=== PATIENT | male | born 1970 | race Caucasian/White ===

== ENCOUNTER 2021-05-11 19:39 | Emergency (ER) | payer BC, SELFPAY ==
--- NOTE | ~2021-05-11 | XR_ITS ---
EXAMINATION: XR CHEST CLINICAL INFORMATION: Shortness of breath. COMPARISON: Multiple priors. Most recent chest radiograph dated from 04/14/2018. TECHNIQUE: PA view of the chest was obtained. FINDINGS: Low lung volumes with mild subsegmental atelectasis. No focal airspace opacities, pleural effusions or pneumothorax. Normal appearance of the cardiomediastinal silhouette. Right upper quadrant surgical clips. No acute osseous abnormalities. XR/XR chest 1V IMPRESSION: No acute cardiopulmonary findings.
[2021-05-11 20:33] VITALS: BP 140/82; PULSE 98; RESP 16; TEMP 37.6; O2SAT 99; BMI 28.3
--- NOTE | 2021-05-11 20:43 | ECG_ITS ---
Test Reason : SOB Blood Pressure : / mmHG Vent. Rate : 083 BPM Atrial Rate : 083 BPM P-R Int : 154 ms QRS Dur : 094 ms QT Int : 388 ms P-R-T Axes : 013 -23 -05 degrees QTc Int : 455 ms Normal sinus rhythm Incomplete right bundle branch block Borderline ECG When compared with ECG of 14-APR-2018 20:46, No significant change was found Referred By: Generic ED Physician Electronically Signed By:JUAN M NSES MD
[2021-05-11 21:28] LABS: Hematocrit 41.1 % (42.0-52.0); Lymphocytes Absolute Auto 1.2 X10*3/uL (1.2-4.9); Monocytes Absolute Auto 0.4 X10*3/uL (0.1-1.2); Monocytes Percent Auto 9.6 % (2-11); PLT CLUMP 1; Red Cell Distribution Width 12.7 % (11.0-16.0); SCAN SMEAR FLAG 1
[2021-05-11 21:29] VITALS: BP 146/95; PULSE 93; RESP 18; TEMP 37; O2SAT 97
[2021-05-11 21:30] LABS: Basophils Percent Auto 0.2 % (0-2); Eosinophils Percent Auto 0.2 % (0-4); Hemoglobin 14.1 g/dl (14.0-18.0); Imm Gran Abs Auto 0.01 X10*3/uL (0.00-0.03); Imm Gran Pct Auto 0.2 % (0.0-0.4); Lymphocytes Percent Auto 25.9 % (20-40); MANUAL DIFF FLAG SCAN; Mean Corpuscular HGB Conc 34.3 g/dl (31.0-36.0); Mean Corpuscular Hemoglobin 31.5 pg (27.0-33.0); Mean Corpuscular Volume 91.7 fL (80.0-98.0); Mean Platelet Volume 10.2 fL (9.4-12.4); Neutrophils Absolute Auto 2.9 x10*3/uL (2.0-8.3); Neutrophils Percent Auto 63.9 % (45-73); Red Blood Count 4.48 X10*6/uL (4.60-5.80)
[2021-05-11 21:31] LABS: Platelet Count 136 X10*3/uL (160-400); White Blood Count 4.6 X10*3/uL (4.8-10.8)
[2021-05-11 21:43] LABS: Anion Gap 14 (12-20); Blood Urea Nitrogen 13 mg/dL (9-16); Calcium 8.6 mg/dL (8.4-10.2); Carbon Dioxide 25 mmol/L (22-29); Chloride 102 mmol/L (96-108); Creatinine Clr Calc Pharmacy 83.7; Estimated Glomerular Filt Rate > 60; Glucose Random 97 mg/dL (60-115); Potassium 3.8 mmol/L (3.3-5.1); Sodium 137 mmol/L (135-145)
[2021-05-11 21:51] LABS: B Type Natriuretic Peptide < 10 pg/mL (<100); Troponin-I High Sensitivity 5.2 ng/L (<3.5-35.0)
[2021-05-11 22:04] LABS: SLIDE REVIEW VERIFIED
--- NOTE | 2021-05-11 23:24 | ED_ITS ---
HPI - SOB/Dyspnea General Chief Complaint: Dyspnea Stated Complaint: covid+ - diff breathing Time Seen by Provider: 05/11/21 23:16 History of Present Illness HPI Narrative: Patient is 50 years old positive COVID. Positive upper respiratory symptoms for the last 10 days. Positive generalized malaise. Previous history of coronary artery disease history of hypertension history of hypercholesterolemia. Patient vaccinated x2. Patient from home. Still feeling short of breath. Still coughing insert present to the emergency department. Related Data Home Medications Medication Instructions Recorded Confirmed aspirin 81 mg tablet,delayed 81 mg PO DAILY 03/30/21 release ([place] Aspirin) atorvastatin 80 mg tablet 80 mg PO DAILY 03/30/21 clopidogrel 75 mg tablet 75 mg PO DAILY 03/30/21 isosorbide mononitrate 30 mg 30 mg PO QAM 03/30/21 tablet,extended release 24 hr lisinopril 40 mg tablet 40 mg PO DAILY 03/30/21 metoprolol succinate 100 mg 100 mg PO DAILY 03/30/21 tablet,extended release 24 hr Allergies Allergy/AdvReac Type Severity Reaction Status Date / Time No Known Allergies Allergy Verified 03/30/21 16:42 Review of Systems Review of Systems: Positive coughing upper respiratory symptoms positive generalized malaise Yes all other systems are reviewed and are negative [facility] Past Medical History Attestation statement: The following information was validated with the patient. Medical History Hypercholesterolemia Hypertension Surgical History Hx of cholecystectomy Social History Social History Housing: House Patient Tobacco Use Status: Former Tobacco user Tobacco use type: Cigarette e-Cigarette/Vaping Use: Never Used Advance Directives: No Advance Directives Information Provided: No Current occupational status: employed Physical Exam Vital Signs: Vital Signs: Last Vital Signs Temp 98.6 F 05/11/21 21:29 Pulse 93 05/11/21 21:29 Resp 18 05/11/21 21:29 BP 146/95 H 05/11/21 21:29 Pulse Ox 97 05/11/21 21:29 BMI result Body Mass Index 28.3 Appearance: Alert. Oriented X3. No acute distress. Eyes: Pupils equal, round and reactive to light. ENT: Pharynx normal. Neck: Normal inspection. Neck supple. No lymph nodes noted. No crepitus CVS: Normal heart rate and rhythm. Pulses normal. Normal S1 and S2 Respiratory: No respiratory distress. Breath sounds normal. No Wheezing. No rales Abdomen: Soft and nontender. No rigidity. No distention. good BS x4 Skin: Skin warm and dry. Normal skin color. Normal skin turgor. Extremities: No lower extremity edema. Neurovascular intact to all extremities. No Lacerations. No Rash Neuro: Oriented X 3. No motor deficit. No sensory deficit. Moving all extermities. No slurred speech MDM - SOB/Dyspnea MDM Narrative Medical decision making narrative: patient's labs are negative. Troponins negative. EKG showed a sinus pattern heart rate is 80 positive partial right bundle branch block. Diffuse T-wave flattening over lateral leads. T-wave inversion over the inferior leads. Patient no distress. Been sick for 10 days. Monoclonal antibody will not be beneficial. Patient's O2 sat 97% on room air. Will discharge patient home. Currently in stable condition. Medical Records Attestation: I reviewed the patient's medical records. Lab Data Attestation: I reviewed the patient's lab results. Result diagrams: 05/11/21 21:20 05/11/21 21:20 Labs: Lab Results 05/11/21 05/11/21 05/11/21 Range/Units 21:20 21:20 21:20 WBC 4.6 L (4.8-10.8) X10*3/uL RBC 4.48 L (4.60-5.80) X10*6/uL Hgb 14.1 (14.0-18.0) g/dl Hct 41.1 L (42.0-52.0) % MCV 91.7 (80.0-98.0) fL MCH 31.5 (27.0-33.0) pg MCHC 34.3 (31.0-36.0) g/dl RDW 12.7 (11.0-16.0) % Plt Count 136 L (160-400) X10*3/uL MPV 10.2 (9.4-12.4) fL Immature Gran % (Auto) 0.2 (0.0-0.4) % Neut % (Auto) 63.9 (45-73) % Lymph % (Auto) 25.9 (20-40) % [place] % (Auto) 9.6 (2-11) % Eos % (Auto) 0.2 (0-4) % Baso % (Auto) 0.2 (0-2) % Lymph # (Auto) 1.2 (1.2-4.9) X10*3/uL [place] # (Auto) 0.4 (0.1-1.2) X10*3/uL Eos # (Auto) 0.0 (0.0-0.4) X10*3/uL Baso # (Auto) 0.0 (0.0-0.2) X10*3/uL Abs Immat Gran (auto) 0.01 (0.00-0.03) X10*3/uL Absolute Neuts (auto) 2.9 (2.0-8.3) x10*3/uL Absolute Nucleated RBC 0.000 (0.0-0.012) X10*3/uL Nucleated RBC % (auto) 0.0 (0.0-0.2) /100WBC Smear Tech's Comments VERIFIED Sodium 137 (135-145) mmol/L Potassium 3.8 (3.3-5.1) mmol/L Chloride 102 (96-108) mmol/L Carbon Dioxide 25 (22-29) mmol/L Anion Gap 14 (12-20) BUN 13 (9-16) mg/dL Creatinine 1.00 (0.5-1.4) mg/dL Estim Creat Clear Calc 83.7 Estimated GFR > 60 Random Glucose 97 (60-115) mg/dL Calcium 8.6 (8.4-10.2) mg/dL Troponin I High Sens 5.2 (<3.5-35.0) ng/L B-Natriuretic Peptide < 10 (<100) pg/mL Discharge Plan Discharge Clinical Impression: COVID-19 Patient Disposition: Home, Self-Care Instructions: COVID-19 (Coronavirus Disease 2019) (ED) Referrals: Daniel Salinas MD [Primary Care Provider] - 2 days ( Please remain at home quarantine until all symptom has resolved for at least 2 days.)
== END 2021-05-11 23:44 | disposition home or self-care (01) ==
PROVIDERS: Emergency Provider Emergency Medicine Emergency Medical Services; PCP Internal Medicine
DX: U07.1 COVID-19 (principal); R06.02 Shortness of breath; R53.81 Other malaise
CPT/HCPCS: 36415; 71045; 80048; 83880; 84484; 85025; 93005; 99283; 99284

== ENCOUNTER 2021-07-20 15:06 | Outpatient (REF) | payer BC, SELFPAY ==
[2021-07-20 15:26] LABS: MANUAL DIFF FLAG NO
[2021-07-20 15:51] LABS: Basophils Percent Auto 0.1 % (0-2); Eosinophils Absolute Auto 0.1 X10*3/uL (0.0-0.4); Eosinophils Percent Auto 1.4 % (0-4); Hematocrit 42.8 % (42.0-52.0); Hemoglobin 14.1 g/dl (14.0-18.0); Imm Gran Abs Auto 0.03 X10*3/uL (0.00-0.03); Imm Gran Pct Auto 0.4 % (0.0-0.4); Lymphocytes Absolute Auto 2.1 X10*3/uL (1.2-4.9); Mean Corpuscular HGB Conc 32.9 g/dl (31.0-36.0); Mean Corpuscular Hemoglobin 30.5 pg (27.0-33.0); Mean Corpuscular Volume 92.4 fL (80.0-98.0); Mean Platelet Volume 9.7 fL (9.4-12.4); Monocytes Absolute Auto 0.6 X10*3/uL (0.1-1.2); Monocytes Percent Auto 8.1 % (2-11); Neutrophils Absolute Auto 4.9 x10*3/uL (2.0-8.3); Platelet Count 212 X10*3/uL (160-400); Red Blood Count 4.63 X10*6/uL (4.60-5.80); Red Cell Distribution Width 12.5 % (11.0-16.0); White Blood Count 7.8 X10*3/uL (4.8-10.8)
[2021-07-20 16:15] LABS: Alanine Aminotransferase 42 U/L (0-40); Albumin Level 4.2 g/dL (3.5-5.0); Alkaline Phosphatase 68 U/L (39-117); Anion Gap 10 (12-20); Aspartate Amino Transferase 25 U/L (5-37); Bilirubin Total 1.6 mg/dL (0.0-1.0); Blood Urea Nitrogen 14 mg/dL (9-16); Calcium 9.2 mg/dL (8.4-10.2); Carbon Dioxide 29 mmol/L (22-29); Chloride 104 mmol/L (96-108); Cholesterol 124 mg/dL; Estimated Glomerular Filt Rate > 60; Glucose Fasting 89 mg/dL (60-99); HDL Cholesterol 30 mg/dL; LDL Cholesterol Calculated 71 mg/dl; Potassium 4.2 mmol/L (3.3-5.1); Sodium 139 mmol/L (135-145); Total Protein 7.3 g/dL (6.5-8.0); Triglycerides 115 mg/dL
[2021-07-20 16:37] LABS: TSH reflex Free T4 0.56 uIU/mL (0.32-4.0); Vitamin D 25-OH Total 11.3 ng/mL (>30)
== END 2021-07-20 15:07 | disposition home or self-care (01) ==
LOC: HO.LAB 15:06
PROVIDERS: PCP Internal Medicine; Visit Provider Internal Medicine
DX: E78.00 Pure hypercholesterolemia, unspecified (principal); E55.9 Vitamin D deficiency, unspecified; I10 Essential (primary) hypertension
CPT/HCPCS: 36415; 80053; 80061; 82306; 84443; 85025

== ENCOUNTER → 2021-07-22 10:15 | Outpatient (REF) | payer BC, SELFPAY ==
--- NOTE | 2021-07-22 10:21 | CA_ITS ---
Acquisition Time: 2021-07-22 10:25:52 Total Exercise Time: 00:10:31 Test Indications: HX CAD, SOB Medications: SEE CHART Protocol: NIKITA Max HR: 144 BPM 85% of Pred: 168 BPM Max BP: 140/078 mmHG Max Work Load: 12.5 METS Exercise stress test with exercise 10 min 31 sec of Nikita protocol, without anginal symptoms, without arrythmia, with normotensive response to exercise, without EKG changes meeting criteria for ischemia, with borderline EKG changes on some of the EKG in leads I, V4-V5, then in recovery with slight downslope of ST in leads I, aVL - nonspecific. Test reviewed with Dr Denney. Referred By: Daniel Salinas Overread By: JA GRAHAM
== END ==
LOC: HO.CARD 10:15
PROVIDERS: PCP Internal Medicine; Visit Provider Internal Medicine
DX: I25.10 Atherosclerotic heart disease of native coronary artery without angina pectoris (principal)
CPT/HCPCS: 93017

== ENCOUNTER 2021-07-29 15:14 | Outpatient (REF) | payer BC, SELFPAY ==
[2021-07-29 16:25] LABS: Appearance Urine CLEAR; Color Urine YELLOW; Glucose Urine UA NEG (NEG); Leukocyte Esterase Urine NEG (NEG); Nitrite Urine NEG (NEG); Specific Gravity - Urine <= 1.005 (1.005-1.025); Urine Blood NEG (NEG); Urine Ketones NEG (NEG); Urine Protein NEG (NEG-TRACE)
[2021-07-29 16:34] LABS: Prostate Specific Antigen 0.42 ng/mL (<0.05-4.0)
== END 2021-07-29 15:15 | disposition home or self-care (01) ==
LOC: HO.LAB 15:14
PROVIDERS: PCP Internal Medicine; Visit Provider Internal Medicine
DX: Z12.5 Encounter for screening for malignant neoplasm of prostate (principal); N40.0 Benign prostatic hyperplasia without lower urinary tract symptoms; I10 Essential (primary) hypertension
CPT/HCPCS: 36415; 81003; 84153

== ENCOUNTER 2021-12-09 09:24 | Outpatient (REF) | payer BC, SELFPAY ==
[2021-12-09 09:48] LABS: MANUAL DIFF FLAG NO
[2021-12-09 10:30] LABS: Basophils Percent Auto 0.3 % (0-2); Eosinophils Absolute Auto 0.2 X10*3/uL (0.0-0.4); Eosinophils Percent Auto 2.6 % (0-4); Hematocrit 41.5 % (42.0-52.0); Hemoglobin 14.1 g/dl (14.0-18.0); Imm Gran Abs Auto 0.05 X10*3/uL (0.00-0.03); Imm Gran Pct Auto 0.6 % (0.0-0.4); Lymphocytes Absolute Auto 2.4 X10*3/uL (1.2-4.9); Lymphocytes Percent Auto 30.7 % (20-40); Mean Corpuscular Hemoglobin 31.2 pg (27.0-33.0); Mean Corpuscular Volume 91.8 fL (80.0-98.0); Mean Platelet Volume 10.5 fL (9.4-12.4); Monocytes Absolute Auto 0.7 X10*3/uL (0.1-1.2); Monocytes Percent Auto 8.5 % (2-11); Neutrophils Absolute Auto 4.4 x10*3/uL (2.0-8.3); Neutrophils Percent Auto 57.3 % (45-73); Platelet Count 223 X10*3/uL (160-400); Red Blood Count 4.52 X10*6/uL (4.60-5.80); Red Cell Distribution Width 12.3 % (11.0-16.0); White Blood Count 7.7 X10*3/uL (4.8-10.8)
[2021-12-09 11:11] LABS: Alanine Aminotransferase 40 U/L (0-40); Alkaline Phosphatase 71 U/L (39-117); Anion Gap 12 (12-20); Aspartate Amino Transferase 26 U/L (5-37); Bilirubin Total 1.4 mg/dL (0.0-1.0); Blood Urea Nitrogen 13 mg/dL (9-16); Calcium 8.5 mg/dL (8.4-10.2); Carbon Dioxide 24 mmol/L (22-29); Chloride 106 mmol/L (96-108); Cholesterol 115 mg/dL; Estimated Glomerular Filt Rate > 60; Glucose Fasting 102 mg/dL (60-99); HDL Cholesterol 29 mg/dL; LDL Cholesterol Calculated 68 mg/dl; Potassium 4.3 mmol/L (3.3-5.1); Sodium 138 mmol/L (135-145); Total Protein 6.9 g/dL (6.5-8.0); Triglycerides 90 mg/dL
[2021-12-09 11:16] LABS: Vitamin D 25-OH Total 39.6 ng/mL (>30)
== END 2021-12-09 09:25 | disposition home or self-care (01) ==
LOC: HO.LAB 09:24
PROVIDERS: PCP Internal Medicine; Visit Provider Internal Medicine
DX: E55.9 Vitamin D deficiency, unspecified (principal); E78.00 Pure hypercholesterolemia, unspecified; I10 Essential (primary) hypertension
CPT/HCPCS: 36415; 80053; 80061; 82306; 85025

== ENCOUNTER 2022-04-12 08:50 | Outpatient (REF) | payer BC, SELFPAY ==
[2022-04-12 09:10] LABS: MANUAL DIFF FLAG NO
[2022-04-12 09:19] LABS: Basophils Percent Auto 0.4 % (0-2); Eosinophils Absolute Auto 0.2 X10*3/uL (0.0-0.4); Eosinophils Percent Auto 2.8 % (0-4); Hematocrit 42.8 % (42.0-52.0); Hemoglobin 14.2 g/dl (14.0-18.0); Imm Gran Abs Auto 0.03 X10*3/uL (0.00-0.03); Imm Gran Pct Auto 0.4 % (0.0-0.4); Lymphocytes Absolute Auto 2.2 X10*3/uL (1.2-4.9); Lymphocytes Percent Auto 26.7 % (20-40); Mean Corpuscular HGB Conc 33.2 g/dl (31.0-36.0); Mean Corpuscular Hemoglobin 30.7 pg (27.0-33.0); Mean Corpuscular Volume 92.4 fL (80.0-98.0); Mean Platelet Volume 9.6 fL (9.4-12.4); Monocytes Absolute Auto 0.7 X10*3/uL (0.1-1.2); Monocytes Percent Auto 7.9 % (2-11); Neutrophils Absolute Auto 5.1 x10*3/uL (2.0-8.3); Neutrophils Percent Auto 61.8 % (45-73); Platelet Count 203 X10*3/uL (160-400); Red Blood Count 4.63 X10*6/uL (4.60-5.80); Red Cell Distribution Width 12.4 % (11.0-16.0); White Blood Count 8.2 X10*3/uL (4.8-10.8)
[2022-04-12 11:45] LABS: Alanine Aminotransferase 45 U/L (0-40); Albumin Level 3.9 g/dL (3.5-5.0); Alkaline Phosphatase 82 U/L (39-117); Anion Gap 13 (12-20); Aspartate Amino Transferase 24 U/L (5-37); Bilirubin Total 1.5 mg/dL (0.0-1.0); Blood Urea Nitrogen 13 mg/dL (9-16); Calcium 8.8 mg/dL (8.4-10.2); Carbon Dioxide 27 mmol/L (22-29); Chloride 105 mmol/L (96-108); Cholesterol 125 mg/dL; Estimated Glomerular Filt Rate > 60; Glucose Fasting 119 mg/dL (60-99); HDL Cholesterol 33 mg/dL; LDL Cholesterol Calculated 67 mg/dl; Potassium 4.5 mmol/L (3.3-5.1); Sodium 140 mmol/L (135-145); TSH reflex Free T4 0.69 uIU/mL (0.32-4.0); Triglycerides 126 mg/dL; Vitamin D 25-OH Total 39.6 ng/mL (>30)
== END 2022-04-12 08:51 | disposition home or self-care (01) ==
LOC: HO.LAB 08:50
PROVIDERS: PCP Internal Medicine; Visit Provider Internal Medicine
DX: E55.9 Vitamin D deficiency, unspecified (principal); I10 Essential (primary) hypertension; E78.00 Pure hypercholesterolemia, unspecified
CPT/HCPCS: 36415; 80053; 80061; 82306; 84443; 85025

== ENCOUNTER 2022-10-25 12:07 | Outpatient (REF) | payer BC, SELFPAY ==
[2022-10-25 12:23] LABS: MANUAL DIFF FLAG NO
[2022-10-25 14:07] LABS: Basophils Percent Auto 0.3 % (0-2); Eosinophils Absolute Auto 0.2 X10*3/uL (0.0-0.4); Eosinophils Percent Auto 2.1 % (0-4); Hematocrit 43.3 % (42.0-52.0); Hemoglobin 14.2 g/dl (14.0-18.0); Imm Gran Abs Auto 0.03 X10*3/uL (0.00-0.03); Imm Gran Pct Auto 0.4 % (0.0-0.4); Lymphocytes Absolute Auto 2.3 X10*3/uL (1.2-4.9); Lymphocytes Percent Auto 29.7 % (20-40); Mean Corpuscular HGB Conc 32.8 g/dl (31.0-36.0); Mean Corpuscular Hemoglobin 30.2 pg (27.0-33.0); Mean Corpuscular Volume 92.1 fL (80.0-98.0); Mean Platelet Volume 10.3 fL (9.4-12.4); Monocytes Absolute Auto 0.7 X10*3/uL (0.1-1.2); Monocytes Percent Auto 8.8 % (2-11); Neutrophils Absolute Auto 4.5 x10*3/uL (2.0-8.3); Neutrophils Percent Auto 58.7 % (45-73); Platelet Count 244 X10*3/uL (160-400); Red Cell Distribution Width 12.2 % (11.0-16.0); White Blood Count 7.7 X10*3/uL (4.8-10.8)
[2022-10-25 14:31] LABS: Estimated Average Glucose 128 mg/dL; Hemoglobin A1c % 6.1 %
[2022-10-25 14:51] LABS: Alanine Aminotransferase 37 U/L (0-40); Albumin Level 3.9 g/dL (3.5-5.0); Alkaline Phosphatase 71 U/L (39-117); Anion Gap 12 (12-20); Aspartate Amino Transferase 22 U/L (5-37); Bilirubin Total 1.3 mg/dL (0.0-1.0); Blood Urea Nitrogen 14 mg/dL (9-16); Calcium 9.1 mg/dL (8.4-10.2); Carbon Dioxide 29 mmol/L (22-29); Chloride 105 mmol/L (96-108); Cholesterol 110 mg/dL; Estimated Glomerular Filt Rate > 60; Glucose Fasting 96 mg/dL (60-99); HDL Cholesterol 26 mg/dL; LDL Cholesterol Calculated 68 mg/dl; Potassium 4.4 mmol/L (3.3-5.1); Sodium 142 mmol/L (135-145); Total Protein 6.9 g/dL (6.5-8.0); Triglycerides 82 mg/dL
[2022-10-25 15:01] LABS: TSH reflex Free T4 0.83 uIU/mL (0.32-4.0); Vitamin D 25-OH Total 44.1 ng/mL (>30)
== END 2022-10-25 12:08 | disposition home or self-care (01) ==
LOC: HO.LAB 12:07
PROVIDERS: PCP Internal Medicine; Visit Provider Internal Medicine
DX: I10 Essential (primary) hypertension (principal); E55.9 Vitamin D deficiency, unspecified; E78.00 Pure hypercholesterolemia, unspecified; R73.01 Impaired fasting glucose
CPT/HCPCS: 36415; 80053; 80061; 82306; 83036; 84443; 85025

== ENCOUNTER 2022-11-03 09:20 | Outpatient (REF) | payer BC, SELFPAY ==
[2022-11-03 09:32] LABS: Appearance Urine Clear; Color Urine Yellow; Glucose Urine UA Negative (Negative); Leukocyte Esterase Urine Negative (Negative); Nitrite Urine Negative (Negative); PH 6.5 (5.0-9.0); Specific Gravity - Urine 1.015 (1.005-1.025); Urine Blood Negative (Negative); Urine Ketones Negative (Negative); Urine Protein Negative (Neg-Trace)
== END 2022-11-03 09:21 | disposition home or self-care (01) ==
LOC: HO.LNP 09:20
PROVIDERS: Visit Provider Internal Medicine
DX: R30.0 Dysuria (principal)
CPT/HCPCS: 81003

== ENCOUNTER 2022-11-03 14:58 | Emergency (ER) | payer BC, SELFPAY ==
--- NOTE | ~2022-11-03 | CT_ITS ---
EXAMINATION: CT ABDOMEN AND PELVIS WITHOUT CONTRAST CLINICAL INFORMATION: Right flank COMPARISON: CT abdomen from 08/02/2016, ultrasound renal from 02/01/2017 TECHNIQUE: Multidetector volumetric imaging was performed from the superior aspect of the liver through the pubic symphysis. Sagittal and coronal reformatted images were obtained on the technologist's workstation. This CT examination was performed using dose optimization techniques as appropriate, variously including the following: *Automated exposure control *Adjustment of mA and/or kV according to patient size (this includes techniques or standardized protocols for targeted exams where dose is matched to indication/reason for exam; i.e. extremities or head) *Use of iterative reconstruction technique DLP: 525 mGy-cm FINDINGS: LUNG BASES: The visualized lung bases are unremarkable. LIVER, GALLBLADDER, AND BILIARY TREE: The liver is normal in size, shape, and attenuation. No focal hepatic lesion or biliary ductal dilatation is present. The gallbladder is surgically absent. PANCREAS: Unremarkable. SPLEEN: Unremarkable. 6 mm splenule. ADRENAL GLANDS: Redemonstration of nodule involving the medial limb of the right adrenal gland measuring up to 2.4, stable. Left adrenal gland is unremarkable. Cm KIDNEYS AND URETERS: The kidneys are normal in size, shape, and attenuation. No hydronephrosis, hydroureter, or calculi seen. No perinephric stranding. BLADDER: Unremarkable. GASTROINTESTINAL TRACT: The small and large bowel are unremarkable. The appendix is unremarkable. ABDOMINAL WALL: No significant hernia is appreciated. LYMPH NODES: Mildly prominent though nonenlarged bilateral inguinal lymph nodes are noted. VASCULAR: Unremarkable. PELVIC VISCERA: Prostate measures up to 3.8 cm with calcifications within its body. OSSEOUS STRUCTURES: Unremarkable. CT/CT abdomen pelvis wo IV con IMPRESSION: 1. No acute pathology involving the abdomen or pelvis. 2. Stable right adrenal gland nodule. 3. Status post cholecystectomy. 4. Mildly prominent though nonenlarged bilateral inguinal lymph nodes are noted, nonspecific.
[2022-11-03 15:02] VITALS: BP 150/99; PULSE 89; RESP 16; TEMP 36.1; O2SAT 95; BMI 30.6
--- NOTE | 2022-11-03 15:05 | ED_ITS ---
HPI - General Adult General Chief complaint: General Medical Stated complaint: R side pain Time Seen by Provider: 11/03/22 19:09 Source: patient and family Mode of arrival: ambulatory Limitations: no limitations History of Present Illness HPI narrative: 52-year-old male presents the emergency department with 3 days of flank pain. He denies any urinary symptoms dysuria frequency he denies fevers chills he has never had a kidney stone in the past denies any previous surgeries patient advised any falls or injuries he complained with to this 3 days ago her urine was dropped off this morning is unremarkable he was seen in triage and labs were sent. Patient also had a CT scan done. Related Data Home Medications Medication Instructions Recorded Confirmed aspirin 81 mg tablet,delayed 81 mg PO DAILY 03/30/21 10/31/22 release ([place] Aspirin) atorvastatin 80 mg tablet 80 mg PO DAILY 03/30/21 10/31/22 clopidogrel 75 mg tablet 75 mg PO DAILY 03/30/21 10/31/22 lisinopril 40 mg tablet 40 mg PO DAILY 03/30/21 10/31/22 metoprolol succinate 100 mg 100 mg PO DAILY 03/30/21 10/31/22 tablet,extended release 24 hr amlodipine 5 mg tablet 5 mg PO DAILY 10/31/22 10/31/22 Previous Rx's Medication Instructions Recorded cholecalciferol (vitamin D3) 50 50 mcg PO DAILY 90 days #90 caps 07/18/22 mcg (2,000 unit) capsule Allergies Allergy/AdvReac Type Severity Reaction Status Date / Time No Known Allergies Allergy Verified 11/03/22 15:01 Review of Systems Review of Systems: Review of systems: General: Patient denies any fever chills recent illness or falls Musculoskeletal: Denies back pain or body aches or other injuries HEENT: denies headache, runny nose, ear pain Respiratory: denies shortness of breath, cough Cardiovascular: no chest pain or palpitations : denies dysuria, frequency Abdomen: no nausea vomiting denies abdominal pain he does have flank pain Extremities: no swelling, no pain Skin: no diaphoresis Yes all other systems are reviewed and are negative [facility] Past Medical History Medical History (Updated 11/03/22 @ 19:19 by Manuel Gu DO) Benign essential hypertension CAD (coronary artery disease) Elevated LFTs Hypercholesterolemia Hypertension Impaired fasting glucose Obesity (BMI 30-39.9) Pure hypercholesterolemia Vitamin D deficiency Surgical History History of colonoscopy (~02/22/18) Hx of cholecystectomy (~03/2018) Social History Social History Housing: House Alcohol intake: current Alcohol intake frequency: holidays/special occasions o nly Patient Tobacco Use Status: Former Tobacco user Tobacco use type: Cigarette e-Cigarette/Vaping Use: Never Used Advance Directives: No Advance Directives Information Provided: No Current occupational status: employed Cognitive needs: No Hearing needs: No Vision needs: No Physical Exam ED Vital Signs: Vital Signs - 24 hr 11/03/22 15:02 Temperature 96.9 F Pulse Rate 89 Respiratory Rate 16 Blood Pressure 150/99 H Pulse Oximetry 95 Oxygen Delivery Method Room Air BMI result Body Mass Index 30.6 General: Well-appearing well-nourished in no signs of distress HEENT: Normocephalic atraumatic Neck: No signs of JVD, no masses no tenderness or lymphadenopathy Cardiovascular: Regular rate and rhythm Respiratory: Clear to auscultation bilaterally Abdomen: Soft nontender no masses no CVA tenderness Extremities: Normal pedal pulses no signs of edema Skin: Dry warm no rashes Back: No tenderness full ROM Course Course Course Narrative: A 52-year-old male presents for evaluation of right flank pain. He he reports that this has been ongoing for approximately 1 month. He states his symptoms have been worse for the last week. Plan for labs, dry CT and UA. Medical Decision Making Medical Decision Making [facility] Narrative: Patient right-sided flank pain for past several days pain also moves the right side of the abdomen patient had a CT scan labs are unremarkable patient will be tested his urine this morning no urine done here today but I think that this patient has had symptoms for 3 days and he has no dysuria are frequency. Differential Diagnosis Differential Diagnoses: The differential diagnosis associated with the presentation includes UTI pyelonephritis cholecystitis cholangitis Admission/Observation Consideration of admission/observation: Escalation of care including admission/observation considered Within a CT scan and negative labs I do not think the patient requires admission speed's mostly to his right flank Lab Data [facility] Lab Attestation statement: I reviewed the patient's lab results. Unremarkable labs and urine patient has a little bit elevation of his glucose. LFTs and bilirubin were better than they have in the past. 11/03/22 15:20 11/03/22 15:20 Labs: Lab Results 11/03/22 11/03/22 Range/Units 15:20 15:20 WBC 8.8 (4.8-10.8) X10*3/uL RBC 4.69 (4.60-5.80) X10*6/uL Hgb 14.5 (14.0-18.0) g/dl Hct 43.2 (42.0-52.0) % MCV 92.1 (80.0-98.0) fL MCH 30.9 (27.0-33.0) pg MCHC 33.6 (31.0-36.0) g/dl RDW 12.4 (11.0-16.0) % Plt Count 238 (160-400) X10*3/uL MPV 9.7 (9.4-12.4) fL Immature Gran % (Auto) 0.2 (0.0-0.4) % Neut % (Auto) 65.6 (45-73) % Lymph % (Auto) 25.4 (20-40) % [place] % (Auto) 7.0 (2-11) % Eos % (Auto) 1.6 (0-4) % Baso % (Auto) 0.2 (0-2) % Lymph # (Auto) 2.2 (1.2-4.9) X10*3/uL [place] # (Auto) 0.6 (0.1-1.2) X10*3/uL Eos # (Auto) 0.1 (0.0-0.4) X10*3/uL Baso # (Auto) 0.0 (0.0-0.2) X10*3/uL Abs Immat Gran (auto) 0.02 (0.00-0.03) X10*3/uL Absolute Neuts (auto) 5.8 (2.0-8.3) x10*3/uL Absolute Nucleated RBC 0.000 (0.0-0.012) X10*3/uL Nucleated RBC % (auto) 0.0 (0.0-0.2) /100WBC Sodium 144 (135-145) mmol/L Potassium 4.6 (3.3-5.1) mmol/L Chloride 107 (96-108) mmol/L Carbon Dioxide 27 (22-29) mmol/L Anion Gap 15 (12-20) BUN 16 (9-16) mg/dL Creatinine 1.07 (0.5-1.4) mg/dL Estim Creat Clear Calc 76.6 Estimated GFR > 60 Random Glucose 150 H (60-115) mg/dL Calcium 9.6 (8.4-10.2) mg/dL Total Bilirubin 1.1 H (0.0-1.0) mg/dL AST 27 (5-37) U/L ALT 42 H (0-40) U/L Alkaline Phosphatase 85 (39-117) U/L Total Protein 7.7 (6.5-8.0) g/dL Albumin 4.2 (3.5-5.0) g/dL Lipase 54 (8-78) U/L Independent Interpretation I performed an independent interpretation of an: CT Scan Radiology Impression Discussion of test interpretation with radiology: I have reviewed the radiologist's reading. Radiologist Impression: No acute disease process did relate the Independent Historian Clinical information obtained from an independent historian. History obtained from or confirmed by: Spouse External Record Review External record reviewed: Inpatient record Discharge Plan Discharge Clinical Impression: Right flank pain, Elevated LFTs Patient Disposition: Home, Self-Care Instructions: Abdominal Pain (ED), Flank Pain (ED) Additional Instructions: You were seen today for right-sided flank pain and abdominal pain. You had a CT scan as well as labs did not show any acute abnormalities. Please abstain from alcohol and to follow up with her doctor Please call follow-up with your doctor if you have any other concerns please do not hesitate to come back to emergency department. Prescriptions: No Action cholecalciferol (vitamin D3) 50 mcg (2,000 unit) capsule 50 mcg PO DAILY 90 Days Qty: 90 3RF amlodipine 5 mg tablet 5 mg PO DAILY aspirin [[place] Aspirin] 81 mg tablet,delayed release (DR/EC) 81 mg PO DAILY atorvastatin 80 mg tablet 80 mg PO DAILY clopidogrel 75 mg tablet 75 mg PO DAILY lisinopril 40 mg tablet 40 mg PO DAILY metoprolol succinate 100 mg tablet extended release 24 hr 100 mg PO DAILY
[2022-11-03 15:24] LABS: MANUAL DIFF FLAG NO
[2022-11-03 15:25] LABS: Basophils Percent Auto 0.2 % (0-2); Eosinophils Absolute Auto 0.1 X10*3/uL (0.0-0.4); Eosinophils Percent Auto 1.6 % (0-4); Hematocrit 43.2 % (42.0-52.0); Hemoglobin 14.5 g/dl (14.0-18.0); Imm Gran Abs Auto 0.02 X10*3/uL (0.00-0.03); Imm Gran Pct Auto 0.2 % (0.0-0.4); Lymphocytes Absolute Auto 2.2 X10*3/uL (1.2-4.9); Lymphocytes Percent Auto 25.4 % (20-40); Mean Corpuscular HGB Conc 33.6 g/dl (31.0-36.0); Mean Corpuscular Hemoglobin 30.9 pg (27.0-33.0); Mean Corpuscular Volume 92.1 fL (80.0-98.0); Mean Platelet Volume 9.7 fL (9.4-12.4); Monocytes Absolute Auto 0.6 X10*3/uL (0.1-1.2); Neutrophils Absolute Auto 5.8 x10*3/uL (2.0-8.3); Neutrophils Percent Auto 65.6 % (45-73); Platelet Count 238 X10*3/uL (160-400); Red Blood Count 4.69 X10*6/uL (4.60-5.80); Red Cell Distribution Width 12.4 % (11.0-16.0); White Blood Count 8.8 X10*3/uL (4.8-10.8)
[2022-11-03 15:47] LABS: Alanine Aminotransferase 42 U/L (0-40); Albumin Level 4.2 g/dL (3.5-5.0); Alkaline Phosphatase 85 U/L (39-117); Anion Gap 15 (12-20); Aspartate Amino Transferase 27 U/L (5-37); Bilirubin Total 1.1 mg/dL (0.0-1.0); Blood Urea Nitrogen 16 mg/dL (9-16); Calcium 9.6 mg/dL (8.4-10.2); Carbon Dioxide 27 mmol/L (22-29); Chloride 107 mmol/L (96-108); Creatinine Clr Calc Pharmacy 76.6; Estimated Glomerular Filt Rate > 60; Glucose Random 150 mg/dL (60-115); Lipase 54 U/L (8-78); Potassium 4.6 mmol/L (3.3-5.1); Sodium 144 mmol/L (135-145); Total Protein 7.7 g/dL (6.5-8.0)
[2022-11-03 19:17] VITALS: BP 164/99; PULSE 72; RESP 18; O2SAT 96
[2022-11-03] MEDS: Acetaminophen 325 MG TABLET 650 MG PO (19:26)
== END 2022-11-03 19:31 | disposition home or self-care (01) ==
PROVIDERS: Physician Assistant; Emergency Provider Student in an Organized Health Care Education/Training Program; PCP Internal Medicine
DX: R10.9 Unspecified abdominal pain (principal); R79.89 Other specified abnormal findings of blood chemistry; I10 Essential (primary) hypertension; E78.00 Pure hypercholesterolemia, unspecified; Z79.82 Long term (current) use of aspirin; Z79.02 Long term (current) use of antithrombotics/antiplatelets; Z79.899 Other long term (current) drug therapy
CPT/HCPCS: 36415; 74176; 80053; 83690; 85025; 99283; 99284

== ENCOUNTER 2023-03-13 16:26 | Outpatient (REF) | payer BC, SELFPAY ==
[2023-03-13 16:37] LABS: MANUAL DIFF FLAG NO
[2023-03-13 17:00] LABS: Appearance Urine Clear; Color Urine Yellow; Glucose Urine UA Negative (Negative); Leukocyte Esterase Urine Trace (Negative); Nitrite Urine Negative (Negative); UMIC TRIGGER UACC YES; Urine Blood Negative (Negative); Urine Ketones Trace mg/dL (Negative); Urine Protein Negative (Neg-Trace)
[2023-03-13 17:00] LABS: Basophils Percent Auto 0.4 % (0-2); Eosinophils Absolute Auto 0.2 X10*3/uL (0.0-0.4); Eosinophils Percent Auto 2.2 % (0-4); Hematocrit 42.6 % (42.0-52.0); Hemoglobin 14.4 g/dl (14.0-18.0); Imm Gran Abs Auto 0.01 X10*3/uL (0.00-0.03); Imm Gran Pct Auto 0.1 % (0.0-0.4); Lymphocytes Absolute Auto 1.9 X10*3/uL (1.2-4.9); Lymphocytes Percent Auto 27.4 % (20-40); Mean Corpuscular HGB Conc 33.8 g/dl (31.0-36.0); Mean Corpuscular Hemoglobin 30.7 pg (27.0-33.0); Mean Corpuscular Volume 90.8 fL (80.0-98.0); Mean Platelet Volume 9.8 fL (9.4-12.4); Monocytes Absolute Auto 0.6 X10*3/uL (0.1-1.2); Monocytes Percent Auto 9.1 % (2-11); Neutrophils Absolute Auto 4.2 x10*3/uL (2.0-8.3); Neutrophils Percent Auto 60.8 % (45-73); Platelet Count 230 X10*3/uL (160-400); Red Blood Count 4.69 X10*6/uL (4.60-5.80); Red Cell Distribution Width 12.7 % (11.0-16.0); White Blood Count 6.9 X10*3/uL (4.8-10.8)
[2023-03-13 17:05] LABS: Bacteria Urine None Seen (None Seen); Hyaline Casts Urine 0-2 /LPF (0-2); RBC Urine 0-2 /HPF (0-2); Squamous Epithelial Cell Urine 0-2 /HPF (0-2); WBC Urine 0-5 /HPF (0-5)
[2023-03-13 17:56] LABS: Alanine Aminotransferase 49 U/L (0-40); Albumin Level 4.3 g/dL (3.5-5.0); Alkaline Phosphatase 82 U/L (39-117); Anion Gap 19 (12-20); Aspartate Amino Transferase 32 U/L (5-37); Blood Urea Nitrogen 11 mg/dL (9-16); Calcium 9.6 mg/dL (8.4-10.2); Carbon Dioxide 22 mmol/L (22-29); Chloride 104 mmol/L (96-108); Cholesterol 122 mg/dL (<200); Estimated Glomerular Filt Rate > 60; Glucose Fasting 97 mg/dL (60-99); HDL Cholesterol 27 mg/dL (>40); LDL Cholesterol Calculated 72 mg/dL (<100); Potassium 3.8 mmol/L (3.3-5.1); Sodium 141 mmol/L (135-145); Total Protein 8.3 g/dL (6.5-8.0); Triglycerides 117 mg/dL (<150)
[2023-03-13 18:09] LABS: Prostate Specific Antigen 0.39 ng/mL (<0.05-4.0)
[2023-03-13 18:10] LABS: TSH reflex Free T4 0.71 uIU/mL (0.32-4.0); Vitamin D 25-OH Total 52.5 ng/mL (>30)
== END 2023-03-13 16:27 | disposition home or self-care (01) ==
LOC: HO.LAB 16:26
PROVIDERS: PCP Internal Medicine; Visit Provider Internal Medicine
DX: Z12.5 Encounter for screening for malignant neoplasm of prostate (principal); N40.0 Benign prostatic hyperplasia without lower urinary tract symptoms; I10 Essential (primary) hypertension; E55.9 Vitamin D deficiency, unspecified; E78.00 Pure hypercholesterolemia, unspecified
CPT/HCPCS: 36415; 80053; 80061; 81001; 81003; 82306; 84153; 84443; 85025

== ENCOUNTER 2023-03-27 16:45 | Outpatient (AMB) | payer BC, SELFPAY ==
[2023-03-27 16:51] VITALS: BP 120/82; PULSE 86; O2SAT 97; BMI 30.6
--- NOTE | 2023-03-27 16:51 | A.OFFPC_ITS ---
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: No Accompanied by: Self / Same As Patient Allergies No Known Allergies Allergy (Verified 03/27/23 17:25) Medication List - Last Reconciled 03/27/23 by Daniel Salinas MD amlodipine 5 mg PO DAILY aspirin ([place] Aspirin) 81 mg PO DAILY atorvastatin 80 mg PO DAILY cholecalciferol (vitamin D3) 50 mcg PO DAILY 90 days clopidogrel 75 mg PO DAILY lisinopril 40 mg PO DAILY metoprolol succinate ER 100 mg PO DAILY Tobacco use date assessed: 03/27/23 Dental Screening Dental Screen Date: 03/27/23 Did you have a dental visit in the last 12 months?: Yes Did you have a dental problem in the last 6 months where you did not have access to dental care?: No Was dental information given to patient?: Patient has dentist HPI 4 month f/u HPI Details Patient comes in today for his follow up visit Relates that he came down with COVID early last month and took the Paxlovid Rx that we sent in for him then States that most of his symptoms have since cleared up although he still has some occasional sensation of congestion in the middle of his chest at times Denies any SOB, recurrent cough or chest pains Denies any fever, headaches or dizziness No nausea /vomiting, no abdominal pain No change in bowel habits noted Had his follow up labs done a couple of weeks ago - to discuss his results [facility] Medical History (Updated 03/28/23 @ 03:43 by Daniel Salinas MD) Elevated LFTs Impaired fasting glucose Vitamin D deficiency Obesity (BMI 30-39.9) Benign essential hypertension Pure hypercholesterolemia CAD (coronary artery disease) Surgical History History of colonoscopy (~02/22/18) Hx of cholecystectomy (~03/2018) Social History Housing: House Alcohol intake: current Alcohol intake frequency: holidays/special occasions only Patient Tobacco Use Status: Former Tobacco user Tobacco use type: Cigarette e-Cigarette/Vaping Use: Never Used Current occupational status: employed Cognitive needs: No Hearing needs: No Vision needs: No Questionnaire PHQ-9 Over the last 2 weeks, how often have you been bothered by any of the following problems? 1. Little interest or pleasure in doing things: not at all 2. Feeling down, depressed, or hopeless: not at all 3. Trouble falling or staying asleep, or sleeping too much: not at all 4. Feeling tired or having little energy: not at all 5. Poor appetite or overeating: not at all 6. Feeling bad about yourself - or that you are a failure or have let yourself or your family down: not at all 7. Trouble concentrating on things, such as reading the newspaper or watching television: not at all 8. Moving or speaking so slowly that other people could have noticed. Or the opposite - being so fidgety or restless that you have been moving around a lot more than usual: not at all 9. Thoughts that you would be better off or of hurting yourself in some way: not at all Total score: 0 Depression Screening Interpretation: Negative Depression Screening Done: Yes 63049 - PHQ-9 Billing: Yes Source: Developed by Drs. Rafat Still, Shannon Chance, Foreign Crawford and colleagues, with an educational sharan from [employer]. Thrive Questionnaire Date Thrive assessed: 03/27/23 I am a: Patient What is your living situation today?: I have a steady place to live Within the past 12 months, did the food you bought not last and you didn't have the money to get more?: Never true Within the past 12 months, did you worry whether your food would run out before you got money to buy more?: Never true Do you have trouble paying for medicines?: No Do you have trouble getting transportation to medical appointments?: No Do you have trouble paying your heating and electricity bill?: No Do you have trouble taking care of your child, family member or friend?: No Do you have trouble with day-to-day activities such as bathing, preparing meals, shopping, managing finances, etc.?: No Are you currently unemployed and looking for a job?: No Are you interested in more education?: No Please select the resources that you would like help with: None Currently or been in a relationship where the following occur: no concerns reported AUDIT C Alcohol Use Questionnaire (AUDIT-C) 1. How often do you have a drink containing alcohol?: Monthly or less 2. How many drinks containing alcohol do you have on a typical day when you are drinking?: 1 or 2 3. How often do you have six or more drinks on one occasion?: Never Total Score: 1 Score Reviewed/Action Taken: Yes ROSLYN-7 AMB Questionnaire ROSLYN-7 Date ROSLYN - 7 assessed: 03/27/23 Feeling nervous, anxious, or on edge: 0 = Not at all Not being able to stop or control worryin = Not at all Worrying too much about different things: 0 = Not at all Trouble relaxin = Not at all Being so restless that it is hard to sit still: 0 = Not at all Becoming easily annoyed or irritable: 0 = Not at all Feeling afraid as if something awful might happen: 0 = Not at all Total ROSLYN-7 score (0-4 normal; 5-9 mild; 10-14 moderate; 15-21 severe): 0 Source: Developed by Drs. Rafat Still, Shannon Chance, Foreign Crawford and colleagues, with an educational sharan from [employer]. Review of Systems Const Denies fatigue, Denies fever(s) and Denies headache(s) ENT Denies dysphagia, Denies dizziness, Denies headache(s), Denies odynophagia and Denies sore throat Card Denies chest pain, Denies palpitations and Denies dyspnea Resp Denies cough and Denies dyspnea GI Denies abdominal pain (but reports (+) on & off sensation of fullness over R abd and R flank areas), Denies constipation, Denies dysphagia, Denies heartburn, Denies diarrhea, Denies nausea, Denies odynophagia and Denies vomiting Denies hematuria, Denies dysuria, Denies nocturia and Denies urinary frequency Musc Denies back pain Skin/Breast Denies rash Neuro Denies dizziness and Denies headache(s) Endo Denies fatigue and Denies palpitations Physical exam (Primary Care) Vital Signs: Last Vital Signs Pulse 86 03/27/23 16:51 BP 120/82 03/27/23 16:51 Pulse Ox 97 03/27/23 16:51 Oxygen Delivery Method Room Air 03/27/23 16:51 BMI result Body Mass Index 30.6 Tobacco/Smoking Status: Tobacco use Status Tobacco use date assessed 03/27/23 03/27/23 16:53 Patient Tobacco Use Status Former Tobacco user 03/27/23 16:53 Tobacco use type Cigarette 03/27/23 16:53 e-Cigarette/Vaping Use Never Used 03/27/23 16:53 PHQ-9: PHQ-9 Score PHQ-9: Total score 0 03/27/23 17:35 Depression Screening Interpretation: Negative Thrive Assessment: Date of Thrive Assessment Date Thrive assessed 03/27/23 03/27/23 16:53 Currently or been in a relationship where the following occur: no concerns reported Const General: no acute distress and alert HENMT Ears: TM's normal bilaterally and EAC's normal Throat: Yes posterior oropharynx normal and Yes tonsils normal (no TP congestion) Neck Neck: Yes no lymphadenopathy and Yes supple Resp Auscultation: clear to auscultation bilaterally, no rales and no wheezes Cardio Rate: regular rate Rhythm: regular rhythm Heart sounds: no murmurs GI Palpation (GI): Soft to palpation and nontender Auscultation: normal bowel sounds General: No CVA tenderness Back/Spine/Pelvis Back: No CVA tenderness Extrem General: Yes no clubbing, cyanosis or edema Results Reviewed Results Reviewed: Laboratory Tests 03/13/23 03/13/23 16:36 16:44 WBC 6.9 Hgb 14.4 Hct 42.6 Plt Count 230 Sodium 141 Potassium 3.8 Creatinine 0.85 Estimated GFR > 60 Fasting Glucose 97 Calcium 9.6 AST 32 ALT 49 H Triglycerides 117 Cholesterol 122 LDL Cholesterol, Calc 72 HDL Cholesterol 27 L Prostate Specific Ag 0.39 25-OH Vitamin D Total 52.5 TSH 0.71 Ur Specific [place] 1.020 Urine Protein Negative Urine Glucose (UA) Negative Urine Blood Negative Assessment and Plan Assessment & Plan (1) CAD (coronary artery disease): Comment: 03/2018 - NSTEMI; cardiac cath done revealed (+) multivessel disease, with 95% stenosis of the RP LV branch Code(s): I25.10 - Atherosclerotic heart disease of [place] coronary artery without angina pectoris Qualifiers: Associated angina: without angina Coronary Disease-Associated Artery/Lesion type: [place] artery [place] vs. transplanted heart: [place] heart Qualified Code(s): I25.10 - Atherosclerotic heart disease of [place] coronary artery without angina pectoris Plan: S/P NSTEMI in March 2018; cardiac cath done revealed (+) multivessel disease, with 95% stenosis of the RP LV branch Cardiology recommended aggressive medical management as opposed to PCI and patient has been doing well with no recurrence of cardiac symptoms Echocardiogram done on 06/13/2018 revealed normal left ventricular size, thickness and function, no regional wall motion abnormalities and estimated LVEF of 65% Continue dual antiplatelet therapy with Aspirin 81 mg QD and Clopidogrel 75 mg QD Continue Metoprolol ER 100 mg QD and Amlodipine 5 mg QD; was previously on Isosorbide Mononitrate ER 30 mg QD but he requested to have this changed as he felt that this was sapping his libido - cardiology switched him over to Amlodipine recently Follow up with cardiology (Dr. Suresh) as scheduled - is being seen by cardiology every 6 months States that cardiology is planning to do a stress echocardiogram on him sometime soon (2) Pure hypercholesterolemia: Code(s): E78.00 - Pure hypercholesterolemia, unspecified Plan: Results of his labs done a couple of weeks ago reviewed and discussed with patient Reinforced low cholesterol diet Continue Atorvastatin 80 mg QD Will recheck his labs and fasting lipids in 4 months for follow up (3) Benign essential hypertension: Code(s): I10 - Essential (primary) hypertension Plan: Reinforced low sodium diet - goal is systolic BP of 120 mm or less, given his cardiac issues Continue Lisinopril 40 mg QD, Metoprolol ER 100 mg QD and Amlodipine 5 mg QD (4) Elevated LFTs: Code(s): R79.89 - Other specified abnormal findings of blood chemistry Plan: His ALT is again slightly elevated but AST is normal on his recent labs Is most likely due to hepatosteatosis - this was noted on his previous abdominal CT done back in 2017 Reinforced avoidance of alcohol and medications containing Tylenol or acetaminophen Will continue to monitor his LFTs regularly (5) Vitamin D deficiency: Code(s): E55.9 - Vitamin D deficiency, unspecified Plan: Corrected - continue Vitamin D3 2000 units QD (6) Obesity (BMI 30-39.9): Code(s): E66.9 - Obesity, unspecified Plan: Reinforced diet/exercise as tolerated/lose weight Plan Follow up in 4 months Orders: Orders Complete Blood Count Auto Diff 4 Months I10 - Essential (primary) hypertension Lipid Panel 4 Months E78.00 - Pure hypercholesterolemia, unspecified UA CC w/rflx Micro + Cult 4 Months R30.0 - Dysuria Comprehensive [place]. Panel Fast 4 Months E78.00 - Pure hypercholesterolemia, unspecified TSH reflex Free T4 4 Months E78.00 - Pure hypercholesterolemia, unspecified Vitamin D 25-OH Total 4 Months E55.9 - Vitamin D deficiency, unspecified Coding Level of Care Code Est Pt Level 4 (18969) Diagnoses Coronary artery disease involving [place] coronary artery of [place] heart without angina pectoris I25.10 Associated angina: without angina Coronary Disease-Associated Artery/Lesion type: [place] artery [place] vs. transplanted heart: [place] heart Pure hypercholesterolemia E78.00 Benign essential hypertension I10 Elevated LFTs R79.89 Vitamin D deficiency E55.9 Obesity (BMI 30-39.9) E66.9
== END 2023-03-27 17:38 | disposition home or self-care (01) ==
PROVIDERS: PCP Internal Medicine; Visit Provider Internal Medicine
DX: I25.10 Atherosclerotic heart disease of native coronary artery without angina pectoris (principal); E78.00 Pure hypercholesterolemia, unspecified; I10 Essential (primary) hypertension; R79.89 Other specified abnormal findings of blood chemistry; E55.9 Vitamin D deficiency, unspecified
CPT/HCPCS: 99214

== ENCOUNTER 2023-06-05 10:30 | Outpatient (REF) | payer BC, SELFPAY | END 2023-06-05 10:31 | disposition home or self-care (01) | LOC: HO.XRAY 10:30 | PROVIDERS: PCP Internal Medicine; Visit Provider Internal Medicine | DX: M54.50 Low back pain, unspecified (principal) | CPT/HCPCS: 72100 ==

== ENCOUNTER 2023-06-08 09:01 | Outpatient (AMB) | payer BC, SELFPAY ==
--- NOTE | 2023-06-08 09:10 | A.OFFVIS_ITS ---
Intake Vital Signs 06/08/23 09:14 Height 5 ft 4 in Weight 180 lb BMI 30.9 BP 136/88 Blood Pressure Location Lt brachial Position Sitting Respiration 20 Pulse 77 Pulse Source Pulse Oximeter Pulse Oximetry (%) 99 Oxygen Delivery Method Room Air Intake Visit Reasons: Low back pain, unspecified Allergies No Known Allergies Allergy (Verified 06/08/23 09:09) HPI HPI Comments History of Present Illness Details Adiel is a very pleasant 52 year old male who presents to the office today for evaluation and management of acute lower back pain. Patient reports the pain started approx 1.5 weeks ago. He has some chronic aching lower back pain but this pain is new. He has recently been going to the gym, prior to the pain starting he was using the leg press machine and did feel a sensation in his back. Pain started after this incident though was not sudden onset at the time of the injury. Patient has been taking tylenol, unable to take NSAIDs as he is on plavix. He was not able to get appt with pcp but did have an xray completed. Results of the xray reviewed, as per below. Pain is midline lower back, he experiences sudden sharp shooting pains with certain movements. Also reports significant pain with coughing and sneezing. Denies radiation down either leg. Denies new loss of bowel, bladder or saddle anesthesia. He does report some aching to the front of his thighs. Pain today rated as 4/10. Constant, worse in the mornings and during the day. In terms of muscle damage condition is described as aching, hot, burning, stabbing, sharp, dull. Pain is negatively impacting patient's enjoyment of life, general activity, mood, normal work, recreational activities, relationships people and walking. 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 He states that lifting exacerbates his pain. [facility] Medical History (Updated 06/08/23 @ 09:54 by Leny Pink APRN, UNDERWRITING SUPPORT SPECIALIST) Elevated LFTs Impaired fasting glucose Vitamin D deficiency Obesity (BMI 30-39.9) Benign essential hypertension Pure hypercholesterolemia CAD (coronary artery disease) Surgical History History of colonoscopy (~02/22/18) Hx of cholecystectomy (~03/2018) Social History Housing: House Alcohol intake: current Alcohol intake frequency: holidays/special occasions only Patient Tobacco Use Status: Former Tobacco user Tobacco use type: Cigarette e-Cigarette/Vaping Use: Never Used Current occupational status: employed Cognitive needs: No Hearing needs: No Vision needs: No Review of Systems Const All systems reviewed & are unremarkable except as noted in HPI and below Physical Exam Vital Signs: Last Vital Signs Pulse 77 06/08/23 09:14 Resp 20 06/08/23 09:14 Pulse Ox 99 06/08/23 09:14 Oxygen Delivery Method Room Air 06/08/23 09:14 BMI result Body Mass Index 30.9 General: awake, alert, oriented. Answers questions appropriately. Fully engaged in examination. Skin: warm, dry, intact HEENT: Normocephalic. Hearing intact. Cardiac: External chest normal in appearance. Respiratory: No cough, audible wheezing or stridor. Abdomen: without gross distension. MS: No obvious swelling or deformities. Able to stand on bilateral tiptoes and bilateral heels.? Able to transition from sit to stand using arms to help push up, slow purposeful movements. Ambulates with bilaterally normal heel strike and toe off SLR neg bilaterally. neg clonus strength 5/5 BLE Tenderness over midline lumbar vertebrae and lumbar paraspinal muscles ROM limited secondary to pain, flexion to 45 degrees, extension to 10 degrees. reported pain increase with both. Neurological: Oriented to person, place, time and situation. Thought process intact. No gait abnormalities appreciated. Psychiatric: Appropriate mood and affect. Good judgment and insight. Results Reviewed Results Reviewed: 06/05/2023 XR/XR lumbar spine 2-3V FINDINGS: There are 5 nonrib-bearing lumbar vertebral bodies. Relative straightening of the lumbar lordosis. No spondylolisthesis. Vertebral body heights are maintained. Mild intervertebral disc space narrowing at L5-S1. Atherosclerotic changes of the abdominal aorta. Surgical clips project over the right upper quadrant. IMPRESSION: Mild degenerative disc disease L5-S1. Assessment & Plan Assessment & Plan (1) Lumbar paraspinal muscle spasm: Code(s): M62.830 - Muscle spasm of back (2) Lumbar spondylosis: Code(s): M47.816 - Spondylosis without myelopathy or radiculopathy, lumbar region (3) Acute low back pain with disc symptoms, duration less than 6 weeks: Code(s): M54.50 - Low back pain, unspecified; M51.9 - Unspecified thoracic, thoracolumbar and lumbosacral intervertebral disc disorder Plan Patient presents to the office today for evaluation and management of his acute lower back pain. Unable to take NSAIDs as he is currently taking Plavix. Prednisone 20mg po BID X 5 days Cyclobenzaprine 5mg po TID as needed, patient instructed on cautions for use MRI LS wo Contrast ordered for further evaluation, pain with coughing/sneezing, concern for disc related injury. Patient requests open MRI as he is claustrophobic. Patient has back brace at home, he was advised to use as needed but avoid constant use as this will allow core muscle weakening over time. Light duty work note provided to patient. Plan for PT pending MRI results. All questions and concerns were answered, patient agrees with plan. Follow up after MRI, sooner if needed. Orders: Orders MR lumbar spine wo con Today M47.816 - Spondylosis without myelopathy or radiculopathy, lumbar region, M51.9 - Unspecified thoracic, thoracolumbar and lumbosacral intervertebral disc disorder, M54.50 - Low back pain, unspecified, M62.830 - Muscle spasm of back Medications: New cyclobenzaprine do not drive while taking this medication. may cause drowsiness. No alcohol or other [employer] depressants while taking this medication 5 mg PO TID PRN 30 tabs 0RF muscle spasm prednisone 20 mg PO BID 10 tabs 0RF Coding Level of Care Code New Pt Level 4 (23426) Diagnoses Lumbar paraspinal muscle spasm M62.830 Lumbar spondylosis M47.816 Acute low back pain with disc symptoms, duration less than 6 weeks M54.50; M51.9
[2023-06-08 09:14] VITALS: BP 136/88; PULSE 77; RESP 20; O2SAT 99; BMI 30.9
== END 2023-06-08 09:24 | disposition home or self-care (01) ==
PROVIDERS: PCP Internal Medicine; Referring Provider Internal Medicine; Visit Provider Registered Nurse Emergency
DX: M62.830 Muscle spasm of back (principal); M47.816 Spondylosis without myelopathy or radiculopathy, lumbar region; M54.50 Low back pain, unspecified; M51.9 Unspecified thoracic, thoracolumbar and lumbosacral intervertebral disc disorder
CPT/HCPCS: 99204

== ENCOUNTER → 2023-06-08 09:01 | Outpatient (BNVA) | payer BC, SELFPAY | PROVIDERS: PCP Internal Medicine; Referring Provider Internal Medicine; Visit Provider Registered Nurse Emergency ==

== ENCOUNTER 2023-06-22 18:52 | Outpatient (REF) | payer BC, SELFPAY ==
--- NOTE | ~2023-06-22 | MR_ITS ---
EXAMINATION: MR LUMBAR SPINE WITHOUT CONTRAST CLINICAL INFORMATION: Spondylosis. Left lower extremity pain. COMPARISON: CT abdomen and pelvis 11/03/2022. TECHNIQUE: MRI of the lumbar spine was obtained using routine sequences without contrast. FINDINGS: Alignment is normal. Vertebral heights are preserved. Minimal type I degenerative endplate changes at L5-S1. Bone marrow signal intensity is otherwise normal. There is slight loss of intervertebral disc height and T2 signal intensity at L5-S1 related to disc degeneration. Disc desiccation is visualized at multiple additional levels. The tip of the conus medullaris is located at L1-L2. No mass effect on the conus. Visualized distal cord signal intensity is normal. At L2, L2-L3, and L3-L4 the annular contours are normal. No canal or neuroforaminal compromise at these 3 levels. At L4-L5 there is a small central annular fissure associated with a bulging disc. Bilateral facet degenerative change. No canal stenosis. No mass effect on the traversing or foraminal nerve roots. At L5-S1 there is a bulging disc. No canal stenosis. No mass effect on the traversing or foraminal nerve roots. Limited visualization of the retroperitoneal anatomy reveals no abnormal finding. Psoas and paraspinal muscle groups are symmetric. MR/MR lumbar spine wo con IMPRESSION: There is disc degeneration at the levels of L4-L5 and L5-S1. No canal stenosis. No mass effect on the traversing or foraminal nerve roots.
== END 2023-06-22 18:53 | disposition home or self-care (01) ==
LOC: HO.MRI 18:52
PROVIDERS: PCP Internal Medicine; Visit Provider Registered Nurse Emergency
DX: M47.816 Spondylosis without myelopathy or radiculopathy, lumbar region (principal); M62.830 Muscle spasm of back; M51.9 Unspecified thoracic, thoracolumbar and lumbosacral intervertebral disc disorder
CPT/HCPCS: 72148

== ENCOUNTER 2023-07-06 15:25 | Outpatient (AMB) | payer BC, SELFPAY ==
[2023-07-06 15:48] VITALS: BP 157/86; PULSE 87; RESP 18; O2SAT 98; BMI 30.9
--- NOTE | 2023-07-06 15:48 | MHC.OFFVIS ---
Intake Vital Signs 07/06/23 15:48 Height 5 ft 4 in Weight 180 lb BMI 30.9 BP 157/86 H Blood Pressure Location Lt brachial Position Sitting Respiration 18 Pulse 87 Pulse Source Pulse Oximeter Pulse Oximetry (%) 98 Oxygen Delivery Method Room Air Intake Visit Reasons: MRI Reults - Confirmed Allergies No Known Allergies Allergy (Verified 07/06/23 15:48) HPI HPI Comments History of Present Illness Details Patient presents the office today for follow-up lower back pain and review recent MRI results MRI reviewed with patient, results as per below Patient complains of persistent midline lower back pain, he states that the acute pain he was having with sharp shooting pains has since resolved. The constant 3/10 aching pain persists. He has been suffering with this pain for many years, completed physical therapy in the past, does home exercise program but pain is unchanged. He is unable to take nonsteroidal anti-inflammatory medication due to current use of anticoagulants. No improvement with Tylenol or muscle relaxers. Prior: Adiel is a very pleasant 52 year old male who presents to the office today for evaluation and management of acute lower back pain. Patient reports the pain started approx 1.5 weeks ago. He has some chronic aching lower back pain but this pain is new. He has recently been going to the gym, prior to the pain starting he was using the leg press machine and did feel a sensation in his back. Pain started after this incident though was not sudden onset at the time of the injury. Patient has been taking tylenol, unable to take NSAIDs as he is on plavix. He was not able to get appt with pcp but did have an xray completed. Results of the xray reviewed, as per below. Pain is midline lower back, he experiences sudden sharp shooting pains with certain movements. Also reports significant pain with coughing and sneezing. Denies radiation down either leg. Denies new loss of bowel, bladder or saddle anesthesia. He does report some aching to the front of his thighs. Pain today rated as 4/10. Constant, worse in the mornings and during the day. In terms of muscle damage condition is described as aching, hot, burning, stabbing, sharp, dull. Pain is negatively impacting patient's enjoyment of life, general activity, mood, normal work, recreational activities, relationships people and walking. 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 He states that lifting exacerbates his pain. [facility] Medical History (Updated 06/08/23 @ 09:54 by Leny Pink, CLERK TYPIST, DIESEL PILE HAMMER OPERATOR) Elevated LFTs Impaired fasting glucose Vitamin D deficiency Obesity (BMI 30-39.9) Benign essential hypertension Pure hypercholesterolemia CAD (coronary artery disease) Surgical History History of colonoscopy (~02/22/18) Hx of cholecystectomy (~03/2018) Social History Housing: House Alcohol intake: current Alcohol intake frequency: holidays/special occasions only Patient Tobacco Use Status: Former Tobacco user Tobacco use type: Cigarette e-Cigarette/Vaping Use: Never Used Current occupational status: employed Cognitive needs: No Hearing needs: No Vision needs: No Review of Systems Const All systems reviewed & are unremarkable except as noted in HPI and below Physical Exam Vital Signs: Last Vital Signs Pulse 87 07/06/23 15:48 Resp 18 07/06/23 15:48 BP 157/86 H 07/06/23 15:48 Pulse Ox 98 07/06/23 15:48 Oxygen Delivery Method Room Air 07/06/23 15:48 BMI result Body Mass Index 30.9 General: awake, alert, oriented. Answers questions appropriately. Fully engaged in examination. Skin: warm, dry, intact HEENT: Normocephalic. Hearing intact. Cardiac: External chest normal in appearance. Respiratory: No cough, audible wheezing or stridor. Abdomen: without gross distension. MS: No obvious swelling or deformities. Able to stand on bilateral tiptoes and bilateral heels.? Able to transition from sit to stand unassisted Ambulates with bilaterally normal heel strike and toe off SLR neg bilaterally. neg clonus strength 5/5 BLE Tenderness over midline lumbar vertebrae and lumbar paraspinal muscles Neurological: Oriented to person, place, time and situation. Thought process intact. No gait abnormalities appreciated. Psychiatric: Appropriate mood and affect. Good judgment and insight. Results Reviewed Results Reviewed: 06/22/23 MR/MR lumbar spine wo con TECHNIQUE: MRI of the lumbar spine was obtained using routine sequences without contrast. FINDINGS: Alignment is normal. Vertebral heights are preserved. Minimal type I degenerative endplate changes at L5-S1. Bone marrow signal intensity is otherwise normal. There is slight loss of intervertebral disc height and T2 signal intensity at L5-S1 related to disc degeneration. Disc desiccation is visualized at multiple additional levels. The tip of the conus medullaris is located at L1-L2. No mass effect on the conus. Visualized distal cord signal intensity is normal. At L2, L2-L3, and L3-L4 the annular contours are normal. No canal or neuroforaminal compromise at these 3 levels. At L4-L5 there is a small central annular fissure associated with a bulging disc. Bilateral facet degenerative change. No canal stenosis. No mass effect on the traversing or foraminal nerve roots. At L5-S1 there is a bulging disc. No canal stenosis. No mass effect on the traversing or foraminal nerve roots. Limited visualization of the retroperitoneal anatomy reveals no abnormal finding. Psoas and paraspinal muscle groups are symmetric. IMPRESSION: There is disc degeneration at the levels of L4-L5 and L5-S1. No canal stenosis. No mass effect on the traversing or foraminal nerve roots. 06/05/2023 XR/XR lumbar spine 2-3V FINDINGS: There are 5 nonrib-bearing lumbar vertebral bodies. Relative straightening of the lumbar lordosis. No spondylolisthesis. Vertebral body heights are maintained. Mild intervertebral disc space narrowing at L5-S1. Atherosclerotic changes of the abdominal aorta. Surgical clips project over the right upper quadrant. IMPRESSION: Mild degenerative disc disease L5-S1. Assessment & Plan Assessment & Plan (1) Lumbar paraspinal muscle spasm: Code(s): M62.830 - Muscle spasm of back (2) Lumbar spondylosis: Code(s): M47.816 - Spondylosis without myelopathy or radiculopathy, lumbar region (3) Acute low back pain with disc symptoms, duration less than 6 weeks: Code(s): M54.50 - Low back pain, unspecified; M51.9 - Unspecified thoracic, thoracolumbar and lumbosacral intervertebral disc disorder Plan Patient presents to the office today for follow up lower back pain. Unable to take NSAIDs as he is currently taking Plavix. He has exhausted 6 months of conservative therapy including Tylenol, muscle relaxers, physical therapy and home exercise program. Discussed options for treatment including diagnostic interventional testing, steroid injections, peripheral nerve stimulation with Sprint, RFA and more permanent neuromodulation. Will schedule for diagnostic L3-L4 dorsal ramus L5 medial branch blocks with local anesthetic All questions and concerns were answered, patient agrees with plan. Follow-up after injections, sooner if needed Coding Level of Care Code Est Pt Level 3 (67153) Diagnoses Lumbar paraspinal muscle spasm M62.830 Lumbar spondylosis M47.816 Acute low back pain with disc symptoms, duration less than 6 weeks M54.50; M51.9
== END 2023-07-06 15:55 | disposition home or self-care (01) ==
PROVIDERS: PCP Internal Medicine; Visit Provider Registered Nurse Emergency
DX: M62.830 Muscle spasm of back (principal); M47.816 Spondylosis without myelopathy or radiculopathy, lumbar region; M54.50 Low back pain, unspecified; M51.9 Unspecified thoracic, thoracolumbar and lumbosacral intervertebral disc disorder
CPT/HCPCS: 99213

== ENCOUNTER → 2023-07-06 15:25 | Outpatient (BNVA) | payer BC, SELFPAY | PROVIDERS: PCP Internal Medicine; Visit Provider Registered Nurse Emergency ==

== ENCOUNTER 2023-07-25 08:40 | Outpatient (REF) | payer BC, SELFPAY ==
[2023-07-25 08:59] LABS: MANUAL DIFF FLAG NO
[2023-07-25 09:30] LABS: Basophils Percent Auto 0.3 % (0-2); Eosinophils Absolute Auto 0.1 X10*3/uL (0.0-0.4); Eosinophils Percent Auto 1.7 % (0-4); Hematocrit 40.7 % (42.0-52.0); Imm Gran Abs Auto 0.03 X10*3/uL (0.00-0.03); Imm Gran Pct Auto 0.4 % (0.0-0.4); Lymphocytes Percent Auto 27.1 % (20-40); Mean Corpuscular HGB Conc 34.4 g/dl (31.0-36.0); Mean Corpuscular Hemoglobin 30.9 pg (27.0-33.0); Mean Corpuscular Volume 89.8 fL (80.0-98.0); Monocytes Absolute Auto 0.6 X10*3/uL (0.1-1.2); Monocytes Percent Auto 8.2 % (2-11); Neutrophils Absolute Auto 4.7 x10*3/uL (2.0-8.3); Neutrophils Percent Auto 62.3 % (45-73); Platelet Count 237 X10*3/uL (160-400); Red Blood Count 4.53 X10*6/uL (4.60-5.80); Red Cell Distribution Width 12.4 % (11.0-16.0); White Blood Count 7.5 X10*3/uL (4.8-10.8)
[2023-07-25 09:34] LABS: Appearance Urine Clear; Color Urine Yellow; Glucose Urine UA Negative (Negative); Leukocyte Esterase Urine Negative (Negative); Nitrite Urine Negative (Negative); PH 6.5 (5.0-9.0); Specific Gravity - Urine <= 1.005 (1.005-1.025); Urine Blood Negative (Negative); Urine Ketones Negative (Negative); Urine Protein Negative (Neg-Trace)
[2023-07-25 11:06] LABS: Alanine Aminotransferase 42 U/L (0-40); Albumin Level 4.2 g/dL (3.5-5.0); Alkaline Phosphatase 79 U/L (39-117); Anion Gap 10 (12-20); Aspartate Amino Transferase 21 U/L (5-37); Blood Urea Nitrogen 11 mg/dL (9-16); Calcium 9.2 mg/dL (8.4-10.2); Carbon Dioxide 29 mmol/L (22-29); Chloride 104 mmol/L (96-108); Cholesterol 124 mg/dL (<200); Estimated Glomerular Filt Rate > 60; Glucose Fasting 130 mg/dL (60-99); HDL Cholesterol 35 mg/dL (>40); LDL Cholesterol Calculated 62 mg/dL (<100); Potassium 4.4 mmol/L (3.3-5.1); Sodium 139 mmol/L (135-145); Total Protein 7.6 g/dL (6.5-8.0); Triglycerides 137 mg/dL (<150)
[2023-07-25 11:09] LABS: TSH reflex Free T4 0.65 uIU/mL (0.32-4.0); Vitamin D 25-OH Total 39.2 ng/mL (>30)
== END 2023-07-25 08:41 | disposition home or self-care (01) ==
LOC: HO.LAB 08:40
PROVIDERS: PCP Internal Medicine; Visit Provider Internal Medicine
DX: R30.0 Dysuria (principal); I10 Essential (primary) hypertension; E55.9 Vitamin D deficiency, unspecified; E78.00 Pure hypercholesterolemia, unspecified
CPT/HCPCS: 36415; 80053; 80061; 81003; 82306; 84443; 85025

== ENCOUNTER 2023-07-26 15:01 | Outpatient (AMB) | payer BC, SELFPAY ==
--- NOTE | 2023-07-26 15:05 | MHC.PC.OV ---
Vital Signs 07/26/23 15:06 07/26/23 16:16 Height 5 ft 4 in Weight 178 lb BMI 30.6 BP 146/98 H 140/86 H Blood Pressure Location Lt brachial Lt brachial Position Sitting Sitting Pulse 76 Pulse Source Pulse Oximeter Pulse Oximetry (%) 98 Oxygen Delivery Method Room Air Intake Visit Reasons: CAD, hyperlipidemia Intake Note: Patient is here to follow up on CAD, hyperlipidemia Early Childhood Education Specialist Required: No Allergies No Known Allergies Allergy (Verified 07/26/23 16:12) Medication List - Last Reconciled 07/26/23 by Daniel Salinas MD albuterol sulfate 90 mcg/actuation inhalation amlodipine 7.5 mg PO DAILY aspirin ([place] Aspirin) 81 mg PO DAILY atorvastatin 80 mg PO DAILY cholecalciferol (vitamin D3) 50 mcg PO DAILY 90 days clopidogrel 75 mg PO DAILY cyclobenzaprine 5 mg PO TID PRN lisinopril 40 mg PO DAILY metoprolol succinate ER 100 mg PO DAILY Tobacco use date assessed: 07/26/23 Dental Screening Dental Screen Date: 07/26/23 Did you have a dental visit in the last 12 months?: No Did you have a dental problem in the last 6 months where you did not have access to dental care?: No HPI CAD, hyperlipidemia HPI Details Patient comes in today for his follow up visit States that he feels okay He denies any headaches or dizziness Denies any chest pains, no SOB No nausea/vomiting, no abdominal pain No change in bowel habits noted States that he is still experiencing problems with ED (has been going on for a while now) and would now like to get some Rx to help with this issue as much as possible Had his follow up labs done yesterday - to discuss his results [facility] Medical History Elevated LFTs Impaired fasting glucose Vitamin D deficiency Obesity (BMI 30-39.9) Benign essential hypertension Pure hypercholesterolemia CAD (coronary artery disease) Surgical History (Updated 08/21/23 @ 03:31 by Daniel Salinas MD) Erectile dysfunction History of colonoscopy (~02/22/18) Hx of cholecystectomy (~03/2018) Social History Housing: House Alcohol intake: current Alcohol intake frequency: holidays/special occasions only Patient Tobacco Use Status: Former Tobacco user Tobacco use type: Cigarette e-Cigarette/Vaping Use: Never Used Current occupational status: employed Cognitive needs: No Hearing needs: No Vision needs: No Questionnaire PHQ-9 Over the last 2 weeks, how often have you been bothered by any of the following problems? 1. Little interest or pleasure in doing things: not at all 2. Feeling down, depressed, or hopeless: not at all 3. Trouble falling or staying asleep, or sleeping too much: not at all 4. Feeling tired or having little energy: not at all 5. Poor appetite or overeating: not at all 6. Feeling bad about yourself - or that you are a failure or have let yourself or your family down: not at all 7. Trouble concentrating on things, such as reading the newspaper or watching television: not at all 8. Moving or speaking so slowly that other people could have noticed. Or the opposite - being so fidgety or restless that you have been moving around a lot more than usual: not at all 9. Thoughts that you would be better off or of hurting yourself in some way: not at all Total score: 0 Depression Screening Interpretation: Negative Depression Screening Done: Yes 10673 - PHQ-9 Billing: Yes Source: Developed by Drs. Rafat Still, Shannon Chance, Foreign Crawford and colleagues, with an educational sharan from [employer]. Thrive Questionnaire Date Thrive assessed: 07/26/23 I am a: Patient What is your living situation today?: I have a steady place to live Within the past 12 months, did the food you bought not last and you didn't have the money to get more?: Never true Within the past 12 months, did you worry whether your food would run out before you got money to buy more?: Never true Do you have trouble paying for medicines?: No Do you have trouble getting transportation to medical appointments?: No Do you have trouble paying your heating and electricity bill?: No Do you have trouble taking care of your child, family member or friend?: No Do you have trouble with day-to-day activities such as bathing, preparing meals, shopping, managing finances, etc.?: No Are you currently unemployed and looking for a job?: No Are you interested in more education?: No Please select the resources that you would like help with: None Currently or been in a relationship where the following occur: no concerns reported THRIVE Score: 0 AUDIT C Alcohol Use Questionnaire (AUDIT-C) 1. How often do you have a drink containing alcohol?: Monthly or less 2. How many drinks containing alcohol do you have on a typical day when you are drinking?: 1 or 2 3. How often do you have six or more drinks on one occasion?: Never Total Score: 1 Score Reviewed/Action Taken: Yes ROSLYN-7 AMB Questionnaire ROSLYN-7 Date ROSLYN - 7 assessed: 07/26/23 Source: Developed by Drs. Rafat Still, Shannon Chance, Foreign Crawford and colleagues, with an educational sharan from [employer]. Review of Systems Const Denies chills, Denies fatigue, Denies fever(s) and Denies headache(s) ENT Denies dysphagia, Denies dizziness, Denies otalgia, Denies headache(s), Denies neck pain, Denies odynophagia and Denies sore throat Card Denies chest pain, Denies palpitations and Denies dyspnea Resp Denies cough and Denies dyspnea GI Denies abdominal pain, Denies constipation, Denies dysphagia, Denies heartburn, Denies diarrhea, Denies nausea, Denies odynophagia and Denies vomiting Reports erectile dysfunction, Denies dysuria, Denies nocturia and Denies urinary frequency Musc Reports back pain (on and off over the lower back) and Denies neck pain Skin/Breast Denies rash Neuro Denies dizziness and Denies headache(s) Endo Denies fatigue and Denies palpitations Physical exam (Primary Care) Vital Signs: Last Vital Signs Pulse 76 07/26/23 15:06 BP 140/86 H 07/26/23 16:16 Pulse Ox 98 07/26/23 15:06 Oxygen Delivery Method Room Air 07/26/23 15:06 BMI result Body Mass Index 30.6 Tobacco/Smoking Status: Tobacco use Status Tobacco use date assessed 07/26/23 07/26/23 15:13 Patient Tobacco Use Status Former Tobacco user 07/26/23 15:06 Tobacco use type Cigarette 07/26/23 15:06 e-Cigarette/Vaping Use Never Used 07/26/23 15:06 PHQ-9: PHQ-9 Score PHQ-9: Total score 0 07/26/23 16:17 Depression Screening Interpretation: Negative Thrive Assessment: Date of Thrive Assessment Date Thrive assessed 07/26/23 07/26/23 15:13 Currently or been in a relationship where the following occur: no concerns reported Const General: no acute distress and alert HENMT Ears: TM's normal bilaterally and EAC's normal Throat: Yes posterior oropharynx normal and Yes tonsils normal (no TP congestion) Neck Neck: Yes no lymphadenopathy and Yes supple Thyroid: Thyroid normal Resp Auscultation: clear to auscultation bilaterally, no rales and no wheezes Cardio Rate: regular rate Rhythm: regular rhythm Heart sounds: no murmurs GI Palpation (GI): Soft to palpation and nontender Auscultation: normal bowel sounds General: Yes no CVA tenderness Back/Spine/Pelvis Back: no CVA tenderness Thoracic/Lumbar Spine: lumbar spinal tenderness Skin Rashes: no rashes Extrem General: Yes no clubbing, cyanosis or edema Results Reviewed Results Reviewed: Laboratory Tests 07/25/23 07/25/23 08:57 08:58 WBC 7.5 Hgb 14.0 Hct 40.7 L Plt Count 237 Sodium 139 Potassium 4.4 Creatinine 0.88 Estimated GFR > 60 Fasting Glucose 130 H Calcium 9.2 AST 21 ALT 42 H Triglycerides 137 Cholesterol 124 LDL Cholesterol, Calc 62 25-OH Vitamin D Total 39.2 TSH 0.65 Ur Specific [place] <= 1.005 Urine Protein Negative Urine Glucose (UA) Negative Urine Blood Negative Urine Nitrite Negative Ur Leukocyte Esterase Negative Assessment and Plan Assessment & Plan (1) CAD (coronary artery disease): Comment: 03/2018 - NSTEMI; cardiac cath done revealed (+) multivessel disease, with 95% stenosis of the RP LV branch Code(s): I25.10 - Atherosclerotic heart disease of [place] coronary artery without angina pectoris Qualifiers: Associated angina: without angina Coronary Disease-Associated Artery/Lesion type: [place] artery [place] vs. transplanted heart: [place] heart Qualified Code(s): I25.10 - Atherosclerotic heart disease of [place] coronary artery without angina pectoris Plan: S/P NSTEMI in March 2018; cardiac cath done revealed (+) multivessel disease, with 95% stenosis of the RP LV branch Cardiology recommended aggressive medical management as opposed to PCI and patient has been doing well with no recurrence of cardiac symptoms Echocardiogram done on 06/13/2018 revealed normal left ventricular size, thickness and function, no regional wall motion abnormalities and estimated LVEF of 65% Continue dual antiplatelet therapy with Aspirin 81 mg QD and Clopidogrel 75 mg QD Continue Metoprolol ER 100 mg QD and Amlodipine 5 mg QD; was previously on Isosorbide Mononitrate ER 30 mg QD but he requested to have this changed as he felt that this was sapping his libido - cardiology switched him over to Amlodipine recently Follow up with cardiology (Dr. Suresh) as scheduled - is being seen by cardiology every 6 months States that cardiology is planning to do a stress echocardiogram on him sometime soon (2) Pure hypercholesterolemia: Code(s): E78.00 - Pure hypercholesterolemia, unspecified Plan: Results of his labs done yesterday reviewed and discussed with patient Reinforced low cholesterol diet Continue Atorvastatin 80 mg QD Will recheck his labs and fasting lipids in 4 months for follow up (3) Benign essential hypertension: Code(s): I10 - Essential (primary) hypertension Plan: Reinforced low sodium diet - goal is systolic BP of 120 mm or less, given his cardiac issues Continue Lisinopril 40 mg QD, Metoprolol ER 100 mg QD and Amlodipine 5 mg QD (4) Elevated LFTs: Code(s): R79.89 - Other specified abnormal findings of blood chemistry Plan: His ALT is again slightly elevated but AST is normal on his recent labs Is most likely due to hepatosteatosis - this was noted on his previous abdominal CT done back in 2017 Reinforced avoidance of alcohol and medications containing Tylenol or acetaminophen Will continue to monitor his LFTs regularly (5) Vitamin D deficiency: Code(s): E55.9 - Vitamin D deficiency, unspecified Plan: Corrected - continue Vitamin D3 2000 units QD (6) Erectile dysfunction: Code(s): N52.9 - Male erectile dysfunction, unspecified Qualifiers: Erectile dysfunction type: unspecified Qualified Code(s): N52.9 - Male erectile dysfunction, unspecified Plan: Per request, will start him on Sildenafil 50 mg PRN Patient is cautioned not to take this if his blood pressure is very high and/or is not adequately controlled (7) Lumbar spondylosis: Code(s): M47.816 - Spondylosis without myelopathy or radiculopathy, lumbar region Plan: Reinforced activity and weight-lifting restrictions MRI of the lumbar spine done last month revealed (+) disc degeneration at L4-L5 and L5-S1 but no canal stenosis or nerve root impingements are noted (8) Obesity (BMI 30-39.9): Code(s): E66.9 - Obesity, unspecified Plan: Reinforced diet/exercise as tolerated/lose weight Plan Follow up in 4 months Orders: Orders Complete Blood Count Auto Diff 4 Months D64.9 - Anemia, unspecified [place]. Panel Fast 4 Months E78.00 - Pure hypercholesterolemia, unspecified Lipid Panel 4 Months E78.00 - Pure hypercholesterolemia, unspecified Medications: New sildenafil administer 30 minutes to 4 hours before activity 50 mg PO DAILY PRN 10 tabs 3RF sexual activity Coding Level of Care Code Est Pt Level 4 (35317) Diagnoses Coronary artery disease involving [place] coronary artery of [place] heart without angina pectoris I25.10 Associated angina: without angina Coronary Disease-Associated Artery/Lesion type: [place] artery [place] vs. transplanted heart: [place] heart Pure hypercholesterolemia E78.00 Benign essential hypertension I10 Elevated LFTs R79.89 Vitamin D deficiency E55.9 Erectile dysfunction, unspecified erectile dysfunction type N52.9 Erectile dysfunction type: unspecified Lumbar spondylosis M47.816 Obesity (BMI 30-39.9) E66.9
[2023-07-26 15:06] VITALS: BP 146/98; PULSE 76; O2SAT 98; BMI 30.6
[2023-07-26 16:16] VITALS: BP 140/86
== END 2023-07-26 16:28 | disposition home or self-care (01) ==
PROVIDERS: PCP Internal Medicine; Visit Provider Internal Medicine
DX: I25.10 Atherosclerotic heart disease of native coronary artery without angina pectoris (principal); E66.9 Obesity, unspecified; Z68.30 Body mass index [BMI] 30.0-30.9, adult; E78.00 Pure hypercholesterolemia, unspecified; I10 Essential (primary) hypertension; R79.89 Other specified abnormal findings of blood chemistry; E55.9 Vitamin D deficiency, unspecified; N52.9 Male erectile dysfunction, unspecified; M47.816 Spondylosis without myelopathy or radiculopathy, lumbar region
CPT/HCPCS: 99214

== ENCOUNTER 2023-09-05 06:21 | Outpatient (REF) | payer BC, SELFPAY ==
--- NOTE | ~2023-09-05 | FL_ITS ---
EXAMINATION: XR FLUOROSCOPY WITH IMAGES CLINICAL INFORMATION: Lumbar spondylosis, without myelopathy or radiculopathy. COMPARISON: Lumbar spine radiographs dated 06/05/2023; MRI lumbar spine dated 06/22/2023. TECHNIQUE: Fluoroscopy Supervised By: Dr. Black Tim. Fluoroscopy Time: 0.6 minutes. Cumulative Dose: 9.81 mGy. DAP: 2.09 Gycm2. Images: 6. FINDINGS: The submitted images show injection needles and injected contrast in the vicinity of the bilateral L3-L4, L4-L5 and L5-S1 neural foramina. FL/FL guidance in treatment room IMPRESSION: Intraoperative fluoroscopic guidance is provided during lumbar pain management procedure. Please see the patient's Operative Report for full procedural details.
== END 2023-09-05 06:22 | disposition home or self-care (01) ==
LOC: CF 06:21
PROVIDERS: Visit Provider Anesthesiology
DX: M47.816 Spondylosis without myelopathy or radiculopathy, lumbar region (principal)
CPT/HCPCS: 64493; 64494; J2795; Q9967

== ENCOUNTER 2023-09-05 15:07 | Outpatient (AMB) | payer BC, SELFPAY ==
[2023-09-05 15:07] VITALS: BP 132/60; PULSE 72; RESP 14; O2SAT 96; BMI 30.6
--- NOTE | 2023-09-05 15:07 | A.OFFVIS_ITS ---
Intake Vital Signs 09/05/23 15:07 09/05/23 16:01 Height 5 ft 4 in 5 ft 4 in Weight 178 lb 178 lb BMI 30.6 30.6 BP 132/60 122/70 Blood Pressure Location Rt brachial Rt brachial Position Sitting Sitting Respiration 14 14 Pulse 72 67 Pulse Source Pulse Oximeter Pulse Oximeter Pulse Oximetry (%) 96 96 Oxygen Delivery Method Room Air Room Air Comment Pre-Op Post-Op Intake Visit Reasons: BILATERAL DIAGNOSTIC L3, L4, DRL5 MBB Allergies No Known Allergies Allergy (Verified 07/26/23 16:12) PFSH Medical History (Updated 08/21/23 @ 03:31 by Danile Salinas MD) Elevated LFTs Impaired fasting glucose Vitamin D deficiency Obesity (BMI 30-39.9) Benign essential hypertension Pure hypercholesterolemia CAD (coronary artery disease) Surgical History (Updated 08/21/23 @ 03:31 by Daniel Salinas MD) Erectile dysfunction History of colonoscopy (~02/22/18) Hx of cholecystectomy (~03/2018) Social History Housing: House Alcohol intake: current Alcohol intake frequency: holidays/special occasions only Patient Tobacco Use Status: Former Tobacco user Tobacco use type: Cigarette e-Cigarette/Vaping Use: Never Used Current occupational status: employed Cognitive needs: No Hearing needs: No Vision needs: No Physical Exam Vital Signs: Last Vital Signs Pulse 67 09/05/23 16:01 Resp 14 09/05/23 16:01 BP 122/70 09/05/23 16:01 Pulse Ox 96 09/05/23 16:01 Oxygen Delivery Method Room Air 09/05/23 16:01 BMI result Body Mass Index 30.6 Assessment & Plan Assessment & Plan (1) Lumbar paraspinal muscle spasm: Code(s): M62.830 - Muscle spasm of back Plan: Diagnostic medial branch block L3-L4 does ramus L5 bilateral. Informed consent was explained to the patient. All questions were explained and? answered.? The patient was taken inside the operating room where she was positioned prone on the operating table.? Time-out was performed delineating correct site, side, the nature of the procedure, patient's allergy, preoperative antibiotic if needed.? All operating room staff was participating in OR time-out procedure. The lower back was prepped with ChloraPrep and draped with sterile towels.? Sterilely draped C-arm was brought over the operating field and sq picture of L4-and L5 vertebra and S1 AREA were delineated on the screen.? Point of interest were delineated as connection of superior articular process of L4 and L5 vertebra bilaterally with corresponding transverse processes as well as connection of the sacral alae bilaterally with superior articular process of S1.? The projection of the point of interest to the skin were injected with the small amount of local anesthetic lidocaine 2% 1-1.5 cc.? After that 22 gauge 3- 1/2 inch spinal needle was driven sequentially to the points of interest in tunnel vision fashion. After needles gently contacted the bone at the point of interests the needle was injected with small amount of the contrast.? The injection of the contrast did not demonstrate any intravascular or intrathecal spread of the contrast.? After that injection of the?ropivacaine 0.5%-1cc was performed at each needle location.? Upon completion of the injections? needle was? removed and sterile Band-Aids were applied.? The? patient was taken outside of the operating room to recovery room where she recovered uneventfully.? The patient went home without immediate complications. (2) Lumbar spondylosis: Code(s): M47.816 - Spondylosis without myelopathy or radiculopathy, lumbar region (3) Acute low back pain with disc symptoms, duration less than 6 weeks: Code(s): M54.50 - Low back pain, unspecified; M51.9 - Unspecified thoracic, thoracolumbar and lumbosacral intervertebral disc disorder Plan Patient presents to the office today for follow up lower back pain. Unable to take NSAIDs as he is currently taking Plavix. He has exhausted 6 months of conservative therapy including Tylenol, muscle relaxers, physical therapy and home exercise program. Discussed options for treatment including diagnostic interventional testing, steroid injections, peripheral nerve stimulation with Sprint, RFA and more permanent neuromodulation. Will schedule for diagnostic L3-L4 dorsal ramus L5 medial branch blocks with local anesthetic All questions and concerns were answered, patient agrees with plan. Follow-up after injections, sooner if needed Orders: Orders FL guidance in treatment room 09/05/23 M47.816 - Spondylosis without myelopathy or radiculopathy, lumbar region Coding Level of Care Code Procedure Only Diagnoses Lumbar paraspinal muscle spasm M62.830 Lumbar spondylosis M47.816 Acute low back pain with disc symptoms, duration less than 6 weeks M54.50; M51.9
[2023-09-05 16:01] VITALS: BP 122/70; PULSE 67; RESP 14; O2SAT 96; BMI 30.6
== END 2023-09-05 16:04 | disposition home or self-care (01) ==
LOC: HO.PMCPRC 15:07
PROVIDERS: PCP Internal Medicine; Visit Provider Anesthesiology
DX: M47.816 Spondylosis without myelopathy or radiculopathy, lumbar region (principal)
CPT/HCPCS: 64493; 64494

== ENCOUNTER 2023-09-08 14:50 | Outpatient (AMB) | payer BC, SELFPAY ==
[2023-09-08 14:56] VITALS: BP 126/93; PULSE 81; RESP 18; O2SAT 96; BMI 32.4
--- NOTE | 2023-09-08 14:56 | A.OFFVIS_ITS ---
Intake Vital Signs 09/08/23 14:56 Height 5 ft 4 in Weight 189 lb BMI 32.4 BP 126/93 H Blood Pressure Location Lt brachial Position Sitting Respiration 18 Pulse 81 Pulse Source Pulse Oximeter Pulse Oximetry (%) 96 Oxygen Delivery Method Room Air Intake Visit Reasons: BILATERAL DIAGNOSTIC L3, L4, DRL5 MBB Allergies No Known Allergies Allergy (Verified 07/26/23 16:12) HPI HPI Comments History of Present Illness Details Adiel presents back to the office today for follow-up, 3 days status post bilateral L3-L4 DR L5 MBB. He reports 70% pain relief with improvement in functional mobility in the hours after the procedure. He reports pain remains improved even today, currently 1/10 for pain. States injections were uncomfortable, but denies any untoward effects Prior: Patient presents the office today for follow-up lower back pain and review recent MRI results MRI reviewed with patient, results as per below Patient complains of persistent midline lower back pain, he states that the a cute pain he was having with sharp shooting pains has since resolved. The constant 3/10 aching pain persists. He has been suffering with this pain for many years, completed physical therapy in the past, does home exercise program but pain is unchanged. He is unable to take nonsteroidal anti-inflammatory medication due to current use of anticoagulants. No improvement with Tylenol or muscle relaxers. Prior: Adiel is a very pleasant 52 year old male who presents to the office today for evaluation and management of acute lower back pain. Patient reports the pain started approx 1.5 weeks ago. He has some chronic aching lower back pain but this pain is new. He has recently been going to the gym, prior to the pain starting he was using the leg press machine and did feel a sensation in his back. Pain started after this incident though was not sudden onset at the time of the injury. Patient has been taking tylenol, unable to take NSAIDs as he is on plavix. He was not able to get appt with pcp but did have an xray completed. Results of the xray reviewed, as per below. Pain is midline lower back, he experiences sudden sharp shooting pains with certain movements. Also reports significant pain with coughing and sneezing. Denies radiation down either leg. Denies new loss of bowel, bladder or saddle anesthesia. He does report some aching to the front of his thighs. Pain today rated as 4/10. Constant, worse in the mornings and during the day. In terms of muscle damage condition is described as aching, hot, burning, stabbing, sharp, dull. Pain is negatively impacting patient's enjoyment of life, general activity, mood, normal work, recreational activities, relationships people and walking. 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 He states that lifting exacerbates his pain. [facility] Medical History (Updated 08/21/23 @ 03:31 by Daniel Salinas MD) Elevated LFTs Impaired fasting glucose Vitamin D deficiency Obesity (BMI 30-39.9) Benign essential hypertension Pure hypercholesterolemia CAD (coronary artery disease) Surgical History (Updated 08/21/23 @ 03:31 by Daniel Salinas MD) Erectile dysfunction History of colonoscopy (~02/22/18) Hx of cholecystectomy (~03/2018) Social History Housing: House Alcohol intake: current Alcohol intake frequency: holidays/special occasions only Patient Tobacco Use Status: Former Tobacco user Tobacco use type: Cigarette e-Cigarette/Vaping Use: Never Used Current occupational status: employed Cognitive needs: No Hearing needs: No Vision needs: No Review of Systems Const All systems reviewed & are unremarkable except as noted in HPI and below Physical Exam Vital Signs: Last Vital Signs Pulse 81 09/08/23 14:56 Resp 18 09/08/23 14:56 BP 126/93 H 09/08/23 14:56 Pulse Ox 96 09/08/23 14:56 Oxygen Delivery Method Room Air 09/08/23 14:56 BMI result Body Mass Index 32.4 General: awake, alert, oriented. Answers questions appropriately. Fully engaged in examination. Skin: warm, dry, intact HEENT: Normocephalic. Hearing intact. Cardiac: External chest normal in appearance. Respiratory: No cough, audible wheezing or stridor. Abdomen: without gross distension. MS: No obvious swelling or deformities. Able to stand on bilateral tiptoes and bilateral heels.? Able to transition from sit to stand unassisted Ambulates with bilaterally normal heel strike and toe off Neurological: Oriented to person, place, time and situation. Thought process intact. No gait abnormalities appreciated. Psychiatric: Appropriate mood and affect. Good judgment and insight. Results Reviewed Results Reviewed: 06/22/23 MR/MR lumbar spine wo con TECHNIQUE: MRI of the lumbar spine was obtained using routine sequences without contrast. FINDINGS: Alignment is normal. Vertebral heights are preserved. Minimal type I degenerative endplate changes at L5-S1. Bone marrow signal intensity is otherwise normal. There is slight loss of intervertebral disc height and T2 signal intensity at L5-S1 related to disc degeneration. Disc desiccation is visualized at multiple additional levels. The tip of the conus medullaris is located at L1-L2. No mass effect on the conus. Visualized distal cord signal intensity is normal. At L2, L2-L3, and L3-L4 the annular contours are normal. No canal or neuroforaminal compromise at these 3 levels. At L4-L5 there is a small central annular fissure associated with a bulging disc. Bilateral facet degenerative change. No canal stenosis. No mass effect on the traversing or foraminal nerve roots. At L5-S1 there is a bulging disc. No canal stenosis. No mass effect on the traversing or foraminal nerve roots. Limited visualization of the retroperitoneal anatomy reveals no abnormal finding. Psoas and paraspinal muscle groups are symmetric. IMPRESSION: There is disc degeneration at the levels of L4-L5 and L5-S1. No canal stenosis. No mass effect on the traversing or foraminal nerve roots. 06/05/2023 XR/XR lumbar spine 2-3V FINDINGS: There are 5 nonrib-bearing lumbar vertebral bodies. Relative straightening of the lumbar lordosis. No spondylolisthesis. Vertebral body heights are maintained. Mild intervertebral disc space narrowing at L5-S1. Atherosclerotic changes of the abdominal aorta. Surgical clips project over the right upper quadrant. IMPRESSION: Mild degenerative disc disease L5-S1. Assessment & Plan Assessment & Plan (1) Lumbar paraspinal muscle spasm: Code(s): M62.830 - Muscle spasm of back (2) Lumbar spondylosis: Code(s): M47.816 - Spondylosis without myelopathy or radiculopathy, lumbar region (3) Acute low back pain with disc symptoms, duration less than 6 weeks: Code(s): M54.50 - Low back pain, unspecified; M51.9 - Unspecified thoracic, thoracolumbar and lumbosacral intervertebral disc disorder Plan Patient presented to the office today for follow-up 3 days status post L3-L4 DR L5 MBB. He reports 70% pain relief with improvement in function and mobility since the procedure Discussed option for treatment including therapeutic injections, sprint PNS versus RFA. Patient was provided with brochure, would like to review his options and will get back to the office once he decides how he would like to proceed. All questions and concerns were answered, patient agrees with the plan. He will reach out to the office when he is ready to proceed with next step in terventional management. Coding Level of Care Code Est Pt Level 3 (29987) Diagnoses Lumbar paraspinal muscle spasm M62.830 Lumbar spondylosis M47.816 Acute low back pain with disc symptoms, duration less than 6 weeks M54.50; M51.9
== END 2023-09-08 15:24 | disposition home or self-care (01) ==
PROVIDERS: PCP Internal Medicine; Visit Provider Registered Nurse Emergency
DX: M62.830 Muscle spasm of back (principal); M47.816 Spondylosis without myelopathy or radiculopathy, lumbar region; M54.50 Low back pain, unspecified; M51.9 Unspecified thoracic, thoracolumbar and lumbosacral intervertebral disc disorder
CPT/HCPCS: 99213

== ENCOUNTER → 2023-09-08 14:50 | Outpatient (BNVA) | payer BC, SELFPAY | PROVIDERS: PCP Internal Medicine; Visit Provider Registered Nurse Emergency ==

== ENCOUNTER 2023-11-14 06:13 | Outpatient (REF) | payer BC, SELFPAY ==
--- NOTE | ~2023-11-14 | FL_ITS ---
EXAMINATION: XR FLUOROSCOPY WITH IMAGES CLINICAL INFORMATION: Lumbar spondylosis. COMPARISON: None available. TECHNIQUE: Fluoroscopy Supervised By: Dr. Black Tim. Fluoroscopy Time: 0.5 minutes. Cumulative Dose: 7.80 mGy. DAP: 2.12 Gycm2. Images: 6. FINDINGS: Intraoperative fluoroscopy and spot films were performed during a procedure in the OR. [place] are seen bilaterally at what is likely L4, L5 and S1. Injected contrast media can be seen likely in the epidural space. Please correlate with Dr. Black Tim's report for complete details. FL/FL guidance in treatment room IMPRESSION: Intraoperative fluoroscopy and spot films were obtained. Please see Dr. Black Tim's report for complete details.
== END 2023-11-14 06:14 | disposition home or self-care (01) ==
LOC: CF 06:13
PROVIDERS: Visit Provider Anesthesiology
DX: M47.816 Spondylosis without myelopathy or radiculopathy, lumbar region (principal); M62.830 Muscle spasm of back; M54.50 Low back pain, unspecified; M51.9 Unspecified thoracic, thoracolumbar and lumbosacral intervertebral disc disorder
CPT/HCPCS: 64493; 64494; J2795; J3301; Q9967

== ENCOUNTER 2023-11-14 12:51 | Outpatient (AMB) | payer BC, SELFPAY ==
--- NOTE | 2023-11-14 13:02 | A.OFFVIS_ITS ---
Vital Signs 11/14/23 13:47 11/14/23 13:48 Height 5 ft 4 in 5 ft 4 in Weight 189 lb 189 lb BMI 32.4 32.4 BP 118/76 124/76 Blood Pressure Location Lt brachial Lt brachial Position Sitting Sitting Respiration 16 16 Pulse 75 63 Pulse Source Pulse Oximeter Pulse Oximeter Pulse Oximetry (%) 97 97 Oxygen Delivery Method Room Air Room Air Comment pre-op post-op Intake Visit Reasons: BILATERAL THERAPEUTIC L3, L4, DRL5 MBB Allergies No Known Allergies Allergy (Verified 11/14/23 13:04) PFSH Medical History (Updated 08/21/23 @ 03:31 by Daniel Salinas MD) Elevated LFTs Impaired fasting glucose Vitamin D deficiency Obesity (BMI 30-39.9) Benign essential hypertension Pure hypercholesterolemia CAD (coronary artery disease) Surgical History (Updated 08/21/23 @ 03:31 by Daniel Salinas MD) Erectile dysfunction History of colonoscopy (~02/22/18) Hx of cholecystectomy (~03/2018) Social History Housing: House Alcohol intake: current Alcohol intake frequency: holidays/special occasions only Patient Tobacco Use Status: Former Tobacco user Tobacco use type: Cigarette e-Cigarette/Vaping Use: Never Used Current occupational status: employed Cognitive needs: No Hearing needs: No Vision needs: No Physical Exam Vital Signs: Last Vital Signs Pulse 63 11/14/23 13:48 Resp 16 11/14/23 13:48 BP 124/76 11/14/23 13:48 Pulse Ox 97 11/14/23 13:48 Oxygen Delivery Method Room Air 11/14/23 13:48 BMI result Body Mass Index 32.4 Assessment & Plan Assessment & Plan (1) Lumbar paraspinal muscle spasm: Code(s): M62.830 - Muscle spasm of back Category: Medical Plan: Diagnostic medial branch block L3,L4 dorsal ramus L5 bilateral.? ? ?Informed consent was explained to the patient. All questions were explained and? answered.? The patient was taken inside the operating room where she was positioned prone on the operating table. Time-out was performed delineating correct site, side, the nature of the procedure, patient's allergy, . All operating room staff was participating in OR time-out procedure. ? ? The lower back was prepped with ChloraPrep and draped with sterile towels.? C- arm was brought over the operating field and sq picture of L4-, L5 vertebra and S1 AREA were delineated on the screen.? Point of interest were delineated as confluence of superior articular process of L4 and L5 vertebra bilaterally with corresponding transverse processes as well as confluence of the sacral alae bilaterally with superior articular process of S1.? The projection of the point of interest to the skin were injected with the small amount of local anesthetic lidocaine 2% 1-1.5 cc.? After that 22 gauge 3.5 inch spinal needle was driven sequentially to the points of interest in tunnel vision fashion. After needles gently contacted the bone at the point of interests the needle was injected with small amount of the contrast.? The injection of the contrast did not demonstrate any intravascular or intrathecal spread of the contrast.? After that injection of the? ropivacaine 0.5%-1cc mixed with Kenalog 40 mg was performed at each needle location.??after that the needles were removed and Bandaids were applied. ? Upon completion of the injections? needle was? removed and sterile Band-Aids were (2) Lumbar spondylosis: Code(s): M47.816 - Spondylosis without myelopathy or radiculopathy, lumbar region Category: Medical (3) Acute low back pain with disc symptoms, duration less than 6 weeks: Code(s): M54.50 - Low back pain, unspecified; M51.9 - Unspecified thoracic, thoracolumbar and lumbosacral intervertebral disc disorder Category: Medical Plan Patient presented to the office today for follow-up 3 days status post L3-L4 DR L5 MBB. He reports 70% pain relief with improvement in function and mobility since the procedure Discussed option for treatment including therapeutic injections, sprint PNS versus RFA. Patient was provided with brochure, would like to review his options and will get back to the office once he decides how he would like to proceed. All questions and concerns were answered, patient agrees with the plan. He will reach out to the office when he is ready to proceed with next step interven tional management. Orders: Orders FL guidance in treatment room Today M47.816 - Spondylosis without myelopathy or radiculopathy, lumbar region Coding Level of Care Code Procedure Only Diagnoses Lumbar paraspinal muscle spasm M62.830 Lumbar spondylosis M47.816 Acute low back pain with disc symptoms, duration less than 6 weeks M54.50; M51.9
[2023-11-14 13:47] VITALS: BP 118/76; PULSE 75; RESP 16; O2SAT 97; BMI 32.4
[2023-11-14 13:48] VITALS: BP 124/76; PULSE 63; RESP 16; O2SAT 97; BMI 32.4
== END 2023-11-14 13:33 | disposition home or self-care (01) ==
LOC: HO.PMCPRC 12:51
PROVIDERS: PCP Internal Medicine; Visit Provider Anesthesiology
DX: M47.816 Spondylosis without myelopathy or radiculopathy, lumbar region (principal); M62.830 Muscle spasm of back; M54.50 Low back pain, unspecified; M51.9 Unspecified thoracic, thoracolumbar and lumbosacral intervertebral disc disorder
CPT/HCPCS: 64493; 64494

== ENCOUNTER 2023-11-21 14:50 | Outpatient (REF) | payer BC, SELFPAY ==
[2023-11-21 16:09] LABS: Alanine Aminotransferase 62 U/L (0-40); Albumin Level 4.2 g/dL (3.5-5.0); Alkaline Phosphatase 85 U/L (39-117); Anion Gap 15 (12-20); Aspartate Amino Transferase 25 U/L (5-37); Bilirubin Total 1.6 mg/dL (0.0-1.0); Blood Urea Nitrogen 17 mg/dL (9-16); Calcium 9.4 mg/dL (8.4-10.2); Carbon Dioxide 24 mmol/L (22-29); Chloride 105 mmol/L (96-108); Cholesterol 132 mg/dL (<200); Estimated Glomerular Filt Rate > 60; Glucose Fasting 119 mg/dL (60-99); HDL Cholesterol 39 mg/dL (>40); LDL Cholesterol Calculated 70 mg/dL (<100); Potassium 3.8 mmol/L (3.3-5.1); Sodium 140 mmol/L (135-145); Total Protein 7.6 g/dL (6.5-8.0); Triglycerides 119 mg/dL (<150)
== END 2023-11-21 14:51 | disposition home or self-care (01) ==
LOC: HO.LAB 14:50
PROVIDERS: PCP Internal Medicine; Visit Provider Internal Medicine
DX: E78.00 Pure hypercholesterolemia, unspecified (principal)
CPT/HCPCS: 36415; 80053; 80061

== ENCOUNTER 2023-11-24 15:44 | Outpatient (AMB) | payer BC, SELFPAY ==
--- NOTE | 2023-11-24 15:50 | MHC.PC.OV ---
Vital Signs 11/24/23 15:52 Height 5 ft 4 in Weight 177 lb 2 oz BMI 30.4 BP 132/84 Blood Pressure Location Lt brachial Position Sitting Pulse 84 Pulse Source Pulse Oximeter Pulse Oximetry (%) 98 Oxygen Delivery Method Room Air Intake Visit Reasons: 4mth f/u Intake Note: Patient is here to follow up on IFG, Lower back pain, HTN, CAD. Bottom Saw Operator Required: No Glass Decorator: Not Required per policy Accompanied by: Self / Same As Patient Allergies No Known Allergies Allergy (Verified 11/26/23 11:59) Medication List - Last Reconciled 11/26/23 by Daniel Salinas MD amlodipine 7.5 mg PO DAILY aspirin ([place] Aspirin) 81 mg PO DAILY atorvastatin 80 mg PO DAILY cholecalciferol (vitamin D3) 50 mcg PO DAILY 90 days clopidogrel 75 mg PO DAILY cyclobenzaprine 10 mg PO TID PRN lisinopril 40 mg PO DAILY metformin ER 500 mg PO QPM 30 days metoprolol succinate ER 100 mg PO DAILY sildenafil 50 mg PO DAILY PRN Tobacco use date assessed: 11/24/23 Dental Screening Dental Screen Date: 07/26/23 [facility] HPI Details Patient comes in today for his follow-up visit States that he feels okay He denies any headaches or dizziness Denies any chest pains, no shortness of breath No nausea /vomiting, no abdominal pain No change in bowel habits noted Had his follow-up labs done a few days ago - to discuss his results [facility] Medical History (Updated 11/26/23 @ 12:12 by Daniel Salinas MD) Type 2 diabetes mellitus with hyperglycemia Elevated LFTs Impaired fasting glucose Vitamin D deficiency Obesity (BMI 30-39.9) Benign essential hypertension Pure hypercholesterolemia CAD (coronary artery disease) Surgical History Erectile dysfunction History of colonoscopy (~02/22/18) Hx of cholecystectomy (~03/2018) Social History Housing: House Alcohol intake: current Alcohol intake frequency: holidays/special occasions only Patient Tobacco Use Status: Former Tobacco user Tobacco use type: Cigarette e-Cigarette/Vaping Use: Never Used service: No Current occupational status: employed Cognitive needs: No Hearing needs: No Vision needs: No Questionnaire Thrive Questionnaire Date Thrive assessed: 07/26/23 ROSLYN-7 AMB Questionnaire ROSLYN-7 Date ROSLYN - 7 assessed: 07/26/23 Source: Developed by Drs. Rafat Still, Shannon Chance, Foreign Crawford and colleagues, with an educational sharan from [employer]. Review of Systems Const Denies chills, Denies fatigue, Denies fever(s) and Denies headache(s) ENT Denies dysphagia, Denies dizziness, Denies otalgia, Denies headache(s), Denies neck pain, Denies odynophagia and Denies sore throat Card Denies chest pain, Denies palpitations and Denies dyspnea Resp Denies cough and Denies dyspnea GI Denies abdominal pain, Denies constipation, Denies dysphagia, Denies heartburn, Denies diarrhea, Denies nausea, Denies odynophagia and Denies vomiting Reports erectile dysfunction, Denies dysuria, Denies nocturia and Denies urinary frequency Musc Reports back pain (on and off over the lower back) and Denies neck pain Skin/Breast Denies rash Neuro Denies dizziness and Denies headache(s) Endo Denies fatigue and Denies palpitations Physical exam (Primary Care) Vital Signs: Last Vital Signs Pulse 84 11/24/23 15:52 BP 132/84 11/24/23 15:52 Pulse Ox 98 11/24/23 15:52 Oxygen Delivery Method Room Air 11/24/23 15:52 BMI result Body Mass Index 30.4 Tobacco/Smoking Status: Tobacco use Status Tobacco use date assessed 11/24/23 11/24/23 15:58 Patient Tobacco Use Status Former Tobacco user 11/24/23 15:50 Tobacco use type Cigarette 11/24/23 15:50 e-Cigarette/Vaping Use Never Used 11/24/23 15:50 Thrive Assessment: Date of Thrive Assessment Date Thrive assessed 07/26/23 11/24/23 15:50 Const General: no acute distress and alert HENMT Ears: TM's normal bilaterally and EAC's normal Throat: Yes posterior oropharynx normal and Yes tonsils normal (no TP congestion) Neck Neck: Yes no lymphadenopathy and Yes supple Thyroid: Thyroid normal Resp Auscultation: clear to auscultation bilaterally, no rales and no wheezes Cardio Rate: regular rate Rhythm: regular rhythm Heart sounds: no murmurs GI Palpation (GI): Soft to palpation and nontender Auscultation: normal bowel sounds General: Yes no CVA tenderness Back/Spine/Pelvis Back: no CVA tenderness Thoracic/Lumbar Spine: lumbar spinal tenderness Skin Rashes: no rashes Extrem General: Yes no clubbing, cyanosis or edema Results AMB Hemoglobin A1c AMB Hemoglobin A1c 6.9 % Last Edit by SULEMAN Fernández on 11/24/23 16:04 Results Reviewed Results Reviewed: Laboratory Last Values Hgb A1c (Clinic) 6.9 % (4.0-6.0) H 11/24/23 15:50 Laboratory Tests 11/21/23 11/24/23 15:10 15:50 Sodium 140 Potassium 3.8 Creatinine 0.83 Estimated GFR > 60 Fasting Glucose 119 H Hgb A1c (Clinic) 6.9 H Calcium 9.4 Total Bilirubin 1.6 H AST 25 ALT 62 H Triglycerides 119 Cholesterol 132 LDL Cholesterol, Calc 70 HDL Cholesterol 39 L Assessment and Plan Assessment & Plan (1) CAD (coronary artery disease): Comment: 03/2018 - NSTEMI; cardiac cath done revealed (+) multivessel disease, with 95% stenosis of the RP LV branch Code(s): I25.10 - Atherosclerotic heart disease of [place] coronary artery without angina pectoris Qualifiers: Associated angina: without angina Coronary Disease-Associated Artery/Lesion type: [place] artery [place] vs. transplanted heart: [place] heart Qualified Code(s): I25.10 - Atherosclerotic heart disease of [place] coronary artery without angina pectoris Plan: S/P NSTEMI in March 2018; cardiac cath done revealed (+) multivessel disease, with 95% stenosis of the RP LV branch Cardiology recommended aggressive medical management as opposed to PCI and patient has been doing well since with no recurrence of cardiac symptoms Echocardiogram done on 06/13/2018 revealed normal left ventricular size, thickness and function, no regional wall motion abnormalities and estimated LVEF of 65% Continue dual antiplatelet therapy with Aspirin 81 mg QD and Clopidogrel 75 mg QD Continue Metoprolol ER 100 mg QD and Amlodipine 5 mg QD; was previously on Isosorbide Mononitrate ER 30 mg QD but he requested to have this changed as he felt that this was sapping his libido - cardiology switched him over to Amlodipine Follow up with cardiology (Dr. Suresh) as scheduled - is being seen by cardiology every 6 months States that cardiology is planning to do a stress echocardiogram on him sometime soon (2) Pure hypercholesterolemia: Code(s): E78.00 - Pure hypercholesterolemia, unspecified Plan: Results of his labs done a few days ago reviewed and discussed with patient Reinforced low cholesterol diet Continue Atorvastatin 80 mg QD Will recheck his labs and fasting lipids in 4 months for follow up (3) Benign essential hypertension: Code(s): I10 - Essential (primary) hypertension Plan: Reinforced low sodium diet - goal is systolic BP of 120 mm or less, given his cardiac issues Continue Lisinopril 40 mg QD, Metoprolol ER 100 mg QD and Amlodipine 5 mg QD (4) Type 2 diabetes mellitus with hyperglycemia: Code(s): E11.65 - Type 2 diabetes mellitus with hyperglycemia Qualifiers: Diabetes mellitus penitentiary insulin use: without penitentiary use Qualified Code(s): E11.65 - Type 2 diabetes mellitus with hyperglycemia Plan: Patient's fasting blood sugar remains elevated on his recent labs at 119 mg/dL so an in-office HgbA1c was checked today, which came out high at 6.9% Have advised patient that this puts him and diabetes category Advised that his fasting blood sugar has been elevated for a few months now and based on his HgbA1c reading today, will recommend that he start taking some medication to help slow down progression of his diabetes, which patient agrees to Will start him today on Metformin ER 500 mg QD Will recheck his FBS and HgbA1c again in 4 months for follow-up (5) Elevated LFTs: Code(s): R79.89 - Other specified abnormal findings of blood chemistry Plan: His ALT is again elevated but AST remains normal on his recent labs This is most likely due to hepatosteatosis - this was noted on his previous abdominal CT done back in 2017 Reinforced avoidance of alcohol and medications containing Tylenol or acetaminophen Will continue to monitor his LFTs regularly (6) Vitamin D deficiency: Code(s): E55.9 - Vitamin D deficiency, unspecified Plan: Continue Vitamin D3 2000 units QD (7) Erectile dysfunction: Code(s): N52.9 - Male erectile dysfunction, unspecified Qualifiers: Erectile dysfunction type: unspecified Qualified Code(s): N52.9 - Male erectile dysfunction, unspecified Plan: <del>C</del>ontinue Sildenafil 50 mg PRN Patient is again cautioned not to take this if his blood pressure is very high (8) Lumbar spondylosis: Code(s): M47.816 - Spondylosis without myelopathy or radiculopathy, lumbar region Plan: Reinforced activity and weight-lifting restrictions MRI of the lumbar spine done a few months ago revealed (+) disc degeneration at L4-L5 and L5-S1 but no canal stenosis or nerve root impingements are noted Consider referral to pain management if his low back pain progresses or gets worse (9) Obesity (BMI 30-39.9): Code(s): E66.9 - Obesity, unspecified Plan: Reinforced diet/exercise as tolerated/lose weight Plan Follow up in 4 months Orders: Orders AMB Hemoglobin A1c 11/24/23 R73.01 - Impaired fasting glucose Hemoglobin A1c 4 Months E11.9 - Type 2 diabetes mellitus without complications Lipid Panel 4 Months E78.00 - Pure hypercholesterolemia, unspecified Complete Blood Count Auto Diff 4 Months D64.9 - Anemia, unspecified Comprehensive [place]. Panel Fast 4 Months E78.00 - Pure hypercholesterolemia, unspecified Medications: New metformin ER 500 mg PO QPM 30 days 30 tabs 3RF Coding Level of Care Code Est Pt Level 4 (99474) Diagnoses Coronary artery disease involving [place] coronary artery of [place] heart without angina pectoris I25.10 Associated angina: without angina Coronary Disease-Associated Artery/Lesion type: [place] artery [place] vs. transplanted heart: [place] heart Pure hypercholesterolemia E78.00 Benign essential hypertension I10 Type 2 diabetes mellitus with hyperglycemia, without long-term current use of insulin E11.65 Diabetes mellitus terminal operations supervisor insulin use: without terminal operations supervisor use Elevated LFTs R79.89 Vitamin D deficiency E55.9 Erectile dysfunction, unspecified erectile dysfunction type N52.9 Erectile dysfunction type: unspecified Lumbar spondylosis M47.816 Obesity (BMI 30-39.9) E66.9
[2023-11-24 15:52] VITALS: BP 132/84; PULSE 84; O2SAT 98; BMI 30.4
== END 2023-11-24 16:37 | disposition home or self-care (01) ==
PROVIDERS: PCP Internal Medicine; Visit Provider Internal Medicine
DX: R73.01 Impaired fasting glucose (principal)
CPT/HCPCS: 83036; 99214

== ENCOUNTER 2023-11-27 15:43 | Outpatient (REF) | payer BC, SELFPAY ==
[2023-11-27 15:57] LABS: MANUAL DIFF FLAG NO
[2023-11-27 16:07] LABS: Basophils Percent Auto 0.1 % (0-2); Eosinophils Absolute Auto 0.1 X10*3/uL (0.0-0.4); Hematocrit 43.4 % (42.0-52.0); Imm Gran Abs Auto 0.07 X10*3/uL (0.00-0.03); Imm Gran Pct Auto 0.5 % (0.0-0.4); Lymphocytes Absolute Auto 1.8 X10*3/uL (1.2-4.9); Lymphocytes Percent Auto 13.5 % (20-40); Mean Corpuscular HGB Conc 34.6 g/dl (31.0-36.0); Mean Corpuscular Hemoglobin 31.3 pg (27.0-33.0); Mean Corpuscular Volume 90.6 fL (80.0-98.0); Mean Platelet Volume 9.3 fL (9.4-12.4); Monocytes Absolute Auto 0.9 X10*3/uL (0.1-1.2); Monocytes Percent Auto 6.7 % (2-11); Neutrophils Absolute Auto 10.5 x10*3/uL (2.0-8.3); Neutrophils Percent Auto 78.2 % (45-73); Platelet Count 303 X10*3/uL (160-400); Red Blood Count 4.79 X10*6/uL (4.60-5.80); Red Cell Distribution Width 12.5 % (11.0-16.0); White Blood Count 13.4 X10*3/uL (4.8-10.8)
[2023-11-27 16:18] LABS: Estimated Average Glucose 146 mg/dL; Hemoglobin A1c % 6.7 % (<6.0)
[2023-11-27 16:38] LABS: Alanine Aminotransferase 72 U/L (0-40); Albumin Level 4.2 g/dL (3.5-5.0); Alkaline Phosphatase 86 U/L (39-117); Anion Gap 13 (12-20); Aspartate Amino Transferase 35 U/L (5-37); Bilirubin Total 1.2 mg/dL (0.0-1.0); Blood Urea Nitrogen 22 mg/dL (9-16); Calcium 9.3 mg/dL (8.4-10.2); Carbon Dioxide 24 mmol/L (22-29); Chloride 105 mmol/L (96-108); Cholesterol 132 mg/dL (<200); Estimated Glomerular Filt Rate > 60; Glucose Fasting 122 mg/dL (60-99); HDL Cholesterol 39 mg/dL (>40); LDL Cholesterol Calculated 76 mg/dL (<100); Sodium 138 mmol/L (135-145); Total Protein 7.7 g/dL (6.5-8.0); Triglycerides 89 mg/dL (<150)
== END 2023-11-27 15:44 | disposition home or self-care (01) ==
LOC: HO.LAB 15:43
PROVIDERS: PCP Internal Medicine; Visit Provider Internal Medicine
DX: E78.00 Pure hypercholesterolemia, unspecified (principal); E11.9 Type 2 diabetes mellitus without complications; D64.9 Anemia, unspecified
CPT/HCPCS: 36415; 80053; 80061; 83036; 85025

== ENCOUNTER 2024-02-27 15:47 | Outpatient (AMB) | payer BC, SELFPAY ==
--- NOTE | 2024-02-27 15:53 | AM.OFFWIN_ITS ---
Intake Vital Signs 02/27/24 15:54 Height 5 ft 4 in Weight 170 lb 8 oz BMI 29.3 BP 140/86 H Blood Pressure Location Rt brachial Position Sitting Pulse 106 H Pulse Source Pulse Oximeter Temp 97.4 F Temp Source Temporal Artery Scan Pulse Oximetry (%) 98 Oxygen Delivery Method Room Air Intake Visit Reasons: EP-rt hand 4th finger swollen Intake Note: Pt presents to the office today for c/o right hand 4th finger swelling x1 month. Pt states he was grabbing the tailgate of a truck and states he didn't grab it completely and then it became painful and swollen. Patient Tobacco Use Status: Former Tobacco user Allergies No Known Allergies Allergy (Verified 02/27/24 15:56) HPI HPI Comments History of Present Illness Details 53 y/o male patient who presents to the walk in clinic with c/o right hand 4th finger swelling and tender x1 month. Pt states he injured his finger when he went to grab the tailgate of a truck and states he didn't grab it completely and hyperflex or extend the finger. He did not seek medical attention right away, he hoped it will get better on its own, but it is tender and swollen now. [facility] Medical History (Updated 11/26/23 @ 12:12 by Daniel Salinas MD) Type 2 diabetes mellitus with hyperglycemia Elevated LFTs Impaired fasting glucose Vitamin D deficiency Obesity (BMI 30-39.9) Benign essential hypertension Pure hypercholesterolemia CAD (coronary artery disease) Surgical History Erectile dysfunction History of colonoscopy (~02/22/18) Hx of cholecystectomy (~03/2018) Social History Housing: House Alcohol intake: current Alcohol intake frequency: holidays/special occasions only Patient Tobacco Use Status: Former Tobacco user Tobacco use type: Cigarette e-Cigarette/Vaping Use: Never Used service: No Current occupational status: employed Cognitive needs: No Hearing needs: No Vision needs: No Review of Systems Const All systems reviewed & are unremarkable except as noted in HPI and below Physical Exam Vital Signs: Last Vital Signs Temp 97.4 F 02/27/24 15:54 Pulse 106 H 02/27/24 15:54 BP 140/86 H 02/27/24 15:54 Pulse Ox 98 02/27/24 15:54 Oxygen Delivery Method Room Air 02/27/24 15:54 BMI result Body Mass Index 29.3 Const General: cooperative and no acute distress Orientation/consciousness: patient oriented x3 Skin General skin exam: no rashes or lesions noted Neuro General: patient oriented x3, gait normal and moves all extremities Extrem Right upper extremity: Extremity exam: right hand (Right 4th or ring finger tender, mild swelling, normal skin color) Details: normal capillary refill, lyle rosensory exam normal, tendon exam normal, tenderness Location: of the 4th digit Location: at the distal phalanx, normal ROM of fingers and swelling; no unusual warmth, no abrasions, no lacerations, no ecchymosis and no crepitus Left upper extremity: normal to inspection and full ROM Psych Speech and movement: Normal speech and movement present Assessment & Plan Assessment & Plan (1) Finger pain, right: Code(s): M79.644 - Pain in right finger(s) Plan: Ordered Xray finger IceHot NSAIDs Plan Ordered Xray finger IceHot NSAIDs Orders: Orders XR finger RT min 2V Today M79.644 - Pain in right finger(s) Coding Level of Care Code Est Pt Level 4 (00674) Diagnoses Finger pain, right M79.644 Time Spent (min) 20
[2024-02-27 15:54] VITALS: BP 140/86; PULSE 106; TEMP 36.3; O2SAT 98; BMI 29.3
== END 2024-02-27 17:34 | disposition home or self-care (01) ==
PROVIDERS: PCP Internal Medicine; Visit Provider Nurse Practitioner Family
DX: M79.644 Pain in right finger(s) (principal)

== ENCOUNTER → 2024-02-27 15:47 | Outpatient (BNVA) | payer BC, SELFPAY | PROVIDERS: PCP Internal Medicine ==

== ENCOUNTER 2024-02-27 16:11 | Outpatient (REF) | payer BC, SELFPAY ==
--- NOTE | ~2024-02-27 | XR_ITS ---
EXAMINATION: XR FINGER, RIGHT CLINICAL INFORMATION: 53 y/o male patient with c/o right ring finger pain and swelling x 1 month. He injured his finger at work. COMPARISON: Right hand 03/23/2008 - report only TECHNIQUE: Single view of the hand with 2 additional views of the right fourth digit . FINDINGS: The bones and soft tissues are normal. No fracture. Alignment is anatomic. Joint spaces are maintained. XR/XR finger RT min 2V IMPRESSION: Normal finger radiographs. Electronically signed by: Edgar Martinez MD 02/27/2024 06:15 PM EDT
== END 2024-02-27 16:12 | disposition home or self-care (01) ==
LOC: HO.HMGCX 16:11
PROVIDERS: PCP Internal Medicine; Visit Provider Nurse Practitioner Family
DX: M79.644 Pain in right finger(s) (principal)
CPT/HCPCS: 73140

== ENCOUNTER 2024-03-03 20:59 | Emergency (ER) | payer BC, SELFPAY ==
--- NOTE | ~2024-03-03 | XR_ITS ---
EXAMINATION: XR HAND, LEFT CLINICAL INFORMATION: Injury COMPARISON: None available. TECHNIQUE: PA, lateral, and oblique views of the left hand. FINDINGS: The bones and soft tissues are normal. No fracture. Alignment is anatomic. Joint spaces are maintained. No erosions or soft tissue calcifications. XR/XR hand LT min 3V IMPRESSION: No fracture. Electronically signed by: Pancho Peña MD 03/03/2024 10:44 PM EDT
[2024-03-03 21:01] VITALS: BP 171/102; PULSE 85; RESP 15; TEMP 36.6; O2SAT 98; BMI 27.1
--- NOTE | 2024-03-03 21:03 | ED_ITS ---
HPI - General Adult General Chief complaint: General Medical Stated complaint: Lt index finger inj Source: patient Mode of arrival: ambulatory Limitations: no limitations History of Present Illness ED Provider: Liza Beach PA-C HPI narrative: Patient is a 53 year old assigned male at with a history of CAD, HTN, and DM presenting to the emergency department today with a left index finger injury. Patient states that he smashed his left index finger while working on a car and the pressure under his nail is very painful. Patient denies any dizziness, lightheadedness, abdominal pain, nausea, vomiting, fever, chills, blurry vision, double vision, loss of vision, chest pain, difficulty breathing, shortness of breath, back pain, night sweats, pain with urination, increased urinary frequency, increased urinary urgency, blood in his urine or stool, syncope or a near syncopal episode, bowel incontinence, bladder incontinence, or any other complaints at this time. Relieving factors: none Exacerbating factors: none Associated symptoms: denies other symptoms Treatments prior to arrival: none Related Data Home Medications ?Medication ?Instructions ?Recorded ?Confirmed aspirin 81 mg tablet,delayed 81 mg PO DAILY 03/30/21 11/26/23 release ([place] Aspirin) atorvastatin 80 mg tablet 80 mg PO DAILY 03/30/21 11/26/23 clopidogrel 75 mg tablet 75 mg PO DAILY 03/30/21 11/26/23 lisinopril 40 mg tablet 40 mg PO DAILY 03/30/21 11/26/23 metoprolol succinate 100 mg 100 mg PO DAILY 03/30/21 11/26/23 tablet,extended release 24 hr amlodipine 5 mg tablet 7.5 mg PO DAILY 07/26/23 11/26/23 Previous Rx's ?Medication ?Instructions ?Recorded cholecalciferol (vitamin D3) 50 50 mcg PO DAILY 90 days #90 caps 06/21/23 mcg (2,000 unit) capsule sildenafil 50 mg tablet 50 mg PO DAILY PRN sexual activity 07/26/23 #10 tabs metformin 500 mg tablet,extended 500 mg PO QPM 30 days #30 tabs 11/24/23 release 24 hr cyclobenzaprine 10 mg tablet 10 mg PO TID PRN muscle spasm #90 12/19/23 tabs Allergies Allergy/AdvReac Type Severity Reaction Status Date / Time No Known Allergies Allergy Verified 03/03/24 21:03 Review of Systems Constitutional: Constitutional: Reports no additional constitutional complaints, Denies chills, Denies fever(s) and Denies night sweats Eyes: Eyes: Reports no additional eye complaints, Denies blurry vision, Denies change in vision, Denies diplopia, Denies eye discharge, Denies loss of vision and Denies eye pain ENT: Denies dizziness Cardiovascular: Cardiovascular: Reports no additional cardiovascular complaints, Denies chest pain, Denies lightheadedness, Denies Loss of Consciousness and Denies dyspnea Respiratory: Respiratory: Reports no additional respiratory complaints and Denies dyspnea Gastrointestinal: Gastrointestinal: Reports no additional gastrointestinal complaints, Denies abdominal pain, Denies melena, Denies hematochezia, Denies change in bowel habits and Denies change in stool character Genitourinary: Genitourinary: Reports no additional male genitourinary complaints, Denies hematuria, Denies oliguria, Denies difficulty urinating, Denies dysuria, Denies urinary frequency, Denies urinary hesitancy, Denies urinary incontinence and Denies urinary urgency Musculoskeletal: Musculoskeletal: Reports no additional musculoskeletal complaints, Denies numbness and Denies tingling Comments: left index finger pain Neurologic: Denies dizziness, Denies loss of vision, Denies numbness and Denies tingling Psychiatric: Psychiatric: Reports no additional psychiatric complaints Endocrine: Endocrine: Reports no additional endocrine complaints Hematologic/Lymphatic: Hematologic/Lymphatic: Reports no additional hematologic/lymphatic complaints Allergic/Immunologic: Allergic/Immunologic: Reports no additional allergic/immunologic complaints PMFSH Past Medical History Attestation statement: The following information was validated with the patient. Source: old records reviewed and nursing notes reviewed Medical History Type 2 diabetes mellitus with hyperglycemia Elevated LFTs Impaired fasting glucose Vitamin D deficiency Obesity (BMI 30-39.9) Benign essential hypertension Pure hypercholesterolemia CAD (coronary artery disease) Surgical History Erectile dysfunction History of colonoscopy (~02/22/18) Hx of cholecystectomy (~03/2018) Social History Social History Housing: House Alcohol intake: current Alcohol intake frequency: holidays/special occasions only Patient Tobacco Use Status: Former Tobacco user Tobacco use type: Cigarette e-Cigarette/Vaping Use: Never Used Advance Directives: No Advance Directives Information Provided: No Do you have a plan to hurt others: No Plan service: No Current occupational status: employed Cognitive needs: No Hearing needs: No Vision needs: No Physical Exam ED Vital Signs: BMI result Body Mass Index 27.1 Const General: cooperative, no acute distress, alert and awake Nutritional Appearance: well nourished Orientation/consciousness: patient oriented x3 Limitations: no limitations HENMT Head: Yes normal to inspection and Yes atraumatic Ears: hearing grossly normal bilaterally and external ears normal General nose exam: Normal external nose present, no nasal discharge noted and no epistaxis Face and sinus: Yes normal facial exam, No abrasion and No laceration Mouth: Normal oral and palatal mucosa present, no drooling and no muffled voice Eyes General: appearance normal, both eyes and all related structures Periorbital: periorbital findings normal Eyelids: Yes eyelids normal Conjunctivae: conjunctivae normal Pupils: Equal, round and reactive pupils present EOM: EOMs intact bilaterally Neck Neck: Yes normal visual inspection, Yes full ROM and Yes no lymphadenopathy Chest Chest palpation & inspection: normal inspection of the chest Resp Effort & Inspection: normal respiratory effort and able to speak in complete sentences GI Inspection: Yes normal to inspection Neuro General: patient oriented x3 and moves all extremities Cranial nerves: Yes Equal, round and reactive pupils present Cognition (Neuro): normal cognition Extrem Other: hematoma present under the nail of the left index finger General: Yes full ROM and Yes capillary refill normal Psych Appearance: grossly normal Mental Status: mental status grossly normal Affect: normal affect Attitude: cooperative Thought process: Normal thought process present Thought content: Normal thought content present Insight: Good insight present (Psych) Course Course Course Narrative: RME performed by Liza Beach PA-C. Patient is a 53 year old assigned male at presenting to the emergency department with left index finger pain. Patient states he smashed his left hand and is having pain. Detailed physical exam and review of systems are deferred to the experimental mechanic outboard motors. Imaging ordered. Patient placed back in the waiting room pending room availability and results. Medical Decision Making Medical Decision Making MDM Narrative: Patient is a 53 year old assigned male at with a history of HTN, CAD, and DM presenting to the emergency department today with a left index finger injury. Patient's limited physical exam performed in triage showed a left index subungual hematoma. Patient's left hand x-ray showed no acute process. Patient left the department without completing treatment. Patient left the department before myself or any of the other emergency department clinicians could explain to or review with the patient; physical exam findings, test results, need or lack there of for additional testing, need or lack there of for a procedure to be performed, need or lack there of for hospital admission / transfer, need or lack there of for prescription medication, treatment options, or a treatment plan. Differential Diagnosis Differential Diagnoses: The differential diagnosis associated with the presentation includes Subungual hematoma Finger fracture Finger contusion Admission/Observation Consideration of admission/observation: Escalation of care including admission/observation considered Patient would have been admitted to the hospital had he completed his work up and it had any findings where hospital admission was appropriate, his clinical presentation warranted hospital admission, had myself or any other emergency economics department chair had the ability to discuss need or lack there of for hospital admission, and the patient hadn't left the department without completing treatment. Independent Interpretation I performed an independent interpretation of an: Plain X-Ray Interpretation: My interpretation is in agreement with the radiologist's impression of this imaging study. EXAMINATION: XR HAND, LEFT CLINICAL INFORMATION: Injury COMPARISON: None available. TECHNIQUE: PA, lateral, and oblique views of the left hand. FINDINGS: The bones and soft tissues are normal. No fracture. Alignment is anatomic. Joint spaces are maintained. No erosions or soft tissue calcifications. XR/XR hand LT min 3V IMPRESSION: No fracture. Electronically signed by: Pancho Peña MD 03/03/2024 10:44 PM EDT Dictated By: Pancho Peña MD Signed By: Electronically signed by Pancho Peña MD 03/03/24 [id number] Radiology Impression Discussion of test interpretation with radiology: I have reviewed the radiologist's reading. Discharge Plan Discharge Clinical Impression: Subungual hematoma of finger Patient Disposition: Left W/O Completing Treatment Prescriptions: No Action cholecalciferol (vitamin D3) 50 mcg (2,000 unit) capsule 50 mcg PO DAILY 90 Days Qty: 90 3RF cyclobenzaprine 10 mg tablet 10 mg PO TID PRN (Reason: muscle spasm) Qty: 90 0RF Rx Instructions: do not drive while taking this medication. may cause drowsiness. No alcohol or other FAMILY [employer] SPECIALIST depressants while taking this medication amlodipine 5 mg tablet 7.5 mg PO DAILY sildenafil 50 mg tablet 50 mg PO DAILY PRN (Reason: sexual activity) Qty: 10 3RF Rx Instructions: administer 30 minutes to 4 hours before activity aspirin [[place]agar Aspirin] 81 mg tablet,delayed release (DR/EC) 81 mg PO DAILY atorvastatin 80 mg tablet 80 mg PO DAILY clopidogrel 75 mg tablet 75 mg PO DAILY lisinopril 40 mg tablet 40 mg PO DAILY metoprolol succinate 100 mg tablet extended release 24 hr 100 mg PO DAILY metformin 500 mg tablet extended release 24 hr 500 mg PO QPM 30 Days Qty: 30 3RF Discharge Date/Time: 03/04/24 05:42
== END 2024-03-04 05:42 | disposition left against medical advice (07) ==
LOC: HO.ED 03-04 05:13
PROVIDERS: Emergency Provider Emergency Medicine
DX: S60.122A Contusion of left index finger with damage to nail, initial encounter (principal); W23.0XXA Caught, crushed, jammed, or pinched between moving objects, initial encounter; E11.9 Type 2 diabetes mellitus without complications; I10 Essential (primary) hypertension; E78.00 Pure hypercholesterolemia, unspecified; Z87.891 Personal history of nicotine dependence; Z79.82 Long term (current) use of aspirin; Z79.02 Long term (current) use of antithrombotics/antiplatelets; Z79.899 Other long term (current) drug therapy; Z79.84 Long term (current) use of oral hypoglycemic drugs; Y93.89 Activity, other specified; Y92.9 Unspecified place or not applicable; Y99.9 Unspecified external cause status
CPT/HCPCS: 73130; 99281; 99283

== ENCOUNTER 2024-03-08 12:07 | Outpatient (AMB) | payer BC, SELFPAY ==
--- NOTE | 2024-03-08 12:34 | AM.OFFWIN_ITS ---
Intake Vital Signs 03/08/24 12:35 Weight 171 lb BP 140/100 H Blood Pressure Location Rt brachial Position Sitting Pulse 75 Pulse Source Pulse Oximeter Pulse Oximetry (%) 98 Oxygen Delivery Method Room Air Intake Visit Reasons: EP-lt hand finger pain Intake Note: Patient here for left hand pointer finger pain, it is bruised, swollen and painful that has been present for about 1 week. Patient Tobacco Use Status: Former Tobacco user Allergies No Known Allergies Allergy (Verified 03/08/24 12:38) Do you need a note to return to daycare/school/sports/work: No HPI HPI Comments History of Present Illness Details This is a 53-year-old male who presented to the walk-in clinic complaining of left 2nd finger pain and swelling. He states this occurred approximately 5 or 6 days ago. He states he whacked his finger on his car. He was evaluated at [facility] ER on 03/03/24 and had a negative x-ray. He states that he still has pain, swelling, and bruising of the fingertip and he is looking for ?some relief?. He has been utilizing acetaminophen without much relief. [facility] Medical History Type 2 diabetes mellitus with hyperglycemia Elevated LFTs Impaired fasting glucose Vitamin D deficiency Obesity (BMI 30-39.9) Benign essential hypertension Pure hypercholesterolemia CAD (coronary artery disease) Surgical History Erectile dysfunction History of colonoscopy (~02/22/18) Hx of cholecystectomy (~03/2018) Social History Housing: House Alcohol intake: current Alcohol intake frequency: holidays/special occasions only Patient Tobacco Use Status: Former Tobacco user Tobacco use type: Cigarette e-Cigarette/Vaping Use: Never Used service: No Current occupational status: employed Cognitive needs: No Hearing needs: No Vision needs: No Review of Systems Const All systems reviewed & are unremarkable except as noted in HPI and below Reports no additional complaints Eyes Reports no additional complaints ENT Reports no additional complaints Card Reports no additional complaints Resp Reports no additional complaints GI Reports no additional complaints Reports no additional complaints Musc Reports no additional complaints Skin/Breast Reports system reviewed and no additional complaints, except as documented Neuro Reports no additional complaints Psych Reports no additional complaints Endo Reports no additional complaints Mane/Lymph Reports no additional complaints Aller/Immun Reports no additional complaints Physical Exam Vital Signs: Last Vital Signs Pulse 75 03/08/24 12:35 BP 140/100 H 03/08/24 12:35 Pulse Ox 98 03/08/24 12:35 Oxygen Delivery Method Room Air 03/08/24 12:35 Const Other: Vital signs reviewed. Constitutional: Non-toxic appearing. No acute distress. Well-developed and well-nourished. HEENT: Normocephalic and atraumatic. Skin: Warm and dry. No rashes or lesions noted. There is a subungual hematoma of the left 2nd finger nail. Neck: Full and painless range of motion. No cervical lymphadenopathy. Cardio: Regular rate. No lower extremity edema. No JVD. Pulmonary: No respiratory distress. No accessory muscle usage. Musculoskeletal: Normal range of motion in joints throughout the body. No deformity or other signs of injury. Neuro: Alert and oriented x4. Cranial nerves 2-12 grossly intact. No focal deficits appreciated. Psych: Normal mood and affect. Assessment & Plan Assessment & Plan (1) Subungual hematoma of left index finger: Code(s): S60.122A - Contusion of left index finger with damage to nail, initial encounter Plan: This is a 53-year-old male who presented to the walk-in clinic complaining of left 2nd finger pain and swelling. On physical examination, there is a large subungual hematoma to the left 2nd finger. Patient underwent trephination of the left 2nd finger nail with cauterization to with a mild bloody drainage. Garret mckeon reports significant relief of symptoms. Patient was advised to keep the area clean with soap and water. Continue with symptomatic management including ice to the area and acetaminophen as needed for pain. He was advised to follow- up here or proceed to the emergency room if you develop persistent or worsening symptoms. Patient verbalizes understanding and he was in agreement with the plan. Coding Level of Care Code Est Pt Level 3 (73223) Diagnoses Subungual hematoma of left index finger S60.122A
[2024-03-08 12:35] VITALS: BP 140/100; PULSE 75; O2SAT 98
== END 2024-03-08 13:01 | disposition home or self-care (01) ==
PROVIDERS: Visit Provider Physician Assistant Medical
DX: S60.122A Contusion of left index finger with damage to nail, initial encounter (principal)

== ENCOUNTER → 2024-03-08 12:07 | Outpatient (BNVA) | payer BC, SELFPAY | PROVIDERS: Visit Provider Physician Assistant Medical ==

== ENCOUNTER 2024-03-11 10:38 | Outpatient (REF) | payer BC, SELFPAY ==
[2024-03-11 10:49] LABS: MANUAL DIFF FLAG NO
[2024-03-11 11:44] LABS: Basophils Percent Auto 0.2 % (0-2); Eosinophils Absolute Auto 0.2 X10*3/uL (0.0-0.4); Eosinophils Percent Auto 2.5 % (0-4); Hematocrit 43.4 % (42.0-52.0); Hemoglobin 14.3 g/dl (14.0-18.0); Imm Gran Abs Auto 0.05 X10*3/uL (0.00-0.03); Imm Gran Pct Auto 0.6 % (0.0-0.4); Lymphocytes Absolute Auto 2.4 X10*3/uL (1.2-4.9); Lymphocytes Percent Auto 26.9 % (20-40); Mean Corpuscular HGB Conc 32.9 g/dl (31.0-36.0); Mean Corpuscular Hemoglobin 30.6 pg (27.0-33.0); Mean Corpuscular Volume 92.9 fL (80.0-98.0); Monocytes Absolute Auto 0.8 X10*3/uL (0.1-1.2); Monocytes Percent Auto 8.3 % (2-11); Neutrophils Absolute Auto 5.6 x10*3/uL (2.0-8.3); Neutrophils Percent Auto 61.5 % (45-73); Platelet Count 237 X10*3/uL (160-400); Red Blood Count 4.67 X10*6/uL (4.60-5.80); Red Cell Distribution Width 12.2 % (11.0-16.0); White Blood Count 9.1 X10*3/uL (4.8-10.8)
== END 2024-03-11 10:39 | disposition home or self-care (01) ==
LOC: HO.LAB 10:38
PROVIDERS: PCP Internal Medicine; Visit Provider Internal Medicine
DX: D64.9 Anemia, unspecified (principal)
CPT/HCPCS: 36415; 85025

== ENCOUNTER 2024-03-22 07:14 | Day surgery (SDC) | payer BC, SELFPAY ==
[2024-03-20 14:53] VITALS: BMI 30.7
--- NOTE | 2024-03-21 09:13 | HO.ANESPROP2 ---
Documented by User: Mehreen Giron NP 03/21/24 09:22 HPI - Anesthesia Eval Consult details Narrative: 53yo M for Upper Endoscopy and Colonoscopy Follows [facility] for CAD s/p HI 2017 (pci and med tx) Cardiac optimized. OK to hold plavix Stable at last routine office visit 03/2023 COUNT INCLUDES THE [facility] Active Problems Active Problems: All Active Problems Erectile dysfunction (Acute) Acute low back pain with disc symptoms, duration less than 6 weeks (Acute) Lumbar paraspinal muscle spasm (Acute) Lumbar spondylosis (Acute) Low back pain (Acute) Right flank discomfort (Acute) Right flank pain (Acute) Left testicular pain (Acute) COVID-19 (Acute) Hypercholesterolemia (Acute) Hypertension (Acute) Type 2 diabetes mellitus with hyperglycemia (Acute) Elevated LFTs (Acute) Impaired fasting glucose (Acute) Vitamin D deficiency (Acute) Obesity (BMI 30-39.9) (Acute) Benign essential hypertension (Acute) Pure hypercholesterolemia (Acute) CAD (coronary artery disease) (Acute) Past Medical History Medical History HTN (hypertension) Erectile dysfunction Type 2 diabetes mellitus with hyperglycemia Elevated LFTs Impaired fasting glucose Vitamin D deficiency Obesity (BMI 30-39.9) Benign essential hypertension Pure hypercholesterolemia CAD (coronary artery disease) Surgical History Surgical History Hx of hernia repair Hx of cardiac catheterization History of colonoscopy (~02/22/18) Hx of cholecystectomy (~03/2018) Social History Social History (Updated 03/20/24 @ 14:54 by Mikki Watts RN) Household Members: Spouse Housing: House Are you a primary nurse healthcare manager to a significant other at home: No Do you presently have visiting nurse or other home services: No Alcohol intake: current Alcohol intake frequency: holidays/special occasions only Patient Tobacco Use Status: Former Tobacco user Tobacco use type: Cigarette e-Cigarette/Vaping Use: Never Used Have you been hit, kicked, punched, or otherwise hurt by someone within the past year? If so, by whom?: No Are you DNR?: No Advance Directives: No Advance Directives Information Provided: Yes Recently lost weight without trying: No Nutrition Risks: No Nutritional Risk service: No Current occupational status: employed Cognitive needs: No Hearing needs: No Vision needs: No Meds Allergies Allergy/AdvReac Type Severity Reaction Status Date / Time No Known Allergies Allergy Verified 03/22/24 07:27 Home Medications ?Medication ?Instructions ?Recorded ?Confirmed ?Last Taken ?Type aspirin 81 mg tablet,delayed 81 mg PO DAILY 03/30/21 03/20/24 03/19/24 History release ([place] Aspirin) atorvastatin 80 mg tablet 80 mg PO DAILY 03/30/21 03/20/24 Unknown History clopidogrel 75 mg tablet 75 mg PO DAILY 03/30/21 03/20/24 03/15/24 History lisinopril 40 mg tablet 40 mg PO DAILY 03/30/21 03/20/24 Unknown History metoprolol succinate 100 mg 100 mg PO DAILY 03/30/21 03/20/24 Unknown History tablet,extended release 24 hr amlodipine 5 mg tablet 7.5 mg PO DAILY 07/26/23 03/20/24 03/22/24 History Exam Height,Weight and Vital Signs: Height 5 ft 4 in Weight 81.193 kg Assessment and Plan Assessment Anesthesia Assessment: Chart Reviewed Documented by User: Angel Simon MD 03/22/24 09:17 COUNT INCLUDES THE [facility] Past Medical History Medical History HTN (hypertension) Erectile dysfunction Type 2 diabetes mellitus with hyperglycemia Elevated LFTs Impaired fasting glucose Vitamin D deficiency Obesity (BMI 30-39.9) Benign essential hypertension Pure hypercholesterolemia CAD (coronary artery disease) Family History Family history of problems with anesthesia: No Surgical History Surgical History Hx of hernia repair Hx of cardiac catheterization History of colonoscopy (~02/22/18) Hx of cholecystectomy (~03/2018) History of Problems with Anesthesia: No Social History Social History (Updated 03/20/24 @ 14:54 by Mikki Watts RN) Household Members: Spouse Housing: House Are you a primary nurse healthcare manager to a significant other at home: No Do you presently have visiting nurse or other home services: No Alcohol intake: current Alcohol intake frequency: holidays/special occasions only Patient Tobacco Use Status: Former Tobacco user Tobacco use type: Cigarette e-Cigarette/Vaping Use: Never Used Have you been hit, kicked, punched, or otherwise hurt by someone within the past year? If so, by whom?: No Are you DNR?: No Advance Directives: No Advance Directives Information Provided: Yes Recently lost weight without trying: No Nutrition Risks: No Nutritional Risk service: No Current occupational status: employed Cognitive needs: No Hearing needs: No Vision needs: No Meds Allergies Allergy/AdvReac Type Severity Reaction Status Date / Time No Known Allergies Allergy Verified 03/22/24 07:27 Home Medications ?Medication ?Instructions ?Recorded ?Confirmed ?Last Taken ?Type aspirin 81 mg tablet,delayed 81 mg PO DAILY 03/30/21 03/20/24 03/19/24 History release ([place] Aspirin) atorvastatin 80 mg tablet 80 mg PO DAILY 03/30/21 03/20/24 Unknown History clopidogrel 75 mg tablet 75 mg PO DAILY 03/30/21 03/20/24 03/15/24 History lisinopril 40 mg tablet 40 mg PO DAILY 03/30/21 03/20/24 Unknown History metoprolol succinate 100 mg 100 mg PO DAILY 03/30/21 03/20/24 Unknown History tablet,extended release 24 hr amlodipine 5 mg tablet 7.5 mg PO DAILY 07/26/23 03/20/24 03/22/24 History Exam Airway Mallampati Class: I TM Dist: <=3cm Neck ROM: Full Loose/Missing/Broken Teeth: No Heart: ok. no sx. Other: ok Assessment and Plan Assessment Anesthesia Assessment: Anesthesia Plan Discussed Final Anesthetic Review Family History of Problems with Anesthesia: No History of Problems with Anesthesia: No NPO: Yes ASA Class: III Final Preanesthetic Review: No Changes in Pt Med Stat, Meds/Allgs Chart Reviewed, Consent Obtained/Reviewed and Anes Risks/Benef Reviewed Patient Risk: Intermediate Procedure Risk: Intermediate Anesthetic Plan Anesthetic Plan: Agree w/ Assess. and Plan and TIVA Disposition: Standard PACU
[2024-03-22 07:25] VITALS: BMI 27.3
[2024-03-22] MEDS: Lactated Ringers 1,000 ML 100 ML IVCONT (07:35)
[2024-03-22 07:36] VITALS: BP 140/80; PULSE 100; RESP 18; TEMP 36.6; O2SAT 99
[2024-03-22 07:37] LABS: Glucose, Whole Blood 88 mg/dL (60-115)
[2024-03-22 09:42] VITALS: BP 78/42; PULSE 102; RESP 18; TEMP 36.1; O2SAT 95
[2024-03-22 09:47] VITALS: BP 85/55; PULSE 96; RESP 16; O2SAT 96
--- NOTE | 2024-03-22 09:48 | PM.OP ---
Brief Operative Note Date of Service: 03/22/24 Pre-op diagnosis: Screening, GERD Post-op diagnosis: other (Hiatal hernia, R/O Mejia's. Diverticulosis) Procedure: EGD with biopsies, Colonoscopy to the cecum and TI Surgeon: Rafat Mcgill MD Anesthesia: MAC Was an Biophysics Scientist used for this Procedure?: No Estimated blood loss (mL): 2.0 Pathology: other (A. Esophagus 34-35cm B. Gastric antrum) Condition: stable Disposition: PACU
[2024-03-22 09:57] VITALS: BP 91/50; PULSE 94; RESP 16; O2SAT 97
[2024-03-22 10:00] VITALS: BP 100/62; PULSE 87; RESP 16; TEMP 36.1; O2SAT 97
[2024-03-22 10:15] VITALS: BP 104/65; PULSE 82; RESP 16; TEMP 36.2; O2SAT 97
--- NOTE | 2024-03-22 10:51 | OP_ITS ---
DATE OF SERVICE: 03/22/2024 SURGEON: Rafat Mcgill MD INDICATIONS: The patient presents for evaluation of chronic gastroesophageal reflux and colorectal cancer screening with family history of colon cancer. Full consent has been obtained from him for this, including risks of bleeding and perforation. PREOPERATIVE DIAGNOSIS: POSTOPERATIVE DIAGNOSIS: PROCEDURE PERFORMED: Esophagogastroduodenoscopy with biopsies and colonoscopy to the cecum and terminal ileum. ESTIMATED BLOOD LOSS: COMPLICATIONS: ANESTHESIA: Monitored anesthesia care. ASSISTANTS: SPECIMENS: PREOPERATIVE DIAGNOSES: Gastroesophageal reflux, colorectal cancer screening, family history of colon cancer. POSTOPERATIVE DIAGNOSES: Gastroesophageal reflux, colorectal cancer screening, family history of colon cancer, hiatal hernia, esophagitis, rule out Mejia esophagus, gastritis, diverticulosis, and internal hemorrhoids. DESCRIPTION OF PROCEDURE: The patient was placed in the left lateral decubitus position. The Olympus video gastroscope was passed in the posterior oropharynx and upper esophagus under direct vision. The scope was passed slowly into the distal esophagus. The gastroesophageal junction appeared at 35 cm. Extending from this to 34 cm, was 1 projection of probable Mejia mucosa. This was narrow and without any overlying esophagitis nor lesions. There was some mild esophagitis right at the EG junction with some erythema and friability, but no ulceration nor mass. The scope entered the stomach. There was a moderate-sized hiatal hernia. The scope was advanced to the pylorus, and the duodenum was cannulated to the descending portion. The duodenum including the bulb appeared normal without mass or ulceration. The scope was withdrawn back in the stomach. The gastric antrum had changes of the chronic gastritis with some erythema and edema, but no erosions or ulceration. There was good peristalsis. Biopsies were obtained from the antrum. The scope was retroflexed visualizing the proximal stomach carefully, which appeared normal, without any sign of mass or ulceration. The scope was straightened and withdrawn back to the esophagus. Multiple biopsies were obtained between 34 and 35 cm in the area of suspected Mejia esophagus. Proximal to that, the esophageal mucosa appeared normal. The at approximately 32 cm was what appeared to be a submucosal venous bleb, but there were no varices. The scope was withdrawn from the patient. He was turned around for the colonoscopy. The digital rectal exam revealed no abnormalities. The Olympus video pediatric colonoscope was entered into the rectum and advanced easily to the cecum. Once in the cecum, I did identify normal-appearing cecal pouch with appendiceal orifice and a normal-appearing ileocecal valve. The terminal ileum was cannulated and appeared normal. Scope was withdrawn back in the colon. The entire cecum and ileocecal valve appeared normal. The scope was slowly withdrawn, assessing all mucosal surfaces carefully. Preparation was excellent. I did not visualize any sign of polyps, colitis, or angiodysplasia. There was a mild amount of sigmoid diverticulosis. In the rectum, scope was retroflexed visualizing internal hemorrhoids, but no other pathology. The rectal mucosa appeared normal. Scope was straightened and withdrawn from the patient he tolerated both procedures well and was returned to the recovery area in stable condition. IMPRESSION: 1. Hiatal hernia, reflux esophagitis, rule out Mejia esophagus. 2. Hiatal hernia. 3. Gastritis. 4. Diverticulosis. 5. Internal hemorrhoids. PLAN: The results of the biopsies will be checked. 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 If there is Mejia esophagus without dysplasia, I would recommend a repeat upper endoscopy in 3 years. I would recommend a repeat colonoscopy in 5 years given the family history. He was advised to resume his aspirin and Plavix in 48 hours. This has been discussed with his . MD CARMEN Barragan/RAJESH / [phone]
== END 2024-03-22 10:54 | disposition home or self-care (01) ==
PROVIDERS: PCP Internal Medicine; Visit Provider Internal Medicine
PROC: (CPT 45378; principal; 2024-03-22 08:30)
DX: Z12.11 Encounter for screening for malignant neoplasm of colon (principal); Z80.0 Family history of malignant neoplasm of digestive organs; K57.30 Diverticulosis of large intestine without perforation or abscess without bleeding; K64.8 Other hemorrhoids; K21.00 Gastro-esophageal reflux disease with esophagitis, without bleeding; K29.50 Unspecified chronic gastritis without bleeding; K44.9 Diaphragmatic hernia without obstruction or gangrene; I10 Essential (primary) hypertension; E78.00 Pure hypercholesterolemia, unspecified; I25.10 Atherosclerotic heart disease of native coronary artery without angina pectoris; I25.2 Old myocardial infarction; E11.65 Type 2 diabetes mellitus with hyperglycemia; R79.89 Other specified abnormal findings of blood chemistry; E55.9 Vitamin D deficiency, unspecified; Z79.01 Long term (current) use of anticoagulants; Z79.82 Long term (current) use of aspirin; Z79.84 Long term (current) use of oral hypoglycemic drugs; Z79.899 Other long term (current) drug therapy; Z90.49 Acquired absence of other specified parts of digestive tract; Z98.890 Other specified postprocedural states; Z87.891 Personal history of nicotine dependence
CPT/HCPCS: 45378; 43239; 82947; 88305; 88313; 88342; J2003; J2704

== ENCOUNTER 2024-03-22 15:14 | Outpatient (AMB) | payer BC, SELFPAY ==
--- NOTE | 2024-03-22 15:14 | MHC.PC.OV ---
Vital Signs 03/22/24 15:17 Height 5 ft 4 in Weight 150 lb BMI 25.7 Intake Visit Reasons: 4 Month F/U Intake Note: Patient is here to follow up on HTN, CAD, DM. Siding Stapler Required: No Automotive Metalsmith: Not Required per policy Accompanied by: Self / Same As Patient Allergies No Known Allergies Allergy (Verified 03/22/24 15:49) Medication List - Last Reconciled 03/22/24 by Daniel Salinas MD amlodipine 7.5 mg PO DAILY aspirin ([place] Aspirin) 81 mg PO DAILY atorvastatin 80 mg PO DAILY cholecalciferol (vitamin D3) 50 mcg PO DAILY 90 days clopidogrel 75 mg PO DAILY cyclobenzaprine 10 mg PO TID PRN lisinopril 40 mg PO DAILY metformin ER 500 mg PO QPM 30 days metoprolol succinate ER 100 mg PO DAILY sildenafil 50 mg PO DAILY PRN Tobacco use date assessed: 11/24/23 Dental Screening Dental Screen Date: 07/26/23 HPI 4 Month F/U HPI Details Patient's follow-up visit / consultation today is done over the phone - this is a Telehealth visit Patient's current medications have been reviewed and verified with patient and / or caregiver / proxy and have been updated accordingly in the medication list Patient states that he currently feels okay and the reason he had his appointment changed over to a telehealth is because had his repeat colonoscopy earlier this morning and he is still recovering from the anesthesia for his procedure He denies any headaches or dizziness Denies any chest pains, no shortness of breath No nausea/vomiting, no abdominal pain No change in bowel habits noted He had some follow-up labs done a couple weeks ago - to discuss his results [facility] Medical History HTN (hypertension) Erectile dysfunction Type 2 diabetes mellitus with hyperglycemia Elevated LFTs Impaired fasting glucose Vitamin D deficiency Obesity (BMI 30-39.9) Benign essential hypertension Pure hypercholesterolemia CAD (coronary artery disease) Surgical History History of endoscopy Hx of hernia repair Hx of cardiac catheterization History of colonoscopy (~02/22/18) Hx of cholecystectomy (~03/2018) Social History Household Members: Spouse Housing: House Are you a primary complex care nurse to a significant other at home: No Do you presently have visiting nurse or other home services: No Alcohol intake: current Alcohol intake frequency: holidays/special occasions only Patient Tobacco Use Status: Former Tobacco user Tobacco use type: Cigarette e-Cigarette/Vaping Use: Never Used service: No Current occupational status: employed Cognitive needs: No Hearing needs: No Vision needs: No Questionnaire Thrive Questionnaire Date Thrive assessed: 07/26/23 ROSLYN-7 AMB Questionnaire ROSLYN-7 Date ROSLYN - 7 assessed: 07/26/23 Source: Developed by Drs. Rafat Still, Shannon Chance, [employer] Crawford and colleagues, with an educational sharan from [employer]. Review of Systems Const Denies chills, Denies fatigue, Denies fever(s) and Denies headache(s) ENT Denies dysphagia, Denies dizziness, Denies otalgia, Denies headache(s), Denies neck pain, Denies odynophagia and Denies sore throat Card Denies chest pain, Denies palpitations and Denies dyspnea Resp Denies cough and Denies dyspnea GI Denies abdominal pain, Denies constipation, Denies dysphagia, Denies heartburn, Denies diarrhea, Denies nausea, Denies odynophagia and Denies vomiting Reports erectile dysfunction, Denies dysuria, Denies nocturia and Denies urinary frequency Musc Reports back pain (on and off over the lower back) and Denies neck pain Skin/Breast Denies rash Neuro Denies dizziness and Denies headache(s) Endo Denies fatigue and Denies palpitations Physical exam (Primary Care) Vital Signs: Physical examination is not performed as visit / consultation today is done over the phone - Telehealth visit All physical findings indicated here, if present, are as per patient's and / or caregivers / proxy's report BMI result Body Mass Index 25.7 Tobacco/Smoking Status: Tobacco use Status Tobacco use date assessed 11/24/23 03/22/24 15:18 Patient Tobacco Use Status Former Tobacco user 03/22/24 15:18 Tobacco use type Cigarette 03/22/24 15:18 e-Cigarette/Vaping Use Never Used 03/22/24 15:18 Thrive Assessment: Date of Thrive Assessment Date Thrive assessed 07/26/23 03/22/24 15:18 Telehealth Telehealth Telehealth Platform: Telephone Location of provider rendering services: practice address Location of patient: address on file Patient Identification confirmed using: Name, : Yes Telehealth method: voice only Patient verbally consented to treatment: Yes Patient verbally consented to billing insurance company: Yes Patient informed of any privacy concerns related to visit: Yes Minutes spent on Phone/Video with Pt.: 22 Results Reviewed Results Reviewed: Laboratory Tests 11/27/23 03/11/24 15:55 10:48 WBC 9.1 Hgb 14.3 Hct 43.4 Plt Count 237 Sodium 138 Potassium 4.0 Creatinine 1.05 Estimated GFR > 60 Coding Level of Care Code Tele Est Pt Level 4 (32926) Diagnoses Coronary artery disease involving s[place] coronary artery of [place] heart without angina pectoris I25.10 Coronary Disease-Associated Artery/Lesion type: s[place] artery [place] vs. transplanted heart: [place] heart Associated angina: without angina Pure hypercholesterolemia E78.00 Benign essential hypertension I10 Type 2 diabetes mellitus with hyperglycemia, without long-term current use of insulin E11.65 Diabetes mellitus assisted insulin use: without computer terminal operator use Elevated LFTs R79.89 Vitamin D deficiency E55.9 Erectile dysfunction, unspecified erectile dysfunction type N52.9 Erectile dysfunction type: unspecified Lumbar spondylosis M47.816 Obesity (BMI 30-39.9) E66.9 Assessment & Plan Assessment & Plan (1) CAD (coronary artery disease): Comment: 03/2018 - NSTEMI; cardiac cath done revealed (+) multivessel disease, with 95% stenosis of the RP LV branch Code(s): I25.10 - Atherosclerotic heart disease of s[place] coronary artery without angina pectoris Category: Medical Qualifiers: Coronary Disease-Associated Artery/Lesion type: [place] artery [place] vs. transplanted heart: [place] heart Associated angina: without angina Qualified Code(s): I25.10 - Atherosclerotic heart disease of [place] coronary artery without angina pectoris Plan: S/P NSTEMI in March 2018; cardiac cath done revealed (+) multivessel disease, with 95% stenosis of the RP LV branch Cardiology recommended aggressive medical management as opposed to PCI and patient has been doing well since with no recurrence of cardiac symptoms Echocardiogram done on 06/13/2018 revealed normal left ventricular size, thickness and function, no regional wall motion abnormalities and estimated LVEF of 65% Continue dual antiplatelet therapy with Aspirin 81 mg QD and Clopidogrel 75 mg QD Continue Metoprolol ER 100 mg QD and Amlodipine 5 mg QD; was previously on Isosorbide Mononitrate ER 30 mg QD but he requested to have this changed as he felt that this was sapping his libido - cardiology switched him over to Amlodipine Follow up with cardiology (Dr. Suresh) as scheduled - is being seen by cardiology every 6 months She will also be reportedly getting a stress echocardiogram repeated again soon (2) Pure hypercholesterolemia: Code(s): E78.00 - Pure hypercholesterolemia, unspecified Category: Medical Plan: Results of his labs done at [facility] a few days ago reviewed and discussed with patient Reinforced low cholesterol diet Continue Atorvastatin 80 mg QD Will recheck his labs and fasting lipids in 4 months for follow up (3) Benign essential hypertension: Code(s): I10 - Essential (primary) hypertension Category: Medical Plan: Reinforced low sodium diet - goal is systolic BP of 120 mm or less, given his cardiac issues Continue Lisinopril 40 mg QD, Metoprolol ER 100 mg QD and Amlodipine 5 mg QD (4) Type 2 diabetes mellitus with hyperglycemia: Code(s): E11.65 - Type 2 diabetes mellitus with hyperglycemia Category: Medical Qualifiers: Diabetes mellitus computer terminal operator insulin use: without assisted use Qualified Code(s): E11.65 - Type 2 diabetes mellitus with hyperglycemia Plan: Patient's fasting blood sugar was elevated on his previous labs at 119 mg/dL so an in-office HgbA1c was checked then, which came out high at 6.9% Have advised patient that this puts him in diabetes category and have recommend that he start taking some medication to help slow down progression of his diabetes, which he agreed to He was started him on Metformin ER 500 mg QD Unfortunately, his recent labs only included CBC and basic electrolytes; there is no fasting blood sugar, HgbA1c or fasting lipids included Will have patientrecheck his FBS and HgbA1c in 4 months for follow-up (5) Elevated LFTs: Code(s): R79.89 - Other specified abnormal findings of blood chemistry Category: Medical Plan: His ALT was elevated but AST remained normal on his previous labs This was most likely due to hepatosteatosis, which was noted on his previous abdominal CT done back in 2017 Reinforced avoidance of alcohol and medications containing Tylenol or acetaminophen Will continue to monitor his LFTs regularly (6) Vitamin D deficiency: Code(s): E55.9 - Vitamin D deficiency, unspecified Category: Medical Plan: Continue Vitamin D3 2000 units QD (7) Erectile dysfunction: Code(s): N52.9 - Male erectile dysfunction, unspecified Category: Surgical Qualifiers: Erectile dysfunction type: unspecified Qualified Code(s): N52.9 - Male erectile dysfunction, unspecified Plan: Continue Sildenafil 50 mg PRN (8) Lumbar spondylosis: Code(s): M47.816 - Spondylosis without myelopathy or radiculopathy, lumbar region Category: Medical Plan: Reinforced activity and weight-lifting restrictions MRI of the lumbar spine done a few months ago revealed (+) disc degeneration at L4-L5 and L5-S1 but no canal stenosis or nerve root impingements are noted Consider referral to pain management if his low back pain progresses or gets worse (9) Obesity (BMI 30-39.9): Code(s): E66.9 - Obesity, unspecified Category: Medical Plan: Reinforced diet/exercise as tolerated/lose weight Plan Follow up in 4 months Orders: Orders Comprehensive [place]. Panel Fast 4 Months E78.00 - Pure hypercholesterolemia, unspecified Lipid Panel 4 Months E78.00 - Pure hypercholesterolemia, unspecified Hemoglobin A1c 4 Months E11.9 - Type 2 diabetes mellitus without complications TSH reflex Free T4 4 Months E78.00 - Pure hypercholesterolemia, unspecified Vitamin D 25-OH Total 4 Months E55.9 - Vitamin D deficiency, unspecified Complete Blood Count Auto Diff 4 Months D64.9 - Anemia, unspecified Microalbumin, Random (w Creat) 4 Months E11.9 - Type 2 diabetes mellitus without complications UA CC w/rflx Micro + Cult 4 Months R30.0 - Dysuria
[2024-03-22 15:17] VITALS: BMI 25.7
== END 2024-03-22 16:11 | disposition home or self-care (01) ==
LOC: HO.HMCH 15:14
PROVIDERS: PCP Internal Medicine; Visit Provider Internal Medicine
DX: E11.65 Type 2 diabetes mellitus with hyperglycemia (principal); I25.10 Atherosclerotic heart disease of native coronary artery without angina pectoris; E66.9 Obesity, unspecified; Z68.25 Body mass index [BMI] 25.0-25.9, adult; E78.00 Pure hypercholesterolemia, unspecified; I10 Essential (primary) hypertension; E55.9 Vitamin D deficiency, unspecified; N52.9 Male erectile dysfunction, unspecified; M47.816 Spondylosis without myelopathy or radiculopathy, lumbar region

== ENCOUNTER 2024-04-08 11:56 | Emergency (ER) | payer BC, SELFPAY ==
[2024-04-08 12:19] VITALS: BP 145/89; PULSE 90; RESP 18; TEMP 36.6; O2SAT 96; BMI 27.3
--- NOTE | 2024-04-08 12:20 | ED.GENADULT ---
HPI - General Adult General Chief complaint: Back Pain/Injury Stated complaint: back pain Time Seen by Provider: 04/08/24 19:02 History of Present Illness ED Provider: Lorena ABRAMS narrative: The patient is a 53-year-old male. He has a history of coronary artery disease. He is on aspirin and clopidogrel. He had an NSTEMI in 2018. This was managed with stents and medical therapy. Earlier this year the patient developed significant problems with low back pain. He had an MRI in May 2023 that showed some degenerative disc disease at L4-L5 an L5-S1. His back pain continued throughout the earlier portion of 2023 and ultimately on 11/14/2023 he had bilateral lower back injections at the pain management Clinic. These were very efficacious and the patient was doing well with regard to his low back pain until yesterday. He says that he had not done much over the weekend. He had gone on a holiday to [place]. He had driven back from his vacation yesterday. Sometime after returning home he started to experience some low back pain that worsened throughout the day. He had planned to go to work this morning but when he woke up this morning the pain was so severe he could barely walk. He therefore did not go to work and ultimately came to the hospital. He says that this morning the pain was such that he could not make it to the bathroom to urinate. He says he was not incontinent he just was not able to move at the time. He has subsequently had normal control of his bladder. He says that he has no numbness or tingling in his legs. He does not feel he has any weakness in his legs except as it relates to pain. He says that the pain is similar to the back pain that he had prior to the injections but he feels the pain is more severe at this point than it was earlier this year. No fever, sweats, chills. No cough or sputum. Related Data Home Medications ?Medication ?Instructions ?Recorded ?Confirmed aspirin 81 mg tablet,delayed 81 mg PO DAILY 03/30/21 03/22/24 release ([facility] Aspirin) atorvastatin 80 mg tablet 80 mg PO DAILY 03/30/21 03/22/24 clopidogrel 75 mg tablet 75 mg PO DAILY 03/30/21 03/22/24 lisinopril 40 mg tablet 40 mg PO DAILY 03/30/21 03/22/24 metoprolol succinate 100 mg 100 mg PO DAILY 03/30/21 03/22/24 tablet,extended release 24 hr amlodipine 5 mg tablet 7.5 mg PO DAILY 07/26/23 03/22/24 Previous Rx's ?Medication ?Instructions ?Recorded cholecalciferol (vitamin D3) 50 50 mcg PO DAILY 90 days #90 caps 06/21/23 mcg (2,000 unit) capsule sildenafil 50 mg tablet 50 mg PO DAILY PRN sexual activity 07/26/23 #10 tabs metformin 500 mg tablet,extended 500 mg PO QPM 30 days #30 tabs 03/20/24 release 24 hr cyclobenzaprine 10 mg tablet 10 mg PO TID PRN muscle spasm #14 04/08/24 tabs cyclobenzaprine 10 mg tablet 10 mg PO TID PRN muscle spasm #14 04/08/24 tabs morphine 15 mg immediate release 15 mg PO Q6H PRN pain #14 tabs 04/08/24 tablet Allergies Allergy/AdvReac Type Severity Reaction Status Date / Time No Known Allergies Allergy Verified 04/08/24 22:08 Review of Systems Review of Systems: Yes all other systems are reviewed and are negative [facility] Past Medical History Medical History (Updated 04/08/24 @ 20:34 by Von Carrillo MD) HTN (hypertension) Erectile dysfunction Type 2 diabetes mellitus with hyperglycemia Elevated LFTs Impaired fasting glucose Vitamin D deficiency Obesity (BMI 30-39.9) Benign essential hypertension Pure hypercholesterolemia CAD (coronary artery disease) Surgical History History of endoscopy Hx of hernia repair Hx of cardiac catheterization History of colonoscopy (~02/22/18) Hx of cholecystectomy (~03/2018) Social History Social History Household Members: Spouse Housing: House Are you a primary customer care representative to a significant other at home: No Do you presently have visiting nurse or other home services: No Alcohol intake: current Alcohol intake frequency: holidays/special occasions only Patient Tobacco Use Status: Former Tobacco user Tobacco use type: Cigarette e-Cigarette/Vaping Use: Never Used Do you have a plan to hurt others: No Plan service: No Current occupational status: employed Cognitive needs: No Hearing needs: No Vision needs: No Physical Exam ED Vital Signs: Vital Signs - 24 hr 04/08/24 12:19 04/08/24 18:54 04/08/24 20:53 Temperature 97.8 F 98.6 F 98.6 F Pulse Rate 90 90 90 Respiratory Rate 18 16 16 Blood Pressure 145/89 H 130/91 H 130/91 H Pulse Oximetry 96 96 96 Oxygen Delivery Method Room Air Room Air Room Air BMI result Body Mass Index 27.3 Const Other: The patient is a 53-year-old male who was awake and alert. He was standing because this was his preferred position comfort. He did not appear obviously uncomfortable or toxic in any way. HENMT Other: Face is symmetrical. Mucous membranes moist. Eyes General: appearance normal, both eyes and all related structures Neck Other: Moving his neck easily Resp Effort & Inspection: normal respiratory effort Back/Spine/Pelvis Other: No midline vertebral tenderness in the back. Skin Other: Skin was dry and unremarkable Neuro Other: The patient is awake and alert with a normal mental status. Cranial nerves are grossly intact. He moves his extremities normally. He seems to have intact strength in his lower extremities. He has 2+ reflexes at the knees and ankles. He reports normal sensation in the feet. Extrem Other: No peripheral edema Course Course Course Narrative: RME performed by iLza Beach PA-C. Patient is a 53 year old assigned male at presenting to the emergency department with low back pain. Patient states that he has chronic back pain that he follows with the pain clinic for but he is having acute pain after a weekend of driving. Detailed physical exam and review of systems are deferred to the sewer contractor. Patient placed back in the waiting room pending room availability. Medications Administered Discontinued Medications Generic Name Dose Route Start Last Admin Trade Name Freq PRN Reason Stop Dose Admin Acetaminophen 975 mg 04/08/24 19:14 04/08/24 20:07 Acetaminophen 325 Mg Tablet PO 04/08/24 19:15 975 mg ONCE ONE Administration Cyclobenzaprine HCl 10 mg 04/08/24 19:14 04/08/24 20:07 Cyclobenzaprine Hcl 10 Mg Tablet PO 04/08/24 19:15 10 mg ONCE ONE Administration Ketorolac Tromethamine 30 mg 04/08/24 19:14 04/08/24 20:26 Ketorolac Tromethamine 30 Mg/Ml Vial IM 04/08/24 19:15 30 mg ONCE ONE Administration Morphine Sulfate 15 mg 04/08/24 19:14 04/08/24 20:07 Morphine Sulfate Immed Release 15 Mg Tablet PO 04/08/24 19:15 15 mg ONCE ONE Administration Medical Decision Making Differential Diagnosis The patient is a 53-year-old male who says that yesterday he started to have low back pain that was similar to pain he had earlier this year which was treated with injections in his lower back at the pain management Clinic here. He does not think there was any particular incident that seems to have provoked any recurrence of his back pain. He denies any trauma or straining. The patient was standing because this was his position of comfort. Otherwise he did not look toxic or ill. He seems neurologically intact with intact reflexes at the knees and ankles, intact sensation in the feet. I reviewed the patient's old records. In May had an MRI of his back that showed degenerative disc disease at L4-L5 and L5-S1. No other significant findings were apparent. I suspect that this patient's pain is a recrudescence of his previous back pain syndrome. I do not think he has any red flags. I think he may be treated discharged to follow up with his regular doctor and pain management Clinic. He was given prescriptions for morphine and cyclobenzaprine. While here he was given a dose of ketorolac as well. Discharge Plan Discharge Clinical Impression: Acute low back pain Patient Disposition: Home, Self-Care Instructions: Acute Low Back Pain (ED) Additional Instructions: You seem to have had a relapse of your low back pain syndrome. For pain management please plan on taking 2 extra-strength acetaminophen (Tylenol) up to 3 times a day as needed for pain. In addition I have sent a prescription for a muscle relaxant, cyclobenzaprine, to your pharmacy that you may use up to 3 times a day as needed for pain as well. Also I have sent a prescription for morphine tablets which you may use also. Please contact your regular doctor's office tomorrow morning to arrange follow up. It might be reasonable for you to be seen again at the pain management Clinic where you had your previous back injections. Additionally your primary care doctor may speak to you about physical therapy or other possible referrals for your back syndrome. Return to the emergency room if significantly worse. Prescriptions: New morphine 15 mg tablet 15 mg PO Q6H PRN (Reason: pain) Qty: 14 0RF Rx Instructions: Partial Fill upon patient request. cyclobenzaprine 10 mg tablet 10 mg PO TID PRN (Reason: muscle spasm) Qty: 14 0RF cyclobenzaprine 10 mg tablet 10 mg PO TID PRN (Reason: muscle spasm) Qty: 14 0RF Discontinued cyclobenzaprine 10 mg tablet 10 mg PO TID PRN (Reason: muscle spasm) Qty: 90 0RF Rx Instructions: do not drive while taking this medication. may cause drowsiness. No alcohol or other CORPORATE FINANCIAL ANALYST depressants while taking this medication No Action cholecalciferol (vitamin D3) 50 mcg (2,000 unit) capsule 50 mcg PO DAILY 90 Days Qty: 90 3RF metformin 500 mg tablet extended release 24 hr 500 mg PO QPM 30 Days Qty: 30 3RF amlodipine 5 mg tablet 7.5 mg PO DAILY sildenafil 50 mg tablet 50 mg PO DAILY PRN (Reason: sexual activity) Qty: 10 3RF Rx Instructions: administer 30 minutes to 4 hours before activity aspirin [[facility] Aspirin] 81 mg tablet,delayed release (DR/EC) 81 mg PO DAILY atorvastatin 80 mg tablet 80 mg PO DAILY clopidogrel 75 mg tablet 75 mg PO DAILY lisinopril 40 mg tablet 40 mg PO DAILY metoprolol succinate 100 mg tablet extended release 24 hr 100 mg PO DAILY Referrals: Daniel Salinas MD [Primary Care Provider] - (Recurrence of low back pain) Stand Alone Forms: Work/School Release Interventions: ED Discharge Assessment Last Done: 04/08/24 20:53 Discharge Date/Time: 04/08/24 20:53 Print Language: Slovak
[2024-04-08 18:54] VITALS: BP 130/91; PULSE 90; RESP 16; TEMP 37; O2SAT 96
--- NOTE | 2024-04-08 18:55 | PC.NURSE ---
patient a&ox3, vss, pt c/o 11/05 lower back pain radiating down left leg, pt states hes too uncomfortable to sit at this time, pt awaiting provider evaluation, family at bedside
[2024-04-08] MEDS: Morphine Sulfate Immed Release 15 MG TABLET PO (20:07)
[2024-04-08] MEDS: Cyclobenzaprine HCl 10 MG TABLET PO (20:07)
[2024-04-08] MEDS: Acetaminophen 325 MG TABLET 975 MG PO (20:07)
--- NOTE | 2024-04-08 20:07 | PC.NURSE ---
Attempted to scan medications into computer but was unable to due to being unable to log-in to bedside computer, and portable computer with scanners. Tylenol 975mg: Lot #[id number], Exp: 11/2026 Morphine Sulfate 15mg: Lot #[id number], Exp: 11/2024 Cyclobenzaprine Hydrochloride 10mg: Lot #[id number], Exp: 07/2024 Pt refused ordered Toradol at this time due to being told that he isn't supposed to take Ibuprofen/NSAIDs due to his multiple heart medications.
[2024-04-08] MEDS: Ketorolac Tromethamine 30 MG/ML VIAL IM (20:26)
[2024-04-08 20:53] VITALS: BP 130/91; PULSE 90; RESP 16; TEMP 37; O2SAT 96
== END 2024-04-08 20:53 | disposition home or self-care (01) ==
PROVIDERS: Emergency Provider Emergency Medicine; PCP Internal Medicine
DX: M54.50 Low back pain, unspecified (principal); Z79.899 Other long term (current) drug therapy
CPT/HCPCS: 96372; 99283; 99284; J1885

== ENCOUNTER 2024-04-08 21:56 | Emergency (ER) | payer BC, SELFPAY ==
[2024-04-08 22:06] VITALS: BP 119/70; PULSE 57; RESP 18; TEMP 36.8; O2SAT 97; BMI 29.2
[2024-04-08 22:24] LABS: MANUAL DIFF FLAG NO
[2024-04-08 22:25] LABS: Basophils Percent Auto 0.3 % (0-2); Eosinophils Absolute Auto 0.1 X10*3/uL (0.0-0.4); Eosinophils Percent Auto 1.3 % (0-4); Hematocrit 44.8 % (42.0-52.0); Hemoglobin 15.1 g/dl (14.0-18.0); Imm Gran Abs Auto 0.06 X10*3/uL (0.00-0.03); Imm Gran Pct Auto 0.6 % (0.0-0.4); Lymphocytes Absolute Auto 3.1 X10*3/uL (1.2-4.9); Lymphocytes Percent Auto 28.6 % (20-40); Mean Corpuscular HGB Conc 33.7 g/dl (31.0-36.0); Mean Corpuscular Hemoglobin 30.8 pg (27.0-33.0); Mean Corpuscular Volume 91.4 fL (80.0-98.0); Mean Platelet Volume 10.1 fL (9.4-12.4); Monocytes Absolute Auto 0.8 X10*3/uL (0.1-1.2); Neutrophils Absolute Auto 6.7 x10*3/uL (2.0-8.3); Neutrophils Percent Auto 62.2 % (45-73); Platelet Count 270 X10*3/uL (160-400); Red Cell Distribution Width 12.7 % (11.0-16.0); White Blood Count 10.7 X10*3/uL (4.8-10.8)
[2024-04-08 22:48] LABS: Alanine Aminotransferase 88 U/L (0-40); Albumin Level 4.1 g/dL (3.5-5.0); Alkaline Phosphatase 81 U/L (39-117); Anion Gap 15 (12-20); Aspartate Amino Transferase 96 U/L (5-37); Blood Urea Nitrogen 20 mg/dL (9-16); Calcium 9.1 mg/dL (8.4-10.2); Carbon Dioxide 26 mmol/L (22-29); Chloride 104 mmol/L (96-108); Creatinine Clr Calc Pharmacy 67.7; Estimated Glomerular Filt Rate > 60; Glucose Random 146 mg/dL (60-115); Lipase 41 U/L (8-78); Potassium 4.1 mmol/L (3.3-5.1); Sodium 141 mmol/L (135-145); Total Protein 7.7 g/dL (6.5-8.0)
--- NOTE | 2024-04-08 22:57 | PC.NURSE ---
Pt stated to this RN that he wishes to go home. Spoke with pt, and expressed concerns, requesting pt stay. pt refused.
== END 2024-04-08 23:09 | disposition left against medical advice (07) ==
LOC: HO.ED 23:03
PROVIDERS: Emergency Provider Emergency Medicine; PCP Internal Medicine
DX: R10.2 Pelvic and perineal pain (principal); Z79.899 Other long term (current) drug therapy
CPT/HCPCS: 36415; 80053; 83690; 85025; 99281

== ENCOUNTER 2024-04-11 11:25 | Outpatient (AMB) | payer BC, SELFPAY ==
[2024-04-11 11:27] VITALS: BP 126/84; PULSE 87; O2SAT 97; BMI 29.4
--- NOTE | 2024-04-11 11:27 | MHC.PC.OV ---
Vital Signs 04/11/24 11:27 Height 5 ft 4 in Weight 171 lb 8 oz BMI 29.4 BP 126/84 Blood Pressure Location Lt brachial Position Sitting Pulse 87 Pulse Source Pulse Oximeter Pulse Oximetry (%) 97 Oxygen Delivery Method Room Air Intake Visit Reasons: [facility] 04/08 abdominal pain Dial Polisher Required: No Accompanied by: Self / Same As Patient Allergies No Known Allergies Allergy (Verified 04/11/24 12:08) Medication List - Last Reconciled 04/11/24 by Daniel Salinas MD amlodipine 7.5 mg PO DAILY aspirin ([place] Aspirin) 81 mg PO DAILY atorvastatin 80 mg PO DAILY cholecalciferol (vitamin D3) 50 mcg PO DAILY 90 days clopidogrel 75 mg PO DAILY cyclobenzaprine 10 mg PO TID PRN cyclobenzaprine 10 mg PO TID PRN lisinopril 40 mg PO DAILY metformin ER 500 mg PO QPM 30 days metoprolol succinate ER 100 mg PO DAILY morphine 15 mg PO Q6H PRN omeprazole 20 mg PO DAILY sildenafil 50 mg PO DAILY PRN Tobacco use date assessed: 04/11/24 Dental Screening Dental Screen Date: 04/11/24 Did you have a dental visit in the last 12 months?: No Did you have a dental problem in the last 6 months where you did not have access to dental care?: No Was dental information given to patient?: Patient has dentist HPI [facility] 04/08 abdominal pain HPI Details Patient comes in today for his [facility] follow up visit in relation to his ER visit 3 days ago on 04/08/2024 for increasing low back pain States that his low back pain started acting up again a day after he returned from vacationing in [place] States that he did not do any heavy lifting recently and that his chronic low back pain has been well managed and adequately controlled through the pain management clinic over the past year States that he most recently had back injections on 11/14/2023 and that his low back pain has not bothered him much since until this past week States that he was given a shot of Toradol in the ER and sent home with some prescriptions for morphine and cyclobenzaprine Relates experiencing a bout of acute abdominal pain with nausea and some diaphoresis that lasted for several minutes after he took his meds when he got home from the ER States that his symptoms gradually subsided but he has not taken his morphine again since then as he is concerned about triggering the aforementioned symptoms again States that he has been taking Tylenol instead for pain over the past couple of days States that he is going back to work as he is now out of sick leave but his employer is aware of his condition and he is currently on light duty until further notice He denies any headaches or dizziness Denies any chest pains, no increased shortness of breath and denies any other acute symptoms currently [facility] Medical History HTN (hypertension) Erectile dysfunction Type 2 diabetes mellitus with hyperglycemia Elevated LFTs Impaired fasting glucose Vitamin D deficiency Obesity (BMI 30-39.9) Benign essential hypertension Pure hypercholesterolemia CAD (coronary artery disease) Surgical History History of endoscopy Hx of hernia repair Hx of cardiac catheterization History of colonoscopy (~02/22/18) Hx of cholecystectomy (~03/2018) Social History Household Members: Spouse Housing: House Are you a primary client care manager to a significant other at home: No Do you presently have visiting nurse or other home services: No Alcohol intake: current Alcohol intake frequency: holidays/special occasions only Patient Tobacco Use Status: Former Tobacco user Tobacco use type: Cigarette e-Cigarette/Vaping Use: Never Used service: No Current occupational status: employed Cognitive needs: No Hearing needs: No Vision needs: No Questionnaire PHQ-9 Over the last 2 weeks, how often have you been bothered by any of the following problems? 1. Little interest or pleasure in doing things: not at all 2. Feeling down, depressed, or hopeless: not at all 3. Trouble falling or staying asleep, or sleeping too much: not at all 4. Feeling tired or having little energy: not at all 5. Poor appetite or overeating: not at all 6. Feeling bad about yourself - or that you are a failure or have let yourself or your family down: not at all 7. Trouble concentrating on things, such as reading the newspaper or watching television: not at all 8. Moving or speaking so slowly that other people could have noticed. Or the opposite - being so fidgety or restless that you have been moving around a lot more than usual: not at all 9. Thoughts that you would be better off or of hurting yourself in some way: not at all Total score: 0 Depression Screening Interpretation: Negative Depression Screening Done: Yes 14901 - PHQ-9 Billing: Yes Source: Developed by Drs. Rafat Still, Shannon Chance, Foreign Crawford and colleagues, with an educational sharan from [employer]. Thrive Questionnaire Date Thrive assessed: 04/11/24 I am a: Patient What is your living situation today?: I have a steady place to live Within the past 12 months, did the food you bought not last and you didn't have the money to get more?: Never true Within the past 12 months, did you worry whether your food would run out before you got money to buy more?: Never true Do you have trouble paying for medicines?: No Do you have trouble getting transportation to medical appointments?: No Do you have trouble paying your heating and electricity bill?: No Do you have trouble taking care of your child, family member or friend?: No Do you have trouble with day-to-day activities such as bathing, preparing meals, shopping, managing finances, etc.?: No Are you currently unemployed and looking for a job?: No Are you interested in more education?: No Please select the resources that you would like help with: None Currently or been in a relationship where the following occur: No concerns reported THRIVE Score: 0 AUDIT C Alcohol Use Questionnaire (AUDIT-C) 1. How often do you have a drink containing alcohol?: Monthly or less 2. How many drinks containing alcohol do you have on a typical day when you are drinking?: 1 or 2 3. How often do you have six or more drinks on one occasion?: Never Total Score: 1 Score Reviewed/Action Taken: Yes ROSLYN-7 AMB Questionnaire ROSLYN-7 Date ROSLYN - 7 assessed: 04/11/24 Feeling nervous, anxious, or on edge: 0 = Not at all Not being able to stop or control worryin = Not at all Worrying too much about different things: 0 = Not at all Trouble relaxin = Not at all Being so restless that it is hard to sit still: 0 = Not at all Becoming easily annoyed or irritable: 0 = Not at all Feeling afraid as if something awful might happen: 0 = Not at all Total ROSLYN-7 score (0-4 normal; 5-9 mild; 10-14 moderate; 15-21 severe): 0 Source: Developed by Drs. Rafat Still, Shannon Chance, Foreign Crawfodr and colleagues, with an educational sharan from [employer]. Review of Systems Const Denies chills, Denies fatigue, Denies fever(s) and Denies headache(s) ENT Denies dysphagia, Denies dizziness, Denies headache(s), Denies neck pain, Denies odynophagia and Denies sore throat Card Denies chest pain, Denies palpitations and Denies dyspnea Resp Denies chest congestion, Denies cough and Denies dyspnea GI Denies abdominal pain, Denies constipation, Denies dysphagia, Denies heartburn, Denies diarrhea, Denies nausea, Denies odynophagia and Denies vomiting Reports erectile dysfunction, Denies dysuria, Denies nocturia and Denies urinary frequency Musc Reports back pain (over the lower back - chronic) and Denies neck pain Skin/Breast Denies rash Neuro Denies dizziness and Denies headache(s) Endo Denies fatigue and Denies palpitations Physical exam (Primary Care) Vital Signs: Last Vital Signs Pulse 87 04/11/24 11:27 BP 126/84 04/11/24 11:27 Pulse Ox 97 04/11/24 11:27 Oxygen Delivery Method Room Air 04/11/24 11:27 BMI result Body Mass Index 29.4 Tobacco/Smoking Status: Tobacco use Status Tobacco use date assessed 04/11/24 04/11/24 11:32 Patient Tobacco Use Status Former Tobacco user 04/11/24 11:32 Tobacco use type Cigarette 04/11/24 11:32 e-Cigarette/Vaping Use Never Used 04/11/24 11:32 PHQ-9: PHQ-9 Score PHQ-9: Total score 0 04/11/24 12:08 Depression Screening Interpretation: Negative Thrive Assessment: Date of Thrive Assessment Date Thrive assessed 04/11/24 04/11/24 11:32 Currently or been in a relationship where the following occur: No concerns reported Const General: no acute distress and alert Neck Neck: Yes no lymphadenopathy and Yes supple Thyroid: Thyroid normal Resp Auscultation: clear to auscultation bilaterally, no rales and no wheezes Cardio Rate: regular rate Rhythm: regular rhythm Heart sounds: no murmurs GI Palpation (GI): Soft to palpation and nontender Auscultation: normal bowel sounds General: Yes no CVA tenderness Back/Spine/Pelvis Back: no CVA tenderness Thoracic/Lumbar Spine: lumbar spinal tenderness Extrem General: Yes no clubbing, cyanosis or edema Office Procedures Flu Questionnaire Does the patient have a severe egg allergy?: No Immunizations Fluarix Triv [id number] (PF) 45 mcg (15 mcg x 3)/0.5 mL IM syringe Performing Provider: Daniel Salinas MD Per[facility] Documented (not given) by: SULEMAN Mcintosh on 04/11/24 11:36 Reason Not Given: Received Previously Results Reviewed Results Reviewed: Laboratory Tests 04/08/24 22:20 AST 96 H ALT 88 H Coding Level of Care Code Est Pt Level 3 (92342) Diagnoses Lumbar spondylosis M47.816 Elevated LFTs R79.89 Benign essential hypertension I10 Coronary artery disease involving [place] coronary artery of [place] heart without angina pectoris I25.10 Coronary Disease-Associated Artery/Lesion type: [place] artery [place] vs. transplanted heart: [place] heart Associated angina: without angina Additional Codes PHQ-9 - 89396 - PHQ-9 Billing: Yes ([id number]) Assessment & Plan Assessment & Plan (1) Lumbar spondylosis: Code(s): M47.816 - Spondylosis without myelopathy or radiculopathy, lumbar region Category: Medical Plan: Reinforced activity and weight lifting restrictions He is cautioned against taking too much Tylenol as his liver enzymes were noted to be elevated when he had labs drawn at the ER a few days ago He is concerned about taking morphine again due to his recent reactions although it is still unclear if his symptoms then were due to morphine or some other medications or a combination of several medication taken altogether Will go ahead and give him a prescription for some tramadol 50 mg TID PRN take at this time in place of morphine I have advised him to reach out to the pain clinic again next door and see if they can try to schedule him for an appointment for back injections again SIMRAN (2) Elevated LFTs: Code(s): R79.89 - Other specified abnormal findings of blood chemistry Category: Medical Plan: Have cautioned patient that his LFTs were both elevated on his recent labs done at the ER a few days ago He is advised to avoid drinking any alcohol and also to cut back on his Tylenol intake Hepatosteatosis was noted on his previous abdominal CT done back in 2017 Will continue to monitor his LFTs regularly (3) Benign essential hypertension: Code(s): I10 - Essential (primary) hypertension Category: Medical Plan: Reinforced low sodium diet - goal is systolic BP of 120 mm or less, given his cardiac issues Continue Lisinopril 40 mg QD, Metoprolol ER 100 mg QD and Amlodipine 5 mg QD (4) CAD (coronary artery disease): Comment: 03/2018 - NSTEMI; cardiac cath done revealed (+) multivessel disease, with 95% stenosis of the RP LV branch Code(s): I25.10 - Atherosclerotic heart disease of [place] coronary artery without angina pectoris Category: Medical Qualifiers: Coronary Disease-Associated Artery/Lesion type: [place] artery [place] vs. transplanted heart: [place] heart Associated angina: without angina Qualified Code(s): I25.10 - Atherosclerotic heart disease of [place] coronary artery without angina pectoris Plan: S/P NSTEMI in March 2018; cardiac cath done revealed (+) multivessel disease, with 95% stenosis of the RP LV branch Cardiology recommended aggressive medical management as opposed to PCI and patient has been doing well with no recurrence of cardiac symptoms Echocardiogram done on 06/13/2018 revealed normal left ventricular size, thickness and function, no regional wall motion abnormalities and estimated LVEF of 65% Continue dual antiplatelet therapy with Aspirin 81 mg QD and Clopidogrel 75 mg QD Continue Metoprolol ER 100 mg QD and Amlodipine 5 mg QD; he was previously on Isosorbide Mononitrate ER 30 mg QD but he requested to have this changed as he felt that this was sapping his libido - cardiology switched him over to Amlodipine Follow up with cardiology (Dr. Suresh) as scheduled - he is being seen by cardiology every 6 months Plan Follow-up as scheduled in June 2024 Orders: Orders Influenza [id number] Immunization 04/11/24 Z23 - Encounter for immunization Medications: New tramadol 50 mg PO TID PRN 30 tabs 0RF pain
== END 2024-04-11 12:22 | disposition home or self-care (01) ==
PROVIDERS: PCP Internal Medicine; Visit Provider Internal Medicine
DX: M47.816 Spondylosis without myelopathy or radiculopathy, lumbar region (principal); R79.89 Other specified abnormal findings of blood chemistry; I10 Essential (primary) hypertension; I25.10 Atherosclerotic heart disease of native coronary artery without angina pectoris

== ENCOUNTER → 2024-04-11 11:25 | Outpatient (BNVA) | payer BC, SELFPAY | PROVIDERS: PCP Internal Medicine; Visit Provider Internal Medicine | DX: M47.816 Spondylosis without myelopathy or radiculopathy, lumbar region (principal); R79.89 Other specified abnormal findings of blood chemistry; I10 Essential (primary) hypertension; I25.10 Atherosclerotic heart disease of native coronary artery without angina pectoris; I25.2 Old myocardial infarction; Z79.82 Long term (current) use of aspirin; Z79.899 Other long term (current) drug therapy | CPT/HCPCS: 90471; 96127 ==

== ENCOUNTER 2024-04-12 13:39 | Outpatient (AMB) | payer BC, SELFPAY ==
--- NOTE | 2024-04-12 13:43 | A.OFFVIS_ITS ---
Intake Visit Reasons: FU TO REPEAT INJ Allergies No Known Allergies Allergy (Verified 04/11/24 12:08) HPI Comments Details: Telephone visit completed today for follow-up lower back pain Patient underwent bilateral therapeutic L3-L4 DR L5 medial branch blocks on 11/14/2023. He reports 80% pain relief with improvement in functional mobility for 5 months after the procedure. States about a week ago the pain started to return He would like to repeat the injections. He denies any new injury, fall, trauma Prior: Adiel presents back to the office today for follow-up, 3 days status post bilateral L3-L4 DR L5 MBB. He reports 70% pain relief with improvement in functional mobility in the hours after the procedure. He reports pain remains improved even today, currently 1/10 for pain. States injections were uncomfortable, but denies any untoward effects Prior: Patient presents the office today for follow-up lower back pain and review recent MRI results MRI reviewed with patient, results as per below Patient complains of persistent midline lower back pain, he states that the acute pain he was having with sharp shooting pains has since resolved. The constant 3/10 aching pain persists. He has been suffering with this pain for many years, completed physical therapy in the past, does home exercise program but pain is unchanged. He is unable to take nonsteroidal anti-inflammatory medication due to current use of anticoagulants. No improvement with Tylenol or muscle relaxers. Prior: Adiel is a very pleasant 52 year old male who presents to the office today for evaluation and management of acute lower back pain. Patient reports the pain started approx 1.5 weeks ago. He has some chronic aching lower back pain but this pain is new. He has recently been going to the gym, prior to the pain starting he was using the leg press machine and did feel a sensation in his back. Pain started after this incident though was not sudden onset at the time of the injury. Patient has been taking tylenol, unable to take NSAIDs as he is on plavix. He was not able to get appt with pcp but did have an xray completed. Results of the xray reviewed, as per below. Pain is midline lower back, he experiences sudden sharp shooting pains with certain movements. Also reports significant pain with coughing and sneezing. Denies radiation down either leg. Denies new loss of bowel, bladder or saddle anesthesia. He does report some aching to the front of his thighs. Pain today rated as 4/10. Constant, worse in the mornings and during the day. In terms of muscle damage condition is described as aching, hot, burning, stabbing, sharp, dull. Pain is negatively impacting patient's enjoyment of life, general activity, mood, normal work, recreational activities, relationships people and walking. 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 He states that lifting exacerbates his pain. [facility] Medical History HTN (hypertension) Erectile dysfunction Type 2 diabetes mellitus with hyperglycemia Elevated LFTs Impaired fasting glucose Vitamin D deficiency Obesity (BMI 30-39.9) Benign essential hypertension Pure hypercholesterolemia CAD (coronary artery disease) Surgical History History of endoscopy Hx of hernia repair Hx of cardiac catheterization History of colonoscopy (~02/22/18) Hx of cholecystectomy (~03/2018) Social History Household Members: Spouse Housing: House Are you a primary medicare biller to a significant other at home: No Do you presently have visiting nurse or other home services: No Alcohol intake: current Alcohol intake frequency: holidays/special occasions only Patient Tobacco Use Status: Former Tobacco user Tobacco use type: Cigarette e-Cigarette/Vaping Use: Never Used service: No Current occupational status: employed Cognitive needs: No Hearing needs: No Vision needs: No Review of Systems Const All systems reviewed & are unremarkable except as noted in HPI and below Physical Exam Vital signs and physical exam deferred, dull visit only Telehealth Telehealth Telehealth Platform: Telephone Location of provider rendering services: practice address Location of patient: address on file Patient Identification confirmed using: Name, : Yes Telehealth method: voice only Patient verbally consented to treatment: Yes Patient verbally consented to billing insurance company: Yes Patient informed of any privacy concerns related to visit: Yes Minutes spent on Phone/Video with Pt.: 7 Results Reviewed Results Reviewed: 06/22/23 MR/MR lumbar spine wo con TECHNIQUE: MRI of the lumbar spine was obtained using routine sequences without contrast. FINDINGS: Alignment is normal. Vertebral heights are preserved. Minimal type I degenerative endplate changes at L5-S1. Bone marrow signal intensity is otherwise normal. There is slight loss of intervertebral disc height and T2 signal intensity at L5-S1 related to disc degeneration. Disc desiccation is visualized at multiple additional levels. The tip of the conus medullaris is located at L1-L2. No mass effect on the conus. Visualized distal cord signal intensity is normal. At L2, L2-L3, and L3-L4 the annular contours are normal. No canal or neuroforaminal compromise at these 3 levels. At L4-L5 there is a small central annular fissure associated with a bulging disc. Bilateral facet degenerative change. No canal stenosis. No mass effect on the traversing or foraminal nerve roots. At L5-S1 there is a bulging disc. No canal stenosis. No mass effect on the traversing or foraminal nerve roots. Limited visualization of the retroperitoneal anatomy reveals no abnormal finding. Psoas and paraspinal muscle groups are symmetric. IMPRESSION: There is disc degeneration at the levels of L4-L5 and L5-S1. No canal stenosis. No mass effect on the traversing or foraminal nerve roots. 06/05/2023 XR/XR lumbar spine 2-3V FINDINGS: There are 5 nonrib-bearing lumbar vertebral bodies. Relative straightening of the lumbar lordosis. No spondylolisthesis. Vertebral body heights are maintained. Mild intervertebral disc space narrowing at L5-S1. Atherosclerotic changes of the abdominal aorta. Surgical clips project over the right upper quadrant. IMPRESSION: Mild degenerative disc disease L5-S1. Assessment & Plan Assessment & Plan (1) Lumbar paraspinal muscle spasm: Code(s): M62.830 - Muscle spasm of back Category: Medical (2) Lumbar spondylosis: Code(s): M47.816 - Spondylosis without myelopathy or radiculopathy, lumbar region Category: Medical (3) Acute low back pain with disc symptoms, duration less than 6 weeks: Code(s): M54.50 - Low back pain, unspecified; M51.9 - Unspecified thoracic, thoracolumbar and lumbosacral intervertebral disc disorder Category: Medical Plan Telephone visit completed today for follow-up, 5 months status post bilateral therapeutic L3-L4 DR Zaki WADEB. He reports 80% pain relief with improvement in function and mobility up until 1 week ago. He has exhausted 6 months of conservative therapy including Tylenol, muscle relaxers, physical therapy and home exercise program Will schedule for repeat fluoroscopy guided bilateral therapeutic L3-L4 DR L5 medial branch blocks with local anesthetic. Patient plans to proceed with RFA in the future. All questions and concerns were answered, patient agrees with the plan. Follow up after injections, sooner if needed. Coding Level of Care Code Tele Est Pt Level 3 (64944) Complex EM visit Add On G2211 Diagnoses Lumbar paraspinal muscle spasm M62.830 Lumbar spondylosis M47.816 Acute low back pain with disc symptoms, duration less than 6 weeks M54.50; M51.9
== END 2024-04-12 13:43 | disposition home or self-care (01) ==
LOC: HO.PMC 13:39
PROVIDERS: PCP Internal Medicine; Visit Provider Registered Nurse Emergency
DX: M62.830 Muscle spasm of back (principal); M47.816 Spondylosis without myelopathy or radiculopathy, lumbar region; M54.50 Low back pain, unspecified; M51.9 Unspecified thoracic, thoracolumbar and lumbosacral intervertebral disc disorder
CPT/HCPCS: 99441

== ENCOUNTER → 2024-04-12 13:39 | Outpatient (BNVA) | payer BC, SELFPAY | PROVIDERS: PCP Internal Medicine; Visit Provider Registered Nurse Emergency ==

== ENCOUNTER 2024-06-04 06:27 | Outpatient (REF) | payer BC, SELFPAY ==
--- NOTE | ~2024-06-04 | FL_ITS ---
EXAMINATION: FLUOROSCOPY GUIDANCE FOR NEEDLE PLACEMENT CLINICAL INFORMATION: M47.816 - Spondylosis without myelopathy or radiculopathy, lumbar region COMPARISON: None available. TECHNIQUE: Intraoperative fluoroscopy guidance for treatment, lumbar region. Prone position. 12 images provided. FINDINGS: No diagnostic intraoperative fluoroscopy guidance and the lumbar region for bilateral lumbar injection. Physician present. FLUOROSCOPY TIME: 0.4 minutes. DOSE AREA PRODUCT: 3.95 uGy-m2 (microgray-meter squared) FL/FL guidance in treatment room IMPRESSION: Nondiagnostic intraoperative fluoroscopy guidance in the lumbar region for a procedure. Electronically signed by: Keith Beltran MD 06/13/2024 09:42 AM CARLOS
--- OUTSIDE RECORDS SUMMARY | 2024-06-04 06:29 | XMS_ITS | Patient Health Record ---
Author Organization [facility] Address [address] [place] [address] Care Team Providers Care Screedman/Laborer Name Role Phone Brad CURRY, [place] Primary Care Provider Rafat Agustin Unavailable [phone] ALLERGIES No Known Allergies RESULTS Component Value Reference Range Notes Pathology (Not yet reviewed by provider) Interpretation: Performing Lab:[facility], [address] [place] [phone] Notes/Report: Glucose, Whole Blood Reviewed date:03/22/2024 05:14:17 PM Interpretation: Performing Lab:[facility], [address] [place] [phone] Notes/Report: Glucose, Whole Blood 88 60-115 mg/dL METER # : [id number] REASON FOR REFERRAL No Information MEDICATIONS Medication SIG (Take, Route, Frequency, Duration) Notes Start Date End Date Status Aspirin 81 81 MG 1 tablet Orally Once a day for 30 day(s) Active amLODIPine Besylate Active Lisinopril Active Metoprolol Succinate ER 100 MG Oral for 30 Active Omeprazole 20 MG 1 every morning Once a day for 30 day(s) 03/22/2024 Active Cyclobenzaprine HCl 10 MG Oral for 30 PRN Active Atorvastatin Calcium 80 MG Oral for 30 Active Clopidogrel Bisulfate 75 MG Oral for 30 Active Vitamin D3 50 MCG (1999) Oral for 83 Active IMMUNIZATIONS Vaccine Route Administration Date Status Comme nts Influenza Unknown 03/21/2023 Administered SOCIAL HISTORY Tobacco Use: Social History Observation Description Date Details (start date - stop date) Former Smoker NA - NA Sex Assigned At : Social History Observation Description Sex Assigned At Unknown Tobacco Use/Smoking Question Answer Notes Patient is a former smoker How long has it been since you last smoked? 1-5 years Alcohol Screen Question Answer Notes Did you have a drink contain ing alcohol in the past year? Yes How often did you have a dri nk containing alcohol in the past year? Monthly or less (1 point) How many drinks did you have on a typical day when you were drinking in the past year? 3 or 4 drinks (1 point) How often did you have 6 or more drinks on one occasion in the past year? Never (0 point) Points 2 Interpretation Negative PROBLEMS Problem Type ICD Code Onset Dates Problem Status W/U Status Risk SNOMED Code Notes Problem Fatty liver (K76.0) Active confirmed 200665983 Problem Elevated liver enzymes (R74.8) Active confirmed 680672336 Problem Family history of colon cancer (Z80.0) Active confirmed 109548833 Problem Calculus of gallbladder without cholecystitis without obstruction (K80.20) Active confirmed 560062363 Problem Encounter for screening for malignant neoplasm of colon (Z12.11) Active confirmed 852107521 Problem Rectal bleeding (K62.5) Active confirmed 88888363 Problem Chronic GERD (K21.9) Active confirmed Gastroesophagea l reflux disease (871475784) Problem Colon cancer screening (Z12.11) Active confirmed Colon cancer screening (282496436) Problem Family history of colon cancer in mother (Z80.0) Active confirmed Family histor y of malignant neoplasm of gastrointestinal tract (165404111) Problem Diverticulosis of large intestine without perforation or abscess without bleeding (K57.30) Active confirmed Diverticul ar disease of colon (803213782) Problem Gastro-esophageal reflux disease without esophagitis (K21.9) Active confirmed Gastro-esophage al reflux disease without esophagitis (114057488) Problem Chronic gastritis (K29.50) Active confirmed Chronic gastrit is (0221334) VITAL SIGNS Temperature 97.8 degrees Fahrenheit 11/22/2023 Blood pressure diastolic 00 mm Hg 11/22/2023 Height 64 in 11/22/2023 Blood pressure systolic 000 mm Hg 11/22/2023 Weight 179 lb 2 oz lbs 11/22/2023 BMI 30.74 kg/m2 11/22/2023 Encounters Encounter Location Date Provider Diagnosis [facility] Outpatient [address] [place] [phone] 03/22/2024 Rafat Mcgill Colon cancer screeni ng Z12.11 ; Family history of colon cancer Z80.0 ; Diverticulosis of large intestine without perforation or abscess without bleeding K57.30 ; Other hemorrhoids K64.8 ; Gastro-esophageal reflux disease without esophagitis K21.9 ; Other specified disease of esophagus K22.89 ; Hiatal hernia K44.9 and Chronic gastritis K29.50 [facility] [address] [place] [phone] 11/22/2023 Rafat Mcgill Chronic GERD K21.9 ; Colon cancer screening Z12.11 and Family history of colon cancer in mother Z80.0 [facility] [address] [place] [phone] 02/08/2024 Rafat Mcgill [facility] [address] [place] [phone] 03/22/2024 Rafat Mcgill [facility] [address] [place] [phone] 03/25/2024 Rafat Mcgill [facility] [address] [place] [phone] 04/12/2024 Rafat Mcgill ASSESSMENTS Encounter Date Diagnosis Assessment Notes Treatment Notes Treatment Clinical Notes 03/22/2024 Colon cancer screening (ICD-10 - Z12.11) 03/22/2024 Family history of colon cancer (ICD-10 - Z80.0) 11/22/2023 Colon cancer screening (ICD-10 - Z12.11) Stop Clopidogrel for 5 days before the procedures Do not take aspirin on the morning of the procedures We will get Cardiology clearance from Dr. Suresh 11/22/2023 Chronic GERD (ICD-10 - K21.9) 03/22/2024 Diverticulosis of large intestine without perforation or abscess without bleeding (ICD-10 - K57.30) 11/22/2023 Family history of colon cancer in mother (ICD-10 - Z80.0) 03/22/2024 Other hemorrhoids (ICD-10 - K64.8) 03/22/2024 Gastro-esophageal reflux disease without esophagitis (ICD-10 - K21.9) 03/22/2024 Other specified disease of esophagus (ICD-10 - K22.89) 03/22/2024 Hiatal hernia (ICD-1 0 - K44.9) 03/22/2024 Chronic gastritis (ICD-10 - K29.50) PLAN OF TREATMENT Pending Test Test Name Order Date Pathology 03/22/2024 Future Test Test Name Order Date COLONOSCOPY 02/09/2018 UPPER GI ENDOSCOPY 11/22/2023 COLONOSCOPY 11/22/2023 Next Appt Details Provider Name:Rafat Mcgill , 08/14/2024 04:00:00 PM, [address] [place] [address], [address], [place], [address], Insurance Providers Payer Name Payer Address Payer Phone Subscriber Number Group Number Insured Name Patient Relationship to Insured Coverage Start Date Coverage End Date [facility] [address] [place], [place] [id number] [phone] [id number] NIA MATHIAS Self - patient is the insured MEDICAL (GENERAL) HISTORY Medical History History ICD Code Hypertension Denies DM,CVA,Lung disease,renal disease Elevated liver tests--fatty liver--- otherwise negative workup including imaging studies, iron studies, viral serologies, alpha-1 antitrypsin level, ceruloplasmin level, and SHANIQUA Negative screening colonoscopy in 01/2018 ID--had a cath with [address] placed--sees Dr. Suresh Back pain-gets steroid injections GERD Surgical History Surgery Date(Month/Year) Hernia age 17 [facility]-Dr. Betancourt
--- OUTSIDE RECORDS SUMMARY | 2024-06-04 06:29 | XMS_ITS ---
Author Organization [facility] Address [address] [place] [address] Care Team Providers Care Formstone Fitter Name Role Phone Brad CURRY, [place] Primary Care Provider UnaRafat Arzola Unavailable [phone] REASON FOR VISIT please schedule f/u with Dr. Mcgill Encounters Encounter Location Date Provider Diagnosis [facility] [address] [place] [address] 03/25/2024 Rafat Mcgill PLAN OF TREATMENT Next Appt Details Provider Name:Rafat Mcgill , 08/14/2024 04:00:00 PM, [address], [address], [place], [address],
--- OUTSIDE RECORDS SUMMARY | 2024-06-04 06:29 | XMS_ITS ---
Author Organization [facility] Address [address] [place] [address] Care Team Providers Care Film Laboratory Technician Name Role Phone Brad CURRY [place] Primary Care Provider Rafat Agustin [phone] REASON FOR VISIT Omeprazole Rx MEDICATIONS Medication SIG (Take, Route, Fr equency, Duration) Notes Start Date End Date Status Omeprazole 20 MG 1 every morning Once a day for 30 day(s) 03/22/2024 Active Encounters Encounter Location Date Provider Diagnosis [facility] [address] [place] [address] [address] [place] [address] 03/22/2024 Rafat Mcgill PLAN OF TREATMENT Medication Medication Name Sig Start Date Stop Date Notes Omeprazole 20 MG 1 every morning Once a day for 30 day(s) 03/22/2024 Next Appt Details Provider Name:Rafat Mcgill , 08/14/2024 04:00:00 PM, [address] [place] [address], [address], [place], [address],
== END 2024-06-04 06:28 | disposition home or self-care (01) ==
LOC: CF 06:27
PROVIDERS: Visit Provider Anesthesiology
DX: M47.816 Spondylosis without myelopathy or radiculopathy, lumbar region (principal)
CPT/HCPCS: 64493; 64494; J2003; J2795; J3301; Q9967

== ENCOUNTER 2024-06-04 14:46 | Outpatient (AMB) | payer BC, SELFPAY ==
--- NOTE | 2024-06-04 15:12 | MHC.OFFVIS ---
Vital Signs 06/04/24 15:13 06/04/24 15:14 BP 157/86 H 160/88 H Blood Pressure Location Lt brachial Lt brachial Position Sitting Sitting Pulse 85 76 Pulse Source Pulse Oximeter Pulse Oximeter Pulse Oximetry (%) 99 97 Oxygen Delivery Method Room Air Room Air Comment Pre procedure Post Procedure Intake Visit Reasons: Savage theraputic L3-L4-DR-L5 MBB Allergies No Known Allergies Allergy (Verified 04/11/24 12:08) PFSH Medical History HTN (hypertension) Erectile dysfunction Type 2 diabetes mellitus with hyperglycemia Elevated LFTs Impaired fasting glucose Vitamin D deficiency Obesity (BMI 30-39.9) Benign essential hypertension Pure hypercholesterolemia CAD (coronary artery disease) Surgical History History of endoscopy Hx of hernia repair Hx of cardiac catheterization History of colonoscopy (~02/22/18) Hx of cholecystectomy (~03/2018) Social History Household Members: Spouse Housing: House Are you a primary associate director career services to a significant other at home: No Do you presently have visiting nurse or other home services: No Alcohol intake: current Alcohol intake frequency: holidays/special occasions only Patient Tobacco Use Status: Former Tobacco user Tobacco use type: Cigarette e-Cigarette/Vaping Use: Never Used service: No Current occupational status: employed Cognitive needs: No Hearing needs: No Vision needs: No Assessment & Plan Assessment & Plan (1) Spondylosis of lumbar region without myelopathy or radiculopathy: Code(s): M47.816 - Spondylosis without myelopathy or radiculopathy, lumbar region Category: Medical Plan Therapeutic medial branch block L3,L4 dorsal ramus L5 bilateral.? ? ?Informed consent was explained to the patient. Risks and benefits were explained. The risks were explained as bleeding, infection, peripheral nerve damage, spinal cord damage and infection and headache. All questions were explained and? answered.? The patient was taken inside the operating room where he was positioned prone on the operating table. Time-out was performed delineating correct site, side, the nature of the procedure, patient's allergy, . All operating room staff was participating in OR time-out procedure. ? ? The lower back was prepped with ChloraPrep and draped with sterile towels.? C-arm was brought over the operating field and sq picture of L4-, L5 vertebra and S1 AREA were delineated on the screen.? Point of interest were delineated as confluence of superior articular process of L4 and L5 vertebra bilaterally with corresponding transverse processes as well as confluence of the sacral alae bilaterally with superior articular process of S1.? The projection of the point of interest to the skin were injected with the small amount of local anesthetic lidocaine 2% mixed with ropivacaine 0.5% 1-1 approximately 1 cc. After that 22 gauge 3.5 inch spinal needle was driven sequentially to the points of interest in tunnel vision fashion. After needles gently contacted the bone at the point of interests the needle was injected with small amount of the contrast.? The injection of the contrast did not demonstrate any intravascular or intrathecal spread of the contrast.? After that injection of the? ropivacaine 0.5%-1ccwith the addition of Kenalog? was performed at each needle location.? Total dose of Kenalog was 40 mg.?after completion of the injections the needles were removed and Bandaids were applied. ? The patient tolerated procedure very well. Orders: Orders FL guidance in treatment room Today M47.816 - Spondylosis without myelopathy or radiculopathy, lumbar region Coding Level of Care Code Procedure Only Diagnoses Spondylosis of lumbar region without myelopathy or radiculopathy M47.816
[2024-06-04 15:13] VITALS: BP 157/86; PULSE 85; O2SAT 99
[2024-06-04 15:14] VITALS: BP 160/88; PULSE 76; O2SAT 97
--- OUTSIDE RECORDS SUMMARY | 2024-06-04 18:36 | XMS_ITS ---
Author Organization [facility] Address [address] [place] [address] Care Team Providers Care Assistant Signal Maintainer Name Role Phone Brad CURRY, [place] Primary Care Provider Unava Rafat Stacy Unavailable [phone] REASON FOR VISIT reschedule appt on 08/01/2023 @ 4pm Encounters Encounter Location Date Provider Diagnosis [facility] [address] [place] [address] 04/12/2024 Rafat Mcgill PLAN OF TREATMENT Next Appt Details Provider Name:Rafat Mcgill , 08/14/2024 04:00:00 PM, [address], [address], [place], [address],
== END 2024-06-04 15:13 | disposition home or self-care (01) ==
LOC: HO.PMCPRC 14:46
PROVIDERS: PCP Internal Medicine; Visit Provider Anesthesiology
DX: M47.816 Spondylosis without myelopathy or radiculopathy, lumbar region (principal)
CPT/HCPCS: 64493; 64494

== ENCOUNTER 2024-06-26 13:52 | Outpatient (AMB) | payer BC, SELFPAY ==
--- NOTE | 2024-06-26 13:53 | A.OFFVIS_ITS ---
Vital Signs 06/26/24 13:57 06/26/24 13:57 Height 5 ft 4 in Weight 167 lb BMI 28.7 BP 160/101 H 153/89 H Blood Pressure Location Rt brachial Lt brachial Position Sitting Sitting Pulse 82 Pulse Source Pulse Oximeter Comment bp recheck Intake Visit Reasons: BILATERAL THERAPEUTIC L3, L4, DRL5 MBB Intake Note: Pain today 2/10 Emt Intermediate Required: No Accompanied by: Self / Same As Patient Allergies No Known Allergies Allergy (Verified 06/26/24 13:57) HPI Comments Details: Patient presents back to the office today for follow up, 3 weeks status post bilateral therapeutic L3-L4 DR L5 medial branch block Pain today is rated as a 2/10. States he does not feel like he received much improvement after this round of injections compared to the previous time. Averages 4/10 on a daily basis. States for some reason today pain was better than it has been. Prior: Telephone visit completed today for follow-up lower back pain Patient underwent bilateral therapeutic L3-L4 DR L5 medial branch blocks on 11/14/2023. He reports 80% pain relief with improvement in functional mobility for 5 months after the procedure. States about a week ago the pain started to return He would like to repeat the injections. He denies any new injury, fall, trauma Prior: Adiel presents back to the office today for follow-up, 3 days status post bilateral L3-L4 DR L5 MBB. He reports 70% pain relief with improvement in functional mobility in the hours after the procedure. He reports pain remains improved even today, currently 1/10 for pain. States injections were uncomfortable, but denies any untoward effects Prior: Patient presents the office today for follow-up lower back pain and review recent MRI results MRI reviewed with patient, results as per below Patient complains of persistent midline lower back pain, he states that the acu te pain he was having with sharp shooting pains has since resolved. The constant 3/10 aching pain persists. He has been suffering with this pain for many years, completed physical therapy in the past, does home exercise program but pain is unchanged. He is unable to take nonsteroidal anti-inflammatory medication due to current use of anticoagulants. No improvement with Tylenol or muscle relaxers. Prior: Adiel is a very pleasant 52 year old male who presents to the office today for evaluation and management of acute lower back pain. Patient reports the pain started approx 1.5 weeks ago. He has some chronic aching lower back pain but this pain is new. He has recently been going to the gym, prior to the pain starting he was using the leg press machine and did feel a sensation in his back. Pain started after this incident though was not sudden onset at the time of the injury. Patient has been taking tylenol, unable to take NSAIDs as he is on plavix. He was not able to get appt with pcp but did have an xray completed. Results of the xray reviewed, as per below. Pain is midline lower back, he experiences sudden sharp shooting pains with certain movements. Also reports significant pain with coughing and sneezing. Denies radiation down either leg. Denies new loss of bowel, bladder or saddle anesthesia. He does report some aching to the front of his thighs. Pain today rated as 4/10. Constant, worse in the mornings and during the day. In terms of muscle damage condition is described as aching, hot, burning, stabbing, sharp, dull. Pain is negatively impacting patient's enjoyment of life, general activity, mood, normal work, recreational activities, relationships people and walking. 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 He states that lifting exacerbates his pain. [facility] Medical History HTN (hypertension) Erectile dysfunction Type 2 diabetes mellitus with hyperglycemia Elevated LFTs Impaired fasting glucose Vitamin D deficiency Obesity (BMI 30-39.9) Benign essential hypertension Pure hypercholesterolemia CAD (coronary artery disease) Surgical History History of endoscopy Hx of hernia repair Hx of cardiac catheterization History of colonoscopy (~02/22/18) Hx of cholecystectomy (~03/2018) Social History Household Members: Spouse Housing: House Are you a primary rn wound care to a significant other at home: No Do you presently have visiting nurse or other home services: No Alcohol intake: current Alcohol intake frequency: holidays/special occasions only Patient Tobacco Use Status: Former Tobacco user Tobacco use type: Cigarette e-Cigarette/Vaping Use: Never Used service: No Current occupational status: employed Cognitive needs: No Hearing needs: No Vision needs: No Review of Systems Const All systems reviewed & are unremarkable except as noted in HPI and below Physical Exam Vital Signs: Last Vital Signs Pulse 82 06/26/24 13:57 BP 153/89 H 06/26/24 13:57 BMI result Body Mass Index 28.7 General: awake, alert, oriented. Answers questions appropriately. Fully engaged in examination. Skin: warm, dry, intact HEENT: Normocephalic. Hearing intact. Cardiac: External chest normal in appearance. Respiratory: No cough, audible wheezing or stridor. Abdomen: without gross distension. MS: No obvious swelling or deformities. Neurological: Oriented to person, place, time and situation. Thought process intact. No gait abnormalities appreciated. Psychiatric: Appropriate mood and affect. Good judgment and insight. Results Reviewed Results Reviewed: 06/22/23 MR/MR lumbar spine wo con TECHNIQUE: MRI of the lumbar spine was obtained using routine sequences without contrast. FINDINGS: Alignment is normal. Vertebral heights are preserved. Minimal type I degenerative endplate changes at L5-S1. Bone marrow signal intensity is otherwise normal. There is slight loss of intervertebral disc height and T2 signal intensity at L5-S1 related to disc degeneration. Disc desiccation is visualized at multiple additional levels. The tip of the conus medullaris is located at L1-L2. No mass effect on the conus. Visualized distal cord signal intensity is normal. At L2, L2-L3, and L3-L4 the annular contours are normal. No canal or neuroforaminal compromise at these 3 levels. At L4-L5 there is a small central annular fissure associated with a bulging disc. Bilateral facet degenerative change. No canal stenosis. No mass effect on the traversing or foraminal nerve roots. At L5-S1 there is a bulging disc. No canal stenosis. No mass effect on the traversing or foraminal nerve roots. Limited visualization of the retroperitoneal anatomy reveals no abnormal finding. Psoas and paraspinal muscle groups are symmetric. IMPRESSION: There is disc degeneration at the levels of L4-L5 and L5-S1. No canal stenosis. No mass effect on the traversing or foraminal nerve roots. 06/05/2023 XR/XR lumbar spine 2-3V FINDINGS: There are 5 nonrib-bearing lumbar vertebral bodies. Relative straightening of the lumbar lordosis. No spondylolisthesis. Vertebral body heights are maintained. Mild intervertebral disc space narrowing at L5-S1. Atherosclerotic changes of the abdominal aorta. Surgical clips project over the right upper quadrant. IMPRESSION: Mild degenerative disc disease L5-S1. Assessment & Plan Assessment & Plan (1) Lumbar paraspinal muscle spasm: Code(s): M62.830 - Muscle spasm of back Category: Medical (2) Lumbar spondylosis: Code(s): M47.816 - Spondylosis without myelopathy or radiculopathy, lumbar region Category: Medical (3) Acute low back pain with disc symptoms, duration less than 6 weeks: Code(s): M54.50 - Low back pain, unspecified; M51.9 - Unspecified thoracic, thoracolumbar and lumbosacral intervertebral disc disorder Category: Medical Plan Patient presents the office today follow-up, 3 weeks status post bilateral therapeutic L3-L4 DR L5 MBB. He reports minimal pain relief since the injections Discussed again at length options for treatment including peripheral nerve stimulation with Sprint, RFA and more permanent neuromodulation. Informational pamphlets provided previous visit. Patient would like to hold off on any further procedures at this time. He will contact the office when he wishes to proceed. All questions and concerns were answered, patient agrees with the plan. He will call the office to schedule follow-up when he is ready. Coding Level of Care Code Est Pt Level 3 (33474) Complex EM visit Add On G2211 Diagnoses Lumbar paraspinal muscle spasm M62.830 Lumbar spondylosis M47.816 Acute low back pain with disc symptoms, duration less than 6 weeks M54.50; M51.9
[2024-06-26 13:57] VITALS: BP 153/89; BP 160/101; PULSE 82; BMI 28.7
--- OUTSIDE RECORDS SUMMARY | 2024-06-26 16:08 | XMS_ITS ---
Author Organization [facility] Address [address] [place] [address] Care Team Providers Care Relief Master Name Role Phone Brad CURRY [place] Primary Care Provider Rafat Agustin [phone] REASON FOR VISIT Omeprazole Rx MEDICATIONS Medication SIG (Take, Route, Fr equency, Duration) Notes Start Date End Date Status Omeprazole 20 MG 1 every morning Once a day for 30 day(s) 03/22/2024 Active Encounters Encounter Location Date Provider Diagnosis [facility] [address] [place] [address] [address] [place] [address] 03/22/2024 Rafat Mcgill PLAN OF TREATMENT Medication Medication Name Sig Start Date Stop Date Notes Omeprazole 20 MG 1 every morning Once a day for 30 day(s) 03/22/2024 Next Appt Details Provider Name:Rafat Mcgill , 08/14/2024 04:00:00 PM, [address] [place] [address], [address], [place], [address],
--- OUTSIDE RECORDS SUMMARY | 2024-06-26 16:08 | XMS_ITS | Patient Health Record ---
Author Organization [facility] Address [address] [place] [address] Care Team Providers Care Police Reserves Commander Name Role Phone Brad CURRY, [place] Primary Care Provider Rafat Agustin Unavailable [phone] ALLERGIES No Known Allergies RESULTS Component Value Reference Range Notes Pathology (Not yet reviewed by provider) Interpretation: Performing Lab:[facility], [address] [place] [id number] Notes/Report: Glucose, Whole Blood Reviewed date:03/22/2024 05:14:17 PM Interpretation: Performing Lab:[facility], [address] [place] [phone] Notes/Report: Glucose, Whole Blood 88 60-115 mg/dL METER # : [id number] REASON FOR REFERRAL No Information MEDICATIONS Medication [...] Notes Problem Fatty liver (K76.0) Active confirmed 574420144 Problem Elevated liver enzymes (R74.8) Active confirmed 236923835 Problem Family history of colon cancer (Z80.0) Active confirmed 532490887 Problem Calculus of gallbladder without cholecystitis without obstruction (K80.20) Active confirmed 579519509 Problem Encounter for screening for malignant neoplasm of colon (Z12.11) Active confirmed 054028604 Problem Rectal bleeding (K62.5) Active confirmed 39413532 Problem Chronic GERD (K21.9) Active confirmed Gastroesophagea l reflux disease (615271966) Problem Colon cancer screening (Z12.11) Active confirmed Colon cancer screening (009845189) Problem Family history of colon cancer in mother (Z80.0) Active confirmed Family histor y of malignant neoplasm of gastrointestinal tract (742277502) Problem Diverticulosis of large intestine without perforation or abscess without bleeding (K57.30) Active confirmed Diverticul ar disease of colon (277143974) Problem Gastro-esophageal reflux disease without esophagitis (K21.9) Active confirmed Gastro-esophage al reflux disease without esophagitis (565507054) Problem Chronic gastritis (K29.50) Active confirmed Chronic gastrit is (7158602) VITAL SIGNS Temperature 97.8 degrees Fahrenheit 11/22/2023 Blood pressure diastolic 00 mm Hg 11/22/2023 Height 64 in 11/22/2023 Blood pressure systolic 000 mm Hg 11/22/2023 Weight 179 lb 2 oz lbs 11/22/2023 BMI 30.74 kg/m2 11/22/2023 Encounters Encounter Location Date Provider Diagnosis [facility] Outpatient [address] [place] [phone] 03/22/2024 Rafat Mcgill Colon cancer screeni ng Z12.11 ; Family history of colon cancer Z80.0 ; Diverticulosis of large intestine without perforation or abscess without bleeding K57.30 ; Other hemorrhoids K64.8 ; Gastro-esophageal reflux disease without esophagitis K21.9 ; Other specified disease of esophagus K22.89 ; Hiatal hernia K44.9 and Chronic gastritis K29.50 [facility] [address] [place] [phone] 11/22/2023 Rafat Mcgill Chronic GERD K21.9 ; Colon cancer screening Z12.11 and Family history of colon cancer in mother Z80.0 [facility] [address] [place] [phone] 02/08/2024 Rafat Mcgill [facility] [address] [place] [phone] 03/22/2024 Rafat Mcgill [facility] [address] [place] [phone] 03/25/2024 Rafat Mcgill [facility] [address] [place] [phone] 04/12/2024 Rafat Mcgill ASSESSMENTS Encounter Date Diagnosis [...] Provider Name:Rafat Mcgill , 08/14/2024 04:00:00 PM, [address] [place] [address], [address], [place], [address], Insurance Providers Payer Name Payer Address Payer Phone Subscriber Number Group Number Insured Name Patient Relationship to Insured Coverage Start Date Coverage End Date [facility] [address] [place], [place] [id number] [phone] [id number] NIA MATHIAS Self - patient is the insured MEDICAL (GENERAL) HISTORY Medical History History ICD Code Hypertension Denies DM,CVA,Lung disease,renal disease Elevated liver tests--fatty liver--- otherwise negative workup including imaging studies, iron studies, viral serologies, alpha-1 antitrypsin level, ceruloplasmin level, and SHANIQUA Negative screening colonoscopy in 01/2018 [place]--had a cath with [address] placed--sees Dr. Suresh Back pain-gets steroid injections GERD Surgical History Surgery Date(Month/Year) Hernia age 17 [facility]-Dr. Betancourt
--- OUTSIDE RECORDS SUMMARY | 2024-06-26 16:09 | XMS_ITS ---
Author Organization [facility] Address [address] [place] [address] Care Team Providers Care Roller Presser Operator Name Role Phone Brad CURRY, [place] Primary Care Provider Unava Rafat Stacy Unavailable [phone] REASON FOR VISIT reschedule appt on 08/01/2023 @ 4pm Encounters Encounter Location Date Provider Diagnosis [facility] [address] [place] [address] 04/12/2024 Rafat Mcgill PLAN OF TREATMENT Next Appt Details Provider Name:Rafat Mcgill , 08/14/2024 04:00:00 PM, [address], [address], [place], [address],
--- OUTSIDE RECORDS SUMMARY | 2024-06-26 16:09 | XMS_ITS ---
Author Organization [facility] Address [address] [place] [address] Care Team Providers Care Epidemiology Intern Name Role Phone Brad CURRY, [place] Primary Care Provider UnaRafat Arzola Unavailable [phone] REASON FOR VISIT please schedule f/u with Dr. Mcgill Encounters Encounter Location Date Provider Diagnosis [facility] [address] [place] [address] 03/25/2024 Rafat Mcgill PLAN OF TREATMENT Next Appt Details Provider Name:Rafat Mcgill , 08/14/2024 04:00:00 PM, [address], [address], [place], [address],
--- OUTSIDE RECORDS SUMMARY | 2024-06-26 16:09 | XMS_ITS | Clinical Summary ---
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 (CMS/HCC) TAKE 1 TABLET BY MOUTH EVERY DAY 90 tablet 04/19/2024 Active metoprolol succinate (TOPROL-XL) 100 mg 24 hr tabletIndications:At herosclerotic heart 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 (CMS/HCC) TAKE 1 TABLET BY MOUTH EVERY DAY 90 tablet 04/19/2024 Active amLODIPine (NORVASC) 5 mg tabletIndications:At herosclerotic heart disease of eek coronary artery without angina pectoris TAKE 1 AND 1/2 TABLETS DAILY BY MOUTH 135 tablet 04/19/2024 Active Encounters Date Type Department Care Team Description 05/06/2024 Telephone [facility] [address] [place] [address] Jeronimo Suresh MD medication advise from Last 3 Months Social History Tobacco Use Types Packs/Day Years Used Date Smoking Tobacco: Former Cigarettes Q uit: 05/29/2010 Smokeless Tobacco: Never Alcohol Use Standard Drinks/Week Comments Yes 0 (1 standard drink = 0.6 oz pur e alcohol) Sex and Gender Information Value Date Recorded Sex Assigned at Not on file Gender Identity Male 06/01/2024 12:43 PM EST Sexual Orientation Choose not to disclose 2024 12:43 PM EST Obstetrics History Last Filed Vital Signs Vital Sign Reading Time Taken Comments Blood Pressure 138/88 04/18/2023 3:34 PM EST Sit ting L Arm Pulse 73 04/18/2023 3:34 PM EST Temperature - - Respiratory Rate - - Oxygen Saturation - - Inhaled Oxygen Concentration - - Weight 79.8 kg (176 lb) 04/18/2023 3:34 PM EST Height 162.6 cm (5' 4 ) 04/18/2023 3:34 PM EST Body Mass Index 30.21 04/18/2023 3:34 PM EST Plan of Treatment Health Maintenance Due Date Last Done Comments DTaP,Tdap,and Td Vaccines (1 - Tdap) 1988 Hepatitis B Vaccines (1 of 3 - 19+ 3-dose series) 1988 Zoster Vaccines (1 of 2) 2019 Cholesterol Screening (Lipid Panel) 05/07/2022 Colorectal Cancer Screening: Colonoscopy 05/07/2022 Depression Screening 05/07/2022 HIV Screening 05/07/2022 Hepatitis C Screening 05/07/2022 Social Influencers of Health Screening 05/07/2022 Hypertension/CHF/CAD Annual BMP Blood Test 05/08/2022 COVID-19 Vaccine (2 - 2023-2 5 season) 2024 10/31/2021 Influenza Vaccine (#1) 2024 HIB Vaccines Aged Out No longer eligi ble based on patient's age to complete this topic HPV Vaccines Aged Out No longer eligi ble based on patient's age to complete this topic Hepatitis A Vaccines Aged Out No long er eligible based on patient's age to complete this topic IPV Vaccines Aged Out No longer eligi ble based on patient's age to complete this topic MMR Vaccines Aged Out No longer eligi ble based on patient's age to complete this topic Meningococcal ACWY Vaccine Aged Out N o longer eligible based on patient's age to complete this topic Pneumococcal Vaccine: Pediat rics (0 to 5 Years) and At-Risk Patients (6 to 64 Years) Aged Out No longer eligi ble based on patient's age to complete this topic RSV Immunization Patients Un salud 20 months Aged Out No longer eligible b ased on patient's age to complete this topic Varicella Vaccines Aged Out No longer eligible based on patient's age to complete this topic Care Teams Director Of Supply Chain Relationship Specialty Start Date End Date Daniel Salinas MD [address] [place] [address] [address] [place] MD PCP - General Internal Medicine 08/13/21
== END 2024-06-26 14:16 | disposition home or self-care (01) ==
PROVIDERS: PCP Internal Medicine; Visit Provider Registered Nurse Emergency
DX: M62.830 Muscle spasm of back (principal); M47.816 Spondylosis without myelopathy or radiculopathy, lumbar region; M54.50 Low back pain, unspecified; M51.9 Unspecified thoracic, thoracolumbar and lumbosacral intervertebral disc disorder
CPT/HCPCS: 99213

== ENCOUNTER 2024-07-17 14:15 | Outpatient (AMB) | payer BC, SELFPAY ==
--- NOTE | 2024-07-17 14:22 | MHC.OFFVIS ---
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 Patient reports about a week prior to his [facility] walk in visit on 07/06/24, he was carrying some pipes while at work heard a pop. States he felt immediate pain. 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 Currently states his ROM is good however he has pain. Denies numbness or tinging in hands. Patient is taking meds for DM. 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 Washburn is a 54-year-old right-hand dominant male who presents to the office today for evaluation of left biceps injury. He reports that on 07/06/2024 he was lifting some PVC pipe and a piece got stuck felt a popping sensation in the left shoulder. Afterwards the patient noticed that he had developed significant bruising in the biceps area as well as a deformity. [facility] Medical History HTN (hypertension) Erectile dysfunction Type 2 diabetes mellitus with hyperglycemia Elevated LFTs Impaired fasting glucose Vitamin D deficiency Obesity (BMI 30-39.9) Benign essential hypertension Pure hypercholesterolemia CAD (coronary artery disease) Surgical History History of endoscopy Hx of hernia repair Hx of cardiac catheterization History of colonoscopy (~02/22/18) Hx of cholecystectomy (~03/2018) Social History (Updated 07/17/24 @ 14:30 by MARTHA Zelaya) Household Members: Spouse Housing: House Are you a primary pulmonary care nurse to a significant other at home: No Do you presently have visiting nurse or other home services: No Alcohol intake: current Alcohol intake frequency: holidays/special occasions only Patient Tobacco Use Status: Former Tobacco user Tobacco use type: Cigarette e-Cigarette/Vaping Use: Never Used service: No Current occupational status: employed 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 Full range of motion of the left shoulder. Anibal deformity noted from proximal biceps tendon rupture. NVI. Assessment & Plan Assessment & Plan (1) Rupture of proximal biceps tendon: Code(s): S46.119A - Strain of muscle, fascia and tendon of long head of biceps, unspecified arm, initial encounter Category: Medical Plan Mr. Washburn is a 54-year-old right-hand dominant male who presents to the office today for evaluation of left biceps injury. He reports that on 07/06/2024 he was lifting some PVC pipe and a piece got stuck felt a popping sensation in the left shoulder. Afterwards the patient noticed that he had developed significant bruising in the biceps area as well as a deformity. While in the office today, we discussed the role of physical therapy which the patient is agreeable to attend. Physical therapies to maximize range of motion and strength of the left upper extremity. We discussed the patient's work status and he would like to remain full-time regular duty. He will follow up with Orthopedics p.r.n., sooner if needed. Orders: Orders PT Evaluation and Treatment Today S46.119A - Strain of muscle, fascia and tendon of long head of biceps, unspecified arm, initial encounter Coding Level of Care Code New Pt Level 3 (34456) Diagnoses Rupture of proximal biceps tendon S46.119A
[2024-07-17 14:23] VITALS: BMI 28.8
--- OUTSIDE RECORDS SUMMARY | 2024-07-17 14:24 | XMS_ITS ---
Author Organization [facility] Address [address] [place] [address] Care Team Providers Care Overseer Kosher Kitchen Name Role Phone Brad CURRY [place] Primary Care Provider Rafat Agustin [phone] REASON FOR VISIT Omeprazole Rx MEDICATIONS Medication SIG (Take, Route, Fr equency, Duration) Notes Start Date End Date Status Omeprazole 20 MG 1 every morning Once a day for 30 day(s) 03/22/2024 Active Encounters Encounter Location Date Provider Diagnosis [facility] [address] [place] [address] [address] [place] [address] 03/22/2024 Rafat Mcgill PLAN OF TREATMENT Medication Medication Name Sig Start Date Stop Date Notes Omeprazole 20 MG 1 every morning Once a day for 30 day(s) 03/22/2024 Next Appt Details Provider Name:Rafat Mcgill , 08/14/2024 04:00:00 PM, [address] [place] [address], [address], [place], [address],
--- OUTSIDE RECORDS SUMMARY | 2024-07-17 14:24 | XMS_ITS ---
Author Organization [facility] Address [address] [place] [address] Care Team Providers Care K [employer] Principal Name Role Phone Brad CURRY, [place] Primary Care Provider UnaRafat Arzola Unavailable [phone] REASON FOR VISIT please schedule f/u with Dr. Mcgill Encounters Encounter Location Date Provider Diagnosis [facility] [address] [place] [address] 03/25/2024 Rafat Mcgill PLAN OF TREATMENT Next Appt Details Provider Name:Rafat Mcgill , 08/14/2024 04:00:00 PM, [address], [address], [place], [address],
--- OUTSIDE RECORDS SUMMARY | 2024-07-17 14:24 | XMS_ITS ---
Author Organization [facility] Address [address] [place] [address] Care Team Providers Care Senior Technical Manager Name Role Phone Brad CURRY, [place] Primary Care Provider Unava Rafat Stacy Unavailable [phone] REASON FOR VISIT reschedule appt on 08/01/2023 @ 4pm Encounters Encounter Location Date Provider Diagnosis [facility] [address] [place] [address] 04/12/2024 Rafat Mcgill PLAN OF TREATMENT Next Appt Details Provider Name:Rafat Mcgill , 08/14/2024 04:00:00 PM, [address], [address], [place], [address],
--- OUTSIDE RECORDS SUMMARY | 2024-07-17 14:24 | XMS_ITS | Patient Health Record ---
Author Organization [facility] Address [address] [place] [address] Care Team Providers Care Needle Grinder Name Role Phone Brad CURRY, [place] Primary Care Provider Rafat Agustin Unavailable [phone] ALLERGIES No Known Allergies RESULTS Component Value Reference Range Notes Pathology (Not yet reviewed by provider) Interpretation: Performing Lab:[facility], [address] [place] [phone] Notes/Report: Glucose, Whole Blood Reviewed date:03/22/2024 05:14:17 PM Interpretation: Performing Lab:[facility], [address] [place] [phone] Notes/Report: Glucose, Whole Blood 88 60-115 mg/dL METER # : [id number] REASON FOR REFERRAL No Information MEDICATIONS Medication [...] Notes Problem Fatty liver (K76.0) Active confirmed 831193307 Problem Elevated liver enzymes (R74.8) Active confirmed 556308322 Problem Family history of colon cancer (Z80.0) Active confirmed 826329036 Problem Calculus of gallbladder without cholecystitis without obstruction (K80.20) Active confirmed 570829871 Problem Encounter for screening for malignant neoplasm of colon (Z12.11) Active confirmed 435765030 Problem Rectal bleeding (K62.5) Active confirmed 09747875 Problem Chronic GERD (K21.9) Active confirmed Gastroesophagea l reflux disease (666859761) Problem Colon cancer screening (Z12.11) Active confirmed Colon cancer screening (546646583) Problem Family history of colon cancer in mother (Z80.0) Active confirmed Family histor y of malignant neoplasm of gastrointestinal tract (037811951) Problem Diverticulosis of large intestine without perforation or abscess without bleeding (K57.30) Active confirmed Diverticul ar disease of colon (160870003) Problem Gastro-esophageal reflux disease without esophagitis (K21.9) Active confirmed Gastro-esophage al reflux disease without esophagitis (620651014) Problem Chronic gastritis (K29.50) Active confirmed Chronic gastrit is (1472809) VITAL SIGNS Temperature 97.8 degrees Fahrenheit 11/22/2023 Blood pressure diastolic 00 mm Hg 11/22/2023 Height 64 in 11/22/2023 Blood pressure systolic 000 mm Hg 11/22/2023 Weight 179 lb 2 oz lbs 11/22/2023 BMI 30.74 kg/m2 11/22/2023 Encounters Encounter Location Date Provider Diagnosis [facility] [address] [place] [phone] 03/22/2024 Rafat Mcgill Colon cancer screeni ng Z12.11 ; Family history of colon cancer Z80.0 ; Diverticulosis of large intestine without perforation or abscess without bleeding K57.30 ; Other hemorrhoids K64.8 ; Gastro-esophageal reflux disease without esophagitis K21.9 ; Other specified disease of esophagus K22.89 ; Hiatal hernia K44.9 and Chronic gastritis K29.50 [facility] [address] [place] [address] 11/22/2023 Rafat Mcgill Chronic GERD K21.9 ; Colon cancer screening Z12.11 and Family history of colon cancer in mother Z80.0 [facility] [address] [place] [address] 02/08/2024 Rafat Mcgill [facility] [address] [place] [address] 03/22/2024 Rafat Mcgill [facility] [address] [place] [address] 03/25/2024 Rafat Mcgill [facility] [address] [place] [address] 04/12/2024 Rafat Mcgill ASSESSMENTS Encounter Date Diagnosis [...] Provider Name:Rafat Mcgill , 08/14/2024 04:00:00 PM, [address] [place] [address], [address], [place], [address], Insurance Providers Payer Name Payer Address Payer Phone Subscriber Number Group Number Insured Name Patient Relationship to Insured Coverage Start Date Coverage End Date [facility] [address] [place], [place] [id number] [phone] [id number] NIA MATHIAS Self - patient is the insured MEDICAL (GENERAL) HISTORY Medical History History ICD Code Hypertension Denies DM,CVA,Lung disease,renal disease Elevated liver tests--fatty liver--- otherwise negative workup including imaging studies, iron studies, viral serologies, alpha-1 antitrypsin level, ceruloplasmin level, and SHANIQUA Negative screening colonoscopy in 01/2018 [place]--had a cath with [address] ent placed--sees Dr. Suresh Back pain-gets steroid injections GERD Surgical History Surgery Date(Month/Year) Hernia age 17 CCY-Dr. Betancourt
--- OUTSIDE RECORDS SUMMARY | 2024-07-17 14:24 | XMS_ITS | Clinical Summary ---
Author Organization [facility] Address [address] [place] [address] Care Team Providers Care Cash Shortage Investigator Name Role Phone Daniel Salinas MD Primary Care Provider Allergies No known active allergies Medications lisinopril (PRINIVIL,ZESTR IL) 40 mg tabletIndicatio ns:Atherosclero tic heart disease of [place] coronary artery with other forms of angina pectoris (CMS/HCC) TAKE 1 TABLET BY MOUTH EVERY DAY 90 tablet 04/19/2024 Active atorvastatin (LIPITOR) 80 mg tabletIndicatio ns:Atherosclero tic heart disease of [place] coronary artery with other forms of angina pectoris (CMS/HCC) TAKE 1 TABLET BY MOUTH EVERY DAY 90 tablet 04/19/2024 Active metoprolol succinate (TOPROL-XL) 100 mg 24 hr tabletIndicatio ns:Atherosclero tic heart disease of [place] coronary artery with other forms of angina pectoris (CMS/HCC) TAKE 1 TABLET BY MOUTH EVERY DAY 90 tablet 04/19/2024 Active amLODIPine (NORVASC) 5 mg tabletIndicatio ns:Atherosclero tic heart disease of [place] coronary artery without angina pectoris TAKE 1 AND 1/2 TABLETS DAILY BY MOUTH 135 tablet 04/19/2024 Active clopidogreL (PLAVIX) 75 mg tablet Take 1 tablet (75 mg total) by mouth 1 (one) time each day. 02/14/2024 Active nitroglycerin (NITROSTAT) 0.[address] 1 tablet (0.4 mg total) under the tongue every 5 (five) minutes if needed for chest pain. 03/09/2021 Active cholecalciferol (VITAMIN D-3) 50 mcg (2,000 unit) tablet Take 1 tablet (2,000 Units total) by mouth 1 (one) time each day. Active aspirin 81 mg EC tablet Take 1 tablet (81 mg total) by mouth 1 (one) time each day. Active Active Problems Problem Noted Date Diagnosed Date Dyspnea on exertion 02/15/2022 Coronary artery disease of n ative artery of [place] heart with stable angina pectoris 01/19/2021 Essential hypertension 01/19/2021 Mixed hyperlipidemia 01/19/2021 Encounters Date Type Department Care Team Description 05/06/2024 Telephone [facility] [address] [place] [address] Jeronimo Suresh MD medication advise from Last 3 Months Social History Tobacco Use Types Packs/Day Years Used Date Smoking Tobacco: Former Cigarettes Q uit: 05/29/2010 Smokeless Tobacco: Never Alcohol Use Standard Drinks/Week Comments Yes 0 (1 standard drink = 0.6 oz pur e alcohol) Sex and Gender Information Value Date Recorded Sex Assigned at Not on file Legal Sex Male 2:43 PM EST Gender Identity Male 06/01/2024 12:43 PM EST [...] 04/18/2023 3:34 PM EST Plan of Treatment Upcoming Encounters Date Type Department Care Team (Late st Contact Info) Description 07/22/2024 1:40 PM EST Office Visit [facility] [address] [place] [address] Petros Menard NP [address] [place] [address] [address] [place] [address] Health Maintenance Due Date Last Done Comments DTaP,Tdap,and Td Vaccines (1 - Tdap) 1988 Hepatitis B Vaccines (1 of 3 - 19+ 3-dose series) 1988 Pneumococcal Vaccine: 50+ Ye ars (1 of 2 - PCV) 1988 Pneumococcal Vaccine: Pediat rics (0 to 5 Years) and At-Risk Patients (6 to 64 Years) (1 of 2 - PCV) 1988 Zoster Vaccines (1 of 2) 2019 [...] patient's age to complete this topic Meningococcal B Vacine Aged Out No lo nger eligible based on patient's age to complete this topic RSV Immunization Patients Un salud 20 months Aged Out No longer eligible b ased on patient's age to complete this topic Varicella Vaccines Aged Out No longer eligible based on patient's age to complete this topic Insurance [facility] Care Teams Cash Shortage Investigator Relationship Specialty Start Date End Date Daniel Salinas MD [address] [place] [address] [address] [place] PCP - General Internal Medicine 08/13/21
== END 2024-07-17 14:56 | disposition home or self-care (01) ==
PROVIDERS: PCP Internal Medicine; Visit Provider Physician Assistant
DX: S46.112A Strain of muscle, fascia and tendon of long head of biceps, left arm, initial encounter (principal)
CPT/HCPCS: 99203

== ENCOUNTER 2024-07-20 09:16 | Outpatient (REF) | payer BC, SELFPAY ==
--- OUTSIDE RECORDS SUMMARY | 2024-07-20 09:19 | XMS_ITS | Patient Health Record ---
Author Organization [facility] Address [address] [place] [address] Care Team Providers Care Finishing Operator Name Role Phone Brad CURRY, [place] Primary Care Provider Rafat Agustin Unavailable [phone] ALLERGIES No Known Allergies RESULTS Component Value Reference Range Notes Pathology (Not yet reviewed by provider) Interpretation: Performing Lab:[facility], [address] [place] [phone] Notes/Report: Glucose, Whole Blood Reviewed date:03/22/2024 05:14:17 PM Interpretation: Performing Lab:[facility], [address] [place] [phone] Notes/Report: Glucose, Whole Blood 88 60-115 mg/dL METER # : [id number] REASON FOR REFERRAL No Information MEDICATIONS Medication [...] Notes Problem Fatty liver (K76.0) Active confirmed 251834714 Problem Elevated liver enzymes (R74.8) Active confirmed 614406575 Problem Family history of colon cancer (Z80.0) Active confirmed 955563555 Problem Calculus of gallbladder without cholecystitis without obstruction (K80.20) Active confirmed 721123303 Problem Encounter for screening for malignant neoplasm of colon (Z12.11) Active confirmed 460384445 Problem Rectal bleeding (K62.5) Active confirmed 96433115 Problem Chronic GERD (K21.9) Active confirmed Gastroesophagea l reflux disease (282836791) Problem Colon cancer screening (Z12.11) Active confirmed Colon cancer screening (993018296) Problem Family history of colon cancer in mother (Z80.0) Active confirmed Family histor y of malignant neoplasm of gastrointestinal tract (942052815) Problem Diverticulosis of large intestine without perforation or abscess without bleeding (K57.30) Active confirmed Diverticul ar disease of colon (778604744) Problem Gastro-esophageal reflux disease without esophagitis (K21.9) Active confirmed Gastro-esophage al reflux disease without esophagitis (566476121) Problem Chronic gastritis (K29.50) Active confirmed Chronic gastrit is (7241606) VITAL SIGNS Temperature 97.8 degrees Fahrenheit 11/22/2023 Blood pressure diastolic 00 mm Hg 11/22/2023 Height 64 in 11/22/2023 Blood pressure systolic 000 mm Hg 11/22/2023 Weight 179 lb 2 oz lbs 11/22/2023 BMI 30.74 kg/m2 11/22/2023 Encounters Encounter Location Date Provider Diagnosis [facility] [address] [place] [id number] 03/22/2024 Rafat Mcgill Colon cancer screeni ng Z12.11 ; Family history of colon cancer Z80.0 ; Diverticulosis of large intestine without perforation or abscess without bleeding K57.30 ; Other hemorrhoids K64.8 ; Gastro-esophageal reflux disease without esophagitis K21.9 ; Other specified disease of esophagus K22.89 ; Hiatal hernia K44.9 and Chronic gastritis K29.50 [facility] [address] [place] [address] 11/22/2023 Rafat Mcgill Chronic GERD K21.9 ; Colon cancer screening Z12.11 and Family history of colon cancer in mother Z80.0 [facility] [address] [place] [address] 02/08/2024 Rafat Mcgill [facility] [address] [place] [address] 03/22/2024 Rafat Mcgill [facility] [address] [place] [address] 03/25/2024 Rafat Mcgill [facility] [address] [place] [address] 04/12/2024 aRfat Mcgill ASSESSMENTS Encounter Date Diagnosis Assessment Notes [...] Provider Name:Rafat Mcgill , 08/14/2024 04:00:00 PM, [address] [place] [address], [address], [place], [address], Insurance Providers Payer Name Payer Address Payer Phone Subscriber Number Group Number Insured Name Patient Relationship to Insured Coverage Start Date Coverage End Date [facility] [address] [place], [place] [id number] [phone] [id number] NIA MATHIAS Self - patient is the insured MEDICAL (GENERAL) HISTORY Medical History History ICD Code Hypertension Denies DM,CVA,Lung disease,renal disease Elevated liver tests--fatty liver--- otherwise negative workup including imaging studies, iron studies, viral serologies, alpha-1 antitrypsin level, ceruloplasmin level, and SHANIQUA Negative screening colonoscopy in 01/2018 [place]--had a cath with [address] ent placed--sees Dr. Suresh Back pain-gets steroid injections GERD Surgical History Surgery Date(Month/Year) Hernia age 17 CCY-Dr. Betancourt
--- OUTSIDE RECORDS SUMMARY | 2024-07-20 09:19 | XMS_ITS ---
Author Organization [facility] Address [address] [place] [address] Care Team Providers Care Billet Sawyer Name Role Phone Brad CURRY, [place] Primary Care Provider Unava Rafat Stacy Unavailable [phone] REASON FOR VISIT reschedule appt on 08/01/2023 @ 4pm Encounters Encounter Location Date Provider Diagnosis [facility] [address] [place] [address] 04/12/2024 Rafat Mcgill PLAN OF TREATMENT Next Appt Details Provider Name:Rafat Mcgill , 08/14/2024 04:00:00 PM, [address] [facility], [address], [place], [address],
--- OUTSIDE RECORDS SUMMARY | 2024-07-20 09:20 | XMS_ITS ---
Author Organization [facility] Address [address] [place] [address] Care Team Providers Care Open Hearth Stockyard Supervisor Name Role Phone Brad CURRY, [place] Primary Care Provider UnaRafat Arzola Unavailable [phone] REASON FOR VISIT please schedule f/u with Dr. Mcgill Encounters Encounter Location Date Provider Diagnosis [facility] [address] [place] [address] 03/25/2024 Rafat Mcgill PLAN OF TREATMENT Next Appt Details Provider Name:Rafat Mcgill , 08/14/2024 04:00:00 PM, [address] [facility] [address], [address], [place], [address],
--- OUTSIDE RECORDS SUMMARY | 2024-07-20 09:20 | XMS_ITS | Clinical Summary ---
Author Organization [facility] Address [address] [place] [address] Care Team Providers Care Flake Or Shred Roll Operator Name Role Phone Daniel Salinas MD Primary Care Provider [phone] Allergies No known active allergies Medications lisinopril (PRINIVIL,ZESTR IL) 40 mg tabletIndicatio ns:Atherosclero tic heart disease of [place] coronary artery with other forms of angina pectoris (CMS/HCC) TAKE 1 TABLET BY MOUTH EVERY DAY 90 tablet 04/19/2024 Active atorvastatin (LIPITOR) 80 mg tabletIndicatio ns:Atherosclero tic heart disease of [place] coronary artery with other forms of angina pectoris (CMS/HCC) TAKE 1 TABLET BY MOUTH EVERY DAY 90 tablet 04/19/2024 Active metoprolol succinate (TOPROL-XL) 100 mg 24 hr tabletIndicatio ns:Atherosclero tic heart disease of [place] coronary artery with other forms of angina pectoris (CMS/HCC) TAKE 1 TABLET BY MOUTH EVERY DAY 90 tablet 04/19/2024 Active amLODIPine (NORVASC) 5 mg tabletIndicatio ns:Atherosclero tic heart disease of [place] coronary artery without angina pectoris TAKE 1 [...] artery disease of n ative artery of [place] heart with stable angina pectoris 01/19/2021 Essential hypertension 01/19/2021 Mixed hyperlipidemia 01/19/2021 Encounters Date Type Department Care Team Description 05/06/2024 Telephone [facility] [address] [place] [address] Jeronimo Suresh MD medication advise from [...] Description 07/22/2024 1:40 PM EST Office Visit [facility] [address] [place] [address] Petros Menard NP [address] [place] [address] [address] [place] [id number] Health Maintenance Due Date Last Done Comments [...] patient's age to complete this topic Insurance [facility]) Care Teams Flake Or Shred Roll Operator Relationship Specialty Start Date End Date Daniel Salinas MD [address] [place] [address] [address] [place] PCP - General Internal Medicine 08/13/21
[2024-07-20 09:35] LABS: MANUAL DIFF FLAG NO
[2024-07-20 10:08] LABS: Estimated Average Glucose 126 mg/dL; Hemoglobin A1C 160.2538 umol/L; Total Hemoglobin (HGBA1C) 3776.3739 umol/L
[2024-07-20 10:19] LABS: Basophils Percent Auto 0.3 % (0-2); Eosinophils Absolute Auto 0.1 X10*3/uL (0.0-0.4); Eosinophils Percent Auto 1.5 % (0-4); Hematocrit 42.4 % (42.0-52.0); Hemoglobin 14.1 g/dl (14.0-18.0); Imm Gran Abs Auto 0.03 X10*3/uL (0.00-0.03); Imm Gran Pct Auto 0.4 % (0.0-0.4); Lymphocytes Absolute Auto 1.9 X10*3/uL (1.2-4.9); Lymphocytes Percent Auto 26.1 % (20-40); Mean Corpuscular HGB Conc 33.3 g/dl (31.0-36.0); Mean Corpuscular Hemoglobin 30.1 pg (27.0-33.0); Mean Corpuscular Volume 90.6 fL (80.0-98.0); Monocytes Absolute Auto 0.5 X10*3/uL (0.1-1.2); Monocytes Percent Auto 7.4 % (2-11); Neutrophils Absolute Auto 4.7 x10*3/uL (2.0-8.3); Neutrophils Percent Auto 64.3 % (45-73); Platelet Count 254 X10*3/uL (160-400); Red Blood Count 4.68 X10*6/uL (4.60-5.80); White Blood Count 7.3 X10*3/uL (4.8-10.8)
[2024-07-20 10:35] LABS: Alanine Aminotransferase 31 U/L (0-40); Alkaline Phosphatase 84 U/L (39-117); Anion Gap 12 (12-20); Aspartate Amino Transferase 26 U/L (5-37); Blood Urea Nitrogen 13 mg/dL (9-16); Calcium 9.2 mg/dL (8.4-10.2); Carbon Dioxide 27 mmol/L (22-29); Chloride 106 mmol/L (96-108); Cholesterol 125 mg/dL (<200); Estimated Glomerular Filt Rate > 60; Glucose Fasting 130 mg/dL (60-99); HDL Cholesterol 37 mg/dL (>40); LDL Cholesterol Calculated 71 mg/dL (<100); Potassium 4.4 mmol/L (3.3-5.1); Sodium 141 mmol/L (135-145); Total Protein 7.5 g/dL (6.5-8.0); Triglycerides 87 mg/dL (<150)
[2024-07-20 10:53] LABS: TSH reflex Free T4 0.52 uIU/mL (0.32-4.0); Vitamin D 25-OH Total 35.3 ng/mL (>30)
== END 2024-07-20 09:17 | disposition home or self-care (01) ==
LOC: HO.LAB 09:16
PROVIDERS: PCP Internal Medicine; Visit Provider Internal Medicine
DX: E11.9 Type 2 diabetes mellitus without complications (principal); E55.9 Vitamin D deficiency, unspecified; I10 Essential (primary) hypertension; D64.9 Anemia, unspecified; E78.00 Pure hypercholesterolemia, unspecified
CPT/HCPCS: 36415; 80053; 80061; 82306; 83036; 84443; 85025

== ENCOUNTER 2024-07-23 15:38 | Outpatient (AMB) | payer BC, SELFPAY ==
[2024-07-23 15:48] VITALS: BP 138/84; PULSE 87; O2SAT 98; BMI 29.2
--- NOTE | 2024-07-23 15:48 | MHC.PC.OV ---
Vital Signs 07/23/24 15:48 Height 5 ft 4 in Weight 170 lb 4 oz BMI 29.2 BP 138/84 Blood Pressure Location Lt brachial Position Sitting Pulse 87 Pulse Source Pulse Oximeter Pulse Oximetry (%) 98 Oxygen Delivery Method Room Air Intake Visit Reasons: hyperlipidemia, HTN, DM Weave Defect Charting Clerk Required: No Accompanied by: Self / Same As Patient Allergies No Known Allergies Allergy (Verified 07/23/24 16:21) Medication List - Last Reconciled 07/23/24 by Daniel Salinas MD amlodipine 7.5 mg PO DAILY aspirin (Cannon Aspirin) 81 mg PO DAILY atorvastatin 80 mg PO DAILY cholecalciferol (vitamin D3) 50 mcg PO DAILY 90 days clopidogrel 75 mg PO DAILY cyclobenzaprine 10 mg PO TID PRN lisinopril 40 mg PO DAILY metformin ER 500 mg PO QPM 30 days metoprolol succinate ER 100 mg PO DAILY omeprazole 20 mg PO DAILY sildenafil 50 mg PO DAILY PRN Tobacco use date assessed: 07/23/24 Dental Screening Dental Screen Date: 07/23/24 Did you have a dental visit in the last 12 months?: No Did you have a dental problem in the last 6 months where you did not have access to dental care?: No Was dental information given to patient?: No HPI hyperlipidemia, HTN, DM HPI Details Patient comes in today for his follow-up visit States that he tore his left biceps tendon about 3 weeks ago He was seen by orthopedics for this issue last week and was referred to physical therapy He will be starting physical therapy in about a week on 08/01/2024 States that he currently feels okay otherwise He denies any headaches or dizziness Denies any chest pains, no increased shortness of breath No nausea/vomiting, no abdominal pain No change in bowel habits noted He had his follow-up labs done a few days ago - to discuss his results [facility] Medical History (Updated 07/28/24 @ 14:50 by Daniel Salinas MD) Overweight (BMI 25.0-29.9) HTN (hypertension) Erectile dysfunction Type 2 diabetes mellitus with hyperglycemia Elevated LFTs Impaired fasting glucose Vitamin D deficiency Obesity (BMI 30-39.9) Benign essential hypertension Pure hypercholesterolemia CAD (coronary artery disease) Surgical History History of endoscopy Hx of hernia repair Hx of cardiac catheterization History of colonoscopy (~02/22/18) Hx of cholecystectomy (~03/2018) Social History Household Members: Spouse Housing: House Are you a primary care management assistant to a significant other at home: No Do you presently have visiting nurse or other home services: No Alcohol intake: current Alcohol intake frequency: holidays/special occasions only Patient Tobacco Use Status: Former Tobacco user Tobacco use type: Cigarette e-Cigarette/Vaping Use: Never Used service: No Current occupational status: employed 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 1. Little interest or pleasure in doing things: not at all 2. Feeling down, depressed, or hopeless: not at all 3. Trouble falling or staying asleep, or sleeping too much: not at all 4. Feeling tired or having little energy: not at all 5. Poor appetite or overeating: not at all 6. Feeling bad about yourself - or that you are a failure or have let yourself or your family down: not at all 7. Trouble concentrating on things, such as reading the newspaper or watching television: not at all 8. Moving or speaking so slowly that other people could have noticed. Or the opposite - being so fidgety or restless that you have been moving around a lot more than usual: not at all 9. Thoughts that you would be better off or of hurting yourself in some way: not at all Total score: 0 Depression Screening Interpretation: Negative Depression Screening Done: Yes 95063 - PHQ-9 Billing: Yes Source: Developed by Drs. Rafat Still, Shannon Chance, Foreign Crawford and colleagues, with an educational sharan from [employer]. Thrive Questionnaire Date Thrive assessed: 07/23/24 I am a: Patient What is your living situation today?: I have a steady place to live Within the past 12 months, did the food you bought not last and you didn't have the money to get more?: Never true Within the past 12 months, did you worry whether your food would run out before you got money to buy more?: Never true Do you have trouble paying for medicines?: No Do you have trouble getting transportation to medical appointments?: No Do you have trouble paying your heating and electricity bill?: No Do you have trouble taking care of your child, family member or friend?: No Do you have trouble with day-to-day activities such as bathing, preparing meals, shopping, managing finances, etc.?: No Are you currently unemployed and looking for a job?: No Are you interested in more education?: No Please select the resources that you would like help with: None Currently or been in a relationship where the following occur: No concerns reported THRIVE Score: 0 AUDIT C Alcohol Use Questionnaire (AUDIT-C) 1. How often do you have a drink containing alcohol?: Monthly or less 2. How many drinks containing alcohol do you have on a typical day when you are drinking?: 3 or 4 3. How often do you have six or more drinks on one occasion?: Less than monthly Total Score: 3 Score Reviewed/Action Taken: Yes ROSLYN-7 AMB Questionnaire ROSLYN-7 Date ROSLYN - 7 assessed: 07/23/24 Feeling nervous, anxious, or on edge: 0 = Not at all Not being able to stop or control worryin = Not at all Worrying too much about different things: 0 = Not at all Trouble relaxin = Not at all Being so restless that it is hard to sit still: 0 = Not at all Becoming easily annoyed or irritable: 0 = Not at all Feeling afraid as if something awful might happen: 0 = Not at all Total ROSLYN-7 score (0-4 normal; 5-9 mild; 10-14 moderate; 15-21 severe): 0 Source: Developed by Drs. Rafat Still, Shannon Chance, Foreign Crawford and colleagues, with an educational sharan from [employer]. Review of Systems Const Denies chills, Denies fatigue, Denies fever(s) and Denies headache(s) ENT Denies dysphagia, Denies dizziness, Denies headache(s), Denies neck pain, Denies odynophagia and Denies sore throat Card Denies chest pain, Denies palpitations and Denies dyspnea Resp Denies chest congestion, Denies cough and Denies dyspnea GI Denies abdominal pain, Denies constipation, Denies dysphagia, Denies heartburn, Denies diarrhea, Denies nausea, Denies odynophagia and Denies vomiting Reports erectile dysfunction, Denies dysuria, Denies nocturia and Denies urinary frequency Musc Details: (+) mild tenderness over the left upper arm at the area of the biceps tendon Reports back pain (over the lower back - chronic) and Denies neck pain Skin/Breast Denies rash Neuro Denies dizziness and Denies headache(s) Endo Denies fatigue and Denies palpitations Physical exam (Primary Care) Vital Signs: Last Vital Signs Pulse 87 07/23/24 15:48 BP 138/84 07/23/24 15:48 Pulse Ox 98 07/23/24 15:48 Oxygen Delivery Method Room Air 07/23/24 15:48 BMI result Body Mass Index 29.2 Tobacco/Smoking Status: Tobacco use Status Tobacco use date assessed 07/23/24 07/23/24 15:51 Patient Tobacco Use Status Former Tobacco user 07/23/24 15:51 Tobacco use type Cigarette 07/23/24 15:51 e-Cigarette/Vaping Use Never Used 07/23/24 15:51 PHQ-9: PHQ-9 Score PHQ-9: Total score 0 07/23/24 16:22 Depression Screening Interpretation: Negative Thrive Assessment: Date of Thrive Assessment Date Thrive assessed 07/23/24 07/23/24 15:51 Currently or been in a relationship where the following occur: No concerns reported Const General: no acute distress and alert HENMT Ears: TM's normal bilaterally and EAC's normal Throat: Yes posterior oropharynx normal and Yes tonsils normal Neck Neck: Yes supple and No lymphadenopathy Thyroid: Thyroid normal Resp Auscultation: clear to auscultation bilaterally, no rales and no wheezes Cardio Rate: regular rate Rhythm: regular rhythm Heart sounds: no murmurs GI Palpation (GI): Soft to palpation and nontender Auscultation: normal bowel sounds General: Yes no CVA tenderness Back/Spine/Pelvis Back: no CVA tenderness Thoracic/Lumbar Spine: lumbar spinal tenderness Skin Rashes: no rashes Extrem Other: (+) mild tenderness over the left upper arm over the area of the biceps tendon General: Yes no clubbing, cyanosis or edema Results Reviewed Results Reviewed: Laboratory Tests 07/20/24 09:34 WBC 7.3 Hgb 14.1 Hct 42.4 Plt Count 254 Sodium 141 Potassium 4.4 Creatinine 0.97 Estimated GFR > 60 Fasting Glucose 130 H Hemoglobin A1c % 6.0 Calcium 9.2 AST 26 ALT 31 Triglycerides 87 Cholesterol 125 LDL Cholesterol, Calc 71 HDL Cholesterol 37 L 25-OH Vitamin D Total 35.3 TSH 0.52 Coding Level of Care Code Est Pt Level 4 (77596) Diagnoses Lumbar spondylosis M47.816 Elevated LFTs R79.89 Benign essential hypertension I10 Coronary artery disease involving [place] coronary artery of [place] heart without angina pectoris I25.10 Coronary Disease-Associated Artery/Lesion type: [place] artery [place] vs. transplanted heart: [place] heart Associated angina: without angina Pure hypercholesterolemia E78.00 Type 2 diabetes mellitus with hyperglycemia, without long-term current use of insulin E11.65 Diabetes mellitus residential insulin use: without residential use Vitamin D deficiency E55.9 Erectile dysfunction, unspecified erectile dysfunction type N52.9 Erectile dysfunction type: unspecified Overweight (BMI 25.0-29.9) E66.3 Additional Codes PHQ-9 - 64109 - PHQ-9 Billing: Yes ([id number]) Assessment & Plan Assessment & Plan (1) Lumbar spondylosis: Code(s): M47.816 - Spondylosis without myelopathy or radiculopathy, lumbar region Category: Medical Plan: Reinforced activity and weight lifting restrictions Continue Cyclobenzaprine 10 mg TID PRN He reports experiencing significant pain relief with improvement in function and mobility with bilateral therapeutic L3-L4 DR L5 MBB from pain management several months ago but the second injection did not seem to help as much He was offered other treatment options including peripheral nerve stimulation with Sprint, RFA and more permanent neuromodulation Patient would like some time to think about these and prefers not to do anything else at this time Follow up with pain management as scheduled (2) Elevated LFTs: Code(s): R79.89 - Other specified abnormal findings of blood chemistry Category: Medical Plan: His LFTs have reverted back to normal on his recent labs - were likely due to hepatosteatosis as this was noted on his previous abdominal CT done back in 2017 Will continue to monitor his LFTs regularly (3) Benign essential hypertension: Code(s): I10 - Essential (primary) hypertension Category: Medical Plan: Reinforced low sodium diet - goal is systolic BP of 120 mm or less, given his cardiac issues Continue Lisinopril 40 mg QD, Metoprolol ER 100 mg QD and Amlodipine 5 mg QD (4) CAD (coronary artery disease): Comment: 03/2018 - NSTEMI; cardiac cath done revealed (+) multivessel disease, with 95% stenosis of the RP LV branch Code(s): I25.10 - Atherosclerotic heart disease of [place] coronary artery without angina pectoris Category: Medical Qualifiers: Coronary Disease-Associated Artery/Lesion type: [place] artery [place] vs. transplanted heart: [place] heart Associated angina: without angina Qualified Code(s): I25.10 - Atherosclerotic heart disease of [place] coronary artery without angina pectoris Plan: S/P NSTEMI in March 2018; cardiac cath done revealed (+) multivessel disease, with 95% stenosis of the RP LV branch Cardiology recommended aggressive medical management as opposed to PCI and patient has been doing well with no recurrence of cardiac symptoms Echocardiogram done on 06/13/2018 revealed normal left ventricular size, thickness and function, no regional wall motion abnormalities and estimated LVEF of 65% Continue dual antiplatelet therapy with Aspirin 81 mg QD and Clopidogrel 75 mg QD Continue Metoprolol ER 100 mg QD, Lisinopril 40 mg QD and Amlodipine 7.5 mg QD; he was previously on Isosorbide Mononitrate ER 30 mg QD but he requested to have this changed as he felt that this was sapping his libido - cardiology switched him over to Amlodipine Follow up with cardiology (Dr. Surehs) as scheduled - he is being seen by cardiology every 6 months (5) Pure hypercholesterolemia: Code(s): E78.00 - Pure hypercholesterolemia, unspecified Category: Medical Plan: Results of his labs done a few days ago reviewed and discussed with patient Reinforced low-cholesterol diet Continue Atorvastatin 80 mg QD Will recheck his labs and fasting lipids in 4 months for follow-up (6) Type 2 diabetes mellitus with hyperglycemia: Code(s): E11.65 - Type 2 diabetes mellitus with hyperglycemia Category: Medical Qualifiers: Diabetes mellitus residential insulin use: without superintendent terminal use Qualified Code(s): E11.65 - Type 2 diabetes mellitus with hyperglycemia Plan: His HgbA1c has improved to 6.0% on his labs done a few days ago (was previously at 6.7% back in November 2023) - goal is at least <7.0% but ideally <6.5% Reinforced diabetic diet Continue Metformin ER 500 mg Q PM (7) Vitamin D deficiency: Code(s): E55.9 - Vitamin D deficiency, unspecified Category: Medical Plan: Continue Vitamin D3 2000 units QD (8) Erectile dysfunction: Code(s): N52.9 - Male erectile dysfunction, unspecified Category: Surgical Qualifiers: Erectile dysfunction type: unspecified Qualified Code(s): N52.9 - Male erectile dysfunction, unspecified Plan: Continue Tadalafil 20 mg PRN (9) Overweight (BMI 25.0-29.9): Code(s): E66.3 - Overweight Category: Medical Plan: Reinforced diet/exercise as tolerated/lose weight - he has lost a few pounds since his last visit Plan Follow up in 4 months Orders: Orders Complete Blood Count Auto Diff 4 Months D64.9 - Anemia, unspecified Lipid Panel 4 Months E78.00 - Pure hypercholesterolemia, unspecified UA CC w/rflx Micro + Cult 4 Months R30.0 - Dysuria Microalbumin, Random (w Creat) 4 Months E11.9 - Type 2 diabetes mellitus without complications Vitamin D 25-OH Total 4 Months E55.9 - Vitamin D deficiency, unspecified Comprehensive [place]. Panel Fast 4 Months E78.00 - Pure hypercholesterolemia, unspecified TSH reflex Free T4 4 Months E78.00 - Pure hypercholesterolemia, unspecified Hemoglobin A1c 4 Months E11.9 - Type 2 diabetes mellitus without complications Medications: New tadalafil administer approximately 30min before sexual activity; do not use more than 1 dose per 24hrs 20 mg PO DAILY PRN 10 tabs 1RF sexual activity Discontinued sildenafil administer 30 minutes to 4 hours before activity Discontinued Reason: Doctor's Order 50 mg PO DAILY PRN 10 tabs 3RF sexual activity
--- OUTSIDE RECORDS SUMMARY | 2024-07-23 19:22 | XMS_ITS | Patient Health Record ---
Author Organization [facility] Address [address] [place] [address] Care Team Providers Care Housekeeping Assistant Name Role Phone Brad CURRY, [place] Primary Care Provider Rafat Agustin Unavailable [phone] ALLERGIES No Known Allergies RESULTS Component Value Reference Range Notes Pathology (Not yet reviewed by provider) Interpretation: Performing Lab:[facility], [address] [place] [phone] Notes/Report: Glucose, Whole Blood Reviewed date:03/22/2024 05:14:17 PM Interpretation: Performing Lab:[facility], [address] [place] [phone] Notes/Report: Glucose, Whole Blood 88 60-115 mg/dL METER # : [id number] REASON FOR REFERRAL No Information MEDICATIONS Medication [...] W/U Status Risk SNOMED Code Notes Problem Colon cancer screening (Z12.11) Active confirmed Colon cancer screening (811036531) Problem Rectal bleeding (K62.5) Active confirmed 70222264 Problem Gastro-esophageal reflux disease without esophagitis (K21.9) Active confirmed Gastro-esophage al reflux disease without esophagitis (642596469) Problem Encounter for screening for malignant neoplasm of colon (Z12.11) Active confirmed 102900841 Problem Diverticulosis of large intestine without perforation or abscess without bleeding (K57.30) Active confirmed Diverticul ar disease of colon (059949348) Problem Calculus of gallbladder without cholecystitis without obstruction (K80.20) Active confirmed 939302921 Problem Elevated liver enzymes (R74.8) Active confirmed 208192953 Problem Fatty liver (K76.0) Active confirmed 172764951 Problem Family history of colon cancer (Z80.0) Active confirmed 986829927 Problem Chronic gastritis (K29.50) Active confirmed Chronic gastrit is (8399069) Problem Family history of colon cancer in mother (Z80.0) Active confirmed Family histor y of malignant neoplasm of gastrointestinal tract (043424937) Problem Chronic GERD (K21.9) Active confirmed Gastroesophagea l reflux disease (323320730) VITAL SIGNS Temperature 97.8 degrees Fahrenheit 11/22/2023 Blood pressure diastolic 00 mm Hg 11/22/2023 Height 64 in 11/22/2023 Blood pressure systolic 000 mm Hg 11/22/2023 Weight 179 lb 2 oz lbs 11/22/2023 BMI 30.74 kg/m2 11/22/2023 Encounters Encounter Location Date Provider Diagnosis [facility] Outpatient [address] [place] [id number] 03/22/2024 Rafat Mcgill Colon cancer screeni ng Z12.11 ; Family history of colon cancer Z80.0 ; Diverticulosis of large intestine without perforation or abscess without bleeding K57.30 ; Other hemorrhoids K64.8 ; Gastro-esophageal reflux disease without esophagitis K21.9 ; Other specified disease of esophagus K22.89 ; Hiatal hernia K44.9 and Chronic gastritis K29.50 [facility] [address] [place] [phone] 11/22/2023 Rafat Mcgill Chronic GERD K21.9 ; Colon cancer screening Z12.11 and Family history of colon cancer in mother Z80.0 [facility] [address] [place] [address] 02/08/2024 Rafat Mcgill [facility] [address] [place] [phone] 03/22/2024 Rafat Mcgill [facility] [address] [place] [address] 03/25/2024 Rafat Mcgill [facility] [address] [place] [phone] 04/12/2024 Rafat Mcgill ASSESSMENTS Encounter Date Diagnosis [...] Provider Name:Rafat Mcgill , 08/14/2024 04:00:00 PM, [address] [place] [address], [address], [place], [address], Insurance Providers Payer Name Payer Address Payer Phone Subscriber Number Group Number Insured Name Patient Relationship to Insured Coverage Start Date Coverage End Date [employer] [address] [place], [place] [id number] [phone] [id number] NIA MATHIAS Self - patient is the insured MEDICAL (GENERAL) HISTORY Medical History History ICD Code Hypertension Denies DM,CVA,Lung disease,renal disease Elevated liver tests--fatty liver--- otherwise negative workup including imaging studies, iron studies, viral serologies, alpha-1 antitrypsin level, ceruloplasmin level, and SHANIQUA Negative screening colonoscopy in 01/2018 [place]--had a cath with [address] placed--sees Dr. Suresh Back pain-gets steroid injections GERD Surgical History Surgery Date(Month/Year) Hernia age 17 [facility]-Dr. Betancourt
--- OUTSIDE RECORDS SUMMARY | 2024-07-23 19:22 | XMS_ITS ---
Author Organization [facility] Address [address] [place] [address] Care Team Providers Care Hardwood Floor Finisher Name Role Phone Brad CURRY [place] Primary Care Provider Rafat Agustin [phone] REASON FOR VISIT Omeprazole Rx MEDICATIONS Medication SIG (Take, Route, Fr equency, Duration) Notes Start Date End Date Status Omeprazole 20 MG 1 every morning Once a day for 30 day(s) 03/22/2024 Active Encounters Encounter Location Date Provider Diagnosis [facility] [address] [place] [address] [address] [place] [address] 03/22/2024 Rafat Mcgill PLAN OF TREATMENT Medication Medication Name Sig Start Date Stop Date Notes Omeprazole 20 MG 1 every morning Once a day for 30 day(s) 03/22/2024 Next Appt Details Provider Name:Rafat Mcgill , 08/14/2024 04:00:00 PM, [address] [place] [address], [address], [place], [address],
--- OUTSIDE RECORDS SUMMARY | 2024-07-23 19:23 | XMS_ITS ---
Author Organization [facility] Address [address] [place] [address] Care Team Providers Care Clinical Systems Analyst Name Role Phone Brad CURRY, [place] Primary Care Provider UnaRafat Arzola Unavailable [phone] REASON FOR VISIT please schedule f/u with Dr. Mcgill Encounters Encounter Location Date Provider Diagnosis [facility] [address] [place] [address] 03/25/2024 Rafat Mcgill PLAN OF TREATMENT Next Appt Details Provider Name:Rafat Mcgill , 08/14/2024 04:00:00 PM, [address], [address], [place], [address],
--- OUTSIDE RECORDS SUMMARY | 2024-07-23 19:23 | XMS_ITS ---
Author Organization [facility] Address [address] [place] [address] Care Team Providers Care Transportation Maintenance Worker Name Role Phone Brad CURRY, [place] Primary Care Provider Unava Rafat Stacy Unavailable [phone] REASON FOR VISIT reschedule appt on 08/01/2023 @ 4pm Encounters Encounter Location Date Provider Diagnosis [facility] [address] [place] [address] 04/12/2024 Rafat Mcgill PLAN OF TREATMENT Next Appt Details Provider Name:Rafat Mcgill , 08/14/2024 04:00:00 PM, [address], [address], [place], [address],
--- OUTSIDE RECORDS SUMMARY | 2024-07-23 19:23 | XMS_ITS | Encounter Summary ---
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 Patient's last office visit was with Dr. Suresh was 04/18/23. Form and last office visit placed on [facility] desk documented in this encounter Plan of Treatment Not on file documented as of this encounter Visit Diagnoses Not on filedocumented in this encounter Care Teams Scalp Specialist Relationship Specialty Start Date End Date Daniel Salinas MD [address] [place] [address] [address] [place] PCP - General Internal Medicine 08/13/21 documented as of this encounter
--- OUTSIDE RECORDS SUMMARY | 2024-07-23 19:23 | XMS_ITS | Clinical Summary ---
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 (CMS/HCC) TAKE 1 TABLET BY MOUTH EVERY DAY 90 tablet 04/19/2024 Active metoprolol succinate (TOPROL-XL) 100 mg 24 hr tabletIndicatio ns: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 (CMS/HCC) TAKE 1 TABLET BY MOUTH EVERY DAY 90 tablet 04/19/2024 Active amLODIPine (NORVASC) 5 mg tabletIndicatio ns:Atherosclero tic heart disease of [place] coronary artery without angina pectoris TAKE 1 [...] artery disease of n ative artery of [place] heart with stable angina pectoris 01/19/2021 Essential hypertension 01/19/2021 Mixed hyperlipidemia 01/19/2021 Encounters Date Type Department Care Team Description 07/22/2024 Telephone [facility] Cardiology [facility] [address] [place] [address] Jeronimo Suresh MD DOT Paperwork from [employer] 05/06/2024 Telephone [facility] Cardiology [facility] [address] [place] [address] Jeronimo Suresh MD medication advise from Last [...] patient's age to complete this topic Insurance [facility] ([facility]) Care Teams Pipe Foreman Relationship Specialty Start Date End Date Daniel Salinas MD [address] [place] [address] [address] [place] H[place] PCP - General Internal Medicine 08/13/21
== END 2024-07-23 16:37 | disposition home or self-care (01) ==
PROVIDERS: PCP Internal Medicine; Visit Provider Internal Medicine
DX: E11.65 Type 2 diabetes mellitus with hyperglycemia (principal); M47.816 Spondylosis without myelopathy or radiculopathy, lumbar region; R79.89 Other specified abnormal findings of blood chemistry; E66.3 Overweight; Z68.29 Body mass index [BMI] 29.0-29.9, adult; I10 Essential (primary) hypertension; I25.10 Atherosclerotic heart disease of native coronary artery without angina pectoris; E78.00 Pure hypercholesterolemia, unspecified; E55.9 Vitamin D deficiency, unspecified; N52.9 Male erectile dysfunction, unspecified

== ENCOUNTER → 2024-07-23 15:38 | Outpatient (BNVA) | payer BC, SELFPAY | PROVIDERS: PCP Internal Medicine; Visit Provider Internal Medicine | DX: M47.816 Spondylosis without myelopathy or radiculopathy, lumbar region (principal); R79.89 Other specified abnormal findings of blood chemistry; I10 Essential (primary) hypertension; E78.00 Pure hypercholesterolemia, unspecified; E11.65 Type 2 diabetes mellitus with hyperglycemia; E55.9 Vitamin D deficiency, unspecified; N52.9 Male erectile dysfunction, unspecified; E66.3 Overweight; Z68.29 Body mass index [BMI] 29.0-29.9, adult; I25.2 Old myocardial infarction; Z79.02 Long term (current) use of antithrombotics/antiplatelets; Z79.4 Long term (current) use of insulin; Z79.82 Long term (current) use of aspirin; Z79.899 Other long term (current) drug therapy | CPT/HCPCS: 96127 ==

== ENCOUNTER 2024-08-08 15:48 | Outpatient (RCR) | payer BC, SELFPAY ==
--- NOTE | 2024-08-01 16:17 | MHC.PT.EP ---
[facility] [place] Office [place] Office [place] Office [address] Vikki Rodriguez [address] [phone] F: [phone] F: [phone] F: [phone] F: [phone] Physical Therapy Plan of Care Date of Evaluation: 08/01/24 Date of Surgery: Diagnosis: Rupture of LEFT proximal biceps tendon (MD Dx) Assessment: Adiel is a pleasant 54 y.o. male who is referred to PT by Marta García PA-C with Dx of LEFT proximal biceps tendon. With assessment appears likely one head of prox bicep tendon was effected. Patient impairments include pain/tenderness, weakness in L shoulder/elbow. Patient current functional limitations are reaching behind back, lift/carry, sleeping (lying on L arm). Patient will benefit from skilled PT to address aforementioned impairments and functional limitations to meet established goals. Frequency and Duration: The patient will be seen 1x/week for 4 weeks Short Term Goals: 2 weeks Patient demonstrates consistency and independence with HEP to self manage symptoms. Digital Marketing Intern Goals: 4 weeks Patient presents with increased L elbow flexion and extension strength 5/5 to restore strength for work tasks. Treatment Plan: Modalities to reduce pain, spasms and effusion. Manual therapy to restore motion and function. Therapeutic exercise to improve strength and flexibility. Neuromuscular re-education for posture and balance. Therapeutic activities to return to functional activities of daily living. Electronically signed by: Louann Powell, PT, DPT Please sign and return to therapist. Thank you for your referral.
--- NOTE | 2024-10-16 11:39 | MHC.PT.DC ---
[facility] [place] Office [place] [address] Alen Rodriguez [address] [phone] F: [phone] F: [phone] F: [phone] F: [phone] Physical Therapy Discharge Report Diagnosis: Rupture of LEFT proximal biceps tendon ( Dx) Date of Surgery: Date of Evaluation: 08/01/24 Date of Discharge: 10/16/24 Treatments to Date: 2 Cancellations to Date: 3 No Shows to Date: 0 Discharge Status: Independent with HEP Patient Elected to Stop Discharge Summary: Adiel was only seen for 2 sessions and cancelled his remaining sessions. He was given HEP for his shoulder/elbow. He is therefore discharged from PT. Electronically signed by: Louann Powell, PT, DPT Please sign and return to therapist. Thank you for your referral.
== END 2024-10-16 11:39 | disposition home or self-care (01) ==
LOC: HO.PT 15:48
PROVIDERS: PCP Internal Medicine; Visit Provider Physician Assistant
DX: S46.112D Strain of muscle, fascia and tendon of long head of biceps, left arm, subsequent encounter (principal)
CPT/HCPCS: 97035; 97110; 97140; 97161

== ENCOUNTER 2024-11-22 09:30 | Outpatient (REF) | payer BC, SELFPAY ==
--- OUTSIDE RECORDS SUMMARY | 2024-03-22 04:30 | XMS_ITS ---
Author Organization [facility] Address [address] [place] [address] Care Team Providers Care Blue Leather Setter Name Role Phone Justo Salinas MDh Primary Care Provider Unava Rafat Stacy Unavailable [phone] REASON FOR VISIT fm hx of colon ca/screening/gerd Problems Problem Type SNOMED Code ICD Code Onset Dates Problem Status W/U Status Risk Notes Problem Diverticulosis o f large intestine without perforation or abscess without bleeding (K57.30) Active confirmed Problem Gastro-esophage al reflux disease without esophagitis (990050427) Gastro-esophageal reflux disease without esophagitis (K21.9) Active confirmed Problem Chronic gastritis (3501176) Chronic gastritis (K29.50) Active confirmed Encounters Encounter Location Date Provider Diagnosis [facility] [place] [address] [place] [phone] 03/22/2024 Rafat Mcgill Colon cancer scree leigha [...] * NIA MATHIASDOB:[birth year] (54 yo M)Acc No.[id number]:03/22/2024 EGD and COL/MAC Patient: NIA LOO Provider: Timoteo Mcgill MD :1970 A ge:53 Y S ex:Male Date:03/22/2024 Address:[address] [place], [place] [phone] Pcp:Daniel Salinas MD Subjective: * Chief Complaints: [...] 4 5378 DIAGNOSTIC COLONOSCOPY, Modifiers: 33 , 15685 UPPER GI ENDOSCOPY, BIOPSY * * The named appointment provid er may or may not be the originator of this progress note, and it is not deemed complete until electronically signed by the appointment provider. Sign off status: Pending * Provider: Timoteo Mcgill MD Date: 1 Generated for Printi ng/Faxing/eTransmitting on: 0 11/22/2024 09:54 AM EDT
[2024-11-22 09:43] LABS: MANUAL DIFF FLAG NO
[2024-11-22 10:42] LABS: Appearance Urine Clear; Color Urine Yellow; Glucose Urine UA Negative (Negative); Leukocyte Esterase Urine Negative (Negative); Nitrite Urine Negative (Negative); PH 6.5 (5.0-9.0); Specific Gravity - Urine 1.015 (1.005-1.025); Urine Blood Negative (Negative); Urine Ketones Negative (Negative); Urine Protein Negative (Neg-Trace)
[2024-11-22 10:43] LABS: Basophils Percent Auto 0.3 % (0-2); Eosinophils Absolute Auto 0.2 X10*3/uL (0.0-0.4); Hematocrit 42.4 % (42.0-52.0); Hemoglobin 14.2 g/dl (14.0-18.0); Imm Gran Abs Auto 0.03 X10*3/uL (0.00-0.03); Imm Gran Pct Auto 0.4 % (0.0-0.4); Lymphocytes Absolute Auto 1.6 X10*3/uL (1.2-4.9); Mean Corpuscular HGB Conc 33.5 g/dl (31.0-36.0); Mean Corpuscular Hemoglobin 30.5 pg (27.0-33.0); Mean Corpuscular Volume 91.2 fL (80.0-98.0); Mean Platelet Volume 10.3 fL (9.4-12.4); Monocytes Absolute Auto 0.5 X10*3/uL (0.1-1.2); Monocytes Percent Auto 6.6 % (2-11); Neutrophils Absolute Auto 5.5 x10*3/uL (2.0-8.3); Neutrophils Percent Auto 69.7 % (45-73); Platelet Count 243 X10*3/uL (160-400); Red Blood Count 4.65 X10*6/uL (4.60-5.80); Red Cell Distribution Width 12.7 % (11.0-16.0); White Blood Count 7.8 X10*3/uL (4.8-10.8)
[2024-11-22 10:47] LABS: Estimated Average Glucose 134 mg/dL; Hemoglobin A1c % 6.3 % (<6.0); Total Hemoglobin (HGBA1C) 3699.6148 umol/L
[2024-11-22 11:10] LABS: Creatinine Urine 74.93 mg/dL; Microalbumin Urine < 5.0 mg/L
[2024-11-22 11:18] LABS: Alanine Aminotransferase 30 U/L (0-40); Albumin Level 4.3 g/dL (3.5-5.0); Alkaline Phosphatase 81 U/L (39-117); Anion Gap 13 (12-20); Aspartate Amino Transferase 27 U/L (5-37); Bilirubin Total 1.2 mg/dL (0.0-1.0); Blood Urea Nitrogen 14 mg/dL (9-16); Calcium 8.9 mg/dL (8.4-10.2); Carbon Dioxide 27 mmol/L (22-29); Chloride 104 mmol/L (96-108); Cholesterol 118 mg/dL (<200); Estimated Glomerular Filt Rate > 60; Glucose Fasting 113 mg/dL (60-99); HDL Cholesterol 33 mg/dL (>40); LDL Cholesterol Calculated 67 mg/dL (<100); Potassium 4.5 mmol/L (3.3-5.1); Sodium 139 mmol/L (135-145); Total Protein 7.1 g/dL (6.5-8.0); Triglycerides 94 mg/dL (<150)
[2024-11-22 11:27] LABS: TSH reflex Free T4 0.42 uIU/mL (0.32-4.0); Vitamin D 25-OH Total 46.8 ng/mL (>30)
== END 2024-11-22 09:31 | disposition home or self-care (01) ==
LOC: HO.LAB 09:30
PROVIDERS: PCP Internal Medicine; Visit Provider Internal Medicine
DX: D64.9 Anemia, unspecified (principal); E11.9 Type 2 diabetes mellitus without complications; E78.00 Pure hypercholesterolemia, unspecified; R30.0 Dysuria; E55.9 Vitamin D deficiency, unspecified
CPT/HCPCS: 36415; 80053; 80061; 81003; 82043; 82306; 82570; 83036; 84443; 85025

== ENCOUNTER 2024-12-02 15:52 | Outpatient (AMB) | payer BC, SELFPAY ==
--- OUTSIDE RECORDS SUMMARY | 2024-03-22 04:30 | XMS_ITS ---
Author Organization [facility] Address [address] [place] [address] Care Team Providers Care Floating Derrick Operator Name Role Phone Justo Salinas MDh Primary Care Provider Unava Rafat Stacy Unavailable [phone] REASON FOR VISIT fm hx of colon ca/screening/gerd Problems Problem Type SNOMED Code ICD Code Onset Dates Problem Status W/U Status Risk Notes Problem Diverticulosis o f large intestine without perforation or abscess without bleeding (K57.30) Active confirmed Problem Gastro-esophage al reflux disease without esophagitis (052952010) Gastro-esophageal reflux disease without esophagitis (K21.9) Active confirmed Problem Chronic gastritis (7553292) Chronic gastritis (K29.50) Active confirmed Encounters Encounter Location Date Provider Diagnosis [facility] [place] [address] [place] [phone] 03/22/2024 Rafat Mcgill Colon cancer scree leigha [...] * NIA MATHIASDOB:[birth year] (54 yo M)Acc No.[id number]:03/22/2024 EGD and COL/MAC Patient: NIA LOO Provider: Timoteo Mcgill MD :1970 A ge:53 Y S ex:Male Date:03/22/2024 Address:[address] [place], [place] [phone] Pcp:Daniel Salinas MD Subjective: * Chief Complaints: [...] 4 5378 DIAGNOSTIC COLONOSCOPY, Modifiers: 33 , 30509 UPPER GI ENDOSCOPY, BIOPSY * * The named appointment provid er may or may not be the originator of this progress note, and it is not deemed complete until electronically signed by the appointment provider. Sign off status: Pending * Provider: Timoteo Mcgill MD Date: 1 Generated for Printi ng/Faxing/eTransmitting on: 0 12/02/2024 03:55 PM EDT
--- NOTE | 2024-12-02 15:56 | A.OFFPC_ITS ---
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 Accompanied by: Self / Same As Patient Allergies No Known Allergies Allergy (Verified 12/02/24 16:34) Medication List - Last Reconciled 12/02/24 by Daniel Salinas MD amlodipine 7.5 mg PO DAILY aspirin ([place] Aspirin) 81 mg PO DAILY atorvastatin 80 mg PO DAILY cholecalciferol (vitamin D3) 50 mcg PO DAILY 90 days clopidogrel 75 mg PO DAILY cyclobenzaprine 10 mg PO TID PRN lisinopril 40 mg PO DAILY metformin ER 500 mg PO QPM 30 days metoprolol succinate ER 100 mg PO DAILY omeprazole 20 mg PO DAILY tadalafil 20 mg PO DAILY PRN Tobacco use date assessed: 12/02/24 Dental Screening Dental Screen Date: 12/02/24 Did you have a dental visit in the last 12 months?: No Did you have a dental problem in the last 6 months where you did not have access to dental care?: No Was dental information given to patient?: No HPI CAD, hyperlipidemia HPI Details Patient comes in today his follow-up visit States that he feels okay He denies any headaches or dizziness Denies any chest pains, no increased shortness of breath No nausea/vomiting, no abdominal pain No change in bowel habits noted He had his follow-up labs done a couple of weeks ago - to discuss his results He is also requesting for a referral to dermatology for the multiple skin lesions/spots that he's had for a while now [facility] Medical History (Updated 12/02/24 @ 16:42 by Daniel Salinas MD) Overweight (BMI 25.0-29.9) HTN (hypertension) Erectile dysfunction Type 2 diabetes mellitus with hyperglycemia Elevated LFTs Impaired fasting glucose Vitamin D deficiency Obesity (BMI 30-39.9) Benign essential hypertension Pure hypercholesterolemia CAD (coronary artery disease) Surgical History History of endoscopy Hx of hernia repair Hx of cardiac catheterization History of colonoscopy (~02/22/18) Hx of cholecystectomy (~03/2018) Social History Household Members: Spouse Housing: House Are you a primary career and guidance counselor to a significant other at home: No Do you presently have visiting nurse or other home services: No Alcohol intake: current Alcohol intake frequency: holidays/special occasions only Patient Tobacco Use Status: Former Tobacco user Tobacco use type: Cigarette e-Cigarette/Vaping Use: Never Used service: No Current occupational status: employed 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 1. Little interest or pleasure in doing things: not at all 2. Feeling down, depressed, or hopeless: not at all 3. Trouble falling or staying asleep, or sleeping too much: not at all 4. Feeling tired or having little energy: several days 5. Poor appetite or overeating: not at all 6. Feeling bad about yourself - or that you are a failure or have let yourself or your family down: not at all 7. Trouble concentrating on things, such as reading the newspaper or watching television: not at all 8. Moving or speaking so slowly that other people could have noticed. Or the opposite - being so fidgety or restless that you have been moving around a lot more than usual: not at all 9. Thoughts that you would be better off or of hurting yourself in some way: not at all Total score: 1 Depression Screening Interpretation: Negative Depression Screening Done: Yes 67918 - PHQ-9 Billing: Yes Source: Developed by Drs. Rafat Still, Shannon Chance, Foreign Crawford and colleagues, with an educational sharan from [employer]. Thrive Questionnaire Date Thrive assessed: 12/02/24 I am a: Patient What is your living situation today?: I have a steady place to live Within the past 12 months, did the food you bought not last and you didn't have the money to get more?: Never true Within the past 12 months, did you worry whether your food would run out before you got money to buy more?: Never true Do you have trouble paying for medicines?: No Do you have trouble getting transportation to medical appointments?: No Do you have trouble paying your heating and electricity bill?: No Do you have trouble taking care of your child, family member or friend?: No Do you have trouble with day-to-day activities such as bathing, preparing meals, shopping, managing finances, etc.?: No Are you currently unemployed and looking for a job?: No Are you interested in more education?: No Please select the resources that you would like help with: None Currently or been in a relationship where the following occur: No concerns reported THRIVE Score: 0 AUDIT C Alcohol Use Questionnaire (AUDIT-C) 1. How often do you have a drink containing alcohol?: Monthly or less 2. How many drinks containing alcohol do you have on a typical day when you are drinking?: 1 or 2 3. How often do you have six or more drinks on one occasion?: Never Total Score: 1 Score Reviewed/Action Taken: Yes ROSLYN-7 AMB Questionnaire ROSLYN-7 Date ROSLYN - 7 assessed: 12/02/24 Feeling nervous, anxious, or on edge: 0 = Not at all Not being able to stop or control worryin = Not at all Worrying too much about different things: 0 = Not at all Trouble relaxin = Not at all Being so restless that it is hard to sit still: 0 = Not at all Becoming easily annoyed or irritable: 0 = Not at all Feeling afraid as if something awful might happen: 0 = Not at all Total ROSLYN-7 score (0-4 normal; 5-9 mild; 10-14 moderate; 15-21 severe): 0 Source: Developed by Drs. Rafat Still, Shannon Chance, Foreign Crawford and colleagues, with an educational sharan from [employer]. Review of Systems Const Denies chills, Denies fatigue, Denies fever(s) and Denies headache(s) ENT Denies dysphagia, Denies dizziness, Denies headache(s), Denies neck pain, Denies odynophagia and Denies sore throat Card Denies chest pain, Denies palpitations and Denies dyspnea Resp Denies chest congestion, Denies cough and Denies dyspnea GI Denies abdominal pain, Denies constipation, Denies dysphagia, Denies heartburn, Denies diarrhea, Denies nausea, Denies odynophagia and Denies vomiting Reports erectile dysfunction, Denies dysuria, Denies nocturia and Denies urinary frequency Musc Details: (+) mild tenderness over the left upper arm at the area of the biceps tendon Reports back pain (over the lower back - chronic) and Denies neck pain Skin/Breast Details: (+) scattered hyperpigmented skin lesions Denies rash Neuro Denies dizziness and Denies headache(s) Endo Denies fatigue and Denies palpitations Physical exam (Primary Care) Vital Signs: Last Vital Signs Pulse 81 12/02/24 15:58 BP 120/84 12/02/24 15:58 Pulse Ox 97 12/02/24 15:58 Oxygen Delivery Method Room Air 12/02/24 15:58 BMI result Body Mass Index 29.2 Tobacco/Smoking Status: Tobacco use Status Tobacco use date assessed 12/02/24 12/02/24 16:04 Patient Tobacco Use Status Former Tobacco user 12/02/24 16:04 Tobacco use type Cigarette 12/02/24 16:04 e-Cigarette/Vaping Use Never Used 12/02/24 16:04 PHQ-9: PHQ-9 Score PHQ-9: Total score 1 12/02/24 16:38 Depression Screening Interpretation: Negative Thrive Assessment: Date of Thrive Assessment Date Thrive assessed 12/02/24 12/02/24 16:04 Currently or been in a relationship where the following occur: No concerns reported Const General: no acute distress and alert HENMT Ears: TM's normal bilaterally and EAC's normal Throat: Yes posterior oropharynx normal and Yes tonsils normal Neck Neck: Yes supple and No lymphadenopathy Thyroid: Thyroid normal Resp Auscultation: clear to auscultation bilaterally, no rales and no wheezes Cardio Rate: regular rate Rhythm: regular rhythm Heart sounds: no murmurs GI Palpation (GI): Soft to palpation and nontender Auscultation: normal bowel sounds General: Yes no CVA tenderness Back/Spine/Pelvis Back: no CVA tenderness Thoracic/Lumbar Spine: lumbar spinal tenderness Skin Other: (+) scattered hyperpigmented skin lesions Rashes: no rashes Extrem Other: (+) mild tenderness over the left upper arm over the area of the biceps tendon General: Yes no clubbing, cyanosis or edema Results Reviewed Results Reviewed: Laboratory Tests 11/22/24 11/22/24 09:36 09:41 WBC 7.8 Hgb 14.2 Hct 42.4 Plt Count 243 Sodium 139 Potassium 4.5 Creatinine 0.93 Estimated GFR > 60 Fasting Glucose 113 H Hemoglobin A1c % 6.3 H Calcium 8.9 AST 27 ALT 30 Triglycerides 94 Cholesterol 118 LDL Cholesterol, Calc 67 HDL Cholesterol 33 L 25-OH Vitamin D Total 46.8 TSH 0.42 Ur Specific [place] 1.015 Urine Protein Negative Urine Glucose (UA) Negative Urine Blood Negative Urine Nitrite Negative Ur Leukocyte Esterase Negative Coding Level of Care Code Est Pt Level 4 (52972) Complex EM visit Add On G2211 Diagnoses Benign essential hypertension I10 Coronary artery disease involving [place] coronary artery of [place] heart without angina pectoris I25.10 Associated angina: without angina Coronary Disease-Associated Artery/Lesion type: [place] artery [place] vs. transplanted heart: [place] heart Pure hypercholesterolemia E78.00 Type 2 diabetes mellitus with hyperglycemia, without long-term current use of insulin E11.65 Diabetes mellitus long term acute care registered nurse insulin use: without long term acute care registered nurse use Lumbar spondylosis M47.816 Elevated LFTs R79.89 Vitamin D deficiency E55.9 Hyperpigmented skin lesion L81.9 Erectile dysfunction, unspecified erectile dysfunction type N52.9 Erectile dysfunction type: unspecified Overweight (BMI 25.0-29.9) E66.3 Additional Codes PHQ-9 - 50330 - PHQ-9 Billing: Yes ([id number]) Assessment & Plan Assessment & Plan (1) Benign essential hypertension: Code(s): I10 - Essential (primary) hypertension Category: Medical Plan: Reinforced low sodium diet - goal is systolic BP of 120 mm or less, given his cardiac issues Continue Lisinopril 40 mg QD, Metoprolol ER 100 mg QD and Amlodipine 5 mg QD (2) CAD (coronary artery disease): Comment: 03/2018 - NSTEMI; cardiac cath done revealed (+) multivessel disease, with 95% stenosis of the RP LV branch Code(s): I25.10 - Atherosclerotic heart disease of [place] coronary artery without angina pectoris Category: Medical Qualifiers: Associated angina: without angina Coronary Disease-Associated Ar enrique/Lesion type: [place] artery [place] vs. transplanted heart: [place] heart Qualified Code(s): I25.10 - Atherosclerotic heart disease of [place] coronary artery without angina pectoris Plan: S/P NSTEMI in March 2018; cardiac cath done revealed (+) multivessel disease, with 95% stenosis of the RP LV branch Cardiology recommended aggressive medical management as opposed to PCI and patient has been doing well with no recurrence of cardiac symptoms Echocardiogram done on 06/13/2018 revealed normal left ventricular size, thickness and function, no regional wall motion abnormalities and estimated LVEF of 65% Continue dual antiplatelet therapy with Aspirin 81 mg QD and Clopidogrel 75 mg QD Continue Metoprolol ER 100 mg QD, Lisinopril 40 mg QD and Amlodipine 7.5 mg QD; he was previously on Isosorbide Mononitrate ER 30 mg QD but he requested to have this changed as he felt that this was sapping his libido - cardiology switched him over to Amlodipine Follow up with cardiology (Dr. Suresh) as scheduled - he is being seen by cardiology every 6 months (3) Pure hypercholesterolemia: Code(s): E78.00 - Pure hypercholesterolemia, unspecified Category: Medical Plan: Results of his labs done a couple of weeks ago reviewed and discussed with patient Reinforced low-cholesterol diet Continue Atorvastatin 80 mg QD Will recheck his labs and fasting lipids in 4 months for follow-up (4) Type 2 diabetes mellitus with hyperglycemia: Code(s): E11.65 - Type 2 diabetes mellitus with hyperglycemia Category: Medical Qualifiers: Diabetes mellitus long term acute care registered nurse insulin use: without long term acute care registered nurse use Qualified Code(s): E11.65 - Type 2 diabetes mellitus with hyperglycemia Plan: His HgbA1c has increased slightly to 6.3% on his labs done a couple of weeks ago (was previously at 6.0% a few months ago) - goal is at least <7.0% but ideally <6.5% Reinforced diabetic diet Continue Metformin ER 500 mg Q PM (5) Lumbar spondylosis: Code(s): M47.816 - Spondylosis without myelopathy or radiculopathy, lumbar region Category: Medical Plan: Reinforced activity and weight lifting restrictions Continue Cyclobenzaprine 10 mg TID PRN He reports experiencing significant pain relief with improvement in function and mobility with bilateral therapeutic L3-L4 DR L5 MBB from pain management several months ago but the second injection did not seem to help as much He was offered other treatment options including peripheral nerve stimulation with Sprint, RFA and more permanent neuromodulation After giving it some thought, patient prefers not to do anything else at this time especially since his symptoms have not gotten significantly worse lately Follow up with pain management as scheduled (6) Elevated LFTs: Code(s): R79.89 - Other specified abnormal findings of blood chemistry Category: Medical Plan: His LFTs have reverted back to normal and have remained normal on his recent labs - were likely due to hepatosteatosis as this was noted on his previous abdominal CT done back in 2017 Will continue to monitor his LFTs regularly (7) Vitamin D deficiency: Code(s): E55.9 - Vitamin D deficiency, unspecified Category: Medical Plan: Continue Vitamin D3 2000 units QD (8) Hyperpigmented skin lesion: Code(s): L81.9 - Disorder of pigmentation, unspecified Category: Medical Plan: Per request, will refer him to dermatology for further evaluation and management (9) Erectile dysfunction: Code(s): N52.9 - Male erectile dysfunction, unspecified Category: Surgical Qualifiers: Erectile dysfunction type: unspecified Qualified Code(s): N52.9 - Male erectile dysfunction, unspecified Plan: Continue Tadalafil 20 mg PRN (10) Overweight (BMI 25.0-29.9): Code(s): E66.3 - Overweight Category: Medical Plan: Reinforced diet/exercise as tolerated/lose weight Plan Follow up in 4 months Orders: Orders Complete Blood Count Auto Diff 4 Months D64.9 - Anemia, unspecified Comprehensive [place]. Panel Fast 4 Months E78.00 - Pure hypercholesterolemia, unspecified Lipid Panel 4 Months E78.00 - Pure hypercholesterolemia, unspecified Hemoglobin A1c 4 Months E11.9 - Type 2 diabetes mellitus without complications Microalbumin, Random (w Creat) 4 Months E11.9 - Type 2 diabetes mellitus without complications Referrals Dermatology Referral L81.9 - Disorder of pigmentation, unspecified
--- OUTSIDE RECORDS SUMMARY | 2024-12-02 15:56 | XMS_ITS | Clinical Summary ---
Author Organization [facility] Address [address] [place] [address] Phone Care Team Providers Care Ornithology Teacher Name Role Phone Daniel Salinas MD Primary Care Provider Allergies No known active allergies Medications nitroglycerin (NITROSTAT) 0.[address] [...] mouth 1 (one) time each day. 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 Active clopidogreL (PLAVIX) 75 mg tablet Take 1 tablet (75 mg total) by mouth 1 (one) time each day. 30 tablet 3 08/22/2024 Active Active Problems Problem Noted Date Diagnosed Date Dyspnea on exertion 02/15/2022 Coronary artery disease of n ative artery of [place] heart with stable angina pectoris ([facility] V24) 01/19/2021 Overview (08/22/2024): March 2018 - several days following his cholecystectomy he presented to [facility] with acute onset chest pain and was found to have a non-STEMI; he was transferred to [facility] and underwent a heart catheterization which showed triple vessel disease along with a 95% culprit stenosis of the RP LV branch; after evaluation by CT surgery and interventional cardiology medical therapy was recommended 2017- echocardiogram showed low normal left ventricular systolic function LVEF 50-55% and basal inferior wall dyskinesis June 19, 2020 -stress echocardiogram with the patient exercising 9 minutes and 54 seconds to an MPHR of 85% with no symptoms, no EKG changes and imaging showing normal LV size and systolic function with normal regional wall motion at rest and post stress imaging showing hyperdynamic ventricle with all heller augmenting appropriately Assessment & Plan (08/22/2024 10:41 AM EDT): Catheterization in 2018 showed triple vessel disease along with a 95% culprit stenosis of the RP LV branch with medical therapy recommended. Last stress echocardiogram in 2020 showed preserved LV systolic function LVEF 65% with no evidence of ischemia at adequate levels of stress. No anginal symptoms. Continue with aspirin, atorvastatin, clopidogrel, amlodipine, lisinopril and metoprolol. Consider empagliflozin in the future. We discussed risk reduction through lifestyle choices including healthy diet, routine exercise and weight management. Blood pressure log for the next two weeks. We will obtain his labs from [facility]. Orders: ECG 12 lead Essential hypertension 01/19/2021 Assessment & Plan (08/22/2024 10:41 AM EDT): Elevated on initial check and recheck. Reportedly controlled on previous checks. Continue with amlodipine, lisinopril and metoprolol. Will check twice daily for two weeks and report back if averaging above 140/90. Orders: ECG 12 lead Mixed hyperlipidemia 01/19/2021 Assessment & Plan (08/22/2024 10:41 AM EDT): October 2023 - LDL 70. Continue with atorvastatin. We will obtain his labs from [place]. Orders: ECG 12 lead Social History Tobacco Use Types Packs/Day Years Used Date Smoking Tobacco: Former Cigarettes Q uit: 05/29/2010 Smokeless Tobacco: Never Alcohol Use Standard Drinks/Week Comments Yes 0 (1 standard drink = 0.6 oz pur e alcohol) very occasional Sex and Gender Information Value Date Recorded Sex Assigned at Not on file Legal Sex Male 2:43 PM EST Gender Identity Male 06/01/2024 12:43 PM EST Sexual Orientation Choose not to disclose 2024 12:43 PM EST Obstetrics History Last Filed Vital Signs Vital Sign Reading Time Taken Comments Blood Pressure 150/90 08/22/2024 10:02 AM EDT Pulse 62 08/22/2024 10:02 AM EDT Temperature - - Respiratory Rate - - Oxygen Saturation 98% 08/22/2024 10: 02 AM EDT Inhaled Oxygen Concentration - - Weight 76.2 kg (167 lb 14.4 oz) 025 10:02 AM EDT Height 162.6 cm (5' 4 ) 08/22/2024 10:0 2 AM EDT Body Mass Index 28.82 08/22/2024 10:02 AM EDT Plan of Treatment Health Maintenance Due Date Last Done Comments Hepatitis B Vaccines (1 of 3 - 19+ 3-dose series) 1988 Pneumococcal Vaccine: 50+ Years (1 of 2 - PCV) 1988 Pneumococcal Vaccine: Pediatrics (0 to 5 Years) and At-Risk Patients (6 to 49 Years) (1 of 2 - PCV) 1988 Zoster Vaccines (1 of 2) 2019 Cholesterol Screening (Lipid Panel) 05/07/2022 Colorectal Cancer Screening: Colonoscopy 05/07/2022 Depression Screening 05/07/2022 HIV Screening 05/07/2022 Hepatitis C Screening 05/07/2022 Social Influencers of Health Screening 05/07/2022 Hypertension/CHF/CAD Annual BMP Blood Test 05/08/2022 DTaP,Tdap,and Td Vaccines (3 - Td or Tdap) 10/21/2023 10/20/2013, 10/19/2013 COVID-19 Vaccine (4 - season) 2024 10/31/2021, 09/11/2020, 08/21/2020 Influenza Vaccine (#1) 2025 , 04/10/2023, 02/11/2022, Additional history exists HIB Vaccines Aged Out No longer eligi [...] age to complete this topic Meningococcal B Vaccine Aged Out No l onger eligible based on patient's age to complete this topic RSV Immunization Patients Under 20 months Aged Out No longer eligible based on patient's age to complete this topic Varicella Vaccines Aged Out No longer eligible based on patient's age to complete this topic Insurance [facility] ([facility]) Care Teams Ornithology Teacher Relationship Specialty Start Date End Date Daniel Salinas MD [address] [place] [address] [address] [place] Hanks PCP - General Internal Medicine 08/13/21
[2024-12-02 15:58] VITALS: BP 120/84; PULSE 81; O2SAT 97; BMI 29.2
== END 2024-12-02 16:46 | disposition home or self-care (01) ==
LOC: HO.HMCH 15:53
PROVIDERS: PCP Internal Medicine; Visit Provider Internal Medicine
DX: I10 Essential (primary) hypertension (principal); I25.10 Atherosclerotic heart disease of native coronary artery without angina pectoris; E78.00 Pure hypercholesterolemia, unspecified; E11.65 Type 2 diabetes mellitus with hyperglycemia; M47.816 Spondylosis without myelopathy or radiculopathy, lumbar region; R79.89 Other specified abnormal findings of blood chemistry; E55.9 Vitamin D deficiency, unspecified; L81.9 Disorder of pigmentation, unspecified; N52.9 Male erectile dysfunction, unspecified; E66.3 Overweight

== ENCOUNTER → 2024-12-02 15:52 | Outpatient (BNVA) | payer BC, SELFPAY | PROVIDERS: PCP Internal Medicine; Visit Provider Internal Medicine | DX: I25.10 Atherosclerotic heart disease of native coronary artery without angina pectoris (principal); I10 Essential (primary) hypertension; E78.00 Pure hypercholesterolemia, unspecified; E78.5 Hyperlipidemia, unspecified; E11.65 Type 2 diabetes mellitus with hyperglycemia; M47.816 Spondylosis without myelopathy or radiculopathy, lumbar region; R79.89 Other specified abnormal findings of blood chemistry; E55.9 Vitamin D deficiency, unspecified; L81.9 Disorder of pigmentation, unspecified; N52.9 Male erectile dysfunction, unspecified; E66.3 Overweight; Z68.29 Body mass index [BMI] 29.0-29.9, adult | CPT/HCPCS: 96127 ==

== ENCOUNTER 2025-01-08 00:38 | Emergency (ER) | payer BC, SELFPAY ==
--- NOTE | ~2025-01-08 | CT_ITS ---
CLINICAL HISTORY: Right flank pain? Stone CT ABDOMEN AND PELVIS WITHOUT CONTRAST COMPARISON: 11/03/2022. FINDINGS: No renal calculi or hydronephrosis bilaterally. No calculi in the ureters and urinary bladder. Urinary bladder is underdistended. Calcified phleboliths are noted in the pelvis. No evidence of a bowel obstruction or free air. Small to moderate amount of stool is noted in the colon. No pericolonic inflammation. Appendix is visualized, and there is no evidence of acute appendicitis. Minimal atelectatic/fibrotic changes are noted in the lower lungs. No focal liver lesion. Cholecystectomy clips are again noted. Multiple stones are noted within the remnant cystic duct, for example the most inferiorly located stone measures 6-7 mm on coronal image 47, and is located just proximal to the junction of the cystic duct and common hepatic duct. No definite filling defect in the common bile duct. A stone or stones were located within the more superior aspect of the cystic duct on the prior study, as seen on coronal image 42 of the prior exam. Common bile duct is not dilated in this post cholecystectomy patient, and is estimated to measure 5-6 mm on coronal image 46. Stomach is not optimally distended but appears grossly unremarkable. Pancreas is unremarkable. No CT evidence of acute pancreatitis. Spleen and left adrenal gland are unremarkable. A right adrenal adenoma is again noted and measures approximately 2.5 cm, this does not appear to be significantly changed by my measurements. Abdominal aorta contains atherosclerotic calcification. No evidence of an abdominal aortic aneurysm. No lymphadenopathy or loculated fluid collection. No evidence of a bowel containing hernia. The bone windows demonstrate no acute abnormalities. There is vacuum disc degeneration at L5-S1. IMPRESSION: 1. Cholecystectomy clips are again noted. There are multiple stones within the remnant cystic duct, as detailed above. This includes a 6-7 mm stone which is located in the inferior aspect of the cystic duct, just proximal to its junction with the common hepatic duct. 2. No definite filling defect in the common bile duct. Please note that CT is limited for the detection of choledocholithiasis. Common bile duct is not dilated and measures 5-6 mm. 3. Nonurgent consultation with a surgeon is advised to determine appropriate management/follow-up. 4. No renal calculi or hydronephrosis. No calculi in the ureters and urinary bladder. 5. Additional findings are detailed above. This document has been electronically signed by: Rajinder Marie M.D. on 01/08/2025 03:23:54
[2025-01-08 00:40] VITALS: BP 179/103; PULSE 66; RESP 18; TEMP 36.6; O2SAT 98; BMI 29.2
[2025-01-08 00:58] LABS: Hematocrit 39.1 % (42.0-52.0); Hemoglobin 13.5 g/dl (14.0-18.0); Imm Gran Abs Auto 0.08 X10*3/uL (0.00-0.03); Imm Gran Pct Auto 1.0 % (0.0-0.4); Lymphocytes Absolute Auto 2.7 X10*3/uL (1.2-4.9); MANUAL DIFF FLAG NO; Mean Corpuscular HGB Conc 34.5 g/dl (31.0-36.0); Mean Corpuscular Hemoglobin 31.3 pg (27.0-33.0); Mean Corpuscular Volume 90.5 fL (80.0-98.0); NRBC Abs Auto 0.000 X10*3/uL (0.0-0.012); NRBC Pct Auto 0.0 /100WBC (0.0-0.2); Platelet Count 211 X10*3/uL (160-400); Red Blood Count 4.32 X10*6/uL (4.60-5.80); White Blood Count 8.3 X10*3/uL (4.8-10.8)
[2025-01-08 01:11] LABS: Alanine Aminotransferase 32 U/L (0-40); Albumin Level 4.3 g/dL (3.5-5.0); Alkaline Phosphatase 75 U/L (39-117); Anion Gap 12 (12-20); Aspartate Amino Transferase 27 U/L (5-37); Blood Urea Nitrogen 17 mg/dL (9-16); Calcium 9.1 mg/dL (8.4-10.2); Carbon Dioxide 29 mmol/L (22-29); Chloride 106 mmol/L (96-108); Creatinine Clr Calc Pharmacy 87.0; Estimated Glomerular Filt Rate > 60; Lipase 66 U/L (8-78); Potassium 3.4 mmol/L (3.3-5.1); Sodium 144 mmol/L (135-145); Total Protein 7.0 g/dL (6.5-8.0)
--- NOTE | 2025-01-08 01:27 | ED.ABDPAIN ---
HPI - Abdominal Pain General Chief Complaint: Abdominal Pain Stated Complaint: right side abd pain Time Seen by Provider: 01/08/25 01:27 Source: patient Mode of arrival: ambulatory Limitations: no limitations History of Present Illness ED Provider: HPI narrative: Patient no significant past medical history noticed sudden onset of pain in the right flank area just 2 hours prior to arrival woke him up from the sleep pain is sharp in nature radiating to the right abdomen she has nausea no hematuria no dysuria no history of kidney stone in the past patient never had similar pain in the past Related Data Home Medications ?Medication ?Instructions ?Recorded ?Confirmed aspirin 81 mg tablet,delayed 81 mg PO DAILY 03/30/21 12/02/24 release ([place] Aspirin) atorvastatin 80 mg tablet 80 mg PO DAILY 03/30/21 12/02/24 clopidogrel 75 mg tablet 75 mg PO DAILY 03/30/21 12/02/24 lisinopril 40 mg tablet 40 mg PO DAILY 03/30/21 12/02/24 metoprolol succinate 100 mg 100 mg PO DAILY 03/30/21 12/02/24 tablet,extended release 24 hr amlodipine 5 mg tablet 7.5 mg PO DAILY 07/26/23 12/02/24 omeprazole 20 mg capsule,delayed 20 mg PO DAILY 04/11/24 12/02/24 release Previous Rx's ?Medication ?Instructions ?Recorded cyclobenzaprine 10 mg tablet 10 mg PO TID PRN muscle spasm #14 04/08/24 tabs cholecalciferol (vitamin D3) 50 50 mcg PO DAILY 90 days #90 caps 07/16/24 mcg (2,000 unit) capsule metformin 500 mg tablet,extended 500 mg PO QPM 30 days #30 tabs 11/22/24 release 24 hr tadalafil 20 mg tablet 20 mg PO DAILY PRN sexual activity 12/21/24 #10 tabs ibuprofen 600 mg tablet 600 mg PO Q6H PRN fever or pain 01/08/25 #30 tabs Allergies Allergy/AdvReac Type Severity Reaction Status Date / Time No Known Allergies Allergy Verified 01/08/25 00:42 Review of Systems Review of Systems Yes all other systems are reviewed and are negative PMFSH Past Medical History Medical History Overweight (BMI 25.0-29.9) HTN (hypertension) Erectile dysfunction Type 2 diabetes mellitus with hyperglycemia Elevated LFTs Impaired fasting glucose Vitamin D deficiency Obesity (BMI 30-39.9) Benign essential hypertension Pure hypercholesterolemia CAD (coronary artery disease) Surgical History History of endoscopy Hx of hernia repair Hx of cardiac catheterization History of colonoscopy (~02/22/18) Hx of cholecystectomy (~03/2018) Social History Social History Household Members: Spouse Housing: House Are you a primary patient care to a significant other at home: No Do you presently have visiting nurse or other home services: No Alcohol intake: current Alcohol intake frequency: holidays/special occasions only Patient Tobacco Use Status: Former Tobacco user Tobacco use type: Cigarette Smoked in Last 30 Days: No e-Cigarette/Vaping Use: Never Used Use of substances other than those prescribed or required for medical reasons: No Advance Directives: Yes Advance Directives Information Provided: Yes Advance Directives on File: No Do you have a plan to hurt others: No Plan service: No Current occupational status: employed 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 Oriented X3. No acute distress. Eyes: No pallor or icterus ENT: Pharynx normal. Oral Mucosa moist Neck: Normal inspection. Neck supple. CVS: Normal heart rate and rhythm. Pulses normal. Respiratory: No respiratory distress. Equal air entry bilateral, no wheezing/rales/rhonchi Abdomen: Soft and nontender. Bowel sounds are present, no mass palpable, r CVA tenderness Skin: Skin warm and dry. Normal skin color. Normal skin turgor. Extremities: No lower extremity edema. No calf tenderness Neuro: Oriented X 3. No motor deficit. No sensory deficit.No cerebellar signs , cranial nerves II-XII intact Medical Decision Making Medical Decision Making MDM Narrative: Patient has acute onset of right flank pain CT scan did not show any kidney stone lab workup also negative patient has similar pain 2 years ago and and workup was negative will prescribe ibuprofen for musculoskeletal pain Differential Diagnosis Differential Diagnoses: The differential diagnosis associated with the presentation includes Kidney stone/musculoskeletal/biliary colic Lab Data MDM Lab Attestation statement: I reviewed the patient's lab results. 01/08/25 00:54 01/08/25 00:54 Labs: Lab Results 01/08/25 01/08/25 Range/Units 00:54 02:27 WBC 8.3 (4.8-10.8) X10*3/uL RBC 4.32 L (4.60-5.80) X10*6/uL Hgb 13.5 L (14.0-18.0) g/dl Hct 39.1 L (42.0-52.0) % MCV 90.5 (80.0-98.0) fL MCH 31.3 (27.0-33.0) pg MCHC 34.5 (31.0-36.0) g/dl RDW 13.1 (11.0-16.0) % Plt Count 211 (160-400) X10*3/uL MPV 9.5 (9.4-12.4) fL Immature Gran % (Auto) 1.0 H (0.0-0.4) % Neut % (Auto) 53.4 (45-73) % Lymph % (Auto) 32.5 (20-40) % [place] % (Auto) 10.6 (2-11) % Eos % (Auto) 2.3 (0-4) % Baso % (Auto) 0.2 (0-2) % Lymph # (Auto) 2.7 (1.2-4.9) X10*3/uL [place] # (Auto) 0.9 (0.1-1.2) X10*3/uL Eos # (Auto) 0.2 (0.0-0.4) X10*3/uL Baso # (Auto) 0.0 (0.0-0.2) X10*3/uL Abs Immat Gran (auto) 0.08 H (0.00-0.03) X10*3/uL Absolute Neuts (auto) 4.5 (2.0-8.3) x10*3/uL Absolute Nucleated RBC 0.000 (0.0-0.012) X10*3/uL Nucleated RBC % (auto) 0.0 (0.0-0.2) /100WBC Sodium 144 (135-145) mmol/L Potassium 3.4 D (3.3-5.1) mmol/L Chloride 106 (96-108) mmol/L Carbon Dioxide 29 (22-29) mmol/L Anion Gap 12 (12-20) BUN 17 H (9-16) mg/dL Creatinine 0.90 (0.5-1.4) mg/dL Estim Creat Clear Calc 87.0 Estimated GFR > 60 Random Glucose 103 (60-115) mg/dL Calcium 9.1 (8.4-10.2) mg/dL Total Bilirubin 0.9 (0.0-1.0) mg/dL Direct Bilirubin 0.3 (0.0-0.5) mg/dL AST 27 (5-37) U/L ALT 32 (0-40) U/L Alkaline Phosphatase 75 (39-117) U/L Total Protein 7.0 (6.5-8.0) g/dL Albumin 4.3 (3.5-5.0) g/dL Lipase 66 (8-78) U/L Urine Color Yellow Urine Appearance Cloudy Urine pH 7.0 (5.0-9.0) Ur Specific [place] 1.015 (1.005-1.025) Urine Protein Negative (Neg-Trace) mg/dL Urine Glucose (UA) Negative (Negative) mg/dL Urine Ketones Negative (Negative) mg/dL Urine Blood Negative (Negative) Urine Nitrite Negative (Negative) Ur Leukocyte Esterase Negative (Negative) Urine RBC 0-2 (0-2) /HPF Urine WBC 0-5 (0-5) /HPF Ur Squamous Epith Cells 0-2 (0-2) /HPF Urine Bacteria None Seen (None Seen) Hyaline Casts 0-2 (0-2) /LPF Independent Interpretation I performed an independent interpretation of an: CT Scan Radiology Impression Discussion of test interpretation with radiology: I have reviewed the radiologist's reading. Radiologist Impression: CT ABDOMEN AND PELVIS WITHOUT CONTRAST COMPARISON: 11/03/2022. FINDINGS: No renal calculi or hydronephrosis bilaterally. No calculi in the ureters and urinary bladder. Urinary bladder is underdistended. Calcified phleboliths are noted in the pelvis. No evidence of a bowel obstruction or free air. Small to moderate amount of stool is noted in the colon. No pericolonic inflammation. Appendix is visualized, and there is no evidence of acute appendicitis. Minimal atelectatic/fibrotic changes are noted in the lower lungs. No focal liver lesion. Cholecystectomy clips are again noted. Multiple stones are noted within the remnant cystic duct, for example the most inferiorly located stone measures 6-7 mm on coronal image 47, and is located just proximal to the junction of the cystic duct and common hepatic duct. No definite filling defect in the common bile duct. A stone or stones were located within the more superior aspect of the cystic duct on the prior study, as seen on coronal image 42 of the prior exam. Common bile duct is not dilated in this post cholecystectomy patient, and is estimated to measure 5-6 mm on coronal image 46. Stomach is not optimally distended but appears grossly unremarkable. Pancreas is unremarkable. No CT evidence of acute pancreatitis. Spleen and left adrenal gland are unremarkable. A right adrenal adenoma is again noted and measures approximately 2.5 cm, this does not appear to be significantly changed by my measurements. Abdominal aorta contains atherosclerotic calcification. No evidence of an abdominal aortic aneurysm. No lymphadenopathy or loculated fluid collection. No evidence of a bowel containing hernia. The bone windows demonstrate no acute abnormalities. There is vacuum disc degeneration at L5-S1. IMPRESSION: 1. Cholecystectomy clips are again noted. There are multiple stones within the remnant cystic duct, as detailed above. This includes a 6-7 mm stone which is located in the inferior aspect of the cystic duct, just proximal to its junction with the common hepatic duct. 2. No definite filling defect in the common bile duct. Please note that CT is limited for the detection of choledocholithiasis. Common bile duct is not dilated and measures 5-6 mm. 3. Nonurgent consultation with a surgeon is advised to determine appropriate management/follow-up. 4. No renal calculi or hydronephrosis. No calculi in the ureters and urinary bladder. 5. Additional findings are detailed above. This document has been electronically signed by: Rajinder Marie M.D. on 01/08/2025 03:23:54 Medications Administered Discontinued Medications Generic Name Dose Route Start Last Admin Trade Name Freq PRN Reason Stop Dose Admin Sodium Chloride 1,000 mls @ 999 mls/hr 01/08/25 01:31 01/08/25 03:08 Ns IV 01/08/25 02:31 Infused .Q1H1M ONE Infusion Ketorolac Tromethamine 30 mg 01/08/25 01:31 01/08/25 01:39 Ketorolac Tromethamine 30 Mg/Ml Vial IVPUSH 01/08/25 01:32 30 mg ONCE ONE Administration Ondansetron HCl 4 mg 01/08/25 01:32 01/08/25 01:39 Ondansetron Hcl 4 Mg/2 Ml Vial IVPUSH 01/08/25 01:33 4 mg ONCE ONE Administration Discharge Plan Discharge Clinical Impression: Right flank pain, Retained bile duct stone Patient Disposition: Home, Self-Care Instructions: Flank Pain (ED), Biliary Colic (ED) Additional Instructions: Etiology of right flank pain is not clear likely musculoskeletal Your CT scan did not show any kidney stone Ibuprofen for pain as prescribed Drink plenty of fluids Follow up with your PCP, general surgery as needed Prescriptions: New ibuprofen 600 mg tablet 600 mg PO Q6H PRN (Reason: fever or pain) Qty: 30 0RF No Action cholecalciferol (vitamin D3) 50 mcg (2,000 unit) capsule 50 mcg PO DAILY 90 Days Qty: 90 4RF metformin 500 mg tablet extended release 24 hr 500 mg PO QPM 30 Days Qty: 30 3RF tadalafil 20 mg tablet 20 mg PO DAILY PRN (Reason: sexual activity) Qty: 10 1RF Rx Instructions: administer approximately 30min before sexual activity; do not use more than 1 dose per 24hrs cyclobenzaprine 10 mg tablet 10 mg PO TID PRN (Reason: muscle spasm) Qty: 14 0RF amlodipine 5 mg tablet 7.5 mg PO DAILY aspirin [[place] Aspirin] 81 mg tablet,delayed release (DR/EC) 81 mg PO DAILY atorvastatin 80 mg tablet 80 mg PO DAILY clopidogrel 75 mg tablet 75 mg PO DAILY lisinopril 40 mg tablet 40 mg PO DAILY metoprolol succinate 100 mg tablet extended release 24 hr 100 mg PO DAILY omeprazole 20 mg capsule,delayed release(DR/EC) 20 mg PO DAILY Referrals: Deepti Dunbar MD [Physician, General Surgery] - 01/08/25 4:09 am Referral Note: Retained bile duct stones without evidence of obstruction, right upper quadrant abdominal pain Clinical Impression: Retained bile duct stone Print Language: Zimbabwean
[2025-01-08 02:33] LABS: Appearance Urine Cloudy; Glucose Urine UA Negative (Negative); PH 7.0 (5.0-9.0); Specific Gravity - Urine 1.015 (1.005-1.025)
--- OUTSIDE RECORDS SUMMARY | 2025-01-08 02:40 | XMS_ITS | Clinical Summary ---
Author Organization [facility] Address [address] [facility] [place] [address] Phone Care Team Providers Care [employer] W[employer] Molder Name Role Phone Daniel Salinas MD Primary Care Provider Allergies No known active allergies Medications nitroglycerin (NITROSTAT) 0.[address] 1 tablet (0.4 mg total) under the tongue every 5 (five) minutes if needed for chest pain. 1 Active cholecalcifero l (VITAMIN D-3) 50 mcg (2,000 unit) tablet Take 1 tablet (2,000 Units total) by mouth 1 (one) time each day. Active aspirin 81 mg EC tablet Take 1 tablet (81 mg total) by mouth 1 (one) time each day. Active metoprolol succinate (TOPROL-XL) 100 mg 24 hr tabletIndicati ons:Atheroscle rotic heart disease of [place] coronary artery with other forms of angina pectoris (CMS/HCC V24) TAKE 1 TABLET BY MOUTH EVERY DAY 90 tablet 2 5 Active lisinopril (PRINIVIL,ZEST RIL) 40 mg tabletIndicati ons:Atheroscle rotic heart disease of [place] coronary artery with other forms of angina pectoris (CMS/HCC V24) TAKE 1 TABLET BY MOUTH EVERY DAY 90 tablet 2 5 Active amLODIPine (NORVASC) 5 mg tabletIndicati ons:Atheroscle rotic heart disease of [place] coronary artery without angina pectoris TAKE 1 AND 1/2 TABLETS BY MOUTH DAILY 135 tablet 2 5 Active atorvastatin (LIPITOR) 80 mg tabletIndicati ons:Atheroscle rotic heart disease of [place] coronary artery with other forms of angina pectoris ([facility] V24) TAKE 1 TABLET BY MOUTH EVERY DAY 90 tablet 2 5 Active OMEPRAZOLE ORAL Take by mouth. Active clopidogreL (PLAVIX) 75 mg tablet TAKE 1 TABLET BY MOUTH 1 TIME EACH DAY. 30 tablet 5 5 Active clopidogreL (PLAVIX) 75 mg tablet Take 1 tablet (75 mg total) by mouth 1 (one) time each day. 30 tablet 3 5 12/25/19 25 Discontinued Active Problems Problem Noted Date Diagnosed Date Dyspnea on exertion 02/15/2022 Coronary artery disease of n ative artery of [place] heart with stable angina pectoris ([facility] V24) 01/19/2021 Overview (08/22/2024): March 2018 - several days following his cholecystectomy he presented to 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 We will obtain his labs from [facility]. Orders: ECG 12 lead Essential hypertension 01/19/2021 [...] atorvastatin. We will obtain his labs from [facility]. Orders: ECG 12 lead Social History Tobacco [...] Years (1 of 2 - PCV) 1988 Zoster Vaccines (1 of 2) 2019 Cholesterol Screening (Lipid Panel) 05/07/2022 Colorectal Cancer Screening: Colonoscopy 05/07/2022 HIV Screening 05/07/2022 Hepatitis C Screening 05/07/2022 Social Influencers of Health Screening 05/07/2022 Hypertension/CHF/CAD Annual BMP Blood Test 05/08/2022 DTaP,Tdap,and Td Vaccines (3 - Td or Tdap) 10/21/2023 10/20/2013, 10/19/2013 COVID-19 Vaccine (4 - season) 2024 10/31/2021, 09/11/2020, 08/21/2020 Depression Screening 05/29/2024 Influenza Vaccine (#1) 2025 , 04/10/2023, 02/11/2022, [...] patient's age to complete this topic Insurance [facility]) Care Teams [employer] M[employer] Relationship Specialty Start Date End Date Daniel Salinas MD [address] [place] [address] [address] MANUELA Hanks PCP - General Internal Medicine 08/13/21
[2025-01-08 03:03] VITALS: BP 137/81; PULSE 65; RESP 18; TEMP 36.6; O2SAT 97
[2025-01-08 04:00] VITALS: BP 130/84; PULSE 65; RESP 16; TEMP 36.7; O2SAT 95
[2025-01-08 04:20] VITALS: BP 130/84; PULSE 65; RESP 16; TEMP 36.7; O2SAT 95
== END 2025-01-08 04:21 | disposition home or self-care (01) ==
PROVIDERS: Internal Medicine; Emergency Provider Emergency Medicine; PCP Internal Medicine
DX: R10.2 Pelvic and perineal pain (principal); R11.0 Nausea; E11.9 Type 2 diabetes mellitus without complications; I10 Essential (primary) hypertension; Z79.84 Long term (current) use of oral hypoglycemic drugs; Z87.891 Personal history of nicotine dependence; Z79.899 Other long term (current) drug therapy
CPT/HCPCS: 36415; 74176; 80048; 80076; 81001; 83690; 85025; 96361; 96374; 96375; 99284; 99285; J1885; J2405

== ENCOUNTER → 2025-01-08 01:32 | Outpatient (BNV) | payer BC, SELFPAY | PROVIDERS: Emergency Provider Emergency Medicine; PCP Internal Medicine; Visit Provider Radiology Diagnostic Radiology | DX: R10.31 Right lower quadrant pain (principal) | CPT/HCPCS: 74176 ==

== ENCOUNTER 2025-01-08 19:09 | Emergency (ER) | payer BC, SELFPAY ==
[2025-01-08 19:24] VITALS: BP 186/92; PULSE 73; RESP 20; TEMP 35.7; O2SAT 98; BMI 29.0
--- NOTE | 2025-01-08 19:24 | ED_ITS ---
HPI - General Adult General Chief complaint: Abdominal Pain Stated complaint: abd pain seen 01/07 here Related Data Home Medications ?Medication ?Instructions ?Recorded ?Confirmed aspirin 81 mg tablet,delayed 81 mg PO DAILY 03/30/21 0 12/02/24 release ([place] Aspirin) atorvastatin 80 mg tablet 80 mg PO DAILY 03/30/2112/20 clopidogrel 75 mg tablet 75 mg PO DAILY 03/30/2112/20 lisinopril 40 mg tablet 40 mg PO DAILY 03/30/2112/20 metoprolol succinate 100 mg 100 mg PO DAILY 03/30/21 0 12/02/24 tablet,extended release 24 hr amlodipine 5 mg tablet 7.5 mg PO DAILY 07/26/2312/20 omeprazole 20 mg capsule,delayed 20 mg PO DAILY 12/02/24 release Previous Rx's ?Medication ?Instructions ?Recorded cyclobenzaprine 10 mg tablet 10 mg PO TID PRN muscle s pasm #14 04/08/24 tabs cholecalciferol (vitamin D3) 50 50 mcg PO DAILY 90 day s #90 caps 07/16/24 mcg (2,000 unit) capsule metformin 500 mg tablet,extended 500 mg PO QPM 30 days #30 tabs 11/22/24 release 24 hr tadalafil 20 mg tablet 20 mg PO DAILY PRN sexual ac tivity 12/21/24 #10 tabs ibuprofen 600 mg tablet 600 mg PO Q6H PRN fever or p ain 01/08/25 #30 tabs Allergies Allergy/AdvReac Type Severity Reaction Status Date / Time No Known Allergies Allergy Verified 01/08/25 19:27 [facility] Past Medical History Medical History Overweight (BMI 25.0-29.9) HTN (hypertension) Erectile dysfunction Type 2 diabetes mellitus with hyperglycemia Elevated LFTs Impaired fasting glucose Vitamin D deficiency Obesity (BMI 30-39.9) Benign essential hypertension Pure hypercholesterolemia CAD (coronary artery disease) Surgical History History of endoscopy Hx of hernia repair Hx of cardiac catheterization History of colonoscopy (~02/22/18) Hx of cholecystectomy (~03/2018) Social History Social History Household Members: Spouse Housing: House Are you a primary care transition manager to a significant other at home: No Do you presently have visiting nurse or other home services: No Alcohol intake: current Alcohol intake frequency: holidays/special occasions only Patient Tobacco Use Status: Former Tobacco user Tobacco use type: Cigarette e-Cigarette/Vaping Use: Never Used Advance Directives: No Advance Directives Information Provided: No Do you have a plan to hurt others: No Plan service: No Current occupational status: employed 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 Patient is a 54-year-old male with history of cholecystectomy, HTN, T2DM, CAD presenting with complaint of RUQ abdominal pain. Seen here for same last night, found to have retained bile duct stone. States pain was an 8/10 last night, tonight is 9/10. Nausea without vomiting or diarrhea. Plan: repeat labs Patient left the emergency department before myself or any of the other clinicians could review or explain physical exam findings, test results, need or lack there of for additional testing, treatment options, or a treatment plan. 01/09/25 11:22 SHEA Meza: Spoke with patient via telephone to discuss lab results. Patient still having pain, will return to the ED today for evaluation. Medical Decision Making Lab Data 01/08/25 19:40 01/08/25 19:40 Labs: Lab Results 01/08/25 Range/Units 19:40 WBC 11.5 H (4.8-10.8) X10*3/uL RBC 4.72 (4.60-5.80) X10*6/uL Hgb 14.7 (14.0-18.0) g/dl Hct 42.9 (42.0-52.0) % MCV 90.9 (80.0-98.0) fL MCH 31.1 (27.0-33.0) pg MCHC 34.3 (31.0-36.0) g/dl RDW 12.8 (11.0-16.0) % Plt Count 239 (160-400) X10*3/uL MPV 10.0 (9.4-12.4) fL Immature Gran % (Auto) 1.0 H (0.0-0.4) % Neut % (Auto) 76.7 H (45-73) % Lymph % (Auto) 15.2 L (20-40) % [place] % (Auto) 6.5 (2-11) % Eos % (Auto) 0.4 (0-4) % Baso % (Auto) 0.2 (0-2) % Lymph # (Auto) 1.7 (1.2-4.9) X10*3/uL [place] # (Auto) 0.8 (0.1-1.2) X10*3/uL Eos # (Auto) 0.1 (0.0-0.4) X10*3/uL Baso # (Auto) 0.0 (0.0-0.2) X10*3/uL Abs Immat Gran (auto) 0.12 H (0.00-0.03) X10*3/uL Absolute Neuts (auto) 8.8 H (2.0-8.3) x10*3/uL Absolute Nucleated RBC 0.000 (0.0-0.012) X10*3/uL Nucleated RBC % (auto) 0.0 (0.0-0.2) /100WBC Sodium 142 (135-145) mmol/L Potassium 3.9 (3.3-5.1) mmol/L Chloride 105 (96-108) mmol/L Carbon Dioxide 27 (22-29) mmol/L Anion Gap 14 (12-20) BUN 13 (9-16) mg/dL Creatinine 0.90 (0.5-1.4) mg/dL Estim Creat Clear Calc 86.8 Estimated GFR > 60 Random Glucose 176 H (60-115) mg/dL Calcium 9.3 (8.4-10.2) mg/dL Total Bilirubin 1.6 H (0.0-1.0) mg/dL Direct Bilirubin 0.6 H (0.0-0.5) mg/dL AST 109 H (5-37) U/L ALT 95 H (0-40) U/L Alkaline Phosphatase 106 (39-117) U/L Total Protein 7.7 (6.5-8.0) g/dL Albumin 4.5 (3.5-5.0) g/dL Lipase 73 (8-78) U/L Discharge Plan Discharge Clinical Impression: Abdominal pain Patient Disposition: Left W/O Completing Treatment Prescriptions: No Action cholecalciferol (vitamin D3) 50 mcg (2,000 unit) capsule 50 mcg PO DAILY 90 Days Qty: 90 4RF metformin 500 mg tablet extended release 24 hr 500 mg PO QPM 30 Days Qty: 30 3RF tadalafil 20 mg tablet 20 mg PO DAILY PRN (Reason: sexual activity) Qty: 10 1RF Rx Instructions: administer approximately 30min before sexual activity; do not use more than 1 dose per 24hrs cyclobenzaprine 10 mg tablet 10 mg PO TID PRN (Reason: muscle spasm) Qty: 14 0RF ibuprofen 600 mg tablet 600 mg PO Q6H PRN (Reason: fever or pain) Qty: 30 0RF amlodipine 5 mg tablet 7.5 mg PO DAILY aspirin [[place] Aspirin] 81 mg tablet,delayed release (DR/EC) 81 mg PO DAILY atorvastatin 80 mg tablet 80 mg PO DAILY clopidogrel 75 mg tablet 75 mg PO DAILY lisinopril 40 mg tablet 40 mg PO DAILY metoprolol succinate 100 mg tablet extended release 24 hr 100 mg PO DAILY omeprazole 20 mg capsule,delayed release(DR/EC) 20 mg PO DAILY Discharge Date/Time: 01/08/25 21:36
[2025-01-08 19:45] LABS: MANUAL DIFF FLAG NO
[2025-01-08 19:59] LABS: Alanine Aminotransferase 95 U/L (0-40); Albumin Level 4.5 g/dL (3.5-5.0); Alkaline Phosphatase 106 U/L (39-117); Anion Gap 14 (12-20); Aspartate Amino Transferase 109 U/L (5-37); Blood Urea Nitrogen 13 mg/dL (9-16); Calcium 9.3 mg/dL (8.4-10.2); Carbon Dioxide 27 mmol/L (22-29); Chloride 105 mmol/L (96-108); Creatinine Clr Calc Pharmacy 86.8; Estimated Glomerular Filt Rate > 60; Lipase 73 U/L (8-78); Potassium 3.9 mmol/L (3.3-5.1); Sodium 142 mmol/L (135-145); Total Protein 7.7 g/dL (6.5-8.0)
[2025-01-08 20:00] LABS: Hematocrit 42.9 % (42.0-52.0); Hemoglobin 14.7 g/dl (14.0-18.0); Imm Gran Abs Auto 0.12 X10*3/uL (0.00-0.03); Imm Gran Pct Auto 1.0 % (0.0-0.4); Lymphocytes Absolute Auto 1.7 X10*3/uL (1.2-4.9); Mean Corpuscular HGB Conc 34.3 g/dl (31.0-36.0); Mean Corpuscular Hemoglobin 31.1 pg (27.0-33.0); Mean Corpuscular Volume 90.9 fL (80.0-98.0); NRBC Abs Auto 0.000 X10*3/uL (0.0-0.012); NRBC Pct Auto 0.0 /100WBC (0.0-0.2); Platelet Count 239 X10*3/uL (160-400); Red Blood Count 4.72 X10*6/uL (4.60-5.80); White Blood Count 11.5 X10*3/uL (4.8-10.8)
== END 2025-01-08 21:36 | disposition left against medical advice (07) ==
PROVIDERS: Registered Nurse Emergency; Emergency Provider Internal Medicine; PCP Internal Medicine
DX: R10.2 Pelvic and perineal pain (principal); Z79.899 Other long term (current) drug therapy
CPT/HCPCS: 36415; 80048; 80076; 83690; 85025; 99281; 99283

== ENCOUNTER 2025-01-09 13:35 | Inpatient (IN) | payer BC, SELFPAY ==
--- NOTE | ~2025-01-09 | US_ITS ---
CLINICAL HISTORY: re-eval gallbladder fossa and CBD US abdomen limited Comparison: 01/09/2025, 01/08/2025 Findings: There are no abnormal findings in the gallbladder fossa. Common duct measures 0.5 cm. Previously noted common duct calculus appears to be unchanged in position. IMPRESSION: Choledocholithiasis unchanged from previous exam. This document has been electronically signed by: Dimitris Sung MD on 01/12/2025 08:34:58
--- NOTE | ~2025-01-09 | FL_ITS ---
EXAMINATION: FL GUIDANCE ONLY HISTORY: ERCP COMPARISON: Relation is made with a CT of the abdomen and pelvis dated 01/08/2025. TECHNIQUE: Fluoroscopy time: 2 minutes, 51 seconds. Cumulative Dose: 41.842 mGy. DAP: 18.201 mGym2 Images: 11. FINDINGS: Fluoroscopic spot film from an ERCP demonstrate a normal caliber common bile duct and intrahepatic biliary radicles. No filling defects are identified. FL/FL guidance in OR IMPRESSION: Fluoroscopy during procedure. Please see procedure report for additional information. Electronically signed by: Rafat Collazo MD 01/13/2025 04:00 PM EDT
--- NOTE | ~2025-01-09 | US_ITS ---
CLINICAL HISTORY: Transaminitis US abdomen limited, gallbladder fossa and common bile duct only. Comparison: CT/SR - CT ABDOMEN PELVIS WO IV CON - 01/08/25 01:42 EDT Findings: The common duct is 8.0 mm in diameter and contains stones. The gallbladder is surgically absent. There is no sonographic [place] sign. IMPRESSION: Choledocholithiasis as detailed on recent CT This document has been electronically signed by: Ron Wilson MD on 01/09/2025 22:06:46
[2025-01-09 13:52] VITALS: BP 205/114; PULSE 88; RESP 16; TEMP 36.7; O2SAT 95; BMI 29.4
--- NOTE | 2025-01-09 13:59 | ED.GENADULT ---
HPI - General Adult General Chief complaint: Abdominal Pain Stated complaint: Abnormal labs Time Seen by Provider: 01/09/25 17:16 Source: patient Mode of arrival: ambulatory Limitations: no limitations History of Present Illness ED Provider: DR. Null HPI narrative: A 54-year-old male s/p remote cholecystectomy done by Dr. Betancourt return to the ED 3rd visit in last week for evaluation of upper abdominal pain with nausea and vomiting, recently was seen and evaluated found to have obstructing biliary stone to the biliary duct, patient stated that he has a dark urine now, vomited x1 today feeling nauseous, normal bowel movement with passing flatus. No fever, no chills. Fatty liver runs in the family, drinks alcohol occasionally, no alcoholic liver problems. No recent viral illness. Related Data Home Medications ?Medication ?Instructions ?Recorded ?Confirmed aspirin 81 mg tablet,delayed 81 mg PO DAILY 03/30/21 12/02/24 release ([place] Aspirin) atorvastatin 80 mg tablet 80 mg PO DAILY 03/30/21 12/02/24 clopidogrel 75 mg tablet 75 mg PO DAILY 03/30/21 12/02/24 lisinopril 40 mg tablet 40 mg PO DAILY 03/30/21 12/02/24 metoprolol succinate 100 mg 100 mg PO DAILY 03/30/21 12/02/24 tablet,extended release 24 hr amlodipine 5 mg tablet 7.5 mg PO DAILY 07/26/23 12/02/24 omeprazole 20 mg capsule,delayed 20 mg PO DAILY 04/11/24 12/02/24 release Previous Rx's ?Medication ?Instructions ?Recorded cyclobenzaprine 10 mg tablet 10 mg PO TID PRN muscle spasm #14 04/08/24 tabs cholecalciferol (vitamin D3) 50 50 mcg PO DAILY 90 days #90 caps 07/16/24 mcg (2,000 unit) capsule metformin 500 mg tablet,extended 500 mg PO QPM 30 days #30 tabs 11/22/24 release 24 hr tadalafil 20 mg tablet 20 mg PO DAILY PRN sexual activity 12/21/24 #10 tabs ibuprofen 600 mg tablet 600 mg PO Q6H PRN fever or pain 01/08/25 #30 tabs Allergies Allergy/AdvReac Type Severity Reaction Status Date / Time No Known Allergies Allergy Verified 01/09/25 13:54 Review of Systems Review of Systems: All other systems are reviewed and are negative Constitutional: Reports as per HPI and Reports no additional constitutional complaints Eyes: Reports as per HPI and Reports no additional eye complaints Reports system reviewed and no additional complaints, except as documented Cardiovascular: Reports as per HPI and Reports no additional cardiovascular complaints Respiratory: Reports as per HPI and Reports no additional respiratory complaints Gastrointestinal: Reports as per HPI and Reports no additional gastrointestinal complaints Genitourinary: Reports no additional female genitourinary complaints Musculoskeletal: Reports no additional musculoskeletal complaints Skin/Breast: Reports system reviewed and no additional complaints, except as docu Psychiatric: Reports no additional psychiatric complaints Endocrine: Reports no additional endocrine complaints Hematologic/Lymphatic: Reports no additional hematologic/lymphatic complaints Allergic/Immunologic: Reports no additional allergic/immunologic complaints Reports system reviewed and no additional complaints, except as documented and Reports Abnormal speech present [facility] Past Medical History Medical History Overweight (BMI 25.0-29.9) HTN (hypertension) Erectile dysfunction Type 2 diabetes mellitus with hyperglycemia Elevated LFTs Impaired fasting glucose Vitamin D deficiency Obesity (BMI 30-39.9) Benign essential hypertension Pure hypercholesterolemia CAD (coronary artery disease) Surgical History History of endoscopy Hx of hernia repair Hx of cardiac catheterization History of colonoscopy (~02/22/18) Hx of cholecystectomy (~03/2018) Social History Social History Household Members: Spouse Housing: House Are you a primary health care / medical job titles to a significant other at home: No Do you presently have visiting nurse or other home services: No Alcohol intake: current Alcohol intake frequency: holidays/special occasions only Patient Tobacco Use Status: Former Tobacco user Tobacco use type: Cigarette e-Cigarette/Vaping Use: Never Used Advance Directives: No Advance Directives Information Provided: Yes Do you have a plan to hurt others: No Plan service: No Current occupational status: employed 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 Blood pressure elevated. Heart rate normal. Respiratory rate normal. Temperature normal. Oxygen saturation normal. Appearance: Alert. Oriented X3. No acute distress. Head: Normal external exam. Normocephalic. Atraumatic. No Multani signs noted. No raccoon eyes noted Eyes: PERRLA. EOMI. Conjunctiva and sclera normal. Eyelids normal. ENT: TM's Normal. Pharynx normal. Uvula midline. Moist mucous membranes. No trismus noted. No drooling noted. No muffled voice noted. Neck: Normal inspection. Neck supple. FROM. No adenopathy. Thyroid Normal. No meningeal signs. No neck mass noted. CVS: Normal heart rate and rhythm. Heart sound normal. No murmurs noted. Pulses normal throughout. Respiratory: No respiratory distress. Painless inspiration. Breath sounds normal. No wheezes/rales/rhonchi noted. Chest nontender. No accessory muscle usage noted or decreased air movement noted. Abdomen: Soft, mild tenderness. Bowel sounds normal in all 4 quadrants. No distention noted. No organomegaly noted. No visible injury noted. Back: No CVA tenderness. Full range of motion noted. Skin: Skin warm and dry. Normal skin color. Normal skin turgor. No rashes/lesions/lacerations noted. Extremities: No lower extremity edema. Extremities exhibit normal range of motion. Extremities nontender. Neuro: Oriented X 3. Cranial nerve exam: II-XII are grossly intact No motor deficit. No sensory deficit. Reflexes normal. Course Course Course Narrative: This is an RME: Additional HPI, ROS, PE not included below will be deferred to primary provider. RME assessment and note performed by: Tomeka An PA-C This is a 54-year-old male, with a history of hypertension, CAD, who presents emergency department with concerns of abdominal pain. Patient was seen but left without completing treatment yesterday, was called back as he had abnormal liver enzymes. He also had a CT scan which revealed multiple stones with a in the remnant cystic duct. Abdomen is firm, nontender. Plan: Labs, further ER evaluation needed. Reevaluation(s) Reevaluation #1: Third ED visit in 2 days for abdominal pain, transaminitis CT/ultrasound consistent with biliary obstruction. Case discussed with Dr. Holder/Dr. Pelaez patient will be admitted for possible ERCP tomorrow. Case discussed with Dr. Gabriel who accepted the patient to the hospitalist service. Continue IV hydration, prophylactic Zosyn. Time: 21:30 Medications Administered Discontinued Medications Generic Name Dose Route Start Last Admin Trade Name Freq PRN Reason Stop Dose Admin Ketorolac Tromethamine 15 mg 01/09/25 20:21 01/09/25 21:00 Ketorolac Tromethamine 15 Mg/Ml Vial IVPUSH 01/09/25 20:22 15 mg ONCE ONE Administration Ondansetron HCl 4 mg 01/09/25 20:21 01/09/25 21:00 Ondansetron Hcl 4 Mg/2 Ml Vial IVPUSH 01/09/25 20:22 4 mg ONCE ONE Administration Medical Decision Making Differential Diagnosis Differential Diagnoses: The differential diagnosis associated with the presentation includes (Biliary obstruction, transaminitis, UTI, electrolyte derangement, severe anemia.) Admission/Observation Consideration of admission/observation: Escalation of care including admission/observation considered Consult Healthcare Provider Management of the patient was discussed with: Hospitalist (Dr. Gabriel) and Core Loader (Dr. Holder/Dr. Pelaez) Lab Data MDM Lab Attestation statement: I reviewed the patient's lab results. 01/09/25 15:07 01/09/25 15:07 Labs: Lab Results 01/09/25 01/09/25 Range/Units 15:07 19:56 WBC 13.4 H (4.8-10.8) X10*3/uL RBC 4.44 L (4.60-5.80) X10*6/uL Hgb 13.7 L (14.0-18.0) g/dl Hct 39.8 L (42.0-52.0) % MCV 89.6 (80.0-98.0) fL MCH 30.9 (27.0-33.0) pg MCHC 34.4 (31.0-36.0) g/dl RDW 13.0 (11.0-16.0) % Plt Count 204 (160-400) X10*3/uL MPV 10.0 (9.4-12.4) fL Immature Gran % (Auto) 0.4 (0.0-0.4) % Neut % (Auto) 88.3 H (45-73) % Lymph % (Auto) 5.1 L (20-40) % [place] % (Auto) 6.1 (2-11) % Eos % (Auto) 0.0 (0-4) % Baso % (Auto) 0.1 (0-2) % Lymph # (Auto) 0.7 L (1.2-4.9) X10*3/uL [place] # (Auto) 0.8 (0.1-1.2) X10*3/uL Eos # (Auto) 0.0 (0.0-0.4) X10*3/uL Baso # (Auto) 0.0 (0.0-0.2) X10*3/uL Abs Immat Gran (auto) 0.06 H (0.00-0.03) X10*3/uL Absolute Neuts (auto) 11.8 H (2.0-8.3) x10*3/uL Absolute Nucleated RBC 0.000 (0.0-0.012) X10*3/uL Nucleated RBC % (auto) 0.0 (0.0-0.2) /100WBC Sodium 136 (135-145) mmol/L Potassium 3.9 (3.3-5.1) mmol/L Chloride 101 (96-108) mmol/L Carbon Dioxide 26 (22-29) mmol/L Anion Gap 13 (12-20) BUN 16 (9-16) mg/dL Creatinine 0.66 (0.5-1.4) mg/dL Estim Creat Clear Calc 119.1 Estimated GFR > 60 Random Glucose 161 H (60-115) mg/dL Calcium 9.3 (8.4-10.2) mg/dL Magnesium 1.9 (1.6-2.6) mg/dL Total Bilirubin 6.4 H (0.0-1.0) mg/dL Direct Bilirubin 1.9 H (0.0-0.5) mg/dL AST 580 H (5-37) U/L ALT 466 H (0-40) U/L Alkaline Phosphatase 155 H (39-117) U/L Total Protein 7.5 (6.5-8.0) g/dL Albumin 4.5 (3.5-5.0) g/dL Lipase 31 (8-78) U/L Urine Color Dark Yellow Urine Appearance Clear Urine pH 7.0 (5.0-9.0) Ur Specific [place] <= 1.005 (1.005-1.025) Urine Protein 100 (2+) H (Neg-Trace) mg/dL Urine Glucose (UA) Negative (Negative) mg/dL Urine Ketones Negative (Negative) mg/dL Urine Blood Large (3+) H (Negative) Urine Nitrite Negative (Negative) Ur Leukocyte Esterase Trace H (Negative) Urine RBC 0-2 (0-2) /HPF Urine WBC 0-5 (0-5) /HPF Ur Squamous Epith Cells 0-2 (0-2) /HPF Urine Bacteria None Seen (None Seen) Hyaline Casts 0-2 (0-2) /LPF Independent Interpretation I performed an independent interpretation of an: Ultrasound and CT Scan Radiology Impression Discussion of test interpretation with radiology: I have reviewed the radiologist's reading. Discharge Plan Discharge Clinical Impression: Transaminitis, Biliary obstruction Patient Disposition: Admitted As Inpatient Print Language: Belarusian
[2025-01-09 15:12] LABS: MANUAL DIFF FLAG NO
[2025-01-09 15:13] LABS: Hematocrit 39.8 % (42.0-52.0); Hemoglobin 13.7 g/dl (14.0-18.0); Imm Gran Abs Auto 0.06 X10*3/uL (0.00-0.03); Imm Gran Pct Auto 0.4 % (0.0-0.4); Lymphocytes Absolute Auto 0.7 X10*3/uL (1.2-4.9); Mean Corpuscular HGB Conc 34.4 g/dl (31.0-36.0); Mean Corpuscular Hemoglobin 30.9 pg (27.0-33.0); Mean Corpuscular Volume 89.6 fL (80.0-98.0); NRBC Abs Auto 0.000 X10*3/uL (0.0-0.012); NRBC Pct Auto 0.0 /100WBC (0.0-0.2); Platelet Count 204 X10*3/uL (160-400); Red Blood Count 4.44 X10*6/uL (4.60-5.80); White Blood Count 13.4 X10*3/uL (4.8-10.8)
[2025-01-09 15:30] LABS: Alanine Aminotransferase 466 U/L (0-40); Albumin Level 4.5 g/dL (3.5-5.0); Alkaline Phosphatase 155 U/L (39-117); Anion Gap 13 (12-20); Aspartate Amino Transferase 580 U/L (5-37); Blood Urea Nitrogen 16 mg/dL (9-16); Calcium 9.3 mg/dL (8.4-10.2); Carbon Dioxide 26 mmol/L (22-29); Chloride 101 mmol/L (96-108); Creatinine Clr Calc Pharmacy 119.1; Estimated Glomerular Filt Rate > 60; Lipase 31 U/L (8-78); Magnesium 1.9 mg/dL (1.6-2.6); Potassium 3.9 mmol/L (3.3-5.1); Sodium 136 mmol/L (135-145); Total Protein 7.5 g/dL (6.5-8.0)
--- NOTE | 2025-01-09 16:42 | PC.NURSE ---
late entry for 1630. This RN spoke with patient in [place] and assured them that they would be brought back soon. pt is willing to wait for a bed.
[2025-01-09 18:15] VITALS: BP 176/95; PULSE 66; RESP 18; TEMP 36.6; O2SAT 96
[2025-01-09 19:54] VITALS: BP 165/87; PULSE 69; RESP 18; TEMP 36.7; O2SAT 96
[2025-01-09 20:11] LABS: Appearance Urine Clear; Glucose Urine UA Negative (Negative); PH 7.0 (5.0-9.0); Specific Gravity - Urine <= 1.005 (1.005-1.025); UMIC TRIGGER UACC YES
--- NOTE | 2025-01-09 21:39 | P.HPHOSP_ITS ---
History of Present Illness Date of Service: 01/09/25 Attending physician on admission: Demario Jacob Chief Complaint: abd pain Patient is a 54-year-old male with a past medical history significant for hypertension, CAD, history NSTEMI on Plavix and aspirin, type 2 diabetes and history of cholecystectomy in February 2018, who presented to the ED multiple times in this past week due to upper abdominal pain with nausea. Patient left yesterday prior to being seen and was called back today due to elevated LFTs, leukocytosis and abdominopelvic CT with a 6-7 mm stone in the inferior aspect of the cystic duct just proximal to its junction with the common hepatic duct. there are also multiple stones within the remnant cystic duct, no common bile duct dilation. The patient continues to have nausea, dark urine, mild jaundice and upper abdominal pain. He reports that he did go to work today but was having a difficult time due to his pain, he has been taking tramadol which is not helpful. He denies any fever or chills. No urinary frequency or urgency. No chest pain or shortness of breath. The ED provider spoke with the on-call surgeon, Dr. Holder, who recommended IV antibiotics and possible ERCP tomorrow with Gastroenterology. Review of Systems 2 Constitutional: Constitutional: Denies chills, Denies fatigue, Denies fever(s) and Denies headache(s) Eyes: Eyes: Denies change in vision ENT: Denies headache(s) and Denies sore throat Cardiovascular: Cardiovascular: Denies chest pain, Denies rapid heart rate, Denies leg edema and Denies dyspnea Respiratory: Respiratory: Denies chest congestion, Denies cough, Denies dyspnea and Denies wheezing Gastrointestinal: Gastrointestinal: Reports abdominal pain, Denies diarrhea, Reports nausea and Reports vomiting Genitourinary: Genitourinary: Denies dysuria and Denies urinary urgency Musculoskeletal: Musculoskeletal: Denies myalgias Integumentary/Breasts: Skin/Breast: Denies rash Neurologic: Denies confusion and Denies headache(s) Psychiatric: Psychiatric: Denies confusion Endocrine: Endocrine: Denies fatigue Hematologic/Lymphatic: Hematologic/Lymphatic: Denies easy bleeding and Denies easy bruising Allergic/Immunologic: Allergic/Immunologic: Denies wheezing [facility] Medical History Overweight (BMI 25.0-29.9) HTN (hypertension) Erectile dysfunction Type 2 diabetes mellitus with hyperglycemia Elevated LFTs Impaired fasting glucose Vitamin D deficiency Obesity (BMI 30-39.9) Benign essential hypertension Pure hypercholesterolemia CAD (coronary artery disease) Functional capacity: independent ambulation Surgical History History of endoscopy Hx of hernia repair Hx of cardiac catheterization History of colonoscopy (~02/22/18) Hx of cholecystectomy (~03/2018) Social History Household Members: Spouse Housing: House Are you a primary healthcare manager to a significant other at home: No Do you presently have visiting nurse or other home services: No Alcohol intake: current Alcohol intake frequency: holidays/special occasions only Patient Tobacco Use Status: Former Tobacco user Tobacco use type: Cigarette e-Cigarette/Vaping Use: Never Used Advance Directives: No Advance Directives Information Provided: Yes Do you have a plan to hurt others: No Plan service: No Current occupational status: employed 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 Cognitive needs: No Hearing needs: No Vision needs: No Narrative: No smoking, occasional social alcohol, no drug use Meds Allergies Allergy/AdvReac Type Severity Reaction Status Date / Time No Known Allergies Allergy Verified 01/09/25 13:54 Active Medications: Current Medications Acetaminophen (Acetaminophen 325 Mg Tablet) 650 mg PO Q6H PRN PRN Reason: Pain, Mild 1-3,fever,headache Calcium Carbonate (Calcium Carbonate 750 Mg Tab.Chew) 750 mg PO Q4H PRN PRN Reason: Heartburn Hydromorphone HCl (Hydromorphone Hcl 1 Mg/Ml Syringe) 0.5 mg IVPUSH Q4H PRN; Protocol PRN Reason: Pain, Severe (Pain Scale 7-10) Sodium Chloride (Ns) 1,000 mls @ 999 mls/hr IV .Q1H1M ONE Stop: 01/09/25 22:02 Lactated Ringer's (Lr) 1,000 mls @ 100 mls/hr IVCONT .Q10H LEIGHANN Magnesium Hydroxide (Milk Of Magnesia 30 Ml Oral.Susp) 30 ml PO DAILY PRN PRN Reason: Constipation Melatonin (Melatonin 3 Mg Tablet) 6 mg PO BEDTIME PRN PRN Reason: Insomnia Ondansetron HCl (Ondansetron Hcl 4 Mg/2 Ml Vial) 4 mg IVPUSH Q8H PRN PRN Reason: Nausea and Vomiting Oxycodone HCl (Oxycodone Hcl Immed Release 5 Mg Tablet) 5 mg PO Q6H PRN PRN Reason: Pain, Moderate(Pain Scale 4-6) Sodium Chloride (0.9 % Sodium Chloride Flush 3 Ml Syringe) 3 ml [facility]USH [facility] Medications ?Medication ?Instructions ?Recorded ?Confirmed ?Last Taken ?Type aspirin 81 mg tablet,delayed 81 mg PO DAILY 03/30/21 0 12/02/24 03/19/24 History release ([place] Aspirin) atorvastatin 80 mg tablet 80 mg PO DAILY 03/30/2112/20 Unknown History clopidogrel 75 mg tablet 75 mg PO DAILY 03/30/2112/2003/15/24 History lisinopril 40 mg tablet 40 mg PO DAILY 03/30/2112/20 Unknown History metoprolol succinate 100 mg 100 mg PO DAILY 03/30/21 0 12/02/24 Unknown History tablet,extended release 24 hr amlodipine 5 mg tablet 7.5 mg PO DAILY 07/26/2312/2003/22/24 History omeprazole 20 mg capsule,delayed 20 mg PO DAILY@0630 1 06/11/23 12/02/24 Unknown History release acetaminophen 325 mg tablet 650 mg PO Q6H PRN Pain 01/09/25 Unknown History metformin 500 mg tablet,extended 500 mg PO BEDTIME 01/09/25 01/08/25 History release 24 hr tramadol 50 mg tablet 50 mg PO BID PRN severe pain 01/09/25 Unknown History Physical Exam 2 Vital Signs and Narrative: Vital Signs: Last Vital Signs Temp 98.0 F 01/09/25 19:54 Pulse 69 01/09/25 19:54 Resp 18 01/09/25 19:54 BP 165/87 H 01/09/25 19:54 Pulse Ox 96 01/09/25 19:54 O2 Del Method Room Air 01/09/25 19:54 BMI result Body Mass Index 29.4 General: AOx3, no acute distress, seen with bedside Resp: CTA bilaterally CVS: S1, S2, RRR GI: +BS, upper abd tenderness, no distention Skin: Warm, dry Neuro: Cranial nerves II-XII grossly intact bilaterally. Motor grossly intact bilaterally Extremities: No LE edema Psych: Appropriate affect Const: General: No confusion Orientation/consciousness: No confusion Neuro: General: No confusion Results Labs 01/09/25 15:07 01/09/25 15:07 Labs: Laboratory Results - last 24 hr 01/09/25 01/09/25 15:07 19:56 MCV 89.6 MCH 30.9 MCHC 34.4 RDW 13.0 Plt Count 204 MPV 10.0 Immature Gran % (Auto) 0.4 Neut % (Auto) 88.3 H Lymph % (Auto) 5.1 L [place] % (Auto) 6.1 Eos % (Auto) 0.0 Baso % (Auto) 0.1 Lymph # (Auto) 0.7 L [place] # (Auto) 0.8 Eos # (Auto) 0.0 Baso # (Auto) 0.0 Abs Immat Gran (auto) 0.06 H Absolute Neuts (auto) 11.8 H Absolute Nucleated RBC 0.000 Nucleated RBC % (auto) 0.0 Anion Gap 13 Estim Creat Clear Calc 119.1 Estimated GFR > 60 Random Glucose 161 H Calcium 9.3 Magnesium 1.9 Total Bilirubin 6.4 H Direct Bilirubin 1.9 H AST 580 H ALT 466 H Alkaline Phosphatase 155 H Total Protein 7.5 Albumin 4.5 Lipase 31 Urine Color Dark Yellow Urine Appearance Clear Urine pH 7.0 Ur Specific [place] <= 1.005 Urine Protein 100 (2+) H Urine Glucose (UA) Negative Urine Ketones Negative Urine Blood Large (3+) H Urine Nitrite Negative Ur Leukocyte Esterase Trace H Urine RBC 0-2 Urine WBC 0-5 Ur Squamous Epith Cells 0-2 Urine Bacteria None Seen Hyaline Casts 0-2 Assessment and Plan (1) Acute cholangitis: Status: Acute (2) Transaminitis: Status: Acute (3) Biliary obstruction: Status: Acute (4) Abdominal pain: Status: Acute (5) Common bile duct calculus: Status: Acute Plan Patient is a 54-year-old male with a past medical history significant for hypertension, CAD, history NSTEMI on Plavix and aspirin, type 2 diabetes and history of cholecystectomy in February 2018, who presented to the ED multiple times in this past week due to upper abdominal pain with nausea. The ED provider spoke with the on-call surgeon, Dr. Holder, who recommended IV antibiotics and possible ERCP tomorrow with Gastroenterology. acute cholangitis secondary to CBD stones - WBC 13.4, vitals stable, lactic acid pending, blood cultures x2 pending, no sepsis - worsening LFTs and repeated ED vistis due to abd pain - AST 580, ALT 466, alk-phos 155, T bili 6.4, D bili 1.9, lipase normal - abdominopelvic CT from yesterday with multiple stones within the remnant cystic duct, this includes a 6-7 mm stone which is located in the inferior aspect of the cystic duct, just proximal to its junction with the common hepatic duct. CBD is not dilated and measures 5-6 mm, chronic stable adrenal adenoma measuring 2.5 cm - ED provider spoke with Dr Holder who suggested IV abx and ERCP - GI aware, GI consult placed - NPO after midnight - abd US for further evaluation of CBD duct pending - received 1L LR in ED, continue LR 100ml/hr - zosyn - follow CBC and CMP HTN - continue home meds CAD/hx NSTEMI - hold plavix and aspirin, resume when appropriate T2DM - hold metformin - sliding scale insulin - diabetic diet med rec pending full code VTE prophy: pneumoboots Patient with acute cholangitis secondary to CBD stones, requiring admission for at least 2 midnight stay for IV antibiotics, ERCP and monitoring. Quality Stroke Does the patient have a stroke diagnosis?: No VTE Prior VTE?: No VTE Risk Level:: Medical - moderate - high VTE Device Contraindication: N/A - Device Ordered VTE Drug Contraindication: Treatment Not Indicated
--- NOTE | 2025-01-09 22:13 | PHA.MEDREC ---
Pharmacy Consult ? Medication Reconciliation Pharmacy has completed the medication reconciliation, spoke to patient and at bedside who had pictures of medications. Pt states he's supposed to be taking amlodipine 7.5mg but said the pills are too small to cut so he only takes 5mg, no longer take ibuprofen and cyclobenzaprine.
[2025-01-09 22:27] VITALS: BP 169/90; PULSE 68; RESP 12; TEMP 36.7; O2SAT 96
[2025-01-09] MEDS: Lactated Ringers 1,000 ML 100 ML IVCONT (23:32)
--- NOTE | 2025-01-10 | ECG_ITS ---
Test Reason : preop Blood Pressure : */* mmHG Vent. Rate : 80 BPM Atrial Rate : 80 BPM P-R Int : 162 ms QRS Dur : 94 ms QT Int : 402 ms P-R-T Axes : 35 -23 -7 degrees QTcB Int : 463 ms Normal sinus rhythm Incomplete right bundle branch block Borderline ECG When compared with ECG of 11-May-2021 21:15, No significant change was found Referred By: Mary Tang Electronically Signed By: Jesse Radford
[2025-01-10 01:34] VITALS: BP 153/84; PULSE 75; RESP 18; TEMP 36.4; O2SAT 96
[2025-01-10 01:39] VITALS: BMI 28.8
[2025-01-10 04:00] VITALS: BP 133/80; PULSE 89; RESP 18; TEMP 36.8; O2SAT 94
[2025-01-10 06:22] LABS: MANUAL DIFF FLAG NO
[2025-01-10 06:24] LABS: Hematocrit 35.2 % (42.0-52.0); Hemoglobin 12.4 g/dl (14.0-18.0); Imm Gran Abs Auto 0.04 X10*3/uL (0.00-0.03); Imm Gran Pct Auto 0.5 % (0.0-0.4); Lymphocytes Absolute Auto 0.9 X10*3/uL (1.2-4.9); Mean Corpuscular HGB Conc 35.2 g/dl (31.0-36.0); Mean Corpuscular Hemoglobin 31.3 pg (27.0-33.0); Mean Corpuscular Volume 88.9 fL (80.0-98.0); NRBC Abs Auto 0.000 X10*3/uL (0.0-0.012); NRBC Pct Auto 0.0 /100WBC (0.0-0.2); Platelet Count 169 X10*3/uL (160-400); Red Blood Count 3.96 X10*6/uL (4.60-5.80); White Blood Count 8.1 X10*3/uL (4.8-10.8)
[2025-01-10 06:49] LABS: Alanine Aminotransferase 620 U/L (0-40); Albumin Level 3.6 g/dL (3.5-5.0); Alkaline Phosphatase 177 U/L (39-117); Anion Gap 11 (12-20); Aspartate Amino Transferase 495 U/L (5-37); Blood Urea Nitrogen 11 mg/dL (9-16); Calcium 8.2 mg/dL (8.4-10.2); Carbon Dioxide 24 mmol/L (22-29); Chloride 109 mmol/L (96-108); Creatinine Clr Calc Pharmacy 116.1; Estimated Glomerular Filt Rate > 60; Potassium 3.2 mmol/L (3.3-5.1); Sodium 141 mmol/L (135-145); Total Protein 6.3 g/dL (6.5-8.0)
[2025-01-10 07:19] VITALS: BP 136/82; PULSE 97; RESP 18; TEMP 36.8; O2SAT 94
[2025-01-10 08:17] LABS: Glucose, Whole Blood 107 mg/dL (60-115)
[2025-01-10] MEDS: Lactated Ringers 1,000 ML 100 ML IVCONT ×2 (08:38→21:41)
[2025-01-10 08:41] LABS: Hemoglobin A1C 143.1617 umol/L; Total Hemoglobin (HGBA1C) 3341.7467 umol/L
--- NOTE | 2025-01-10 08:46 | HO.ANESPROP2 ---
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 H/O CAD/NSTEMI on plavix, ASA, last done 01/09/25. Last cardiology visit end July 2024 ([facility]). EKG updated, see below. Type 2 DM: A1C 6.1% [facility] Active Problems Active Problems: All Active Problems Acute cholangitis (Acute) Common bile duct calculus (Acute) Biliary obstruction (Acute) Transaminitis (Acute) Hyperpigmented skin lesion (Acute) Overweight (BMI 25.0-29.9) (Acute) Rupture of proximal biceps tendon (Acute) Spondylosis of lumbar region without myelopathy or radiculopathy (Acute) Erectile dysfunction (Acute) Acute low back pain with disc symptoms, duration less than 6 weeks (Acute) Lumbar paraspinal muscle spasm (Acute) Lumbar spondylosis (Acute) Low back pain (Acute) Right flank discomfort (Acute) Right flank pain (Acute) Left testicular pain (Acute) COVID-19 (Acute) Hypercholesterolemia (Acute) Hypertension (Acute) Type 2 diabetes mellitus with hyperglycemia (Acute) Elevated LFTs (Acute) Impaired fasting glucose (Acute) Vitamin D deficiency (Acute) Obesity (BMI 30-39.9) (Acute) Benign essential hypertension (Acute) Pure hypercholesterolemia (Acute) CAD (coronary artery disease) (Acute) Past Medical History Medical History Overweight (BMI 25.0-29.9) HTN (hypertension) Erectile dysfunction Type 2 diabetes mellitus with hyperglycemia Elevated LFTs Impaired fasting glucose Vitamin D deficiency Obesity (BMI 30-39.9) Benign essential hypertension Pure hypercholesterolemia CAD (coronary artery disease) Functional capacity: independent ambulation Family History Family history of problems with anesthesia: No Surgical History Surgical History History of endoscopy Hx of hernia repair Hx of cardiac catheterization History of colonoscopy (~02/22/18) Hx of cholecystectomy (~03/2018) History of Problems with Anesthesia: No Social History Social History Household Members: Spouse Housing: House Are you a primary aged or disabled carer to a significant other at home: No Do you presently have visiting nurse or other home services: No Alcohol intake: current Alcohol intake frequency: holidays/special occasions only Patient Tobacco Use Status: Former Tobacco user Tobacco use type: Cigarette Smoked in Last 30 Days: No e-Cigarette/Vaping Use: Never Used Use of substances other than those prescribed or required for medical reasons: No Currently Displaying Signs/Symptoms of Drug Intoxication Withdrawal: No Have you been hit, kicked, punched, or otherwise hurt by someone within the past year? 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 Glucose (Glucose Gel 15 Gm Gel..Gram.) 15 gm PO Q15M PRN; Protocol PRN Reason: per Hypoglycemia Standing Ord. Hydromorphone HCl (Hydromorphone Hcl 1 Mg/Ml Syringe) 0.5 mg IVPUSH Q4H PRN; Protocol PRN Reason: Pain, Severe (Pain Scale 7-10) Lactated Ringer's (Lr) 1,000 mls @ 100 mls/hr IVCONT .Q10H [facility] Last Admin: 01/10/25 08:38 Dose: 100 mls/hr Piperacillin Sod/Tazobactam (Sod 3.375 gm/ Sodium Chloride) 50 mls @ 100 mls/hr IV Q6H [facility] Last Infusion: 01/10/25 06:09 Dose: Infused Insulin Human Lispro (Insulin Lispro 100 Unit/Ml 3 Ml Vial) 0 unit SUBCUT QIDACHS [facility]; Protocol Magnesium Hydroxide (Milk Of Magnesia 30 Ml Oral.Susp) 30 ml PO DAILY PRN PRN Reason: Constipation Melatonin (Melatonin 3 Mg Tablet) 6 mg PO BEDTIME PRN PRN Reason: Insomnia Ondansetron HCl (Ondansetron Hcl 4 Mg/2 Ml Vial) 4 mg IVPUSH Q8H PRN PRN Reason: Nausea and Vomiting Oxycodone HCl (Oxycodone Hcl Immed Release 5 Mg Tablet) 5 mg PO Q6H PRN PRN Reason: Pain, Moderate(Pain Scale 4-6) Sodium Chloride (0.9 % Sodium Chloride Flush 3 Ml Syringe) 3 ml IVFLUSH [facility] Last Admin: 01/10/25 07:25 Dose: Not Given Home Medications ?Medication ?Instructions ?Recorded ?Confirmed ?Last Taken ?Type aspirin 81 mg tablet,delayed 81 mg PO DAILY 03/30/21 01/09/25 01/09/25 History release ([facility] Aspirin) atorvastatin 80 mg tablet 80 mg PO BEDTIME 03/30/21 01/09/25 01/08/25 History clopidogrel 75 mg tablet 75 mg PO DAILY 03/30/21 01/09/25 01/09/25 History lisinopril 40 mg tablet 40 mg PO BEDTIME 03/30/21 01/09/25 01/08/25 History metoprolol succinate 100 mg 100 mg PO BEDTIME 03/30/21 01/09/25 01/08/25 History tablet,extended release 24 hr amlodipine 5 mg tablet 5 mg PO DAILY 07/26/23 01/09/25 01/09/25 History omeprazole 20 mg capsule,delayed 20 mg PO DAILY@0630 04/11/24 01/09/25 01/09/25 History release acetaminophen 325 mg tablet 650 mg PO Q6H PRN Pain 01/09/25 01/09/25 Unknown History metformin 500 mg tablet,extended 500 mg PO BEDTIME 01/09/25 01/09/25 01/08/25 History release 24 hr tramadol 50 mg tablet 50 mg PO BID PRN severe pain 01/09/25 01/09/25 Unknown History Exam Height,Weight and Vital Signs: Height 5 ft 4 in Weight 76 kg Last Vital Signs Temp 98.3 F 01/10/25 07:19 Pulse 97 01/10/25 07:19 Resp 18 01/10/25 07:19 BP 136/82 01/10/25 07:19 Pulse Ox 94 01/10/25 07:19 O2 Del Method Room Air 01/10/25 07:19 Pertinent Lab Results Pertinent Lab Results: Laboratory Tests 01/09/25 01/09/25 01/10/25 15:07 19:56 05:30 WBC 13.4 H 8.1 RBC 4.44 L 3.96 L Hgb 13.7 L 12.4 L Hct 39.8 L 35.2 L MCV 89.6 88.9 MCH 30.9 31.3 MCHC 34.4 35.2 RDW 13.0 13.2 Plt Count 204 169 MPV 10.0 10.4 Immature Gran % (Auto) 0.4 0.5 H Neut % (Auto) 88.3 H 78.9 H Lymph % (Auto) 5.1 L 11.0 L [place] % (Auto) 6.1 8.6 Eos % (Auto) 0.0 0.9 Baso % (Auto) 0.1 0.1 Lymph # (Auto) 0.7 L 0.9 L [place] # (Auto) 0.8 0.7 Eos # (Auto) 0.0 0.1 Baso # (Auto) 0.0 0.0 Abs Immat Gran (auto) 0.06 H 0.04 H Absolute Neuts (auto) 11.8 H 6.4 Absolute Nucleated RBC 0.000 0.000 Nucleated RBC % (auto) 0.0 0.0 Sodium 136 141 Potassium 3.9 3.2 L Chloride 101 109 H Carbon Dioxide 26 24 Anion Gap 13 11 L BUN 16 11 Creatinine 0.66 0.67 Estim Creat Clear Calc 119.1 116.1 Estimated GFR > 60 > 60 POC Glucose Random Glucose 161 H 99 Estimat Average Glucose 128 Hemoglobin A1c % 6.1 H Calcium 9.3 8.2 L D Magnesium 1.9 Total Bilirubin 6.4 H 4.3 H Direct Bilirubin 1.9 H AST 580 H 495 H ALT 466 H 620 H Alkaline Phosphatase 155 H 177 H Total Protein 7.5 6.3 L Albumin 4.5 3.6 Lipase 31 Urine Color Dark Yellow Urine Appearance Clear Urine pH 7.0 Ur Specific [place] <= 1.005 Urine Protein 100 (2+) H Urine Glucose (UA) Negative Urine Ketones Negative Urine Blood Large (3+) H Urine Nitrite Negative Ur Leukocyte Esterase Trace H Urine RBC 0-2 Urine WBC 0-5 Ur Squamous Epith Cells 0-2 Urine Bacteria None Seen Hyaline Casts 0-2 01/10/25 08:14 WBC RBC Hgb Hct MCV MCH MCHC RDW Plt Count MPV Immature Gran % (Auto) Neut % (Auto) Lymph % (Auto) [place] % (Auto) Eos % (Auto) Baso % (Auto) Lymph # (Auto) [place] # (Auto) Eos # (Auto) Baso # (Auto) Abs Immat Gran (auto) Absolute Neuts (auto) Absolute Nucleated RBC Nucleated RBC % (auto) Sodium Potassium Chloride Carbon Dioxide Anion Gap BUN Creatinine Estim Creat Clear Calc Estimated GFR POC Glucose 107 Random Glucose Estimat Average Glucose Hemoglobin A1c % Calcium Magnesium Total Bilirubin Direct Bilirubin AST ALT Alkaline Phosphatase Total Protein Albumin Lipase Urine Color Urine Appearance Urine pH Ur Specific [place] Urine Protein Urine Glucose (UA) Urine Ketones Urine Blood Urine Nitrite Ur Leukocyte Esterase Urine RBC Urine WBC Ur Squamous Epith Cells Urine Bacteria Hyaline Casts Narrative Narrative: EKG 01/10/25 Vent. Rate : 80 BPM Atrial Rate : 80 BPM P-R Int : 162 ms QRS Dur : 94 ms QT Int : 402 ms P-R-T Axes : 35 -23 -7 degrees QTcB Int : 463 ms Normal sinus rhythm Incomplete right bundle branch block Borderline ECG When compared with ECG of 11-May-2021 21:15, No significant change was found Airway Mallampati Class: II TM Dist: >3cm Neck ROM: Full Loose/Missing/Broken Teeth: No Heart: RRR Lungs: CTAB Assessment and Plan Final Anesthetic Review Family History of Problems with Anesthesia: No History of Problems with Anesthesia: No Documented by User: Angel Simon MD 01/10/25 15:37 [facility] Past Medical History Medical History Overweight (BMI 25.0-29.9) HTN (hypertension) Erectile dysfunction Type 2 diabetes mellitus with hyperglycemia Elevated LFTs Impaired fasting glucose Vitamin D deficiency Obesity (BMI 30-39.9) Benign essential hypertension Pure hypercholesterolemia CAD (coronary artery disease) Surgical History Surgical History History of endoscopy Hx of hernia repair Hx of cardiac catheterization History of colonoscopy (~02/22/18) Hx of cholecystectomy (~03/2018) Social History Social History Household Members: Spouse Housing: House Are you a primary aged or disabled carer to a significant other at home: No Do you presently have visiting nurse or other home services: No Alcohol intake: current Alcohol intake frequency: holidays/special occasions only Patient Tobacco Use Status: Former Tobacco user Tobacco use type: Cigarette Smoked in Last 30 Days: No e-Cigarette/Vaping Use: Never Used Use of substances other than those prescribed or required for medical reasons: No Currently Displaying Signs/Symptoms of Drug Intoxication Withdrawal: No Have you been hit, kicked, punched, or otherwise hurt by someone within the past year? 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 Cognitive needs: No Hearing needs: No Vision needs: No Meds Allergies Allergy/AdvReac Type Severity Reaction Status Date / Time No Known Allergies Allergy Verified 01/09/25 13:54 Home Medications ?Medication ?Instructions ?Recorded ?Confirmed ?Last Taken ?Type aspirin 81 mg tablet,delayed 81 mg PO DAILY 03/30/21 01/09/25 01/09/25 History release ([facility]in) atorvastatin 80 mg tablet 80 mg PO BEDTIME 03/30/21 01/09/25 01/08/25 History clopidogrel 75 mg tablet 75 mg PO DAILY 03/30/21 01/09/25 01/09/25 History lisinopril 40 mg tablet 40 mg PO BEDTIME 03/30/21 01/09/25 01/08/25 History metoprolol succinate 100 mg 100 mg PO BEDTIME 03/30/21 01/09/25 01/08/25 History tablet,extended release 24 hr amlodipine 5 mg tablet 5 mg PO DAILY 07/26/23 01/09/25 01/09/25 History omeprazole 20 mg capsule,delayed 20 mg PO DAILY@0630 04/11/24 01/09/25 01/09/25 History release acetaminophen 325 mg tablet 650 mg PO Q6H PRN Pain 01/09/25 01/09/25 Unknown History metformin 500 mg tablet,extended 500 mg PO BEDTIME 01/09/25 01/09/25 01/08/25 History release 24 hr tramadol 50 mg tablet 50 mg PO BID PRN severe pain 01/09/25 01/09/25 Unknown History Assessment and Plan Assessment Anesthesia Assessment: Anesthesia Plan Discussed and Chart Reviewed Final Anesthetic Review NPO: Yes ASA Class: III and Emergency (Patient is on Plavix and ASA.) Final Preanesthetic Review: No Changes in Pt Med Stat, Meds/Allgs Chart Reviewed, Consent Obtained/Reviewed and Anes Risks/Benef Reviewed Patient Risk: High Procedure Risk: Intermediate Anesthetic Plan Anesthetic Plan: GA and Agree w/ Assess. and Plan Disposition: Standard PACU
--- NOTE | 2025-01-10 09:21 | MHC.CM.PN ---
PT REPORTS HE LIVES WITH HIS , IS INDEPENDENT, WORKS AND DRIVES HE HAS NO DME AND NO SERVICES DECLINES A HCP PCP: CHAPO JONES DCP: HOME VIA PRIVATE TRANSPORT
[2025-01-10 11:23] LABS: Glucose, Whole Blood 102 mg/dL (60-115)
--- NOTE | 2025-01-10 13:11 | P.PNIM_ITS ---
Subjective Subjective Date of Service: 01/10/25 Interval History: Seen and examined this morning Follow-up for choledocholithiasis Reporting right upper quadrant abdominal pain, no vomiting Review of Systems Review of Systems: Yes all other systems are reviewed and are negative Constitutional Constitutional: Denies chills and Denies fever(s) Cardiovascular Cardiovascular: Denies chest pain, Denies palpitations and Denies dyspnea Respiratory Respiratory: Denies cough and Denies dyspnea Gastrointestinal Gastrointestinal: Reports abdominal pain and Denies vomiting Endocrine Endocrine: Denies palpitations Physical Exam 2 Vital Signs: Vital Signs: Last Vital Signs Temp 98.3 F 01/10/25 07:19 Pulse 97 01/10/25 07:19 Resp 18 01/10/25 07:19 BP 136/82 01/10/25 07:19 Pulse Ox 94 01/10/25 07:19 O2 Del Method Room Air 01/10/25 07:19 BMI result Body Mass Index 28.8 Const: General: comfortable, alert and awake Nutritional Appearance: a verage body habitus Orientation/consciousness: patient oriented x3 Resp: Effort & Inspection: normal respiratory effort, able to speak in complete sentences, no respiratory distress and no use of accessory muscles Cardio: Rate: regular rate GI: Other: no guarding, no rebound; RUQ TTP Inspection: No distended Palpation (GI): Soft to palpation Neuro: General: patient oriented x3, moves all extremities and CN's II-XI intact bilaterally Objective Data Active Medications Acetaminophen (Acetaminophen 325 Mg Tablet) 650 mg PO Q6H PRN PRN Reason: Pain, Mild 1-3,fever,headache Last Admin: 01/10/25 10:26 Dose: 650 mg Documented By: JULIA Calcium Carbonate (Calcium Carbonate 750 Mg Tab.Chew) 750 mg PO Q4H PRN PRN Reason: Heartburn Dextrose (Dextrose 50 % 25 Gm/50 Ml Syringe) 25 gm IVPUSH Q15M PRN; Protocol PRN Reason: per Hypoglycemia Standing Ord. Glucose (Glucose Gel 15 Gm Gel..Gram.) 15 gm PO Q15M PRN; Protocol PRN Reason: per Hypoglycemia Standing Ord. Hydromorphone HCl (Hydromorphone Hcl 1 Mg/Ml Syringe) 0.5 mg IVPUSH Q4H PRN; Protocol PRN Reason: Pain, Severe (Pain Scale 7-10) Lactated Ringer's (Lr) 1,000 mls @ 100 mls/hr IVCONT .Q10H [facility] Last Admin: 01/10/25 08:38 Dose: 100 mls/hr Documented By: JULIA Piperacillin Sod/Tazobactam (Sod 3.375 gm/ Sodium Chloride) 50 mls @ 100 mls/hr IV Q6H [facility] Last Infusion: 01/10/25 11:06 Dose: Infused Documented By: JULIA Insulin Human Lispro (Insulin Lispro 100 Unit/Ml 3 Ml Vial) 0 unit SUBCUT QIDACHS [facility]; Protocol Last Admin: 01/10/25 11:37 Dose: Not Given Documented By: JULIA Non-Admin Reason: No Insulin Coverage Magnesium Hydroxide (Milk Of Magnesia 30 Ml Oral.Susp) 30 ml PO DAILY PRN PRN Reason: Constipation Melatonin (Melatonin 3 Mg Tablet) 6 mg PO BEDTIME PRN PRN Reason: Insomnia Ondansetron HCl (Ondansetron Hcl 4 Mg/2 Ml Vial) 4 mg IVPUSH Q8H PRN PRN Reason: Nausea and Vomiting Oxycodone HCl (Oxycodone Hcl Immed Release 5 Mg Tablet) 5 mg PO Q6H PRN PRN Reason: Pain, Moderate(Pain Scale 4-6) Sodium Chloride (0.9 % Sodium Chloride Flush 3 Ml Syringe) 3 ml IVFLUSH QSHIFT [facility] Last Admin: 01/10/25 07:25 Dose: Not Given Documented By: JULIA Non-Admin Reason: IV Running Labs 01/10/25 05:30 01/10/25 05:30 Labs: Laboratory Results - last 24 hr 01/09/25 01/09/25 01/10/25 15:07 19:56 05:30 MCV 89.6 88.9 MCH 30.9 31.3 MCHC 34.4 35.2 RDW 13.0 13.2 Plt Count 204 169 MPV 10.0 10.4 Immature Gran % (Auto) 0.4 0.5 H Neut % (Auto) 88.3 H 78.9 H Lymph % (Auto) 5.1 L 11.0 L [place] % (Auto) 6.1 8.6 Eos % (Auto) 0.0 0.9 Baso % (Auto) 0.1 0.1 Lymph # (Auto) 0.7 L 0.9 L [place] # (Auto) 0.8 0.7 Eos # (Auto) 0.0 0.1 Baso # (Auto) 0.0 0.0 Abs Immat Gran (auto) 0.06 H 0.04 H Absolute Neuts (auto) 11.8 H 6.4 Absolute Nucleated RBC 0.000 0.000 Nucleated RBC % (auto) 0.0 0.0 Anion Gap 13 11 L Estim Creat Clear Calc 119.1 116.1 Estimated GFR > 60 > 60 POC Glucose Random Glucose 161 H 99 Estimat Average Glucose 128 Hemoglobin A1c % 6.1 H Calcium 9.3 8.2 L D Magnesium 1.9 Total Bilirubin 6.4 H 4.3 H Direct Bilirubin 1.9 H AST 580 H 495 H ALT 466 H 620 H Alkaline Phosphatase 155 H 177 H Total Protein 7.5 6.3 L Albumin 4.5 3.6 Lipase 31 Urine Color Dark Yellow Urine Appearance Clear Urine pH 7.0 Ur Specific [place] <= 1.005 Urine Protein 100 (2+) H Urine Glucose (UA) Negative Urine Ketones Negative Urine Blood Large (3+) H Urine Nitrite Negative Ur Leukocyte Esterase Trace H Urine RBC 0-2 Urine WBC 0-5 Ur Squamous Epith Cells 0-2 Urine Bacteria None Seen Hyaline Casts 0-2 01/10/25 01/10/25 08:14 11:17 MCV MCH MCHC RDW Plt Count MPV Immature Gran % (Auto) Neut % (Auto) Lymph % (Auto) [place] % (Auto) Eos % (Auto) Baso % (Auto) Lymph # (Auto) [place] # (Auto) Eos # (Auto) Baso # (Auto) Abs Immat Gran (auto) Absolute Neuts (auto) Absolute Nucleated RBC Nucleated RBC % (auto) Anion Gap Estim Creat Clear Calc Estimated GFR POC Glucose 107 102 Random Glucose Estimat Average Glucose Hemoglobin A1c % Calcium Magnesium Total Bilirubin Direct Bilirubin AST ALT Alkaline Phosphatase Total Protein Albumin Lipase Urine Color Urine Appearance Urine pH Ur Specific [place] Urine Protein Urine Glucose (UA) Urine Ketones Urine Blood Urine Nitrite Ur Leukocyte Esterase Urine RBC Urine WBC Ur Squamous Epith Cells Urine Bacteria Hyaline Casts Assessment and Plan (1) Common bile duct calculus: Status: Acute Plan This is a 54-year-old male with a past medical history significant for hypertension, CAD, history NSTEMI on Plavix and aspirin, type 2 diabetes and history of cholecystectomy in February 2018, who presented to the ED multiple times in this past week due to upper abdominal pain with nausea found to have elevated LFTs and imaging consistent with choledocholithiasis choledocolithiasis no sepsis. no fever or AMS to suggest cholangitis worsening LFTs and repeated ED visits due to abd pain CT from yesterday with multiple stones within the remnant cystic duct, this includes a 6-7 mm stone which is located in the inferior aspect of the cystic duct, just proximal to its junction with the common hepatic duct. Continue IV Zosyn Plan for ERCP today NPO for procedure, continue IVF Trend LFTs Blood cultures pending Hypokalemia Due to decreased p.o. intake Replace and follow HTN Hold baseline Norvasc, lisinopril, metoprolol can likely be resumed in a.m. Blood pressure adequately controlled at this time CAD/hx NSTEMI hold plavix and aspirin for procedure, resume when appropriate Hold statin due to elevated LFTs T2DM Hba1c 6.1 hold metformin sliding scale insulin, follow POCs q6h while NPO full code VTE prophy: pneumoboots due to planned procedure Patient requires ongoing inpatient stay for management of choledocholithiasis requiring ERCP and specialist evaluation as well as IV antibiotics Quality Stroke Does the patient have a stroke diagnosis?: No VTE Prior VTE?: No VTE Risk Level:: Medical - moderate - high VTE Device Contraindication: N/A - Device Ordered VTE Drug Contraindication: Treatment Not Indicated
[2025-01-10 13:35] VITALS: BP 142/87; PULSE 87; RESP 16; TEMP 37; O2SAT 96
--- NOTE | 2025-01-10 13:38 | PC.NURSE ---
20g right ac. no leaking dry and intact. patent
--- NOTE | 2025-01-10 14:21 | PM.EVENT ---
Event Note Date of Service: 01/10/25 Event Note: GI Adiel Washburn was seen and examined today. full consult dictated ERCP this pm for CBD stones. Mr Washburn and his understand the procedure and agree to proceed. Time Spent With Patient Time: Total time managing care of this patient today ____ minutes.
--- NOTE | 2025-01-10 14:24 | MHC.SHP ---
Pre-Procedural Eval Section A - 24 Hr Update-Section A only Date of Service: 01/10/25 The patient is an INPATIENT: Yes Changes since office visit: No Cold of Flu in the past 2 weeks, No New Medical Problems, No Changes in Medication and No Patient answered all questions The patient has been examined within 24 hours of the surgical procedure. The History & Physical has been completed within 30 days and I have reviewed it.: Yes Section B - Complete if H&P > 30 days Chief Complaint: Choledocholithiasis Allergies: Allergies Allergy/AdvReac Type Severity Reaction Status Date / Time No Known Allergies Allergy Verified 01/09/25 13:54 Plan I have reviewed the history and physical and performed a pertinent physical examination on my patient. No changes have occurred unless specified. Time Spent With Patient Time: Total time managing care of this patient today ____ minutes.
--- NOTE | 2025-01-10 14:54 | PC.NURSE ---
report given to alexander jimenez rn at this time. indomethacin delivered from pharmacy and at bedside. alexander aware of one place to sign on preop record.
[2025-01-10 16:28] LABS: Glucose, Whole Blood 132 mg/dL (60-115)
[2025-01-10 16:30] VITALS: BP 169/97; PULSE 79; RESP 18; TEMP 36.4; O2SAT 93
[2025-01-10 16:37] LABS: INTERNATIONAL NORM RATIO 1.0 (0.9-1.1); Prothrombin Time 11.4 SEC (10.9-12.4)
--- NOTE | 2025-01-10 16:49 | P.EN_ITS ---
Event Note Date of Service: 01/10/25 Event Note: GI- I have put the ERCP on hold until Monday, 01/13, since he took his aspirin and Clopidogrel yesterday. He is presently feeling much better, he has been afebrile, his abdomen is benign, the LFT's are better, and the WBC is down. Therefore, the ERCP is not needed urgently and I can't justify putting him through an ERCP with sphincterotomy with potential increased bleeding risk from the Clopidogrel and aspirin that he took just yesterday. I have put him on the s chedule for 01/13, but I will be around over the weekend if need be. In the meantime, continue antibiotics, follow clinical course, follow labs, and advance to a low fat diet. I reviewed all of this in detail with the patient. He understood and was comfortable with this plan. I advised the hospitalist staff and the covering GI staff as well. Thanks Time Spent With Patient Time: Total time managing care of this patient today ____ minutes.
[2025-01-10] MEDS: 0.9 % Sodium Chloride Flush 3 ML SYRINGE IVFLUSH (17:00)
[2025-01-10 19:16] VITALS: BP 132/88; PULSE 99; RESP 18; TEMP 36.6; O2SAT 95
[2025-01-10] MEDS: Metoprolol Succinate ER 100 MG TAB.ER.24H PO (20:28)
[2025-01-10 20:46] LABS: Glucose, Whole Blood 166 mg/dL (60-115)
--- NOTE | 2025-01-11 00:04 | CONS_ITS ---
DATE OF SERVICE: 01/10/2025 REFERRING PHYSICIAN: REMIGIO Pearce REASON FOR CONSULTATION: Choledocholithiasis. HISTORY OF PRESENT ILLNESS: The patient is a pleasant 54-year-old man admitted to the hospital with right upper quadrant pain. He has a history of undergoing previous cholecystectomy and has had intermittent epigastric and right upper quadrant pain with nausea and was evaluated in the emergency department, which showed abnormal liver function tests. Total bilirubin was elevated at 6.4, which has improved since admission. Transaminases were in the 5 to 400 range and alkaline phosphatase was also elevated. He reported dark urine, which has since improved. Imaging studies were obtained including a CT scan on January 08, which is reviewed. This shows gallstones in the cystic duct, and ultrasound done today shows choledocholithiasis. PAST MEDICAL HISTORY: 1. Gallstones with cholecystectomy as above. 2. Hypertension. 3. Coronary artery disease with history of [place], medical treatment including Plavix and aspirin. Last dose of Plavix was 2 days ago. 4. Diabetes mellitus. 5. Vitamin D deficiency. 6. Hyperlipidemia. CURRENT MEDICATIONS: His current medication list is reviewed in the chart. ALLERGIES: THERE ARE NONE REPORTED. FAMILY HISTORY: This is reviewed with the patient and is noncontributory. SOCIAL HISTORY: There is no tobacco, alcohol, or substance abuse. REVIEW OF SYSTEMS: SKIN: No pruritus. HEENT: Negative. CARDIOPULMONARY: No shortness of breath or chest pain. GASTROINTESTINAL: As above. GENITOURINARY: Negative. NEUROPSYCHIATRIC: Negative. PHYSICAL EXAMINATION: GENERAL: Shows a pleasant male, lying comfortably in bed. VITAL SIGNS: Reviewed in the electronic medical record and are stable. SKIN: Anicteric. HEENT: Shows no scleral icterus. NECK: Without lymphadenopathy or thyromegaly. LUNGS: Clear. HEART: Shows a regular rate and rhythm. S1, S2. No murmur. ABDOMEN: Soft without focal masses or tenderness. Bowel sounds are present. No organomegaly is noted. EXTREMITIES: Without edema. LABORATORY DATA AND IMAGING STUDIES: Reviewed. IMPRESSION: Choledocholithiasis. I have discussed risks and benefits of endoscopy/ERCP with the patient and his . They understand these and agrees to proceed. He understands that he is at slightly increased risk for bleeding complications because of his history of Plavix use. We also discussed the risk of post ERCP pancreatitis. The procedure will be done later today pending OR scheduling. Thanks for asking me to see him. I will follow him in the hospital with you. MD SHWETA Pastor/RAJESH / [phone]
[2025-01-11 02:25] LABS: Glucose, Whole Blood 96 mg/dL (60-115)
[2025-01-11 04:00] VITALS: BP 127/76; PULSE 74; RESP 20; TEMP 36.4; O2SAT 93
[2025-01-11 05:56] LABS: MANUAL DIFF FLAG NO
[2025-01-11 06:03] LABS: Hematocrit 35.2 % (42.0-52.0); Hemoglobin 12.2 g/dl (14.0-18.0); Imm Gran Abs Auto 0.05 X10*3/uL (0.00-0.03); Imm Gran Pct Auto 0.7 % (0.0-0.4); Lymphocytes Absolute Auto 1.5 X10*3/uL (1.2-4.9); Mean Corpuscular HGB Conc 34.7 g/dl (31.0-36.0); Mean Corpuscular Hemoglobin 31.1 pg (27.0-33.0); Mean Corpuscular Volume 89.8 fL (80.0-98.0); NRBC Abs Auto 0.000 X10*3/uL (0.0-0.012); NRBC Pct Auto 0.0 /100WBC (0.0-0.2); Platelet Count 181 X10*3/uL (160-400); Red Blood Count 3.92 X10*6/uL (4.60-5.80); White Blood Count 7.7 X10*3/uL (4.8-10.8)
[2025-01-11 06:28] LABS: Alanine Aminotransferase 374 U/L (0-40); Albumin Level 3.5 g/dL (3.5-5.0); Alkaline Phosphatase 139 U/L (39-117); Anion Gap 16 (12-20); Aspartate Amino Transferase 125 U/L (5-37); Blood Urea Nitrogen 10 mg/dL (9-16); Calcium 8.3 mg/dL (8.4-10.2); Carbon Dioxide 27 mmol/L (22-29); Chloride 101 mmol/L (96-108); Creatinine Clr Calc Pharmacy 96.0; Estimated Glomerular Filt Rate > 60; Potassium 3.4 mmol/L (3.3-5.1); Sodium 141 mmol/L (135-145); Total Protein 6.0 g/dL (6.5-8.0)
[2025-01-11 07:57] LABS: Glucose, Whole Blood 123 mg/dL (60-115)
[2025-01-11 08:00] VITALS: BP 139/86; PULSE 69; RESP 16; TEMP 36.4; O2SAT 94
[2025-01-11] MEDS: Lactated Ringers 1,000 ML 100 ML IVCONT (08:28)
--- NOTE | 2025-01-11 09:14 | HO.PM.IMPN ---
Subjective Subjective Date of Service: 01/11/25 Interval History: Seen and examined this morning Follow-up for choledocholithiasis Reporting right upper quadrant abdominal pain, no vomiting Review of Systems Review of Systems: Yes all other systems are reviewed and are negative Constitutional Constitutional: Denies chills and Denies fever(s) Cardiovascular Cardiovascular: Denies chest pain, Denies palpitations and Denies dyspnea Respiratory Respiratory: Denies cough and Denies dyspnea Gastrointestinal Gastrointestinal: Reports abdominal pain and Denies vomiting Endocrine Endocrine: Denies palpitations Physical Exam Vital Signs: Vital Signs: Last Vital Signs Temp 97.6 F 01/11/25 08:00 Pulse 69 01/11/25 08:00 Resp 16 01/11/25 08:00 BP 139/86 01/11/25 08:00 Pulse Ox 94 01/11/25 08:00 O2 Del Method Room Air 01/11/25 08:00 BMI result Body Mass Index 28.8 Objective Data Active Medications Acetaminophen (Acetaminophen 325 Mg Tablet) 650 mg PO Q6H PRN PRN Reason: Pain, Mild 1-3,fever,headache Last Admin: 01/10/25 10:26 Dose: 650 mg Documented By: JULIA Calcium Carbonate (Calcium Carbonate 750 Mg Tab.Chew) 750 mg PO Q4H PRN PRN Reason: Heartburn Dextrose (Dextrose 50 % 25 Gm/50 Ml Syringe) 25 gm IVPUSH Q15M PRN; Protocol PRN Reason: per Hypoglycemia Standing Ord. Glucose (Glucose Gel 15 Gm Gel..Gram.) 15 gm PO Q15M PRN; Protocol PRN Reason: per Hypoglycemia Standing Ord. Hydromorphone HCl (Hydromorphone Hcl 1 Mg/Ml Syringe) 0.5 mg IVPUSH Q4H PRN; Protocol PRN Reason: Pain, Severe (Pain Scale 7-10) Lactated Ringer's (Lr) 1,000 mls @ 100 mls/hr IVCONT .Q10H LEIGHANN Last Admin: 01/11/25 08:28 Dose: 100 mls/hr Documented By: OCHOA Piperacillin Sod/Tazobactam (Sod 3.375 gm/ Sodium Chloride) 50 mls @ 100 mls/hr IV Q6H LEIGHANN Last Infusion: 01/11/25 05:34 Dose: Infused Documented By: AARON Insulin Human Lispro (Insulin Lispro 100 Unit/Ml 3 Ml Vial) 0 unit SUBCUT Q6H REPLACED BY [facility]; Protocol Last Admin: 01/11/25 08:00 Dose: Not Given Documented By: OCHOA Non-Admin Reason: No Insulin Coverage Magnesium Hydroxide (Milk Of Magnesia 30 Ml Oral.Susp) 30 ml PO DAILY PRN PRN Reason: Constipation Melatonin (Melatonin 3 Mg Tablet) 6 mg PO BEDTIME PRN PRN Reason: Insomnia Metoprolol Succinate (Metoprolol Succinate Er 100 Mg Tab.Er.24h) 100 mg PO BEDTIME REPLACED BY [facility]; Protocol Last Admin: 01/10/25 20:28 Dose: 100 mg Documented By: AARON Omeprazole (Omeprazole 20 Mg Capsule.Dr) 20 mg PO DAILY@0630 REPLACED BY [facility] Last Admin: 01/11/25 05:47 Dose: 20 mg Documented By: AARON Ondansetron HCl (Ondansetron Hcl 4 Mg/2 Ml Vial) 4 mg IVPUSH Q8H PRN PRN Reason: Nausea and Vomiting Oxycodone HCl (Oxycodone Hcl Immed Release 5 Mg Tablet) 5 mg PO Q6H PRN PRN Reason: Pain, Moderate(Pain Scale 4-6) Oxycodone HCl (Oxycodone Hcl Immed Release 5 Mg Tablet) 5 mg PO ONCE PRN PRN Reason: Pain, Moderate(Pain Scale 4-6) Sodium Chloride (0.9 % Sodium Chloride Flush 3 Ml Syringe) 3 ml IVFLUSH QSHIFT REPLACED BY [facility] Last Admin: 01/11/25 07:26 Dose: Not Given Documented By: OCHOA Non-Admin Reason: IV Running Labs 01/11/25 05:51 01/11/25 05:51 Labs: Laboratory Results - last 24 hr 01/10/25 01/10/25 01/10/25 11:17 16:11 16:24 MCV MCH MCHC RDW Plt Count MPV Immature Gran % (Auto) Neut % (Auto) Lymph % (Auto) [place] % (Auto) Eos % (Auto) Baso % (Auto) Lymph # (Auto) [place] # (Auto) Eos # (Auto) Baso # (Auto) Abs Immat Gran (auto) Absolute Neuts (auto) Absolute Nucleated RBC Nucleated RBC % (auto) PT 11.4 INR 1.0 Anion Gap Estim Creat Clear Calc Estimated GFR POC Glucose 102 132 H Random Glucose Calcium Total Bilirubin Direct Bilirubin AST ALT Alkaline Phosphatase Total Protein Albumin 01/10/25 01/11/25 01/11/25 20:42 02:20 05:51 MCV 89.8 MCH 31.1 MCHC 34.7 RDW 13.2 Plt Count 181 MPV 9.8 Immature Gran % (Auto) 0.7 H Neut % (Auto) 68.9 Lymph % (Auto) 20.1 [place] % (Auto) 8.3 Eos % (Auto) 1.7 Baso % (Auto) 0.3 Lymph # (Auto) 1.5 [place] # (Auto) 0.6 Eos # (Auto) 0.1 Baso # (Auto) 0.0 Abs Immat Gran (auto) 0.05 H Absolute Neuts (auto) 5.3 Absolute Nucleated RBC 0.000 Nucleated RBC % (auto) 0.0 PT INR Anion Gap 16 Estim Creat Clear Calc 96.0 Estimated GFR > 60 POC Glucose 166 H 96 Random Glucose 114 Calcium 8.3 L Total Bilirubin 1.7 H Direct Bilirubin 0.7 H AST 125 H ALT 374 H Alkaline Phosphatase 139 H Total Protein 6.0 L Albumin 3.5 01/11/25 07:40 MCV MCH MCHC RDW Plt Count MPV Immature Gran % (Auto) Neut % (Auto) Lymph % (Auto) [place] % (Auto) Eos % (Auto) Baso % (Auto) Lymph # (Auto) [place] # (Auto) Eos # (Auto) Baso # (Auto) Abs Immat Gran (auto) Absolute Neuts (auto) Absolute Nucleated RBC Nucleated RBC % (auto) PT INR Anion Gap Estim Creat Clear Calc Estimated GFR POC Glucose 123 H Random Glucose Calcium Total Bilirubin Direct Bilirubin AST ALT Alkaline Phosphatase Total Protein Albumin Microbiology Microbiology Results: Microbiology 01/09/25 22:11 Blood Culture - Preliminary Blood - Venous No growth after 24 hours. 01/09/25 22:02 Blood Culture - Preliminary Blood - Venous No growth after 24 hours. Assessment and Plan (1) Common bile duct calculus: Status: Acute Plan 54-year-old male with a past medical history significant for hypertension, CAD, history NSTEMI on Plavix and aspirin, type 2 diabetes and history of cholecystectomy in February 2018, who presented to the ED multiple times in this past week due to upper abdominal pain with nausea found to have elevated LFTs and imaging consistent with choledocholithiasis Choledocolithiasis no sepsis. no fever or AMS to suggest cholangitis CT with multiple stones within the remnant cystic duct, this includes a 6-7 mm stone which is located in the inferior aspect of the cystic duct, just proximal to its junction with the common hepatic duct. Continue IV Zosyn Plan for ERCP monday Trend LFTs>improving Blood cultures neg Hypokalemia. Resolved Due to decreased p.o. intake HTN continue Norvasc, metoprolol Blood pressure adequately controlled at this time, continue lisinopril if needed CAD/hx NSTEMI hold plavix and aspirin for procedure, resume when appropriate Hold statin due to elevated LFTs T2DM Hba1c 6.1 hold metformin sliding scale insulin full code VTE prophy: pneumoboots due to planned procedure Quality Stroke Does the patient have a stroke diagnosis?: No VTE Prior VTE?: No VTE Risk Level:: Medical - moderate - high VTE Device Contraindication: N/A - Device Ordered VTE Drug Contraindication: Treatment Not Indicated
[2025-01-11 10:36] VITALS: BP 132/78
[2025-01-11 11:40] LABS: Glucose, Whole Blood 232 mg/dL (60-115)
--- NOTE | 2025-01-11 12:34 | P.PNGI_ITS ---
Subjective Subjective Date of Service: 01/11/25 Critical Care Time (minutes): 0 Physical Exam 2 Vital Signs: Vital Signs: Last Vital Signs Temp 97.6 F 01/11/25 08:00 Pulse 69 01/11/25 08:00 Resp 16 01/11/25 08:00 BP 132/78 01/11/25 10:36 Pulse Ox 94 01/11/25 08:00 O2 Del Method Room Air 01/11/25 08:00 BMI result Body Mass Index 28.8 Objective Data Labs 01/11/25 05:51 01/11/25 05:51 Labs: Laboratory Results - last 24 hr 01/10/25 01/10/25 01/10/25 16:11 16:24 20:42 WBC RBC Hgb Hct MCV MCH MCHC RDW Plt Count MPV Immature Gran % (Auto) Neut % (Auto) Lymph % (Auto) [place] % (Auto) Eos % (Auto) Baso % (Auto) Lymph # (Auto) [place] # (Auto) Eos # (Auto) Baso # (Auto) Abs Immat Gran (auto) Absolute Neuts (auto) Absolute Nucleated RBC Nucleated RBC % (auto) PT 11.4 INR 1.0 Sodium Potassium Chloride Carbon Dioxide Anion Gap BUN Creatinine Estim Creat Clear Calc Estimated GFR POC Glucose 132 H 166 H Random Glucose Calcium Total Bilirubin Direct Bilirubin AST ALT Alkaline Phosphatase Total Protein Albumin 01/11/25 01/11/25 01/11/25 02:20 05:51 07:40 WBC 7.7 RBC 3.92 L Hgb 12.2 L Hct 35.2 L MCV 89.8 MCH 31.1 MCHC 34.7 RDW 13.2 Plt Count 181 MPV 9.8 Immature Gran % (Auto) 0.7 H Neut % (Auto) 68.9 Lymph % (Auto) 20.1 [place] % (Auto) 8.3 Eos % (Auto) 1.7 Baso % (Auto) 0.3 Lymph # (Auto) 1.5 [place] # (Auto) 0.6 Eos # (Auto) 0.1 Baso # (Auto) 0.0 Abs Immat Gran (auto) 0.05 H Absolute Neuts (auto) 5.3 Absolute Nucleated RBC 0.000 Nucleated RBC % (auto) 0.0 PT INR Sodium 141 Potassium 3.4 Chloride 101 Carbon Dioxide 27 Anion Gap 16 BUN 10 Creatinine 0.81 Estim Creat Clear Calc 96.0 Estimated GFR > 60 POC Glucose 96 123 H Random Glucose 114 Calcium 8.3 L Total Bilirubin 1.7 H Direct Bilirubin 0.7 H AST 125 H ALT 374 H Alkaline Phosphatase 139 H Total Protein 6.0 L Albumin 3.5 01/11/25 11:28 WBC RBC Hgb Hct MCV MCH MCHC RDW Plt Count MPV Immature Gran % (Auto) Neut % (Auto) Lymph % (Auto) [place] % (Auto) Eos % (Auto) Baso % (Auto) Lymph # (Auto) [place] # (Auto) Eos # (Auto) Baso # (Auto) Abs Immat Gran (auto) Absolute Neuts (auto) Absolute Nucleated RBC Nucleated RBC % (auto) PT INR Sodium Potassium Chloride Carbon Dioxide Anion Gap BUN Creatinine Estim Creat Clear Calc Estimated GFR POC Glucose 232 H Random Glucose Calcium Total Bilirubin Direct Bilirubin AST ALT Alkaline Phosphatase Total Protein Albumin Microbiology Microbiology Results: Microbiology 01/09/25 22:11 Blood - Venous Blood Culture - Preliminary No growth after 24 hours. 01/09/25 22:02 Blood - Venous Blood Culture - Preliminary No growth after 24 hours. Procedures Date of Service Date of Service: 01/11/25 Progress Note: A&P Assessment and plan (1) Biliary obstruction: Status: Acute (2) Elevated LFTs: Status: Acute (3) Common bile duct calculus: Status: Acute Plan Patient seen and evaluated at bedside. Reports significant improvement abdominal pain. Had breakfast and lunch without any issues. Labs reviewed. Total bilirubin has decreased from 6.4-1.7 this morning. Alk- phos has improved to 139. His main complaint today is constipation. Last bowel movement was 2 days ago. Physical exam: Middle-aged male, no acute distress Nonicteric Abdomen soft, mildly distended, no tenderness, no guarding A/P: Has likely passed CBD stone. No cholangitis based on clinical assessment -can continue low-fat diet -decision re ERCP contingent on overall clinical course over the weekend and re- assessment on Monday. -cont to hold DAPT for now -bowel regimen Time Spent With Patient Time: Total time managing care of this patient today ____ minutes. Quality Stroke Does the patient have a stroke diagnosis?: No VTE Prior VTE?: No VTE Risk Level:: Medical - moderate - high VTE Device Contraindication: N/A - Device Ordered VTE Drug Contraindication: Treatment Not Indicated
[2025-01-11 14:51] LABS: Glucose, Whole Blood 143 mg/dL (60-115)
[2025-01-11 15:39] VITALS: BP 139/89; PULSE 76; RESP 18; TEMP 36.4; O2SAT 94
[2025-01-11 16:11] LABS: Glucose, Whole Blood 124 mg/dL (60-115)
[2025-01-11] MEDS: 0.9 % Sodium Chloride Flush 3 ML SYRINGE IVFLUSH ×2 (16:48→20:32)
[2025-01-11 20:00] VITALS: BP 146/89; PULSE 72; RESP 16; TEMP 36.4; O2SAT 96
[2025-01-11] MEDS: Metoprolol Succinate ER 100 MG TAB.ER.24H PO (20:29)
[2025-01-11 20:49] LABS: Glucose, Whole Blood 94 mg/dL (60-115)
[2025-01-12 03:31] VITALS: BP 133/81; PULSE 64; RESP 16; TEMP 36.6; O2SAT 95
[2025-01-12 06:34] LABS: MANUAL DIFF FLAG NO
[2025-01-12 06:39] LABS: Hematocrit 36.3 % (42.0-52.0); Hemoglobin 12.5 g/dl (14.0-18.0); Imm Gran Abs Auto 0.06 X10*3/uL (0.00-0.03); Imm Gran Pct Auto 0.8 % (0.0-0.4); Lymphocytes Absolute Auto 1.8 X10*3/uL (1.2-4.9); Mean Corpuscular HGB Conc 34.4 g/dl (31.0-36.0); Mean Corpuscular Hemoglobin 30.9 pg (27.0-33.0); Mean Corpuscular Volume 89.6 fL (80.0-98.0); NRBC Abs Auto 0.000 X10*3/uL (0.0-0.012); NRBC Pct Auto 0.0 /100WBC (0.0-0.2); Platelet Count 201 X10*3/uL (160-400); Red Blood Count 4.05 X10*6/uL (4.60-5.80); White Blood Count 7.4 X10*3/uL (4.8-10.8)
[2025-01-12 07:00] LABS: Alanine Aminotransferase 258 U/L (0-40); Albumin Level 3.6 g/dL (3.5-5.0); Alkaline Phosphatase 120 U/L (39-117); Anion Gap 12 (12-20); Aspartate Amino Transferase 62 U/L (5-37); Blood Urea Nitrogen 14 mg/dL (9-16); Calcium 8.6 mg/dL (8.4-10.2); Carbon Dioxide 27 mmol/L (22-29); Chloride 107 mmol/L (96-108); Creatinine Clr Calc Pharmacy 84.5; Estimated Glomerular Filt Rate > 60; Potassium 3.6 mmol/L (3.3-5.1); Sodium 142 mmol/L (135-145); Total Protein 6.3 g/dL (6.5-8.0)
[2025-01-12 07:32] LABS: Glucose, Whole Blood 129 mg/dL (60-115)
[2025-01-12] MEDS: 0.9 % Sodium Chloride Flush 3 ML SYRINGE IVFLUSH ×2 (07:37→16:00)
[2025-01-12 07:47] VITALS: BP 151/88; PULSE 54; RESP 20; TEMP 36.1; O2SAT 96
--- NOTE | 2025-01-12 11:11 | HO.PM.IMPN ---
Subjective Subjective Date of Service: 01/12/25 Interval History: Seen and examined this morning Follow-up for choledocholithiasis Reporting right upper quadrant abdominal pain, no vomiting Review of Systems Review of Systems: Yes all other systems are reviewed and are negative Constitutional Constitutional: Denies chills and Denies fever(s) Cardiovascular Cardiovascular: Denies chest pain, Denies palpitations and Denies dyspnea Respiratory Respiratory: Denies cough and Denies dyspnea Gastrointestinal Gastrointestinal: Reports abdominal pain and Denies vomiting Endocrine Endocrine: Denies palpitations Physical Exam Vital Signs: Vital Signs: Last Vital Signs Temp 96.9 F 01/12/25 07:47 Pulse 54 01/12/25 07:47 Resp 20 01/12/25 07:47 BP 151/88 H 01/12/25 07:47 Pulse Ox 96 01/12/25 07:47 O2 Del Method Room Air 01/12/25 07:47 BMI result Body Mass Index 28.8 Objective Data Active Medications Acetaminophen (Acetaminophen 325 Mg Tablet) 650 mg PO Q6H PRN PRN Reason: Pain, Mild 1-3,fever,headache Last Admin: 01/11/25 20:29 Dose: 650 mg Documented By: AARON Amlodipine Besylate (Amlodipine Besylate 5 Mg Tablet) 5 mg PO DAILY [facility]; Protocol Last Admin: 01/12/25 07:37 Dose: 5 mg Documented By: PARDEEP Calcium Carbonate (Calcium Carbonate 750 Mg Tab.Chew) 750 mg PO Q4H PRN PRN Reason: Heartburn Dextrose (Dextrose 50 % 25 Gm/50 Ml Syringe) 25 gm IVPUSH Q15M PRN; Protocol PRN Reason: per Hypoglycemia Standing Ord. Glucose (Glucose Gel 15 Gm Gel..Gram.) 15 gm PO Q15M PRN; Protocol PRN Reason: per Hypoglycemia Standing Ord. Hydromorphone HCl (Hydromorphone Hcl 1 Mg/Ml Syringe) 0.5 mg IVPUSH Q4H PRN; Protocol PRN Reason: Pain, Severe (Pain Scale 7-10) Piperacillin Sod/Tazobactam (Sod 3.375 gm/ Sodium Chloride) 50 mls @ 100 mls/hr IV Q6H [facility] Last Infusion: 01/12/25 10:33 Dose: Infused Documented By: PARDEEP Insulin Human Lispro (Insulin Lispro 100 Unit/Ml 3 Ml Vial) 0 unit SUBCUT QIDACHS [facility]; Protocol Last Admin: 01/12/25 07:38 Dose: Not Given Documented By: PARDEEP Non-Admin Reason: No Insulin Coverage Magnesium Hydroxide (Milk Of Magnesia 30 Ml Oral.Susp) 30 ml PO DAILY PRN PRN Reason: Constipation Melatonin (Melatonin 3 Mg Tablet) 6 mg PO BEDTIME PRN PRN Reason: Insomnia Metoprolol Succinate (Metoprolol Succinate Er 100 Mg Tab.Er.24h) 100 mg PO BEDTIME [facility]; Protocol Last Admin: 01/11/25 20:29 Dose: 100 mg Documented By: AARON Omeprazole (Omeprazole 20 Mg Capsule.Dr) 20 mg PO DAILY@0630 [facility] Last Admin: 01/12/25 05:49 Dose: 20 mg Documented By: AARON Ondansetron HCl (Ondansetron Hcl 4 Mg/2 Ml Vial) 4 mg IVPUSH Q8H PRN PRN Reason: Nausea and Vomiting Oxycodone HCl (Oxycodone Hcl Immed Release 5 Mg Tablet) 5 mg PO Q6H PRN PRN Reason: Pain, Moderate(Pain Scale 4-6) Oxycodone HCl (Oxycodone Hcl Immed Release 5 Mg Tablet) 5 mg PO ONCE PRN PRN Reason: Pain, Moderate(Pain Scale 4-6) Sodium Chloride (0.9 % Sodium Chloride Flush 3 Ml Syringe) [facility] Last Admin: 01/12/25 07:37 Dose: 3 ml Documented By: PARDEEP Labs 01/12/25 06:17 01/12/25 06:17 Labs: Laboratory Results - last 24 hr 01/11/25 01/11/25 01/11/25 11:28 14:47 16:07 MCV MCH MCHC RDW Plt Count MPV Immature Gran % (Auto) Neut % (Auto) Lymph % (Auto) [place] % (Auto) Eos % (Auto) Baso % (Auto) Lymph # (Auto) [place] # (Auto) Eos # (Auto) Baso # (Auto) Abs Immat Gran (auto) Absolute Neuts (auto) Absolute Nucleated RBC Nucleated RBC % (auto) Anion Gap Estim Creat Clear Calc Estimated GFR POC Glucose 232 H 143 H 124 H Random Glucose Calcium Total Bilirubin AST ALT Alkaline Phosphatase Total Protein Albumin 01/11/25 01/12/25 01/12/25 20:38 06:17 07:21 MCV 89.6 MCH 30.9 MCHC 34.4 RDW 13.2 Plt Count 201 MPV 10.0 Immature Gran % (Auto) 0.8 H Neut % (Auto) 63.7 Lymph % (Auto) 24.2 [place] % (Auto) 9.0 Eos % (Auto) 2.0 Baso % (Auto) 0.3 Lymph # (Auto) 1.8 [place] # (Auto) 0.7 Eos # (Auto) 0.2 Baso # (Auto) 0.0 Abs Immat Gran (auto) 0.06 H Absolute Neuts (auto) 4.7 Absolute Nucleated RBC 0.000 Nucleated RBC % (auto) 0.0 Anion Gap 12 Estim Creat Clear Calc 84.5 Estimated GFR > 60 POC Glucose 94 129 H Random Glucose 130 H Calcium 8.6 Total Bilirubin 1.2 H AST 62 H ALT 258 H Alkaline Phosphatase 120 H Total Protein 6.3 L Albumin 3.6 Microbiology Microbiology Results: Microbiology 01/09/25 22:11 Blood Culture - Preliminary Blood - Venous No growth after 48 hours. 01/09/25 22:02 Blood Culture - Preliminary Blood - Venous No growth after 48 hours. Assessment and Plan (1) Common bile duct calculus: Status: Acute Plan 54-year-old male with a past medical history significant for hypertension, CAD, history NSTEMI on Plavix and aspirin, type 2 diabetes and history of cholecystectomy in February 2018, who presented to the ED multiple times in this past week due to upper abdominal pain with nausea found to have elevated LFTs and imaging consistent with choledocholithiasis Choledocolithiasis no sepsis. no fever or AMS to suggest cholangitis CT with multiple stones within the remnant cystic duct, this includes a 6-7 mm stone which is located in the inferior aspect of the cystic duct, just proximal to its junction with the common hepatic duct. Continue IV Zosyn Plan for ERCP monday, npo after midnight Trend LFTs>significantly improved repeat abd us showing CBD at 0.5 cm from 0.8 mm, .Previously noted common duct calculus appears to be unchanged in position. Hypokalemia. Resolved Due to decreased p.o. intake HTN continue Norvasc, metoprolol Blood pressure adequately controlled at this time, continue lisinopril if needed CAD/hx NSTEMI hold plavix and aspirin for procedure, resume when appropriate Hold statin due to elevated LFTs T2DM Hba1c 6.1 hold metformin sliding scale insulin full code VTE prophy: pneumoboots due to planned procedure Quality Stroke Does the patient have a stroke diagnosis?: No VTE Prior VTE?: No VTE Risk Level:: Medical - moderate - high VTE Device Contraindication: N/A - Device Ordered VTE Drug Contraindication: Treatment Not Indicated
[2025-01-12 11:26] LABS: Glucose, Whole Blood 202 mg/dL (60-115)
[2025-01-12 15:02] VITALS: BP 139/86; PULSE 71; RESP 18; TEMP 36; O2SAT 96
[2025-01-12 16:11] LABS: Glucose, Whole Blood 127 mg/dL (60-115)
--- NOTE | 2025-01-12 19:47 | MHC.SHP ---
Pre-Procedural Eval Section A - 24 Hr Update-Section A only Date of Service: 01/13/25 The patient is an INPATIENT: Yes The patient has been examined within 24 hours of the surgical procedure. The History & Physical has been completed within 30 days and I have reviewed it.: Yes Section B - Complete if H&P > 30 days Chief Complaint: Choledocholithiasis Allergies: Allergies Allergy/AdvReac Type Severity Reaction Status Date / Time No Known Allergies Allergy Verified 01/09/25 13:54 Plan I have reviewed the history and physical and performed a pertinent physical examination on my patient. No changes have occurred unless specified. Time Spent With Patient Time: Total time managing care of this patient today ____ minutes.
[2025-01-12 20:00] VITALS: BP 144/84; PULSE 68; RESP 16; TEMP 36.2; O2SAT 96
[2025-01-12 21:24] LABS: Glucose, Whole Blood 146 mg/dL (60-115)
[2025-01-12] MEDS: Metoprolol Succinate ER 100 MG TAB.ER.24H PO (21:34)
[2025-01-13] VITALS (11 sets, daily range): BP systolic 130–161; BP diastolic 82–96; PULSE 61–85; RESP 13–18; TEMP 35.5–36.7; O2SAT 94–96
[2025-01-13 07:12] LABS: MANUAL DIFF FLAG NO
[2025-01-13 07:22] LABS: Hematocrit 38.1 % (42.0-52.0); Hemoglobin 13.2 g/dl (14.0-18.0); Imm Gran Abs Auto 0.06 X10*3/uL (0.00-0.03); Imm Gran Pct Auto 0.8 % (0.0-0.4); Lymphocytes Absolute Auto 1.7 X10*3/uL (1.2-4.9); Mean Corpuscular HGB Conc 34.6 g/dl (31.0-36.0); Mean Corpuscular Hemoglobin 31.0 pg (27.0-33.0); Mean Corpuscular Volume 89.4 fL (80.0-98.0); NRBC Abs Auto 0.000 X10*3/uL (0.0-0.012); NRBC Pct Auto 0.0 /100WBC (0.0-0.2); Platelet Count 234 X10*3/uL (160-400); Red Blood Count 4.26 X10*6/uL (4.60-5.80); White Blood Count 7.8 X10*3/uL (4.8-10.8)
[2025-01-13 07:31] LABS: Glucose, Whole Blood 126 mg/dL (60-115)
[2025-01-13 07:54] LABS: Alanine Aminotransferase 202 U/L (0-40); Albumin Level 3.8 g/dL (3.5-5.0); Alkaline Phosphatase 113 U/L (39-117); Anion Gap 13 (12-20); Aspartate Amino Transferase 43 U/L (5-37); Blood Urea Nitrogen 15 mg/dL (9-16); Calcium 8.6 mg/dL (8.4-10.2); Carbon Dioxide 28 mmol/L (22-29); Chloride 105 mmol/L (96-108); Creatinine Clr Calc Pharmacy 82.7; Estimated Glomerular Filt Rate > 60; Lipase 44 U/L (8-78); Potassium 3.6 mmol/L (3.3-5.1); Sodium 142 mmol/L (135-145); Total Protein 6.6 g/dL (6.5-8.0)
[2025-01-13] MEDS: 0.9 % Sodium Chloride Flush 3 ML SYRINGE IVFLUSH ×2 (07:55→17:17)
--- NOTE | 2025-01-13 09:08 | HO.ANESPROP2 ---
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 H/O CAD/NSTEMI on plavix, ASA, last done 01/09/25. Last cardiology visit end July 2024 ([facility]). EKG updated, see below. Type 2 DM: A1C 6.1% [facility] Active Problems Active Problems: All Active Problems Acute cholangitis (Acute) Common bile duct calculus (Acute) Biliary obstruction (Acute) Transaminitis (Acute) Hyperpigmented skin lesion (Acute) Overweight (BMI 25.0-29.9) (Acute) Rupture of proximal biceps tendon (Acute) Spondylosis of lumbar region without myelopathy or radiculopathy (Acute) Erectile dysfunction (Acute) Acute low back pain with disc symptoms, duration less than 6 weeks (Acute) Lumbar paraspinal muscle spasm (Acute) Lumbar spondylosis (Acute) Low back pain (Acute) Right flank discomfort (Acute) Right flank pain (Acute) Left testicular pain (Acute) COVID-19 (Acute) Hypercholesterolemia (Acute) Hypertension (Acute) Type 2 diabetes mellitus with hyperglycemia (Acute) Elevated LFTs (Acute) Impaired fasting glucose (Acute) Vitamin D deficiency (Acute) Obesity (BMI 30-39.9) (Acute) Benign essential hypertension (Acute) Pure hypercholesterolemia (Acute) CAD (coronary artery disease) (Acute) Past Medical History Medical History Overweight (BMI 25.0-29.9) HTN (hypertension) Erectile dysfunction Type 2 diabetes mellitus with hyperglycemia Elevated LFTs Impaired fasting glucose Vitamin D deficiency Obesity (BMI 30-39.9) Benign essential hypertension Pure hypercholesterolemia CAD (coronary artery disease) Functional capacity: independent ambulation Family History Family history of problems with anesthesia: No Surgical History Surgical History History of endoscopy Hx of hernia repair Hx of cardiac catheterization History of colonoscopy (~02/22/18) Hx of cholecystectomy (~03/2018) History of Problems with Anesthesia: No Social History Social History Household Members: Spouse Housing: House Are you a primary hearing care professional to a significant other at home: No Do you presently have visiting nurse or other home services: No Alcohol intake: current Alcohol intake frequency: a few times a week Patient Tobacco Use Status: Former Tobacco user Tobacco use type: Cigarette Smoked in Last 30 Days: No e-Cigarette/Vaping Use: Never Used Use of substances other than those prescribed or required for medical reasons: No Currently Displaying Signs/Symptoms of Drug Intoxication Withdrawal: No Have you been hit, kicked, punched, or otherwise hurt by someone within the past year? 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 Cognitive needs: No Hearing needs: No Vision needs: No Meds Allergies Allergy/AdvReac Type Severity Reaction Status Date / Time No Known Allergies Allergy Verified 01/09/25 13:54 Active Medications: Current Medications Acetaminophen (Acetaminophen 325 Mg Tablet) 650 mg PO Q6H PRN PRN Reason: Pain, Mild 1-3,fever,headache Last Admin: 01/12/25 15:59 Dose: 650 mg Amlodipine Besylate (Amlodipine Besylate 5 Mg Tablet) 5 mg PO DAILY LEIGHANN; Protocol Last Admin: 01/13/25 07:54 Dose: 5 mg Calcium Carbonate (Calcium Carbonate 750 Mg Tab.Chew) 750 mg PO Q4H PRN PRN Reason: Heartburn Dextrose (Dextrose 50 % 25 Gm/50 Ml Syringe) 25 gm IVPUSH Q15M PRN; Protocol PRN Reason: per Hypoglycemia Standing Ord. Glucose (Glucose Gel 15 Gm Gel..Gram.) 15 gm PO Q15M PRN; Protocol PRN Reason: per Hypoglycemia Standing Ord. Hydromorphone HCl (Hydromorphone Hcl 1 Mg/Ml Syringe) 0.5 mg IVPUSH Q4H PRN; Protocol PRN Reason: Pain, Severe (Pain Scale 7-10) Piperacillin Sod/Tazobactam (Sod 3.375 gm/ Sodium Chloride) 50 mls @ 100 mls/hr IV Q6H [facility] Last Infusion: 01/13/25 05:32 Dose: Infused Insulin Human Lispro (Insulin Lispro 100 Unit/Ml 3 Ml Vial) 0 unit SUBCUT QIDACHS [facility]; Protocol Last Admin: 01/13/25 07:33 Dose: Not Given Magnesium Hydroxide (Milk Of Magnesia 30 Ml Oral.Susp) 30 ml PO DAILY PRN PRN Reason: Constipation Melatonin (Melatonin 3 Mg Tablet) 6 mg PO BEDTIME PRN PRN Reason: Insomnia Metoprolol Succinate (Metoprolol Succinate Er 100 Mg Tab.Er.24h) 100 mg PO BEDTIME [facility]; Protocol Last Admin: 01/12/25 21:34 Dose: 100 mg Omeprazole (Omeprazole 20 Mg Capsule.Dr) 20 mg PO DAILY@0630 [facility] Last Admin: 01/13/25 05:07 Dose: Not Given Ondansetron HCl (Ondansetron Hcl 4 Mg/2 Ml Vial) 4 mg IVPUSH Q8H PRN PRN Reason: Nausea and Vomiting Oxycodone HCl (Oxycodone Hcl Immed Release 5 Mg Tablet) 5 mg PO Q6H PRN PRN Reason: Pain, Moderate(Pain Scale 4-6) Oxycodone HCl (Oxycodone Hcl Immed Release 5 Mg Tablet) 5 mg PO ONCE PRN PRN Reason: Pain, Moderate(Pain Scale 4-6) Sodium Chloride (0.9 % Sodium Chloride Flush 3 Ml Syringe) 3 [facility] Last Admin: 01/13/25 07:55 Dose: 3 ml Home Medications ?Medication ?Instructions ?Recorded ?Confirmed ?Last Taken ?Type aspirin 81 mg tablet,delayed 81 mg PO DAILY 03/30/21 01/09/25 01/09/25 History release ([place] Aspirin) atorvastatin 80 mg tablet 80 mg PO BEDTIME 03/30/21 01/09/25 01/08/25 History clopidogrel 75 mg tablet 75 mg PO DAILY 03/30/21 01/09/25 01/09/25 History lisinopril 40 mg tablet 40 mg PO BEDTIME 03/30/21 01/09/25 01/08/25 History metoprolol succinate 100 mg 100 mg PO BEDTIME 03/30/21 01/09/25 01/08/25 History tablet,extended release 24 hr amlodipine 5 mg tablet 5 mg PO DAILY 07/26/23 01/09/25 01/09/25 History omeprazole 20 mg capsule,delayed 20 mg PO DAILY@0630 04/11/24 01/09/25 01/09/25 History release acetaminophen 325 mg tablet 650 mg PO Q6H PRN Pain 01/09/25 01/09/25 Unknown History metformin 500 mg tablet,extended 500 mg PO BEDTIME 01/09/25 01/09/25 01/08/25 History release 24 hr tramadol 50 mg tablet 50 mg PO BID PRN severe pain 01/09/25 01/09/25 Unknown History Exam Height,Weight and Vital Signs: Height 5 ft 4 in Weight 76 kg Last Vital Signs Temp 96 F L 01/13/25 07:45 Pulse 61 01/13/25 07:45 Resp 16 01/13/25 07:45 BP 132/86 01/13/25 07:45 Pulse Ox 96 01/13/25 07:45 O2 Del Method Room Air 01/13/25 07:45 Pertinent Lab Results Pertinent Lab Results: Laboratory Tests 01/09/25 01/09/25 01/10/25 15:07 19:56 05:30 WBC 13.4 H 8.1 RBC 4.44 L 3.96 L Hgb 13.7 L 12.4 L Hct 39.8 L 35.2 L MCV 89.6 88.9 MCH 30.9 31.3 MCHC 34.4 35.2 RDW 13.0 13.2 Plt Count 204 169 MPV 10.0 10.4 Immature Gran % (Auto) 0.4 0.5 H Neut % (Auto) 88.3 H 78.9 H Lymph % (Auto) 5.1 L 11.0 L [place] % (Auto) 6.1 8.6 Eos % (Auto) 0.0 0.9 Baso % (Auto) 0.1 0.1 Lymph # (Auto) 0.7 L 0.9 L [place] # (Auto) 0.8 0.7 Eos # (Auto) 0.0 0.1 Baso # (Auto) 0.0 0.0 Abs Immat Gran (auto) 0.06 H 0.04 H Absolute Neuts (auto) 11.8 H 6.4 Absolute Nucleated RBC 0.000 0.000 Nucleated RBC % (auto) 0.0 0.0 PT INR Sodium 136 141 Potassium 3.9 3.2 L Chloride 101 109 H Carbon Dioxide 26 24 Anion Gap 13 11 L BUN 16 11 Creatinine 0.66 0.67 Estim Creat Clear Calc 119.1 116.1 Estimated GFR > 60 > 60 POC Glucose Random Glucose 161 H 99 Fasting Glucose Estimat Average Glucose 128 Hemoglobin A1c % 6.1 H Calcium 9.3 8.2 L D Magnesium 1.9 Total Bilirubin 6.4 H 4.3 H Direct Bilirubin 1.9 H AST 580 H 495 H ALT 466 H 620 H Alkaline Phosphatase 155 H 177 H Total Protein 7.5 6.3 L Albumin 4.5 3.6 Lipase 31 Urine Color Dark Yellow Urine Appearance Clear Urine pH 7.0 Ur Specific [place] <= 1.005 Urine Protein 100 (2+) H Urine Glucose (UA) Negative Urine Ketones Negative Urine Blood Large (3+) H Urine Nitrite Negative Ur Leukocyte Esterase Trace H Urine RBC 0-2 Urine WBC 0-5 Ur Squamous Epith Cells 0-2 Urine Bacteria None Seen Hyaline Casts 0-2 01/10/25 01/10/25 01/10/25 08:14 11:17 16:11 WBC RBC Hgb Hct MCV MCH MCHC RDW Plt Count MPV Immature Gran % (Auto) Neut % (Auto) Lymph % (Auto) [place] % (Auto) Eos % (Auto) Baso % (Auto) Lymph # (Auto) [place] # (Auto) Eos # (Auto) Baso # (Auto) Abs Immat Gran (auto) Absolute Neuts (auto) Absolute Nucleated RBC Nucleated RBC % (auto) PT 11.4 INR 1.0 Sodium Potassium Chloride Carbon Dioxide Anion Gap BUN Creatinine Estim Creat Clear Calc Estimated GFR POC Glucose 107 102 Random Glucose Fasting Glucose Estimat Average Glucose Hemoglobin A1c % Calcium Magnesium Total Bilirubin Direct Bilirubin AST ALT Alkaline Phosphatase Total Protein Albumin Lipase Urine Color Urine Appearance Urine pH Ur Specific [place] Urine Protein Urine Glucose (UA) Urine Ketones Urine Blood Urine Nitrite Ur Leukocyte Esterase Urine RBC Urine WBC Ur Squamous Epith Cells Urine Bacteria Hyaline Casts 01/10/25 01/10/25 01/11/25 16:24 20:42 02:20 WBC RBC Hgb Hct MCV MCH MCHC RDW Plt Count MPV Immature Gran % (Auto) Neut % (Auto) Lymph % (Auto) [place] % (Auto) Eos % (Auto) Baso % (Auto) Lymph # (Auto) [place] # (Auto) Eos # (Auto) Baso # (Auto) Abs Immat Gran (auto) Absolute Neuts (auto) Absolute Nucleated RBC Nucleated RBC % (auto) PT INR Sodium Potassium Chloride Carbon Dioxide Anion Gap BUN Creatinine Estim Creat Clear Calc Estimated GFR POC Glucose 132 H 166 H 96 Random Glucose Fasting Glucose Estimat Average Glucose Hemoglobin A1c % Calcium Magnesium Total Bilirubin Direct Bilirubin AST ALT Alkaline Phosphatase Total Protein Albumin Lipase Urine Color Urine Appearance Urine pH Ur Specific [place] Urine Protein Urine Glucose (UA) Urine Ketones Urine Blood Urine Nitrite Ur Leukocyte Esterase Urine RBC Urine WBC Ur Squamous Epith Cells Urine Bacteria Hyaline Casts 01/11/25 01/11/25 01/11/25 05:51 07:40 11:28 WBC 7.7 RBC 3.92 L Hgb 12.2 L Hct 35.2 L MCV 89.8 MCH 31.1 MCHC 34.7 RDW 13.2 Plt Count 181 MPV 9.8 Immature Gran % (Auto) 0.7 H Neut % (Auto) 68.9 Lymph % (Auto) 20.1 [place] % (Auto) 8.3 Eos % (Auto) 1.7 Baso % (Auto) 0.3 Lymph # (Auto) 1.5 [place] # (Auto) 0.6 Eos # (Auto) 0.1 Baso # (Auto) 0.0 Abs Immat Gran (auto) 0.05 H Absolute Neuts (auto) 5.3 Absolute Nucleated RBC 0.000 Nucleated RBC % (auto) 0.0 PT INR Sodium 141 Potassium 3.4 Chloride 101 Carbon Dioxide 27 Anion Gap 16 BUN 10 Creatinine 0.81 Estim Creat Clear Calc 96.0 Estimated GFR > 60 POC Glucose 123 H 232 H Random Glucose 114 Fasting Glucose Estimat Average Glucose Hemoglobin A1c % Calcium 8.3 L Magnesium Total Bilirubin 1.7 H Direct Bilirubin 0.7 H AST 125 H ALT 374 H Alkaline Phosphatase 139 H Total Protein 6.0 L Albumin 3.5 Lipase Urine Color Urine Appearance Urine pH Ur Specific [place] Urine Protein Urine Glucose (UA) Urine Ketones Urine Blood Urine Nitrite Ur Leukocyte Esterase Urine RBC Urine WBC Ur Squamous Epith Cells Urine Bacteria Hyaline Casts 01/11/25 01/11/25 01/11/25 14:47 16:07 20:38 WBC RBC Hgb Hct MCV MCH MCHC RDW Plt Count MPV Immature Gran % (Auto) Neut % (Auto) Lymph % (Auto) [place] % (Auto) Eos % (Auto) Baso % (Auto) Lymph # (Auto) [place] # (Auto) Eos # (Auto) Baso # (Auto) Abs Immat Gran (auto) Absolute Neuts (auto) Absolute Nucleated RBC Nucleated RBC % (auto) PT INR Sodium Potassium Chloride Carbon Dioxide Anion Gap BUN Creatinine Estim Creat Clear Calc Estimated GFR POC Glucose 143 H 124 H 94 Random Glucose Fasting Glucose Estimat Average Glucose Hemoglobin A1c % Calcium Magnesium Total Bilirubin Direct Bilirubin AST ALT Alkaline Phosphatase Total Protein Albumin Lipase Urine Color Urine Appearance Urine pH Ur Specific [place] Urine Protein Urine Glucose (UA) Urine Ketones Urine Blood Urine Nitrite Ur Leukocyte Esterase Urine RBC Urine WBC Ur Squamous Epith Cells Urine Bacteria Hyaline Casts 01/12/25 01/12/25 01/12/25 06:17 07:21 11:06 WBC 7.4 RBC 4.05 L Hgb 12.5 L Hct 36.3 L MCV 89.6 MCH 30.9 MCHC 34.4 RDW 13.2 Plt Count 201 MPV 10.0 Immature Gran % (Auto) 0.8 H Neut % (Auto) 63.7 Lymph % (Auto) 24.2 [place] % (Auto) 9.0 Eos % (Auto) 2.0 Baso % (Auto) 0.3 Lymph # (Auto) 1.8 [place] # (Auto) 0.7 Eos # (Auto) 0.2 Baso # (Auto) 0.0 Abs Immat Gran (auto) 0.06 H Absolute Neuts (auto) 4.7 Absolute Nucleated RBC 0.000 Nucleated RBC % (auto) 0.0 PT INR Sodium 142 Potassium 3.6 Chloride 107 Carbon Dioxide 27 Anion Gap 12 BUN 14 Creatinine 0.92 Estim Creat Clear Calc 84.5 Estimated GFR > 60 POC Glucose 129 H 202 H Random Glucose 130 H Fasting Glucose Estimat Average Glucose Hemoglobin A1c % Calcium 8.6 Magnesium Total Bilirubin 1.2 H Direct Bilirubin AST 62 H ALT 258 H Alkaline Phosphatase 120 H Total Protein 6.3 L Albumin 3.6 Lipase Urine Color Urine Appearance Urine pH Ur Specific [place] Urine Protein Urine Glucose (UA) Urine Ketones Urine Blood Urine Nitrite Ur Leukocyte Esterase Urine RBC Urine WBC Ur Squamous Epith Cells Urine Bacteria Hyaline Casts 01/12/25 01/12/25 01/13/25 16:06 20:09 06:30 WBC 7.8 RBC 4.26 L Hgb 13.2 L Hct 38.1 L MCV 89.4 MCH 31.0 MCHC 34.6 RDW 13.2 Plt Count 234 MPV 9.9 Immature Gran % (Auto) 0.8 H Neut % (Auto) 66.4 Lymph % (Auto) 22.2 [place] % (Auto) 7.9 Eos % (Auto) 2.2 Baso % (Auto) 0.5 Lymph # (Auto) 1.7 [place] # (Auto) 0.6 Eos # (Auto) 0.2 Baso # (Auto) 0.0 Abs Immat Gran (auto) 0.06 H Absolute Neuts (auto) 5.2 Absolute Nucleated RBC 0.000 Nucleated RBC % (auto) 0.0 PT INR Sodium 142 Potassium 3.6 Chloride 105 Carbon Dioxide 28 Anion Gap 13 BUN 15 Creatinine 0.94 Estim Creat Clear Calc 82.7 Estimated GFR > 60 POC Glucose 127 H 146 H Random Glucose Fasting Glucose 119 H Estimat Average Glucose Hemoglobin A1c % Calcium 8.6 Magnesium Total Bilirubin 1.0 Direct Bilirubin 0.4 AST 43 H ALT 202 H Alkaline Phosphatase 113 Total Protein 6.6 Albumin 3.8 Lipase 44 Urine Color Urine Appearance Urine pH Ur Specific [place] Urine Protein Urine Glucose (UA) Urine Ketones Urine Blood Urine Nitrite Ur Leukocyte Esterase Urine RBC Urine WBC Ur Squamous Epith Cells Urine Bacteria Hyaline Casts 01/13/25 07:15 WBC RBC Hgb Hct MCV MCH MCHC RDW Plt Count MPV Immature Gran % (Auto) Neut % (Auto) Lymph % (Auto) [place] % (Auto) Eos % (Auto) Baso % (Auto) Lymph # (Auto) [place] # (Auto) Eos # (Auto) Baso # (Auto) Abs Immat Gran (auto) Absolute Neuts (auto) Absolute Nucleated RBC Nucleated RBC % (auto) PT INR Sodium Potassium Chloride Carbon Dioxide Anion Gap BUN Creatinine Estim Creat Clear Calc Estimated GFR POC Glucose 126 H Random Glucose Fasting Glucose Estimat Average Glucose Hemoglobin A1c % Calcium Magnesium Total Bilirubin Direct Bilirubin AST ALT Alkaline Phosphatase Total Protein Albumin Lipase Urine Color Urine Appearance Urine pH Ur Specific [place] Urine Protein Urine Glucose (UA) Urine Ketones Urine Blood Urine Nitrite Ur Leukocyte Esterase Urine RBC Urine WBC Ur Squamous Epith Cells Urine Bacteria Hyaline Casts Narrative Narrative: EKG 01/10/25 Vent. Rate : 80 BPM Atrial Rate : 80 BPM P-R Int : 162 ms QRS Dur : 94 ms QT Int : 402 ms P-R-T Axes : 35 -23 -7 degrees QTcB Int : 463 ms Normal sinus rhythm Incomplete right bundle branch block Borderline ECG When compared with ECG of 11-May-2021 21:15, No significant change was found Airway Mallampati Class: II TM Dist: >3cm Neck ROM: Full Loose/Missing/Broken Teeth: No Heart: Assessment and Plan Final Anesthetic Review Family History of Problems with Anesthesia: No History of Problems with Anesthesia: No Documented by User: Jacques Kelly MD 01/13/25 13:10 [facility] Past Medical History Medical History Overweight (BMI 25.0-29.9) HTN (hypertension) Erectile dysfunction Type 2 diabetes mellitus with hyperglycemia Elevated LFTs Impaired fasting glucose Vitamin D deficiency Obesity (BMI 30-39.9) Benign essential hypertension Pure hypercholesterolemia CAD (coronary artery disease) Surgical History Surgical History History of endoscopy Hx of hernia repair Hx of cardiac catheterization History of colonoscopy (~02/22/18) Hx of cholecystectomy (~03/2018) Social History Social History Household Members: Spouse Housing: House Are you a primary hearing care professional to a significant other at home: No Do you presently have visiting nurse or other home services: No Alcohol intake: current Alcohol intake frequency: a few times a week Patient Tobacco Use Status: Former Tobacco user Tobacco use type: Cigarette Smoked in Last 30 Days: No e-Cigarette/Vaping Use: Never Used Use of substances other than those prescribed or required for medical reasons: No Currently Displaying Signs/Symptoms of Drug Intoxication Withdrawal: No Have you been hit, kicked, punched, or otherwise hurt by someone within the past year? 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 Cognitive needs: No Hearing needs: No Vision needs: No Meds Allergies Allergy/AdvReac Type Severity Reaction Status Date / Time No Known Allergies Allergy Verified 01/09/25 13:54 Home Medications ?Medication ?Instructions ?Recorded ?Confirmed ?Last Taken ?Type aspirin 81 mg tablet,delayed 81 mg PO DAILY 03/30/21 01/09/25 01/09/25 History release ([place] Aspirin) atorvastatin 80 mg tablet 80 mg PO BEDTIME 03/30/21 01/09/25 01/08/25 History clopidogrel 75 mg tablet 75 mg PO DAILY 03/30/21 01/09/25 01/09/25 History lisinopril 40 mg tablet 40 mg PO BEDTIME 03/30/21 01/09/25 01/08/25 History metoprolol succinate 100 mg 100 mg PO BEDTIME 03/30/21 01/09/25 01/08/25 History tablet,extended release 24 hr amlodipine 5 mg tablet 5 mg PO DAILY 07/26/23 01/09/25 01/09/25 History omeprazole 20 mg capsule,delayed 20 mg PO DAILY@0630 04/11/24 01/09/25 01/09/25 History release acetaminophen 325 mg tablet 650 mg PO Q6H PRN Pain 01/09/25 01/09/25 Unknown History metformin 500 mg tablet,extended 500 mg PO BEDTIME 01/09/25 01/09/25 01/08/25 History release 24 hr tramadol 50 mg tablet 50 mg PO BID PRN severe pain 01/09/25 01/09/25 Unknown History Exam Exam Date and Time: 01/13/2025 Airway Heart: rrr Lungs: cta Other: normal Assessment and Plan Assessment Anesthesia Assessment: Anesthesia Plan Discussed Final Anesthetic Review NPO: Yes ASA Class: II Final Preanesthetic Review: No Changes in Pt Med Stat, Meds/Allgs Chart Reviewed, Consent Obtained/Reviewed and Anes Risks/Benef Reviewed Patient Risk: Low Procedure Risk: Low Anesthetic Plan Anesthetic Plan: GA Disposition: Standard PACU
--- NOTE | 2025-01-13 09:09 | HO.PM.IMPN ---
Subjective Subjective Date of Service: 01/13/25 Interval History: Seen and examined this morning Follow-up for choledocholithiasis Reporting right upper quadrant abdominal pain, no vomiting Review of Systems Review of Systems: Yes all other systems are reviewed and are negative Constitutional Constitutional: Denies chills and Denies fever(s) Cardiovascular Cardiovascular: Denies chest pain, Denies palpitations and Denies dyspnea Respiratory Respiratory: Denies cough and Denies dyspnea Gastrointestinal Gastrointestinal: Reports abdominal pain and Denies vomiting Endocrine Endocrine: Denies palpitations Physical Exam Exam: Exam: Appearing in no acute distress lung sounds are clear to auscultation heart regular rate rhythm, clear S1, S2 positive bowel sounds, abdomen is soft, nontender neuro patient is alert x3, no focal deficits Vital Signs: Vital Signs: Last Vital Signs Temp 96 F L 01/13/25 07:45 Pulse 61 01/13/25 07:45 Resp 16 01/13/25 07:45 BP 132/86 01/13/25 07:45 Pulse Ox 96 01/13/25 07:45 O2 Del Method Room Air 01/13/25 07:45 BMI result Body Mass Index 28.8 Objective Data Active Medications Acetaminophen (Acetaminophen 325 Mg Tablet) 650 mg PO Q6H PRN PRN Reason: Pain, Mild 1-3,fever,headache Last Admin: 01/12/25 15:59 Dose: 650 mg Documented By: PARDEEP Amlodipine Besylate (Amlodipine Besylate 5 Mg Tablet) 5 mg PO DAILY [facility]; Protocol Last Admin: 01/13/25 07:54 Dose: 5 mg Documented By: JAZLYN Calcium Carbonate (Calcium Carbonate 750 Mg Tab.Chew) 750 mg PO Q4H PRN PRN Reason: Heartburn Dextrose (Dextrose 50 % 25 Gm/50 Ml Syringe) 25 gm IVPUSH Q15M PRN; Protocol PRN Reason: per Hypoglycemia Standing Ord. Glucose (Glucose Gel 15 Gm Gel..Gram.) 15 gm PO Q15M PRN; Protocol PRN Reason: per Hypoglycemia Standing Ord. Hydromorphone HCl (Hydromorphone Hcl 1 Mg/Ml Syringe) 0.5 mg IVPUSH Q4H PRN; Protocol PRN Reason: Pain, Severe (Pain Scale 7-10) Piperacillin Sod/Tazobactam (Sod 3.375 gm/ Sodium Chloride) 50 mls @ 100 mls/hr IV Q6H [facility] Last Infusion: 01/13/25 05:32 Dose: Infused Documented By: NICK Insulin Human Lispro (Insulin Lispro 100 Unit/Ml 3 Ml Vial) 0 unit SUBCUT QIDACHS [facility]; Protocol Last Admin: 01/13/25 07:33 Dose: Not Given Documented By: JAZLYN Non-Admin Reason: No Insulin Coverage Magnesium Hydroxide (Milk Of Magnesia 30 Ml Oral.Susp) 30 ml PO DAILY PRN PRN Reason: Constipation Melatonin (Melatonin 3 Mg Tablet) 6 mg PO BEDTIME PRN PRN Reason: Insomnia Metoprolol Succinate (Metoprolol Succinate Er 100 Mg Tab.Er.24h) 100 mg PO BEDTIME [facility]; Protocol Last Admin: 01/12/25 21:34 Dose: 100 mg Documented By: NICK Omeprazole (Omeprazole 20 Mg Capsule.Dr) 20 mg PO DAILY@0630 [facility] Last Admin: 01/13/25 05:07 Dose: Not Given Documented By: NICK Non-Admin Reason: NPO Ondansetron HCl (Ondansetron Hcl 4 Mg/2 Ml Vial) 4 mg IVPUSH Q8H PRN PRN Reason: Nausea and Vomiting Oxycodone HCl (Oxycodone Hcl Immed Release 5 Mg Tablet) 5 mg PO Q6H PRN PRN Reason: Pain, Moderate(Pain Scale 4-6) Oxycodone HCl (Oxycodone Hcl Immed Release 5 Mg Tablet) 5 mg PO ONCE PRN PRN Reason: Pain, Moderate(Pain Scale 4-6) Sodium Chloride (0.9 % Sodium Chloride Flush 3 Ml Syringe) 3 ml IVFLUSH QSHIFT [facility] Last Admin: 01/13/25 07:55 Dose: 3 ml Documented By: JAZLYN Labs 01/13/25 06:30 01/13/25 06:30 Labs: Laboratory Results - last 24 hr 01/12/25 01/12/25 01/12/25 11:06 16:06 20:09 MCV MCH MCHC RDW Plt Count MPV Immature Gran % (Auto) Neut % (Auto) Lymph % (Auto) [place] % (Auto) Eos % (Auto) Baso % (Auto) Lymph # (Auto) [place] # (Auto) Eos # (Auto) Baso # (Auto) Abs Immat Gran (auto) Absolute Neuts (auto) Absolute Nucleated RBC Nucleated RBC % (auto) Anion Gap Estim Creat Clear Calc Estimated GFR POC Glucose 202 H 127 H 146 H Fasting Glucose Calcium Total Bilirubin Direct Bilirubin AST ALT Alkaline Phosphatase Total Protein Albumin Lipase 01/13/25 01/13/25 06:30 07:15 MCV 89.4 MCH 31.0 MCHC 34.6 RDW 13.2 Plt Count 234 MPV 9.9 Immature Gran % (Auto) 0.8 H Neut % (Auto) 66.4 Lymph % (Auto) 22.2 [place] % (Auto) 7.9 Eos % (Auto) 2.2 Baso % (Auto) 0.5 Lymph # (Auto) 1.7 [place] # (Auto) 0.6 Eos # (Auto) 0.2 Baso # (Auto) 0.0 Abs Immat Gran (auto) 0.06 H Absolute Neuts (auto) 5.2 Absolute Nucleated RBC 0.000 Nucleated RBC % (auto) 0.0 Anion Gap 13 Estim Creat Clear Calc 82.7 Estimated GFR > 60 POC Glucose 126 H Fasting Glucose 119 H Calcium 8.6 Total Bilirubin 1.0 Direct Bilirubin 0.4 AST 43 H ALT 202 H Alkaline Phosphatase 113 Total Protein 6.6 Albumin 3.8 Lipase 44 Assessment and Plan (1) Common bile duct calculus: Status: Acute Plan 54-year-old male with a past medical history significant for hypertension, CAD, history NSTEMI on Plavix and aspirin, type 2 diabetes and history of cholecystectomy in February 2018, who presented to the ED multiple times in this past week due to upper abdominal pain with nausea found to have elevated LFTs and imaging consistent with choledocholithiasis Choledocolithiasis no sepsis. no fever or AMS to suggest cholangitis CT with multiple stones within the remnant cystic duct, this includes a 6-7 mm stone which is located in the inferior aspect of the cystic duct, just proximal to its junction with the common hepatic duct. Continue IV Zosyn Trend LFTs>significantly improved repeat abd us showing CBD at 0.5 cm from 0.8 mm, .Previously noted common duct calculus appears to be unchanged in position. Plan for ERCP today Hypokalemia. Resolved Due to decreased p.o. intake HTN continue Norvasc, metoprolol Blood pressure adequately controlled at this time, continue lisinopril if needed CAD/hx NSTEMI hold plavix and aspirin for procedure, resume when appropriate Hold statin due to elevated LFTs T2DM Hba1c 6.1 hold metformin sliding scale insulin full code VTE prophy: pneumoboots due to planned procedure Quality Stroke Does the patient have a stroke diagnosis?: No VTE Prior VTE?: No VTE Risk Level:: Medical - moderate - high VTE Device Contraindication: N/A - Device Ordered VTE Drug Contraindication: Treatment Not Indicated
[2025-01-13 11:17] LABS: Glucose, Whole Blood 106 mg/dL (60-115)
--- NOTE | 2025-01-13 11:52 | MHC.CM.PN ---
Per MD rounds Patient is scheduled for an ERCP today. DP home no services. Pt will arrange for transportation home.
--- NOTE | 2025-01-13 16:22 | PM.OP ---
Brief Operative Note Date of Service: 01/13/25 Pre-op diagnosis: Choledocholithiasis Post-op diagnosis: other (Normal cholangiogram without any definitive filling defects) Procedure: ERCP with sphincterotomy Surgeon: Rafat Mcgill MD Anesthesia: GETA Was an Central Office Repairer Supervisor used for this Procedure?: No Estimated blood loss (mL): 0 Pathology: none sent Condition: stable Disposition: PACU
--- NOTE | 2025-01-13 16:23 | PM.EVENT ---
Event Note Date of Service: 01/13/25 Event Note: [id number] note dictated Findings: 1. Normal major papilla with free flow of bile noted 2. Selective cholangiograms were negative for any definitive filling defects 3. Performed an approx. 8mm sphincterotomy over a guidewire given his presentation and suspicion of retained stones on other imaging studies--excellent flow of bile and dye noted without any purulence. 4. Duct swept with a 12mm balloon--no stones seen and balloon pulled easily into the duodenum 5. Final cholangiograms were negative for filling defects, except for transient air bubbles. The bile duct drained well. 6. The pancreas was not injected or cannulated. Imp: Normal cholangiogram--presumed passed stone(s) Plan: Observe, increase diet tomorrow to liquids and then food if he remains stable, and F/U labs. Hold aspirin and clopidogrel for at least 3 more days, although 5 days would be ideal if OK with Cardiology. He could be discharged late tomorrow or Monday if stable. D/W patient and his in detail. Thanks Time Spent With Patient Time: Total time managing care of this patient today ____ minutes.
[2025-01-13 16:54] LABS: Glucose, Whole Blood 147 mg/dL (60-115)
[2025-01-13] MEDS: oxyCODONE HCl Immed Release 5 MG TABLET PO ×2 (18:17→23:12)
[2025-01-13 21:01] LABS: Glucose, Whole Blood 146 mg/dL (60-115)
[2025-01-13] MEDS: Metoprolol Succinate ER 100 MG TAB.ER.24H PO (23:13)
[2025-01-14] MEDS: 0.9 % Sodium Chloride Flush 3 ML SYRINGE IVFLUSH ×4 (00:06→21:59)
--- NOTE | 2025-01-14 03:05 | OP_ITS ---
DATE OF SERVICE: 01/13/2025 SURGEON: Rafat Mcgill MD INDICATIONS: The patient presents for evaluation of abdominal pain, elevated LFTs, and abnormal imaging of biliary tract with suspicion for choledocholithiasis. Full consent has been obtained from him for this, including risks of bleeding and perforation. PREOPERATIVE DIAGNOSIS: Choledocholithiasis. POSTOPERATIVE DIAGNOSIS: Normal cholangiograms. PROCEDURE PERFORMED: Endoscopic retrograde cholangiopancreatography with sphincterotomy. ESTIMATED BLOOD LOSS: COMPLICATIONS: ANESTHESIA: Medication used, general anesthesia and glucagon 0.5 mg IV x1 dose. ASSISTANTS: SPECIMENS: DESCRIPTION OF PROCEDURE: The patient was placed in the semiprone position. The Olympus video therapeutic duodenoscope was passed in the posterior oropharynx and upper esophagus. The scope entered into the stomach. There was a fair amount of bile, which was suctioned and removed. The scope was advanced to the pylorus and the duodenum was cannulated to the descending portion. The region of the major papilla was visualized and appeared normal with free flow of bile noted. It did not appear to be ulcerated nor have any mass. Using a Memopal triple lumen sphincterotome over a straight guidewire, a selective cannulation of the biliary tree was obtained. The pancreatic duct was not cannulated. Selective cholangiograms revealed what appeared to be normal appearing intrahepatic and extrahepatic bile ducts without any definitive filling defects. The cystic duct remnant was somewhat visualized and also did not appear to have any definitive stones, although this was not as clearly seen as the intrahepatic and extrahepatic bile ducts. Given his symptomatology and presentation, I felt it would be important to have him undergo a sphincterotomy to be sure no other small stones exist in either the bile duct or cystic duct remnant that will pose a problem later. I did perform an approximately 6 to 8 mm sphincterotomy over the guidewire without any immediate complication. There was excellent drainage of bile and dye noted without any purulence. I then used a 12 mm balloon catheter to cannulate the bile duct selectively. Selective cholangiograms with the balloon inflated and deflated did not reveal any sign of filling defects nor any significant biliary dilatation. There was excellent flow of bile and dye noted into the duodenum. I did sweep the duct several times with the 12 mm balloon inflated and this pulled easily into the duodenum and no stones were noted. Followup occlusion cholangiograms were negative for any filling defects as well and with the balloon deflated there was excellent drainage of bile and dye noted. The pancreas was not injected nor cannulated. At that point, once it appeared that the common duct and intrahepatic ducts were normal and without any sign of stones, the procedure was terminated. He tolerated the procedure well and was returned to recovery area in stable condition. IMPRESSION: Normal cholangiograms with presumed passage of choledocholithiasis. PLAN: The patient will be observed and have his diet increased over the next 24 to 48 hours if he remains stable. He will have followup laboratories. Ideally, aspirin and clopidogrel should be held for at least 3 days, although 5 days would be even better. I did speak with the hospitalist about that and asked her to possibly speak with Cardiology about that. If stable, he can be discharged in the next 24 to 40 hours as well. This has all been discussed with the patient and his in detail. MD CARMEN Barragan/RAJESH / [id number] MTDD
[2025-01-14 03:31] VITALS: BP 129/77; PULSE 66; RESP 16; TEMP 36.4; O2SAT 95
[2025-01-14 06:11] LABS: MANUAL DIFF FLAG NO
[2025-01-14 06:27] LABS: Hematocrit 38.3 % (42.0-52.0); Hemoglobin 13.2 g/dl (14.0-18.0); Imm Gran Abs Auto 0.07 X10*3/uL (0.00-0.03); Imm Gran Pct Auto 0.7 % (0.0-0.4); Lymphocytes Absolute Auto 1.4 X10*3/uL (1.2-4.9); Mean Corpuscular HGB Conc 34.5 g/dl (31.0-36.0); Mean Corpuscular Hemoglobin 30.9 pg (27.0-33.0); Mean Corpuscular Volume 89.7 fL (80.0-98.0); NRBC Abs Auto 0.000 X10*3/uL (0.0-0.012); NRBC Pct Auto 0.0 /100WBC (0.0-0.2); Platelet Count 253 X10*3/uL (160-400); Red Blood Count 4.27 X10*6/uL (4.60-5.80); White Blood Count 10.6 X10*3/uL (4.8-10.8)
[2025-01-14 06:38] LABS: Alanine Aminotransferase 168 U/L (0-40); Albumin Level 3.7 g/dL (3.5-5.0); Alkaline Phosphatase 114 U/L (39-117); Anion Gap 14 (12-20); Aspartate Amino Transferase 41 U/L (5-37); Blood Urea Nitrogen 15 mg/dL (9-16); Calcium 8.8 mg/dL (8.4-10.2); Carbon Dioxide 24 mmol/L (22-29); Chloride 106 mmol/L (96-108); Creatinine Clr Calc Pharmacy 86.4; Estimated Glomerular Filt Rate > 60; Potassium 4.1 mmol/L (3.3-5.1); Sodium 140 mmol/L (135-145); Total Protein 6.6 g/dL (6.5-8.0)
[2025-01-14 07:46] VITALS: BP 143/88; PULSE 64; RESP 16; TEMP 36.1; O2SAT 97
[2025-01-14 07:54] LABS: Glucose, Whole Blood 105 mg/dL (60-115)
--- NOTE | 2025-01-14 08:24 | HO.POSTANES ---
Post Anesthesia Evaluation Post Anesthesia Evaluation Date of Service: 01/14/25 Vital Signs: Vital Signs Temp Pulse Resp BP Pulse Ox O2 Del Method 01/14/25 07:46 97.0 F 64 16 143/88 H 97 Room Air 01/14/25 03:31 97.5 F 66 16 129/77 95 Room Air 01/13/25 23:13 72 161/93 H Anesthesia: General Mental Status: Awake Pain Control: Satisfactory Nausea/Vomiting: None Hydration: Adequate Anesthesia-Related Issues: No Anes. Related Issues
--- NOTE | 2025-01-14 09:48 | HO.PM.IMPN ---
Subjective Subjective Date of Service: 01/14/25 Interval History: Seen and examined this morning Follow-up for choledocholithiasis as post sphincterotomy Had some pain overnight but feels better this morning Review of Systems Review of Systems: Yes all other systems are reviewed and are negative Constitutional Constitutional: Denies chills and Denies fever(s) Cardiovascular Cardiovascular: Denies chest pain, Denies palpitations and Denies dyspnea Respiratory Respiratory: Denies cough and Denies dyspnea Gastrointestinal Gastrointestinal: Reports abdominal pain and Denies vomiting Endocrine Endocrine: Denies palpitations Physical Exam Exam: Exam: Appearing in no acute distress lung sounds are clear to auscultation heart regular rate rhythm, clear S1, S2 positive bowel sounds, abdomen is soft, nontender neuro patient is alert x3, no focal deficits Vital Signs: Vital Signs: Last Vital Signs Temp 97.0 F 01/14/25 07:46 Pulse 64 01/14/25 07:46 Resp 16 01/14/25 07:46 BP 143/88 H 01/14/25 07:46 Pulse Ox 97 01/14/25 07:46 O2 Del Method Room Air 01/14/25 07:46 O2 Flow Rate 6 01/13/25 16:03 BMI result Body Mass Index 28.8 Objective Data Active Medications Acetaminophen (Acetaminophen 325 Mg Tablet) 650 mg PO Q6H PRN PRN Reason: Pain, Mild 1-3,fever,headache Last Admin: 01/12/25 15:59 Dose: 650 mg Documented By: PARDEPE Amlodipine Besylate (Amlodipine Besylate 5 Mg Tablet) 5 mg PO DAILY [facility]; Protocol Last Admin: 01/14/25 09:07 Dose: 5 mg Documented By: LIV Calcium Carbonate (Calcium Carbonate 750 Mg Tab.Chew) 750 mg PO Q4H PRN PRN Reason: Heartburn Dextrose (Dextrose 50 % 25 Gm/50 Ml Syringe) 25 gm IVPUSH Q15M PRN; Protocol PRN Reason: per Hypoglycemia Standing Ord. Glucose (Glucose Gel 15 Gm Gel..Gram.) 15 gm PO Q15M PRN; Protocol PRN Reason: per Hypoglycemia Standing Ord. Hydromorphone HCl (Hydromorphone Hcl 1 Mg/Ml Syringe) 0.5 mg IVPUSH Q4H PRN; Protocol PRN Reason: Pain, Severe (Pain Scale 7-10) Piperacillin Sod/Tazobactam (Sod 3.375 gm/ Sodium Chloride) 50 mls @ 100 mls/hr IV Q6H [facility] Last Infusion: 01/14/25 06:33 Dose: Infused Documented By: ARIANNE Lactated Ringer's (Lr) 500 mls @ 20 mls/hr IVCONT .Q24H [facility] Last Admin: 01/13/25 16:38 Dose: Not Given Documented By: JAZLYN Non-Admin Reason: IV Running Insulin Human Lispro (Insulin Lispro 100 Unit/Ml 3 Ml Vial) 0 unit SUBCUT QIDACHS [facility]; Protocol Last Admin: 01/14/25 08:19 Dose: Not Given Documented By: LIV Non-Admin Reason: No Insulin Coverage Magnesium Hydroxide (Milk Of Magnesia 30 Ml Oral.Susp) 30 ml PO DAILY PRN PRN Reason: Constipation Melatonin (Melatonin 3 Mg Tablet) 6 mg PO BEDTIME PRN PRN Reason: Insomnia Metoprolol Succinate (Metoprolol Succinate Er 100 Mg Tab.Er.24h) 100 mg PO BEDTIME [facility]; Protocol Last Admin: 01/13/25 23:13 Dose: 100 mg Documented By: ARIANNE Naloxone HCl (Naloxone Hcl 0.4 Mg/Ml Vial) 0.04 mg IVPUSH Q5M PRN PRN Reason: Excessive sedation or RR < 8 Omeprazole (Omeprazole 20 Mg Capsule.Dr) 20 mg PO DAILY@0630 [facility] Last Admin: 01/14/25 06:04 Dose: 20 mg Documented By: ARIANNE Ondansetron HCl (Ondansetron Hcl 4 Mg/2 Ml Vial) 4 mg IVPUSH Q8H PRN PRN Reason: Nausea and Vomiting Last Admin: 01/13/25 17:09 Dose: 4 mg Documented By: JAZLYN Oxycodone HCl (Oxycodone Hcl Immed Release 5 Mg Tablet) 5 mg PO Q6H PRN PRN Reason: Pain, Moderate(Pain Scale 4-6) Last Admin: 01/13/25 18:17 Dose: 5 mg Documented By: JAZLYN Sodium Chloride (0.9 % Sodium Chloride Flush 3 Ml [facility]ringe) [facility] Last Admin: 01/14/25 09:06 Dose: 3 ml Documented By: LIV Labs 01/14/25 05:58 01/14/25 05:58 Labs: Laboratory Results - last 24 hr 01/13/25 01/13/25 01/13/25 11:08 16:43 20:23 MCV MCH MCHC RDW Plt Count MPV Immature Gran % (Auto) Neut % (Auto) Lymph % (Auto) [place] % (Auto) Eos % (Auto) Baso % (Auto) Lymph # (Auto) [place] # (Auto) Eos # (Auto) Baso # (Auto) Abs Immat Gran (auto) Absolute Neuts (auto) Absolute Nucleated RBC Nucleated RBC % (auto) Anion Gap Estim Creat Clear Calc Estimated GFR POC Glucose 106 147 H 146 H Fasting Glucose Calcium Total Bilirubin Direct Bilirubin AST ALT Alkaline Phosphatase Total Protein Albumin 01/14/25 01/14/25 05:58 07:50 MCV 89.7 MCH 30.9 MCHC 34.5 RDW 13.0 Plt Count 253 MPV 9.8 Immature Gran % (Auto) 0.7 H Neut % (Auto) 81.3 H Lymph % (Auto) 12.9 L [place] % (Auto) 4.9 Eos % (Auto) 0.1 Baso % (Auto) 0.1 Lymph # (Auto) 1.4 [place] # (Auto) 0.5 Eos # (Auto) 0.0 Baso # (Auto) 0.0 Abs Immat Gran (auto) 0.07 H Absolute Neuts (auto) 8.6 H Absolute Nucleated RBC 0.000 Nucleated RBC % (auto) 0.0 Anion Gap 14 Estim Creat Clear Calc 86.4 Estimated GFR > 60 POC Glucose 105 Fasting Glucose 109 H Calcium 8.8 Total Bilirubin 1.2 H Direct Bilirubin 0.4 AST 41 H ALT 168 H Alkaline Phosphatase 114 Total Protein 6.6 Albumin 3.7 Assessment and Plan (1) Common bile duct calculus: Status: Acute Plan 54-year-old male with a past medical history significant for hypertension, CAD, history NSTEMI on Plavix and aspirin, type 2 diabetes and history of cholecystectomy in February 2018, who presented to the ED multiple times in this past week due to upper abdominal pain with nausea found to have elevated LFTs and imaging consistent with choledocholithiasis Choledocolithiasis no sepsis. no fever or AMS to suggest cholangitis CT with multiple stones within the remnant cystic duct, this includes a 6-7 mm stone which is located in the inferior aspect of the cystic duct, just proximal to its junction with the common hepatic duct. Continue IV Zosyn Trend LFTs>significantly improved repeat abd us showing CBD at 0.5 cm from 0.8 mm, .Previously noted common duct calculus appears to be unchanged in position. Status post ERCP and sphincterotomy 01/13 Advance diet Hypokalemia. Resolved Due to decreased p.o. intake HTN continue Norvasc, metoprolol Blood pressure adequately controlled at this time, continue lisinopril if needed CAD/hx NSTEMI hold plavix and aspirin for procedure, resume when appropriate Hold statin due to elevated LFTs T2DM Hba1c 6.1 hold metformin sliding scale insulin full code VTE prophy: pneumoboots due to planned procedure Quality Stroke Does the patient have a stroke diagnosis?: No VTE Prior VTE?: No VTE Risk Level:: Medical - moderate - high VTE Device Contraindication: N/A - Device Ordered VTE Drug Contraindication: Treatment Not Indicated
[2025-01-14 11:09] LABS: Glucose, Whole Blood 224 mg/dL (60-115)
[2025-01-14 13:12] LABS: Glucose, Whole Blood 187 mg/dL (60-115)
[2025-01-14 16:00] VITALS: BP 161/88; PULSE 67; RESP 18; TEMP 36.4; O2SAT 97
[2025-01-14 16:15] LABS: Glucose, Whole Blood 59 mg/dL (60-115)
[2025-01-14 16:35] LABS: Glucose, Whole Blood 84 mg/dL (60-115)
[2025-01-14] MEDS: Milk of Magnesia 30 ML ORAL.SUSP PO (16:59)
[2025-01-14 19:33] VITALS: BP 148/85; PULSE 66; RESP 18; TEMP 36.3; O2SAT 96
[2025-01-14 20:00] LABS: Glucose, Whole Blood 98 mg/dL (60-115)
[2025-01-14 21:54] VITALS: BP 148/85; PULSE 66
[2025-01-14] MEDS: Metoprolol Succinate ER 100 MG TAB.ER.24H PO (21:54)
[2025-01-15 03:17] VITALS: BP 127/78; PULSE 66; RESP 18; TEMP 36.6; O2SAT 96
--- NOTE | 2025-01-15 07:30 | PM.DS ---
DS: Providers Provider Date of Service: 01/15/25 Date of admission: 01/09/25 21:30 Date of discharge: 01/15/25 Primary care physician: Daniel Salinas MD Consults: 01/09/25 21:31 Consult to Gastroenterology Routine Consulting Provider: Rafat Mcgill Reason for consultation: CBD stones recent tawanda, needs ERCP Has provider been notified: Yes DS: Diagnosis Discharge Diagnosis (1) Common bile duct calculus: Status: Acute DS: Summary Hospital Course Hospital Course: History and physical as per admitting provider. Patient is a 54-year-old male with a past medical history significant for hypertension, CAD, history NSTEMI on Plavix and aspirin, type 2 diabetes and history of cholecystectomy in February 2018, who presented to the ED multiple times in this past week due to upper abdominal pain with nausea. Patient left yesterday prior to being seen and was called back today due to elevated LFTs, leukocytosis and abdominopelvic CT with a 6-7 mm stone in the inferior aspect of the cystic duct just proximal to its junction with the common hepatic duct. there are also multiple stones within the remnant cystic duct, no common bile duct dilation. The patient continues to have nausea, dark urine, mild jaundice and upper abdominal pain. He reports that he did go to work today but was having a difficult time due to his pain, he has been taking tramadol which is not helpful. He denies any fever or chills. No urinary frequency or urgency. No chest pain or shortness of breath. The ED provider spoke with the on-call surgeon, Dr. Holder, who recommended IV antibiotics and possible ERCP tomorrow with Gastroenterology. 54-year-old man treated for choledocholithiasis status post sphincterotomy on 01/14/2025. No stones found during sweeping, no filling defects post procedure presumed passed stones. Diet was advanced postprocedure and patient is tolerating regular diabetic diet. Treated with IV Zosyn during hospitalization As per GI patient should hold aspirin and Plavix, we will restart 01/17/2025. Patient is stable and plan is to discharge home. He may follow up with GI as needed. Hypokalemia. Secondary to decreased oral intake. Resolved with repletion Hypertension. Stable blood pressure during hospitalization continue home medications Coronary artery disease/history of NSTEMI. Aspirin and Plavix has been held during hospitalization plan is to continue to hold until Monday and patient may resume. Diabetes mellitus type 2. Hemoglobin A1c 6.1. Treated with sliding scale during hospitalization. May continue metformin at home. Time Attestation Discharge Coordination Time (in mins): 45 Quality: Safe Use of Opioids Does Pt have an Active Cancer Diagnosis on the Problem List?: No Quality: Stroke Does the patient have a stroke diagnosis?: No Physical Exam Exam: Exam: Appearing in no acute distress head is normocephalic atraumatic eyes pupils are PERRLA sclera is anicteric mouth throat mucous membranes are intact and moist neck is supple no lymphadenopathy, no JVD noted lung sounds are clear to auscultation heart regular rate rhythm, clear S1, S2 positive bowel sounds, abdomen is soft, nontender neuro patient is alert x3, no focal deficits Vital Signs: Vital Signs: Last Vital Signs Temp 97.8 F 01/15/25 03:17 Pulse 66 01/15/25 03:17 Resp 18 01/15/25 03:17 BP 127/78 01/15/25 03:17 Pulse Ox 96 01/15/25 03:17 O2 Del Method Room Air 01/15/25 03:17 O2 Flow Rate 6 01/13/25 16:03 BMI result Body Mass Index 28.8 DS: Data Data Completed and Pending Labs on day of discharge: Laboratory Results - last 24 hr 01/14/25 01/14/25 01/14/25 07:50 10:48 13:08 POC Glucose 105 224 H 187 H 01/14/25 01/14/25 01/14/25 16:06 16:31 19:57 POC Glucose 59 L* 84 98 Discharge Plan Discharge Anticipated Discharge Date/Time: 01/15/25 07:26 Patient Disposition: Home, Self-Care Discharge Diagnosis: Choledocholithiasis status post sphincterotomy Hypokalemia Transaminitis Referrals: Daniel Salinas MD [Primary Care Provider, Internal Medicine] - 1 Week Discharge Medications: New oxycodone 5 mg tablet 5 mg PO Q8H PRN (Reason: pain) Qty: 12 0RF Rx Instructions: Partial Fill upon patient request. Continued cholecalciferol (vitamin D3) 50 mcg (2,000 unit) capsule 50 mcg PO DAILY 90 Days Qty: 90 4RF tramadol 50 mg tablet 50 mg PO BID PRN (Reason: severe pain) acetaminophen 325 mg Tablet 650 mg PO Q6H PRN (Reason: Pain) metformin 500 mg tablet extended release 24 hr 500 mg PO BEDTIME amlodipine 5 mg tablet 5 mg PO DAILY atorvastatin 80 mg tablet 80 mg PO BEDTIME lisinopril 40 mg tablet 40 mg PO BEDTIME metoprolol succinate 100 mg tablet extended release 24 hr 100 mg PO BEDTIME omeprazole 20 mg capsule,delayed release(DR/EC) 20 mg PO DAILY@0630 Held aspirin [[place] Aspirin] 81 mg tablet,delayed release (DR/EC) 81 mg PO DAILY Hold Instructions: Resume on 01/17/25. clopidogrel 75 mg tablet 75 mg PO DAILY Hold Instructions: Resume on 01/17/25. Discharge Orders: Discharge Order (Routine); Ordered 01/15/25 Ordered By: Marcelle Womack Diet: Advance to usual diet Activity on Discharge: As tolerated Stand Alone Forms: Patient Portal Discharge page, Work/School Release Print Language: Faroese Care Plan Goals: Hold aspirin and Plavix for 2 more days may restart on January 17 Health Concerns: Choledocholithiasis status post sphincterotomy Hypokalemia Transaminitis Plan of Treatment: Follow up with primary care provider as needed Take all medications as prescribed Assessment: See discharge summary
[2025-01-15 07:33] VITALS: BP 158/87; PULSE 66; RESP 16; TEMP 36.3; O2SAT 97
[2025-01-15 07:49] LABS: Glucose, Whole Blood 110 mg/dL (60-115)
--- NOTE | 2025-01-15 08:47 | MHC.CM.PN ---
Patient is cleared to discharge today. He will discharge to home self care. He has arranged for his son to provide transportation home.
[2025-01-15] MEDS: 0.9 % Sodium Chloride Flush 3 ML SYRINGE IVFLUSH (09:23)
[2025-01-15 11:26] LABS: Glucose, Whole Blood 146 mg/dL (60-115)
[2025-01-15 14:38] VITALS: BP 154/85; PULSE 77; RESP 16; TEMP 36.3; O2SAT 98
--- NOTE | 2025-01-15 16:09 | P.CDIM_ITS ---
PROVIDER RESPONSE TEXT: To clarify, the appropriate diagnosis supported by the clinical indicators: Diabetes mellitus Type 2 with hypoglycemia: resolved QUERY TEXT: PHYSICIAN'S DOCUMENTATION REQUEST Date of Query: 01/15/2025 10:12 AM EDT Patient Name: Adiel Washburn Admit Date: 01/10/2025 Dear Marcelle Womack COLLEGE ATHLETIC DIRECTOR, A review of the medical record indicates additional documentation may be needed. Please review below and update the documentation accordingly. Clinical Indicators: LABS: POC glucose 59 L Insulin Is there a diagnosis that correlates with the findings above to the Diabetes? Diabetes mellitus Type 2 with hypoglycemia resolved, possible probable, etc. Other specified etiology Other (explain) Clinically unable to determine (explain) Thank you, Nallely Samuel, CCS, CDIS Use of terms such as suspected, likely, concern for, or probable (associated with a specific diagnosis that is being evaluated, monitored, or treated as if it exists) are acceptable and can be coded in the inpatient setting, when documented at the time of discharge. Please use your independent medical judgment in providing your response. THIS QUERY IS PART OF THE PERMANENT MEDICAL RECORD
== END 2025-01-15 14:40 | disposition home or self-care (01) ==
LOC: HO.ED 21:30 → HO.EDOVER 21:53 → HO.S3 01-10 00:18
PROVIDERS: Internal Medicine; Physician Assistant Medical; Admitting Provider Physician Assistant; Emergency Provider Emergency Medicine; PCP Internal Medicine; Visit Provider Nurse Practitioner Acute Care
PROC: 0F798ZZ Dilation of Common Bile Duct, Via Natural or Artificial Opening Endoscopic (ICD-10-PCS; CPT 43260; principal; 2025-01-13 13:40)
DX: K80.50 Calculus of bile duct without cholangitis or cholecystitis without obstruction (principal); E11.649 Type 2 diabetes mellitus with hypoglycemia without coma; I25.10 Atherosclerotic heart disease of native coronary artery without angina pectoris; I10 Essential (primary) hypertension; I25.2 Old myocardial infarction; E87.6 Hypokalemia; Z90.49 Acquired absence of other specified parts of digestive tract; Z79.02 Long term (current) use of antithrombotics/antiplatelets; Z79.82 Long term (current) use of aspirin; Z79.84 Long term (current) use of oral hypoglycemic drugs; Z87.891 Personal history of nicotine dependence; Z79.899 Other long term (current) drug therapy
CPT/HCPCS: 36415; 76705; 80048; 80053; 80076; 81001; 82248; 82947; 83036; 83690; 83735; 85025; 85610; 87040; 93005; 99285; J1100; J1610; J1885; J2003; J2250; J2371; J2405; J2543; J2704; J3010; J7120; Q9967

== ENCOUNTER → 2025-01-09 18:22 | Outpatient (BNV) | payer BC, SELFPAY | PROVIDERS: Admitting Provider Physician Assistant; Emergency Provider Emergency Medicine; PCP Internal Medicine; Visit Provider Radiology Vascular & Interventional Radiology | DX: K80.50 Calculus of bile duct without cholangitis or cholecystitis without obstruction (principal) | CPT/HCPCS: 76705 ==

== ENCOUNTER 2025-01-09 21:30 | Outpatient (BNV) | payer BC, SELFPAY | END 2025-01-10 08:50 | PROVIDERS: Admitting Provider Physician Assistant; Emergency Provider Emergency Medicine; PCP Internal Medicine; Visit Provider Internal Medicine Cardiovascular Disease | DX: I45.10 Unspecified right bundle-branch block (principal) | CPT/HCPCS: 93010 ==

== ENCOUNTER 2025-01-09 21:30 | Outpatient (BNV) | payer BC, SELFPAY | END 2025-01-12 07:56 | PROVIDERS: Admitting Provider Physician Assistant; Emergency Provider Emergency Medicine; PCP Internal Medicine; Visit Provider Specialist | DX: K83.09 Other cholangitis (principal) | CPT/HCPCS: 76705 ==

== ENCOUNTER → 2025-01-09 21:30 | Outpatient (BNV) | payer BC, SELFPAY | PROVIDERS: Admitting Provider Physician Assistant; Emergency Provider Emergency Medicine; PCP Internal Medicine; Visit Provider Physician Assistant | DX: K83.09 Other cholangitis (principal); R74.01 Elevation of levels of liver transaminase levels; K83.1 Obstruction of bile duct; R10.9 Unspecified abdominal pain | CPT/HCPCS: 99223; 99232; 99239 ==

== ENCOUNTER → 2025-01-09 21:30 | Outpatient (BNV) | payer BC, SELFPAY | PROVIDERS: Admitting Provider Physician Assistant; Emergency Provider Emergency Medicine; PCP Internal Medicine; Visit Provider Internal Medicine | DX: K80.51 Calculus of bile duct without cholangitis or cholecystitis with obstruction (principal); R74.01 Elevation of levels of liver transaminase levels | CPT/HCPCS: 99232 ==

== ENCOUNTER 2025-01-21 14:05 | Outpatient (AMB) | payer BC, SELFPAY ==
--- OUTSIDE RECORDS SUMMARY | 2024-07-31 12:00 | XMS_ITS ---
Author Organization [facility] Address [address] [place] [address] Care Team Providers Care Manager Paper Name Role Phone Daniel Salinas MD Primary Care Provider Rafat Agustin [phone] REASON FOR VISIT gerd , fatty liver Encounters Encounter Location Date Provider Diagnosis [facility] [address] [place] [address] 07/31/2024 Rafat Mcgill Plan Of Treatment No Information Progress Notes * NIA MATHIASDOB:[birth year] (54 yo M)Acc No.[id number]:07/31/2024 Progress Notes Patient: NIA LOO Provider: Timoteo Mcgill MD :1970 A ge:54 Y S ex:Male Date:07/31/2024 Address:[address], [place] Pcp:Daniel Salinas MD Subjective: * Chief Complaints: [...] Mcgill MD Date: 0 07/31/2024 Generated for Printi ng/Faxing/eTransmitting on: 0 01/21/2025 03:02 PM EDT
--- OUTSIDE RECORDS SUMMARY | 2024-08-14 12:00 | XMS_ITS ---
Author Organization [facility] Address [address] [facility] [place] [address] Care Team Providers Care Mold Laminator Name Role Phone Daniel Salinas MD Primary Care Provider Rafat Agustin [phone] REASON FOR VISIT Patient presents today for gerd, fatty liver Encounters Encounter Location Date Provider Diagnosis [facility] [address] [facility] [place] [address] 08/14/2024 Rafat Mcgill Plan Of Treatment No Information Progress Notes * NIA MATHIASDOB:[birth year] (54 yo M)Acc No.[id number]:08/14/2024 Progress Notes Patient: NIA LOO Provider: Timoteo Mcgill MD :1970 A ge:54 Y S ex:Male Date:08/14/2024 Address:[address] Pcp:Daniel Salinas MD Subjective: * Chief Complaints: [...] 0 08/14/2024 Generated for Ran velez/Freedom/eTransmitting on: 0 01/21/2025 03:02 PM EDT
--- OUTSIDE RECORDS SUMMARY | 2025-01-10 11:50 | XMS_ITS ---
Author Organization [facility] Address [address] [place] [address] Care Team Providers Care Burn Out Tender Lace Name Role Phone Daniel Salinas MD Primary Care Provider UnaRfaat Arzola [phone] REASON FOR VISIT Common bile duct stones Encounters Encounter Location Date Provider Diagnosis [facility] Outpatient [address] [place] [address] [place] [phone] 01/10/2025 Rafat Mcgill Plan Of Treatment No Information Progress Notes * NIA MATHIASDOB:[birth year] (54 yo M)Acc No.[id number]:01/10/2025 Progress Notes Patient: NIA LOO Provider: Timoteo Mcgill MD :1970 A ge:54 Y S ex:Male Date:01/10/2025 Address:[address] [facility] Pcp:Daniel Salinas MD Subjective: * Chief Complaints: [...] Pending * Provider: Timoteo Mcgill MD Date: 01/10/2025 Generated for Printi ng/Faxing/eTransmitting on: 01/21/2025 03:02 PM EDT
[2025-01-21 14:10] VITALS: BP 132/86; PULSE 77; TEMP 36.3; O2SAT 98; BMI 29.0
--- NOTE | 2025-01-21 14:10 | MHC.PC.OV ---
Vital Signs 01/21/25 14:10 Height 5 ft 4 in Weight 169 lb 4 oz BMI 29.0 BP 132/86 Blood Pressure Location Lt brachial Position Sitting Pulse 77 Pulse Source Pulse Oximeter Temp 97.3 F Temp Source Temporal Artery Scan Pulse Oximetry (%) 98 Oxygen Delivery Method Room Air Intake Visit Reasons: [facility]MC/Stomach pain 01/07/25 Allergies No Known Allergies Allergy (Verified 01/21/25 14:48) Medication List - Last Reconciled 01/21/25 by Daniel Salinas MD acetaminophen 650 mg PO Q6H PRN amlodipine 5 mg PO DAILY aspirin ([place] Aspirin) 81 mg PO DAILY Held on 01/15/25. Instructions: Resume on 01/17/25. atorvastatin 80 mg PO BEDTIME cholecalciferol (vitamin D3) 50 mcg PO DAILY 90 days clopidogrel 75 mg PO DAILY Held on 01/15/25. Instructions: Resume on 01/17/25. lisinopril 40 mg PO BEDTIME metformin ER 500 mg PO BEDTIME metoprolol succinate ER 100 mg PO BEDTIME omeprazole 20 mg PO DAILY@0630 oxycodone 5 mg PO Q8H PRN tramadol 50 mg PO BID PRN Tobacco use date assessed: 01/21/25 Dental Screening Dental Screen Date: 01/21/25 Did you have a dental visit in the last 12 months?: No Did you have a dental problem in the last 6 months where you did not have access to dental care?: No Was dental information given to patient?: Patient has dentist HPI HMC/Stomach pain 01/07/25 HPI Details Patient comes in for TCM He was admitted to [facility] for 6 days earlier this month (from 01/09/25 to 01/15/25) for common bile duct calculus He reportedly presented to the ER multiple times recently for frequent nausea and upper abdominal pain Workups done in the ER revealed elevated LFTs, leukocytosis and a 6-7 mm stone in the inferior aspect of the cystic duct on CT of the abdomen and pelvis, with the pain relieved by tramadol Surgery was consulted, who recommended admission, IV antibiotics and ERCP with GI He eventually underwent ERCP with sphincterotomy on 01/14/2025 No stones were reportedly found during sweeping, no filling defects postprocedure and it was presumed that the patient passed his CBD stone at the time He was eventually discharged home next day on 01/15/2025 with significant improvement of his symptoms Patient states that he currently feels okay and other than some mild bloating sensation and discomfort over the right side of his abdomen, he has no other acute symptoms and no recurrence of his previous GI complaints States that he is tolerating oral feedings well and has been moving his bowels regularly for the past few days Needs his Vitamin D Rx refilled TCM TCM Information Date of Discharge 01/15/25 [facility]charged From [facility] Interactive Contact Date (Reference documentation from this date) 01/21/25 [facility] Medical History (Updated 01/21/25 @ 14:47 by Daniel Salinas MD) Choledocholithiasis Overweight (BMI 25.0-29.9) HTN (hypertension) Erectile dysfunction Type 2 diabetes mellitus with hyperglycemia Elevated LFTs Impaired fasting glucose Vitamin D deficiency Obesity (BMI 30-39.9) Benign essential hypertension Pure hypercholesterolemia CAD (coronary artery disease) Surgical History History of endoscopy Hx of hernia repair Hx of cardiac catheterization History of colonoscopy (~02/22/18) Hx of cholecystectomy (~03/2018) Social History Household Members: Spouse Housing: House Are you a primary daycare teacher to a significant other at home: No Do you presently have visiting nurse or other home services: No Alcohol intake: current Alcohol intake frequency: a few times a week Patient Tobacco Use Status: Former Tobacco user Tobacco use type: Cigarette e-Cigarette/Vaping Use: Never Used service: No Current occupational status: employed 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 1. Little interest or pleasure in doing things: not at all 2. Feeling down, depressed, or hopeless: not at all 3. Trouble falling or staying asleep, or sleeping too much: not at all 4. Feeling tired or having little energy: several days 5. Poor appetite or overeating: not at all 6. Feeling bad about yourself - or that you are a failure or have let yourself or your family down: not at all 7. Trouble concentrating on things, such as reading the newspaper or watching television: not at all 8. Moving or speaking so slowly that other people could have noticed. Or the opposite - being so fidgety or restless that you have been moving around a lot more than usual: not at all 9. Thoughts that you would be better off or of hurting yourself in some way: not at all Total score: 1 Depression Screening Interpretation: Negative Depression Screening Done: Yes 73123 - PHQ-9 Billing: Yes Source: Developed by Drs. Rafat Still, Shannon Chance, Foreign Crawford and colleagues, with an educational sharan from [employer]. Thrive Questionnaire Date Thrive assessed: 01/21/25 I am a: Patient What is your living situation today?: I have a steady place to live Within the past 12 months, did the food you bought not last and you didn't have the money to get more?: Never true Within the past 12 months, did you worry whether your food would run out before you got money to buy more?: Never true Do you have trouble paying for medicines?: No Do you have trouble getting transportation to medical appointments?: No Do you have trouble paying your heating and electricity bill?: No Do you have trouble taking care of your child, family member or friend?: No Do you have trouble with day-to-day activities such as bathing, preparing meals, shopping, managing finances, etc.?: No Are you currently unemployed and looking for a job?: No Are you interested in more education?: No Please select the resources that you would like help with: None Currently or been in a relationship where the following occur: No concerns reported THRIVE Score: 0 AUDIT C Alcohol Use Questionnaire (AUDIT-C) 1. How often do you have a drink containing alcohol?: Monthly or less 2. How many drinks containing alcohol do you have on a typical day when you are drinking?: 1 or 2 3. How often do you have six or more drinks on one occasion?: Never Total Score: 1 Score Reviewed/Action Taken: Yes ROSLYN-7 AMB Questionnaire ROSLYN-7 Date ROSLYN - 7 assessed: 12/02/24 Feeling nervous, anxious, or on edge: 0 = Not at all Not being able to stop or control worryin = Not at all Worrying too much about different things: 0 = Not at all Trouble relaxin = Not at all Being so restless that it is hard to sit still: 0 = Not at all Becoming easily annoyed or irritable: 0 = Not at all Feeling afraid as if something awful might happen: 0 = Not at all Total ROSLYN-7 score (0-4 normal; 5-9 mild; 10-14 moderate; 15-21 severe): 0 Source: Developed by Drs. Rafat Still, Shannon Chance, Foreign Crawford and colleagues, with an educational sharan from [employer]. Review of Systems Const Denies chills, Denies fatigue, Denies fever(s) and Denies headache(s) ENT Denies dysphagia, Denies dizziness, Denies otalgia, Denies headache(s), Denies neck pain, Denies odynophagia and Denies sore throat Card Denies chest pain, Denies palpitations and Denies dyspnea Resp Denies chest congestion, Denies cough and Denies dyspnea GI Denies abdominal pain, Reports bloating (mild, over the right side of the abdomen), Denies constipation, Denies dysphagia, Denies heartburn, Denies diarrhea, Denies nausea, Denies odynophagia and Denies vomiting Reports erectile dysfunction, Denies dysuria, Denies nocturia and Denies urinary frequency Musc Reports back pain (over the lower back - chronic) and Denies neck pain Skin/Breast Denies rash Neuro Denies dizziness and Denies headache(s) Endo Denies fatigue and Denies palpitations Physical exam (Primary Care) Vital Signs: Last Vital Signs Temp 97.3 F 01/21/25 14:10 Pulse 77 01/21/25 14:10 BP 132/86 01/21/25 14:10 Pulse Ox 98 01/21/25 14:10 Oxygen Delivery Method Room Air 01/21/25 14:10 BMI result Body Mass Index 29.0 Tobacco/Smoking Status: Tobacco use Status Tobacco use date assessed 01/21/25 01/21/25 14:15 Patient Tobacco Use Status Former Tobacco user 01/21/25 14:15 Tobacco use type Cigarette 01/21/25 14:15 e-Cigarette/Vaping Use Never Used 01/21/25 14:15 PHQ-9: PHQ-9 Score PHQ-9: Total score 1 01/21/25 14:45 Depression Screening Interpretation: Negative Thrive Assessment: Date of Thrive Assessment Date Thrive assessed 11/30/24 01/21/25 14:15 Currently or been in a relationship where the following occur: No concerns reported Const General: no acute distress and alert HENMT Throat: Yes posterior oropharynx normal and Yes tonsils normal Neck Neck: Yes supple and No lymphadenopathy Thyroid: Thyroid normal Resp Auscultation: clear to auscultation bilaterally, no rales and no wheezes Cardio Rate: regular rate Rhythm: regular rhythm Heart sounds: no murmurs GI Palpation (GI): Soft to palpation and nontender Auscultation: normal bowel sounds General: Yes no CVA tenderness Back/Spine/Pelvis Back: no CVA tenderness Thoracic/Lumbar Spine: lumbar spinal tenderness Skin Rashes: no rashes Extrem General: Yes no clubbing, cyanosis or edema Coding Level of Care Code TCM Mod MDM <= 7 Days Diagnoses Choledocholithiasis K80.50 Vitamin D deficiency E55.9 Additional Codes PHQ-9 - 33145 - PHQ-9 Billing: Yes ([id number]) Assessment & Plan Assessment & Plan (1) Choledocholithiasis: Code(s): K80.50 - Calculus of bile duct without cholangitis or cholecystitis without obstruction Category: Medical Plan: S/P ERCP with sphincterotomy with Dr. Mcgill on 01/14/2025, with significant improvement of his symptoms Patient reports no recurrence of his previous GI symptoms since his discharged from the hospital last week Follow up with GI as scheduled (2) Vitamin D deficiency: Code(s): E55.9 - Vitamin D deficiency, unspecified Category: Medical Plan: Continue Vitamin D3 2000 units QD - Rx refilled Plan Follow up as scheduled in March 2025 Medications: Refilled cholecalciferol (vitamin D3) 50 mcg PO DAILY 90 caps 4RF 90 days E55.9 - Vitamin D deficiency, unspecified
--- NOTE | 2025-01-21 14:35 | MHC.OFFVIS ---
Vital Signs 01/21/25 14:10 Height 5 ft 4 in Weight 169 lb 4 oz BMI 29.0 BP 132/86 Blood Pressure Location Lt brachial Position Sitting Pulse 77 Pulse Source Pulse Oximeter Temp 97.3 F Temp Source Temporal Artery Scan Pulse Oximetry (%) 98 Oxygen Delivery Method Room Air Intake Visit Reasons: HMC/Stomach pain 01/07/25 Allergies No Known Allergies Allergy (Verified 01/21/25 14:13) PFSH Medical History Overweight (BMI 25.0-29.9) HTN (hypertension) Erectile dysfunction Type 2 diabetes mellitus with hyperglycemia Elevated LFTs Impaired fasting glucose Vitamin D deficiency Obesity (BMI 30-39.9) Benign essential hypertension Pure hypercholesterolemia CAD (coronary artery disease) Surgical History History of endoscopy Hx of hernia repair Hx of cardiac catheterization History of colonoscopy (~02/22/18) Hx of cholecystectomy (~03/2018) Social History Household Members: Spouse Housing: House Are you a primary pharmacy care coordinator to a significant other at home: No Do you presently have visiting nurse or other home services: No Alcohol intake: current Alcohol intake frequency: a few times a week Patient Tobacco Use Status: Former Tobacco user Tobacco use type: Cigarette e-Cigarette/Vaping Use: Never Used service: No Current occupational status: employed 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
--- OUTSIDE RECORDS SUMMARY | 2025-01-21 15:02 | XMS_ITS | Clinical Summary ---
Author Organization [facility] Address [address] [place] [address] Phone Care Team Providers Care Project Management Analyst Name Role Phone Daniel Salinas MD Primary Care Provider [phone] Allergies No known active allergies Medications nitroglycerin [...] hr tabletIndicati ons:Atheroscle rotic heart disease of [place] coronary artery with other forms of angina pectoris (CMS/HCC V24) TAKE 1 TABLET BY MOUTH EVERY DAY 90 tablet 2 5 Active lisinopril (PRINIVIL,ZEST RIL) 40 mg tabletIndicati ons:Atheroscle rotic heart disease of [place] coronary artery with other forms of angina pectoris (CMS/HCC V24) TAKE 1 TABLET BY MOUTH EVERY DAY 90 tablet 2 5 Active amLODIPine (NORVASC) 5 mg tabletIndicati ons:Atheroscle rotic heart disease of [place] coronary artery without angina pectoris TAKE 1 AND 1/2 TABLETS BY MOUTH DAILY 135 tablet 2 5 Active atorvastatin (LIPITOR) 80 mg tabletIndicati ons:Atheroscle rotic heart disease of [place] coronary artery with other forms of angina pectoris ([facility] V24) TAKE 1 TABLET BY MOUTH EVERY [...] artery disease of n ative artery of [place] tribe heart with stable angina pectoris ([facility] V24) 01/19/2021 Overview (08/22/2024): March 2018 - several days following his cholecystectomy he presented to [facility] with acute onset chest pain and was found to have a non-STEMI; he was transferred to [facility] and underwent a heart catheterization which [...] weeks. We will obtain his labs from [facility]. Orders: ECG 12 lead Essential hypertension 01/19/2021 [...] atorvastatin. We will obtain his labs from [facility]. Orders: ECG 12 lead Social History Tobacco [...] patient's age to complete this topic Insurance [facility] Care Teams Project Management Analyst Relationship Specialty Start Date End Date Daniel Salinas MD [address] [place] [address] [address] MANUELA Hanks PCP - General Internal Medicine 08/13/21
--- OUTSIDE RECORDS SUMMARY | 2025-01-21 15:03 | XMS_ITS | Patient Health Record ---
Author Organization [facility] Address [address] [place] [address] Care Team Providers Care Ios Developer Name Role Phone Brad CURRY, [place] Primary Care Provider Rafat Agustin Unavailable [phone] Allergies No Known Allergies Results Component Value Reference Range Notes Glucose, Whole Blood Reviewed date:03/22/2024 05:14:17 PM Interpretation: Performing Lab:[facility], [address] [place] [phone] Notes/Report: Glucose, Whole Blood 88 60-115 mg/dL METER # : [id number] Pathology Reviewed date:10/01/2024 12:03:49 AM Interpretation: Performing Lab:[facility], [address] [place] [phone] Notes/Report: Prothrombin Time INR Reviewed date:01/12/2025 10:28:51 PM Interpretation: Performing Lab:[facility], [address] [place] [phone] Notes/Report: Pt went for procedure. JORGE Thomas notified. POLO 01/10/25 Prothrombin Time 11.4 10.9-12.4 SEC INTERNATIONAL NORM RATIO 1.0 0.9-1.1 INTERNATIONAL NORMALIZED RATIO (INR) REFERENCE RANGES Reference Range For patients not on anticoagulant therapy: 0.9 - 1.1 INR ranges for oral anticoagulant therapy: For prevention and treatment of venous thrombosis and pulmonary embolism: 2.0 - 3.0 For acute myocardial infarction with aspirin therapy: 2.0 - 3.0 For acute myocardial infarction without aspirin therapy: 3.0 - 4.0 For patients with mechanical prosthetic heart valves: 2.5 - 3.5 Complete Blood Count Auto Di ff (Not yet reviewed by provider) Interpretation: Performing Lab:[facility], [address] [place] [phone] Notes/Report: White Blood Count 7.8 4.8-10.8 X10*3/uL Red Blood Count 4.26 4.60-5.80 X10*6/uL Hemoglobin 13.2 14.0-18.0 g/dl Hematocrit 38.1 42.0-52.0 % Mean Corpuscular Volume 89.4 80.0-98.0 fL Mean Corpuscular Hemoglobin 31.0 27.0-33.0 pg Mean Corpuscular HGB Conc 34.6 31.0-36.0 g/dl Red Cell Distribution Width 13.2 11.0-16.0 % Platelet Count 234 160-400 X10*3/uL Mean Platelet Volume 9.9 9.4-12.4 fL Neutrophils Percent Auto 66.4 45-73 % Imm Gran Pct Auto 0.8 0.0-0.4 % Lymphocytes Percent Auto 22.2 20-40 % Monocytes Percent Auto 7.9 2-11 % Eosinophils Percent Auto 2.2 0-4 % Basophils Percent Auto 0.5 0-2 % NRBC Pct Auto 0.0 0.0-0.2 /100WBC Neutrophils Absolute Auto 5.2 2.0-8.3 x10*3/u L Imm Gran Abs Auto 0.06 0.00-0.03 X10*3/uL Lymphocytes Absolute Auto 1.7 1.2-4.9 X10*3/u L Monocytes Absolute Auto 0.6 0.1-1.2 X10*3/uL Eosinophils Absolute Auto 0.2 0.0-0.4 X10*3/u L Basophils Absolute Auto 0.0 0.0-0.2 X10*3/uL NRBC Abs Auto 0.000 0.0-0.012 X10*3/uL Liver Panel (Not yet reviewe d by provider) Interpretation: Performing Lab:[facility], [address] [place] [phone] Notes/Report: Bilirubin Total 1.0 0.0-1.0 mg/dL Bilirubin Direct 0.4 0.0-0.5 mg/dL Aspartate Amino Transferase 43 5-37 U/L Alanine Aminotransferase 202 0-40 U/L Total Protein 6.6 6.5-8.0 g/dL Albumin Level 3.8 3.5-5.0 g/dL Alkaline Phosphatase 113 39-117 U/L Basic Metabolic Panel Fastin g (Not yet reviewed by provider) Interpretation: Performing Lab:[address] [phone] Notes/Report: Sodium 142 135-145 mmol/L Potassium 3.6 3.3-5.1 mmol/L Chloride 105 96-108 mmol/L Carbon Dioxide 28 22-29 mmol/L Anion Gap 13 12-20 Blood Urea Nitrogen 15 9-16 mg/dL Creatinine 0.94 0.5-1.4 mg/dL Creatinine Clr Calc Pharmacy 82.7 eGFR (calculated from the MDRD study equation) and eCrCl (calculated from the Cockcroft-Gault equation) are based on different parameters and may not yield comparable results. If eCrCl result is absurd, please check patient's height/weight. Estimated Glomerular Filt Rate > 60 Chronic Kidney Disease: Estimated GFR < 60 mL/min/1.73m2 Severe Kidney Disease: Estimated GFR < 15 mL/min/1.73m2 Glucose Fasting 119 60-99 mg/dL A fasting glucose from 100-125 mg/dl is considered impaired (pre-diabetes). Calcium 8.6 8.4-10.2 mg/dL Lipase (Not yet reviewed by provider) Interpretation: Performing Lab:[address] [phone] Notes/Report: Lipase 44 8-78 U/L FL guidance in OR (Not yet r eviewed by provider) Interpretation: Performing Lab: Notes/Report: [address] [place] [address] Fluoroscopy Report Signed Patient: Nia Washburn MR#: [id number] : 1970 Acct:[id number] Age/Sex: 54 / M ADM Date: 01/09/25 Loc: HO.S3 361-[address]: Marcelle Womack NP Ordering Physician: Rafat Mcgill MD Date of Service: 01/13/25 Procedure(s): FL guidance in OR Accession Number(s): [id number] cc: Daniel Salinas MD; Rafat Mcgill MD EXAMINATION: FL GUIDANCE ONLY HISTORY: ERCP COMPARISON: Relation is made with a CT of the abdomen and pelvis dated 01/08/2025. TECHNIQUE: Fluoroscopy time: 2 minutes, 51 seconds. Cumulative Dose: 41.842 mGy. DAP: 18.201 mGym2 Images: 11. FINDINGS: Fluoroscopic spot film from an ERCP demonstrate a normal caliber common bile duct and intrahepatic biliary radicles. No filling defects are identified. FL/FL guidance in OR IMPRESSION: Fluoroscopy during procedure. Please see procedure report for additional information. Electronically signed by: Rafat Collazo MD 01/13/2025 04:00 PM EDT RP Dictated By: Rafat Collazo MD Signed By: <Electronically signed by Rafat Collazo MD in OV> 01/13/25 1600 DD/ 1459 TD/TT: 01/13/25 1527 Continuous Improvement Specialist: Complete Blood Count Auto Di ff (Not yet reviewed by provider) Interpretation: Performing Lab:[facility], [address] [place] [phone] Notes/Report: White Blood Count 10.6 4.8-10.8 X10*3/uL Red Blood Count 4.27 4.60-5.80 X10*6/uL Hemoglobin 13.2 14.0-18.0 g/dl Hematocrit 38.3 42.0-52.0 % Mean Corpuscular Volume 89.7 80.0-98.0 fL Mean Corpuscular Hemoglobin 30.9 27.0-33.0 pg Mean Corpuscular HGB Conc 34.5 31.0-36.0 g/dl Red Cell Distribution Width 13.0 11.0-16.0 % Platelet Count 253 160-400 X10*3/uL Mean Platelet Volume 9.8 9.4-12.4 fL Neutrophils Percent Auto 81.3 45-73 % Imm Gran Pct Auto 0.7 0.0-0.4 % Lymphocytes Percent Auto 12.9 20-40 % Monocytes Percent Auto 4.9 2-11 % Eosinophils Percent Auto 0.1 0-4 % Basophils Percent Auto 0.1 0-2 % NRBC Pct Auto 0.0 0.0-0.2 /100WBC Neutrophils Absolute Auto 8.6 2.0-8.3 x10*3/u L Imm Gran Abs Auto 0.07 0.00-0.03 X10*3/uL Lymphocytes Absolute Auto 1.4 1.2-4.9 X10*3/u L Monocytes Absolute Auto 0.5 0.1-1.2 X10*3/uL Eosinophils Absolute Auto 0.0 0.0-0.4 X10*3/u L Basophils Absolute Auto 0.0 0.0-0.2 X10*3/uL NRBC Abs Auto 0.000 0.0-0.012 X10*3/uL Liver Panel (Not yet reviewe d by provider) Interpretation: Performing Lab:[address] [phone] Notes/Report: Bilirubin Total 1.2 0.0-1.0 mg/dL Bilirubin Direct 0.4 0.0-0.5 mg/dL Aspartate Amino Transferase 41 5-37 U/L Alanine Aminotransferase 168 0-40 U/L Total Protein 6.6 6.5-8.0 g/dL Albumin Level 3.7 3.5-5.0 g/dL Alkaline Phosphatase 114 39-117 U/L Basic Metabolic Panel Fastin g (Not yet reviewed by provider) Interpretation: Performing Lab:[facility], [address] [place] [phone] Notes/Report: Sodium 140 135-145 mmol/L Potassium 4.1 3.3-5.1 mmol/L Chloride 106 96-108 mmol/L Carbon Dioxide 24 22-29 mmol/L Anion Gap 14 12-20 Blood Urea Nitrogen 15 9-16 mg/dL Creatinine 0.90 0.5-1.4 mg/dL Creatinine Clr Calc Pharmacy 86.4 eGFR (calculated from the MDRD study equation) and eCrCl (calculated from the Cockcroft-Gault equation) are based on different parameters and may not yield comparable results. If eCrCl result is absurd, please check patient's height/weight. Estimated Glomerular Filt Rate > 60 Chronic Kidney Disease: Estimated GFR < 60 mL/min/1.73m2 Severe Kidney Disease: Estimated GFR < 15 mL/min/1.73m2 Glucose Fasting 109 60-99 mg/dL A fasting glucose from 100-125 mg/dl is considered impaired (pre-diabetes). Calcium 8.8 8.4-10.2 mg/dL Reason For Referral No Information Medications Medication SIG (Take, Route, Frequency, Duration) Notes Start Date End Date Status Aspirin 81 81 MG 1 tablet Orally Once a day for 30 day(s) Active amLODIPine Besylate Active Lisinopril Active Metoprolol Succinate ER 100 MG Oral for 30 Active Omeprazole 20 MG TAKE 1 CAPSULE BY [facility] EVERY DAY FOR 30 DAYS for 30 Active Cyclobenzaprine HCl 10 MG Oral for 30 PRN Active Atorvastatin Calcium 80 MG Oral for 30 Active Clopidogrel Bisulfate 75 MG Oral for 30 Active Vitamin D3 50 MCG (1999) Oral for 83 Active Immunizations Vaccine Route Administration Date Status Comme nts Influenza Unknown 03/21/2023 Administered Social History Tobacco Use: Social History Observation Description Date Details (start date - stop date) Former Smoker NA - NA Tobacco Use/Smoking Question Answer Notes Patient is [...] Never (0 point) Points 2 Interpretation Negative Section Notes: Nonsmoker; no sig alcohol Nonsmoker; no sig alcohol Nonsmoker; no sig alcohol Problems Problem Type SNOMED Code ICD Code Onset Dates Problem Status W/U Status Risk Notes Problem Colon cancer screening (721771439) Colon cancer screening (Z12.11) Active confirmed Problem 08864832 Rectal bleeding (K62.5) Active confirmed Problem Gastro-esophageal reflux disease without esophagitis (917210488) Gastro-esophageal reflux disease without esophagitis (K21.9) Active confirmed Problem 720058047 Encounter for screening for malignant neoplasm of colon (Z12.11) Active confirmed Problem Diverticular disease of colon (166493131) Diverticulosis of large intestine without perforation or abscess without bleeding (K57.30) Active confirmed Problem 036896612 Calculus of gallbladder without cholecystitis without obstruction (K80.20) Active confirmed Problem 171165043 Elevated liver enzymes (R74.8) Active confirmed Problem 499297625 Fatty liver (K76.0) Active confirmed Problem 524521920 Family history o f colon cancer (Z80.0) Active confirmed Problem Chronic gastritis (2388933) Chronic gastritis (K29.50) Active confirmed Problem Family history of malignant neoplasm of gastrointestinal tract (772153084) Family history of colon cancer in mother (Z80.0) Active confirmed Problem Gastroesophageal reflux disease (819028062) Chronic GERD (K21.9) Active confirmed Encounters Encounter Location Date Provider Diagnosis [facility] Outpatient [address] [place] [phone] 03/22/2024 Rafat Mcgill Colon cancer screeni ng Z12.11 ; Family history of colon cancer Z80.0 ; Diverticulosis of large intestine without perforation or abscess without bleeding K57.30 ; Other hemorrhoids K64.8 ; Gastro-esophageal reflux disease without esophagitis K21.9 ; Other specified disease of esophagus K22.89 ; Hiatal hernia K44.9 and Chronic gastritis K29.50 [facility] Outpatient [address] [place] [phone] 01/10/2025 Rafat Mcgill [facility] [address] [place] [phone] 02/08/2024 Rafat Mcgill [facility] [address] [place] [phone] 03/22/2024 Rafat Mcgill [facility] [address] [place] [phone] 03/25/2024 Rafat Mcgill [facility] [address] [place] [phone] 04/12/2024 Rafat Mcgill [facility] [address] [place] [phone] 08/14/2024 Rafat Mcgill Assessments Encounter Date Diagnosis (ICD Code) Assessment [...] gastritis (ICD-10 - K29.50) Plan Of Treatment Pending Test Test Name Order Date Complete Blood Count Auto Diff Complete Blood Count Auto Diff Liver Panel 01/13/2025 Liver Panel 01/14/2025 Basic Metabolic Panel Fasting 01/13/2025 Basic Metabolic Panel Fasting 01/14/2025 Lipase 01/13/2025 FL guidance in OR 01/13/2025 Future Test Test Name Order Date COLONOSCOPY 02/09/2018 UPPER GI ENDOSCOPY 11/22/2023 COLONOSCOPY 11/22/2023 Insurance Providers Payer Name Payer Address Payer Phone Subscriber Number Group Number Insured Name Patient Relationship to Insured Coverage Start Date Coverage End Date [facility] [address] [place], [place] [id number] NIA WASHBURN Self - patient is the insured Medical (General) History Medical History History ICD Code Hypertension Denies DM,CVA,Lung disease,renal disease Elevated liver tests--fatty liver--- otherwise negative workup including imaging studies, iron studies, viral serologies, alpha-1 antitrypsin level, ceruloplasmin level, and SHANIQUA Negative screening colonoscopy in 01/[place]--had a cath with [address] ent placed--sees Dr. Suresh Back pain-gets steroid injections GERD Surgical History Surgery Date(Month/Year) Hernia age 17 CCY-Dr. Betancourt
== END 2025-01-21 15:48 | disposition home or self-care (01) ==
PROVIDERS: PCP Internal Medicine; Visit Provider Internal Medicine
DX: K80.50 Calculus of bile duct without cholangitis or cholecystitis without obstruction (principal); E55.9 Vitamin D deficiency, unspecified

== ENCOUNTER → 2025-01-21 14:05 | Outpatient (BNVA) | payer BC, SELFPAY | PROVIDERS: PCP Internal Medicine; Visit Provider Internal Medicine | DX: K80.50 Calculus of bile duct without cholangitis or cholecystitis without obstruction (principal); R10.10 Upper abdominal pain, unspecified; E55.9 Vitamin D deficiency, unspecified | CPT/HCPCS: 96127 ==

== ENCOUNTER 2025-04-11 07:31 | Outpatient (REF) | payer BC, SELFPAY ==
--- OUTSIDE RECORDS SUMMARY | 2024-03-22 03:30 | XMS_ITS ---
Author Organization [facility] Address [address] [place] [address] Care Team Providers Care Cardiovascular Or Nurse Name Role Phone Patrice Salinas MDneth Primary Care Provider UnaRafat Arzola Unavailable [phone] REASON FOR VISIT fm hx of colon ca/screening/gerd Problems Problem Type SNOMED Code ICD Code Onset Dates Problem Status W/U Status Risk Notes Problem Diverticular disease of colon (230794265) Diverticulosis of large intestine without perforation or abscess without bleeding (K57.30) Active confirmed Problem Gastro-esophagea l reflux disease without esophagitis (308363605) Gastro-esophageal reflux disease without esophagitis (K21.9) Active confirmed Problem Chronic gastritis (6209610) Chronic gastritis (K29.50) Active confirmed Encounters Encounter Location Date Provider Diagnosis [facility] [address] [place], [place] [phone] 03/22/2024 Rafat Mcgill Colon cancer scree leigha [...] * NIA MATHIASDOB:[birth year] (54 yo M)Acc No.[id number]:03/22/2024 EGD and COL/MAC Patient: NIA LOO Provider: Timoteo Mcgill MD :1970 A ge:53 Y S ex:Male Date:03/22/2024 Address:[address] [place], [place] [phone] Pcp:Daniel Salinas MD Subjective: * Chief Complaints: * 1 . Fm hx of colon ca/screening/gerd. * Medical History: Objective: * Vitals: Assessment: * Assessment: 1. C olon cancer [...] C hronic gastritis - K29.50 Plan: * Treatment: * Procedure Codes: 4 5378 DIAGNOSTIC COLONOSCOPY, Modifiers: 33 , 18639 UPPER GI ENDOSCOPY, BIOPSY * * The named appointment provid er may or may not be the originator of this progress note, and it is not deemed complete until electronically signed by the appointment provider. Sign off status: Pending * Provider: Timoteo Mcgill MD Date: Generated for Ran velez/Freedom/eTransmitting on: 06/11/2024 07:33 AM EST
--- OUTSIDE RECORDS SUMMARY | 2024-07-31 11:00 | XMS_ITS ---
Author Organization [facility] Address [address] [place] [address] Care Team Providers Care Transactional Attorney Name Role Phone Daniel Salinas MD Primary Care Provider Rafat Agustin [phone] REASON FOR VISIT gerd , fatty liver Encounters Encounter Location Date Provider Diagnosis [facility] [address] [place] [address] 07/31/2024 Rafat Mcgill Plan Of Treatment No Information Progress Notes * NIA MATHIASDOB:[birth year] (54 yo M)Acc No.[id number]:07/31/2024 Progress Notes Patient: NIA LOO Provider: Timoteo Mcgill MD :1970 A ge:54 Y S ex:Male Date:07/31/2024 Address:[address], [place] Pcp:Daniel Salinas MD Subjective: * Chief Complaints: * 1 . Gerd , fatty liver. * Medical History: Objective: * Vitals: Assessment: Plan: * Treatment: * * The named appointment provid er may or may not be the originator of this progress note, and it is not deemed complete until electronically signed by the appointment provider. Sign off status: Pending * Provider: Timoteo Mcgill MD Date: 0 07/31/2024 Generated for Francisco Javieri ng/Fachristopherg/eTransmitting on: 1 06/11/2024 07:33 AM EST
--- OUTSIDE RECORDS SUMMARY | 2024-08-14 11:00 | XMS_ITS ---
Author Organization [facility] Address [address] [facility] [place] [address] Care Team Providers Care Motorized Squad Captain Name Role Phone Daniel Salinas MD Primary Care Provider Rafat Agustin [phone] REASON FOR VISIT Patient presents today for gerd, fatty liver Encounters Encounter Location Date Provider Diagnosis [facility] [address] [facility] [place] [address] 08/14/2024 Rafat Mcgill Plan Of Treatment No Information Progress Notes * NIA MATHIASDOB:[birth year] (54 yo M)Acc No.[id number]:08/14/2024 Progress Notes Patient: NIA LOO Provider: Timoteo Mcgill MD :1970 A ge:54 Y S ex:Male Date:08/14/2024 [facility] Pcp:Daniel Salinas MD Subjective: * Chief Complaints: * 1 . Patient presents today for gerd, fatty liver. * Medical History: Objective: * Vitals: Assessment: Plan: * Treatment: * * The named appointment provid er may or may not be the originator of this progress note, and it is not deemed complete until electronically signed by the appointment provider. Sign off status: Pending * Provider: Timoteo Mcgill MD Date: 0 08/14/2024 Generated for Ran velez/Freedom/eTransmitting on: 06/11/2024 07:33 AM EST
--- OUTSIDE RECORDS SUMMARY | 2025-01-10 10:50 | XMS_ITS ---
Author Organization [facility] Address [address] [place] [address] Care Team Providers Care Ship Wirer Name Role Phone Daniel Salinas MD Primary Care Provider UnaRafat Arzola [phone] REASON FOR VISIT Common bile duct stones Encounters Encounter Location Date Provider Diagnosis [facility] Out[facility] [address] [place] [address] [place] [phone] 01/10/2025 Rafat Mcgill Plan Of Treatment No Information Progress Notes * NIA MATHIASDOB:[birth year] (54 yo M)Acc No.[id number]:01/10/2025 Progress Notes Patient: NIA LOO Provider: Timoteo Mcgill MD :1970 A ge:54 Y S ex:Male Date:01/10/2025 Address[address] [facility] Pcp:Daniel Salinas MD Subjective: * Chief Complaints: * 1 . Common bile duct stones. * Medical History: Objective: * Vitals: Assessment: Plan: * Treatment: * * The named appointment provid er may or may not be the originator of this progress note, and it is not deemed complete until electronically signed by the appointment provider. Sign off status: Pending * Provider: Timoteo Mcgill MD Date: 0 01/10/2025 Generated for Printi ng/Faxing/eTransmitting on: 1 06/11/2024 07:33 AM EST
--- OUTSIDE RECORDS SUMMARY | 2025-04-11 07:33 | XMS_ITS | Clinical Summary ---
Author Organization [facility] Address [address] [place] [address] Phone Care Team Providers Care Iron Melter Name Role Phone Daniel Salinas MD Primary Care Provider [phone] Allergies No known active allergies Medications nitroglycerin (NITROSTAT) 0.[address] 1 tablet (0.4 mg total) under the tongue every 5 (five) minutes if needed for chest pain. 03/09/20 21 Active cholecalciferol (VITAMIN D-3) 50 mcg (2,000 unit) tablet Take 1 tablet (2,000 Units total) by mouth 1 (one) time each day. Active aspirin 81 mg EC tablet Take 1 tablet (81 mg total) by mouth 1 (one) time each day. 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 Active clopidogreL (PLAVIX) 75 mg tablet TAKE 1 TABLET BY MOUTH 1 TIME EACH DAY. 30 tablet 5 12/25/19 25 Active amLODIPine (NORVASC) 10 mg tabletIndications: Coronary artery disease of [place] artery of [place] heart with stable angina pectoris ([facility]/HCC V24),Essential hypertension,Mixed hyperlipidemia Take 1 tablet (10 mg total) by mouth 1 (one) time each day. 90 each 3 02/06/20 25 026 Active ezetimibe (ZETIA) 10 mg tabletIndications: Coronary artery disease of [place] artery of [place]ilton heart with stable angina pectoris (CMS/HCC V24),Mixed hyperlipidemia Take 1 tablet (10 mg total) by mouth 1 (one) time each day. 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 We will obtain his labs from [place]. Orders: ECG 12 lead Essential hypertension 01/19/2021 [...] atorvastatin. We will obtain his labs from [place]. Orders: ECG 12 lead Encounters Date Type Department Care Team Description 02/05/2025 Telephone [facility] [address] [place] [address] Petros Menard NP from Last 3 Months Social History Tobacco Use Types Packs/Day Years Used Date Smoking Tobacco: Former Cigarettes 1.5 Q uit: 05/29/2010 Smokeless Tobacco: Never Alcohol [...] Health Maintenance Due Date Last Done Comments Colorectal Cancer Screening: Colonoscopy 1970 Hepatitis B Vaccines (1 of 3 - 19+ 3-dose series) 1988 Pneumococcal Vaccine: 50+ Years (1 of 2 - PCV) 1988 Zoster Vaccines (1 of 2) 2019 Cholesterol Screening (Lipid Panel) 05/07/2022 HIV Screening 05/07/2022 Hepatitis C Screening 05/07/2022 Social Influencers of Health Screening 05/07/2022 Hypertension/CHF/CAD Annual BMP Blood Test 05/08/2022 DTaP,Tdap,and Td Vaccines (3 - Td or Tdap) 10/21/2023 10/20/2013, 10/19/2013 Depression Screening 05/29/2024 COVID-19 Vaccine ( - 2024- season) 2025 10/31/2021, 09/11/2020, 08/21/2020 Influenza Vaccine (#1) 2025 , 04/10/2023, 02/11/2022, Additional history exists RSV Immunization Adult Patients (1 - 1-dose 75+ series) 2044 HIB Vaccines Aged Out No longer eligi [...] patient's age to complete this topic Insurance [facility]) Care Teams Iron Melter Relationship Specialty Start Date End Date Daniel Salinas MD [address] [place] [address] [address] MANUELA Hanks PCP - General Internal Medicine 08/13/21
--- OUTSIDE RECORDS SUMMARY | 2025-04-11 07:33 | XMS_ITS | Patient Health Record ---
Author Organization [facility] Address [address] [place] [address] Care Team Providers Care Bicycle Technician Name Role Phone Brad CURRY, [place] Primary Care Provider Rafat Agustin Unavailable [phone] Allergies No Known Allergies Results Component Value Reference Range Notes Prothrombin Time INR Reviewed date:01/12/2025 10:28:51 PM Interpretation: Performing Lab:[address] [phone] Notes/Report: Pt went for procedure. RN Martha notified. POLO 01/10/25 Prothrombin Time 11.4 10.9-12.4 [...] (Not yet reviewed by provider) Interpretation: Performing Lab:[address] [address] Notes/Report: White Blood Count 7.8 4.8-10.8 X10*3/uL [...] yet reviewe d by provider) Interpretation: Performing Lab:[address] [address] Notes/Report: Bilirubin Total 1.0 0.0-1.0 mg/dL Bilirubin Direct 0.4 0.0-0.5 mg/dL Aspartate Amino Transferase 43 5-37 U/L Alanine Aminotransferase 202 0-40 U/L Total Protein 6.6 6.5-8.0 g/dL Albumin Level 3.8 3.5-5.0 g/dL Alkaline Phosphatase 113 39-117 U/L Basic Metabolic Panel Fastin g (Not yet reviewed by provider) Interpretation: Performing Lab:[address] [address] Notes/Report: Sodium 142 135-145 mmol/L Potassium 3.6 [...] (Not yet reviewed by provider) Interpretation: Performing Lab:[facility], [address] [place] [phone] Notes/Report: Lipase 44 8-78 U/L FL guidance in OR (Not yet r eviewed by provider) Interpretation: Performing Lab: Notes/Report: [address] [address] Fluoroscopy Report Signed Patient: Nia Washburn MR#: [id number] : 1970 Acct:[id number] Age/Sex: 54 / M ADM Date: 01/09/25 Loc: .S3 361-[address]: Marcelle Womack NP Ordering Physician: Rafat Mcgill MD Date of Service: 01/13/25 Procedure(s): FL guidance in OR Accession Number(s): [id number] cc: Daniel Salinas MD; Rafat Mcgill MD [...] 01/13/25 1600 DD/ 1459 TD/TT: 01/13/25 1527 Salvage Engineering Technician: Complete Blood Count Auto Di ff (Not yet reviewed by provider) Interpretation: Performing Lab:[facility], [address] [place] [phone] Notes/Report: White Blood Count 10.6 4.8-10.8 X10*3/uL [...] yet reviewe d by provider) Interpretation: Performing Lab:[facility], [address] [place] [phone] Notes/Report: Bilirubin Total 1.2 0.0-1.0 mg/dL Bilirubin Direct 0.4 0.0-0.5 mg/dL Aspartate Amino Transferase 41 5-37 U/L Alanine Aminotransferase 168 0-40 U/L Total Protein 6.6 6.5-8.0 g/dL Albumin Level 3.7 3.5-5.0 g/dL Alkaline Phosphatase 114 39-117 U/L Basic Metabolic Panel Fastin g (Not yet reviewed by provider) Interpretation: Performing Lab:[facility], [address] [place] [phone] Notes/Report: Sodium 140 135-145 mmol/L Potassium 4.1 [...] 81 MG 1 tablet Orally Once a day; Duration: 30 day(s) Active amLODIPine Besylate Active Lisinopril Active Metoprolol Succinate ER 100 MG Oral; Duration: 30 Active Omeprazole 20 MG TAKE 1 CAPSULE BY [facility] EVERY DAY FOR 30 DAYS; Duration: 30 Active Cyclobenzaprine HCl 10 MG Oral; Duration: 30 PRN Active Atorvastatin Calcium 80 MG Oral; Duration: 30 Active Clopidogrel Bisulfate 75 MG Oral; Duration: 30 Active Vitamin D3 50 MCG (1999) Oral; Duration: 83 Active Immunizations Vaccine Route Administration Date [...] Status Risk Notes Problem Colon cancer screening (861358178) Colon cancer screening (Z12.11) Active confirmed Problem Rectal bleeding (98127869) Rectal bleeding (K62.5) Active confirmed Problem Gastro-esophageal reflux disease without esophagitis (586514767) Gastro-esophageal reflux disease without esophagitis (K21.9) Active confirmed Problem Screening for malignant neoplasm of colon (484679960) Encounter for screening for malignant neoplasm of colon (Z12.11) Active confirmed Problem Diverticular disease of colon (294382848) Diverticulosis of large intestine without perforation or abscess without bleeding (K57.30) Active confirmed Problem Cholelithiasis without obstruction (92246467) Calculus of gallbladder without cholecystitis without obstruction (K80.20) Active confirmed Problem Elevated liver enzymes level (605001712) Elevated liver enzymes (R74.8) Active confirmed Problem Fatty liver (673130939) Fatty liver (K76.0) Active confirmed Problem Family History of Cancer of Colon (Situation) (042531676) Family history of colon cancer (Z80.0) Active confirmed Problem Chronic gastritis (5425022) Chronic gastritis (K29.50) Active confirmed Problem Family history of malignant neoplasm of gastrointestinal tract (971409638) Family history of colon cancer in mother (Z80.0) Active confirmed Problem Gastroesophageal reflux disease (disorder) (356318446) Chronic GERD (K21.9) Active confirmed Encounters Encounter Location Date Provider Diagnosis [facility] Outpatient [address] [place], [place] [phone] 01/10/2025 Rafat Mcgill [facility] [address] [place] [phone] 04/12/2024 Rafat Mcgill [facility] [address] [place] [phone] 08/14/2024 Rafat Mcgill Plan Of Treatment Pending Test Test Name [...] Insured Coverage Start Date Coverage End Date [facility] [address] [place], [place] [id number] [phone] [id number] NIA WASHBURN Self - patient is the insured Medical (General) History Medical History History ICD Code Hypertension Denies DM,CVA,Lung disease,renal disease Elevated liver tests--fatty liver--- otherwise negative workup including imaging studies, iron studies, viral serologies, alpha-1 antitrypsin level, ceruloplasmin level, and SHANIQUA Negative screening colonoscopy in 01/2018 [place]--had a cath with [address] ent placed--sees Dr. Suresh Back pain-gets steroid injections GERD Surgical History Surgery Date(Month/Year) Hernia age 17 CCY-Dr. Betancourt
[2025-04-11 07:47] LABS: MANUAL DIFF FLAG NO
[2025-04-11 08:29] LABS: Hematocrit 41.1 % (42.0-52.0); Hemoglobin 13.7 g/dl (14.0-18.0); Imm Gran Abs Auto 0.03 X10*3/uL (0.00-0.03); Imm Gran Pct Auto 0.4 % (0.0-0.4); Lymphocytes Absolute Auto 2.0 X10*3/uL (1.2-4.9); Mean Corpuscular HGB Conc 33.3 g/dl (31.0-36.0); Mean Corpuscular Hemoglobin 30.4 pg (27.0-33.0); Mean Corpuscular Volume 91.3 fL (80.0-98.0); NRBC Abs Auto 0.000 X10*3/uL (0.0-0.012); NRBC Pct Auto 0.0 /100WBC (0.0-0.2); Platelet Count 234 X10*3/uL (160-400); Red Blood Count 4.50 X10*6/uL (4.60-5.80); White Blood Count 7.7 X10*3/uL (4.8-10.8)
[2025-04-11 09:10] LABS: Alanine Aminotransferase 41 U/L (0-40); Albumin Level 4.2 g/dL (3.5-5.0); Alkaline Phosphatase 72 U/L (39-117); Anion Gap 12 (12-20); Aspartate Amino Transferase 29 U/L (5-37); Blood Urea Nitrogen 16 mg/dL (9-16); Calcium 8.7 mg/dL (8.4-10.2); Carbon Dioxide 24 mmol/L (22-29); Chloride 110 mmol/L (96-108); Cholesterol 104 mg/dL (<200); Estimated Glomerular Filt Rate > 60; HDL Cholesterol 31 mg/dL (>40); Potassium 4.0 mmol/L (3.3-5.1); Sodium 142 mmol/L (135-145); Total Protein 7.1 g/dL (6.5-8.0); Triglycerides 78 mg/dL (<150)
[2025-04-11 09:38] LABS: Microalbum/Creatinine Ratio Ur 3.9 ug/mg cr (<30)
== END 2025-04-11 07:32 | disposition home or self-care (01) ==
LOC: HO.LAB 07:31
PROVIDERS: PCP Internal Medicine; Visit Provider Internal Medicine
DX: E11.9 Type 2 diabetes mellitus without complications (principal); D64.9 Anemia, unspecified; E78.00 Pure hypercholesterolemia, unspecified
CPT/HCPCS: 36415; 80053; 80061; 82043; 82570; 83036; 85025

== ENCOUNTER 2025-04-14 16:43 | Outpatient (AMB) | payer BC, SELFPAY ==
--- OUTSIDE RECORDS SUMMARY | 2024-03-22 03:30 | XMS_ITS ---
Author Organization [facility] Address [address] [place] [address] Care Team Providers Care Inspector Rough Castings Name Role Phone Patrice Salinas MDneth Primary Care Provider UnaRafat Arzola Unavailable [phone] REASON FOR VISIT fm hx of colon ca/screening/gerd Problems Problem Type SNOMED Code ICD Code Onset Dates Problem Status W/U Status Risk Notes Problem Diverticular disease of colon (312857323) Diverticulosis of large intestine without perforation or abscess without bleeding (K57.30) Active confirmed Problem Gastro-esophagea l reflux disease without esophagitis (055727520) Gastro-esophageal reflux disease without esophagitis (K21.9) Active confirmed Problem Chronic gastritis (3271870) Chronic gastritis (K29.50) Active confirmed Encounters Encounter Location Date Provider Diagnosis [facility] [address], [place] [phone] 03/22/2024 Rafat Mcgill Colon cancer scree leigha Z12.11 ; Family history of colon cancer Z80.0 ; Diverticulosis of large intestine without perforation or abscess without bleeding K57.30 ; Other hemorrhoids K64.8 ; Gastro-esophageal reflux disease without esophagitis K21.9 ; Other specified disease of esophagus K22.89 ; Hiatal hernia K44.9 and Chronic gastritis K29.50 Assessments Encounter Date Diagnosis (ICD Code) Assessment Notes Treatment Notes Treatment Clinical Notes Section Notes 03/22/2024 Colon cancer screening (ICD-10 - Z12.11) 03/22/2024 Family history of colon cancer (ICD-10 - Z80.0) 03/22/2024 Diverticulosis of large intestine without perforation or abscess without bleeding (ICD-10 - K57.30) 03/22/2024 Other hemorrhoids (ICD-10 - K64.8) 03/22/2024 Gastro-esophageal reflux disease without esophagitis (ICD-10 - K21.9) 03/22/2024 Other specified disease of esophagus (ICD-10 - K22.89) 03/22/2024 Hiatal hernia (ICD-10 - K44.9) 03/22/2024 Chronic gastritis (ICD-10 - K29.50) Plan Of Treatment No Information Progress Notes * NIA MATHIASDOB:[birth year] (54 yo M)Acc No.[id number]:03/22/2024 EGD and COL/MAC Patient: NIA LOO Provider: Timoteo Mcgill MD :1970 A ge:53 Y S ex:Male Date:03/22/2024 Address:[address] [place], [place] [phone] Pcp:Daniel Salinas MD Subjective: * Chief Complaints: * F m hx of colon ca/screening/gerd Assessment: * Assessment: 1. C olon cancer screening - Z12.11 (Primary) 2 . F amily history of colon cancer - Z80.0 3 . D iverticulosis of large intestine without perforation or abscess without bleeding - K57.30 4 . O ther hemorrhoids - K64.8 5 . G jeramie-esophageal reflux disease without esophagitis - K21.9 6 . O ther specified disease of esophagus - K22.89 7 . H iatal hernia - K44.9 ?8. C hronic gastritis - K29.50 Plan: * Procedure Codes: 4 5378 DIAGNOSTIC COLONOSCOPY, Modifiers: 33 56601 UPPER GI ENDOSCOPY, BIOPSY Billing Information: * Procedure Codes: 44181 DIAGNOSTIC COLONOSCOPY. Modifiers: 33 24260 UPPER GI ENDOSCOPY, BIOPSY. * The named appointment provid er may or may not be the originator of this progress note, and it is not deemed complete until electronically signed by the appointment provider. Sign off status: Pending * Provider: Timoteo Mcgill MD Date: Generated for Printi ng/Fachristopherg/eTransmitting on: 1 06/15/2024 07:21 AM EST
--- OUTSIDE RECORDS SUMMARY | 2024-07-31 11:00 | XMS_ITS ---
Author Organization [facility] Address [address] [place] [address] Care Team Providers Care Raw Silk Grader Name Role Phone Daniel Salinas MD Primary Care Provider Rafat Agustin [phone] REASON FOR VISIT gerd , fatty liver Encounters Encounter Location Date Provider Diagnosis [facility] [address] [place] [address] 07/31/2024 Rafat Mcgill Plan Of Treatment No Information Progress Notes * NIA MATHIASDOB:[birth year] (54 yo M)Acc No.[id number]:07/31/2024 Progress Notes Patient: NIA LOO Provider: Timoteo Mcgill MD :1970 A ge:54 Y S ex:Male Date:07/31/2024 Address:[address], [place] Pcp:Daniel Salinas MD Subjective: * Chief Complaints: * G erd , fatty liver * The named appointment provid er may or may not be the originator of this progress note, and it is not deemed complete until electronically signed by the appointment provider. Sign off status: Pending * Provider: Timoteo Mcgill MD Date: 0 07/31/2024 Generated for Francisco Javieri ng/Fachristopherg/eTransmitting on: 1 06/15/2024 07:24 AM EST
--- OUTSIDE RECORDS SUMMARY | 2025-01-10 10:50 | XMS_ITS ---
Author Organization [facility] Address [address] [place] [address] Care Team Providers Care Mathematics Education Professor Name Role Phone Daniel Salinas MD Primary Care Provider UnaRafat Arzola [phone] REASON FOR VISIT Common bile duct stones Encounters Encounter Location Date Provider Diagnosis [facility] [address] [place] [address] [place] [id number] 01/10/2025 Rafat Mcgill Plan Of Treatment No Information Progress Notes * NIA MATHIASDOB:[birth year] (54 yo M)Acc No.[id number]:01/10/2025 Progress Notes Patient: NIA LOO Provider: Timoteo Mcgill MD :1970 A ge:54 Y S ex:Male Date:01/10/2025 Address:[address] [facility] Pcp:Daniel Salinas MD Subjective: * Chief Complaints: * C ommon bile duct stones Billing Information: * Procedure Codes: * The named appointment provid er may or may not be the originator of this progress note, and it is not deemed complete until electronically signed by the appointment provider. Sign off status: Pending * Provider: Timoteo Mcgill MD Date: 0 01/10/2025 Generated for Francisco Javieri rosie/Freedom/eTransmitting on: 1 06/15/2024 07:22 AM EST
[2025-04-14 17:10] VITALS: BP 132/82; PULSE 84; O2SAT 98; BMI 29.9
--- NOTE | 2025-04-14 17:10 | A.OFFPC_ITS ---
Vital Signs 04/14/25 17:10 Height 5 ft 4 in Weight 174 lb BMI 29.9 BP 132/82 Blood Pressure Location Lt brachial Position Sitting Pulse 84 Pulse Source Pulse Oximeter Pulse Oximetry (%) 98 Oxygen Delivery Method Room Air Intake Visit Reasons: CAD, DM, hyperlipidemia, HTN, lumbar spondylosis Allergies No Known Allergies Allergy (Verified 04/14/25 17:31) Medication List - Last Reconciled 04/14/25 by Daniel Salinas MD acetaminophen 650 mg PO Q6H PRN amlodipine 5 mg PO DAILY aspirin ([employer] Aspirin) 81 mg PO DAILY Held on 01/15/25. Instructions: Resume on 01/17/25. atorvastatin 80 mg PO BEDTIME cholecalciferol (vitamin D3) 50 mcg PO DAILY 90 days clopidogrel 75 mg PO DAILY Held on 01/15/25. Instructions: Resume on 01/17/25. lisinopril 40 mg PO BEDTIME metformin ER 500 mg PO BEDTIME metoprolol succinate ER 100 mg PO BEDTIME omeprazole 20 mg PO DAILY@0630 oxycodone 5 mg PO Q8H PRN tramadol 50 mg PO BID PRN Tobacco use date assessed: 01/21/25 Dental Screening Dental Screen Date: 01/21/25 HPI CAD, DM, hyperlipidemia, HTN, lumbar spondylosis HPI Details Patient comes in today his follow-up visit States that he feels okay He denies any headaches or dizziness Denies any chest pains, no increased shortness of breath No nausea/vomiting, no abdominal pain No change in bowel habits noted He had his follow-up labs done a few days ago - to discuss his results [facility] Medical History Choledocholithiasis Overweight (BMI 25.0-29.9) HTN (hypertension) Erectile dysfunction Type 2 diabetes mellitus with hyperglycemia Elevated LFTs Impaired fasting glucose Vitamin D deficiency Obesity (BMI 30-39.9) Benign essential hypertension Pure hypercholesterolemia CAD (coronary artery disease) Surgical History History of endoscopy Hx of hernia repair Hx of cardiac catheterization History of colonoscopy (~02/22/18) Hx of cholecystectomy (~03/2018) Social History Household Members: Spouse Housing: House Are you a primary animal care taker to a significant other at home: No Do you presently have visiting nurse or other home services: No Alcohol intake: current Alcohol intake frequency: a few times a week Patient Tobacco Use Status: Former Tobacco user Tobacco use type: Cigarette e-Cigarette/Vaping Use: Never Used service: No Current occupational status: employed 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 Cognitive needs: No Hearing needs: No Vision needs: No Questionnaire Thrive Questionnaire Date Thrive assessed: 11/30/24 I am a: Patient What is your living situation today?: I have a steady place to live Within the past 12 months, did the food you bought not last and you didn't have the money to get more?: Never true Within the past 12 months, did you worry whether your food would run out before you got money to buy more?: Never true Do you have trouble paying for medicines?: No Do you have trouble getting transportation to medical appointments?: No Do you have trouble paying your heating and electricity bill?: No Do you have trouble taking care of your child, family member or friend?: No Do you have trouble with day-to-day activities such as bathing, preparing meals, shopping, managing finances, etc.?: No Are you currently unemployed and looking for a job?: No Are you interested in more education?: No Please select the resources that you would like help with: None Currently or been in a relationship where the following occur: No concerns reported THRIVE Score: 0 ROSLYN-7 AMB Questionnaire ROSLYN-7 Date ROSLYN - 7 assessed: 12/02/24 Source: Developed by Drs. Rafat Still, Shannon Chance, Foreign Crawford and colleagues, with an educational sharna from [employer]. Review of Systems Const Denies chills, Denies fatigue, Denies fever(s) and Denies headache(s) ENT Denies dysphagia, Denies dizziness, Denies headache(s), Denies neck pain, Denies odynophagia and Denies sore throat Card Denies chest pain, Denies palpitations and Denies dyspnea Resp Denies chest congestion, Denies cough and Denies dyspnea GI Denies abdominal pain, Denies constipation, Denies dysphagia, Denies heartburn, Denies diarrhea, Denies nausea, Denies odynophagia and Denies vomiting Reports erectile dysfunction, Denies dysuria, Denies nocturia and Denies urinary frequency Musc Reports back pain (over the lower back - chronic) and Denies neck pain Skin/Breast Denies rash Neuro Denies dizziness and Denies headache(s) Endo Denies fatigue and Denies palpitations Physical exam (Primary Care) Vital Signs: Last Vital Signs Pulse 84 04/14/25 17:10 BP 132/82 04/14/25 17:10 Pulse Ox 98 04/14/25 17:10 Oxygen Delivery Method Room Air 04/14/25 17:10 BMI result Body Mass Index 29.9 Tobacco/Smoking Status: Tobacco use Status Tobacco use date assessed 01/21/25 04/14/25 17:13 Patient Tobacco Use Status Former Tobacco user 04/14/25 17:13 Tobacco use type Cigarette 04/14/25 17:13 e-Cigarette/Vaping Use Never Used 04/14/25 17:13 Thrive Assessment: Date of Thrive Assessment Date Thrive assessed 11/30/24 04/14/25 17:13 Currently or been in a relationship where the following occur: No concerns reported Const General: no acute distress and alert HENMT Ears: TM's normal bilaterally and EAC's normal Throat: Yes posterior oropharynx normal and Yes tonsils normal Neck Neck: Yes supple and No lymphadenopathy Thyroid: Thyroid normal Resp Auscultation: clear to auscultation bilaterally, no rales and no wheezes Cardio Rate: regular rate Rhythm: regular rhythm Heart sounds: no murmurs GI Palpation (GI): Soft to palpation and nontender Auscultation: normal bowel sounds General: Yes no CVA tenderness Back/Spine/Pelvis Back: no CVA tenderness Thoracic/Lumbar Spine: lumbar spinal tenderness Skin Rashes: no rashes Extrem General: Yes no clubbing, cyanosis or edema Results Reviewed Results Reviewed: Laboratory Tests 04/11/25 07:46 WBC 7.7 Hgb 13.7 L Hct 41.1 L Plt Count 234 Sodium 142 Potassium 4.0 Creatinine 0.89 Estimated GFR > 60 Fasting Glucose 129 H Hemoglobin A1c % 6.4 H Calcium 8.7 AST 29 ALT 41 H Triglycerides 78 Cholesterol 104 LDL Cholesterol, Calc 58 HDL Cholesterol 31 L Coding Level of Care Code Est Pt Level 4 (92360) Diagnoses Coronary artery disease involving [place] coronary artery of [place] heart without angina pectoris I25.10 Associated angina: without angina Coronary Disease-Associated Artery/Lesion type: [place] artery [place] vs. transplanted heart: [place] heart Benign essential hypertension I10 Pure hypercholesterolemia E78.00 Type 2 diabetes mellitus with hyperglycemia, without long-term current use of insulin E11.65 Diabetes mellitus prison insulin use: without prison use Lumbar spondylosis M47.816 Elevated LFTs R79.89 Vitamin D deficiency E55.9 Erectile dysfunction, unspecified erectile dysfunction type N52.9 Erectile dysfunction type: unspecified Overweight (BMI 25.0-29.9) E66.3 Assessment & Plan Assessment & Plan (1) CAD (coronary artery disease): Comment: 03/2018 - NSTEMI; cardiac cath done revealed (+) multivessel disease, with 95% stenosis of the RP LV branch Code(s): I25.10 - Atherosclerotic heart disease of [place] coronary artery without angina pectoris Category: Medical Qualifiers: Associated angina: without angina Coronary Disease-Associated Artery/ Lesion type: [place] artery [place] vs. transplanted heart: [place] heart Qualified Code(s): I25.10 - Atherosclerotic heart disease of [place] coronary artery without angina pectoris Plan: S/P NSTEMI in March 2018; cardiac cath done revealed (+) multivessel disease, with 95% stenosis of the RP LV branch Cardiology recommended aggressive medical management as opposed to PCI and patient has been doing well with no recurrence of cardiac symptoms Echocardiogram done on 06/13/2018 revealed normal left ventricular size, thickness and function, no regional wall motion abnormalities and estimated LVEF of 65% Continue dual antiplatelet therapy with Aspirin 81 mg QD and Clopidogrel 75 mg QD Continue Metoprolol ER 100 mg QD, Lisinopril 40 mg QD and Amlodipine 7.5 mg QD; he was previously on Isosorbide Mononitrate ER 30 mg QD but he requested to have this changed as he felt that this was sapping his libido - cardiology switched him over to Amlodipine Follow up with cardiology (Dr. Suresh) as scheduled - he is being seen by cardiology every 6 months (2) Benign essential hypertension: Code(s): I10 - Essential (primary) hypertension Category: Medical Plan: Reinforced low sodium diet - goal is systolic BP of 120 mm or less, given his cardiac issues Continue Lisinopril 40 mg QD, Metoprolol ER 100 mg QD and Amlodipine 5 mg QD (3) Pure hypercholesterolemia: Code(s): E78.00 - Pure hypercholesterolemia, unspecified Category: Medical Plan: Results of his labs done a few days ago reviewed and discussed with patient Reinforced low-cholesterol diet Continue Atorvastatin 80 mg QD and Ezetimibe 10 mg QD (started by cardiology) Will recheck his labs and fasting lipids in 4 months for follow-up (4) Type 2 diabetes mellitus with hyperglycemia: Code(s): E11.65 - Type 2 diabetes mellitus with hyperglycemia Category: Medical Qualifiers: Diabetes mellitus lobsterman insulin use: without lobsterman use Qualified Code(s): E11.65 - Type 2 diabetes mellitus with hyperglycemia Plan: His HgbA1c was at 6.4% on his labs done a few days ago (was previously at 6.3% a few months ago) - goal is at least <7.0% but ideally <6.5% Reinforced diabetic diet Continue Metformin ER 500 mg Q PM (5) Lumbar spondylosis: Code(s): M47.816 - Spondylosis without myelopathy or radiculopathy, lumbar region Category: Medical Plan: Reinforced activity and weight lifting restrictions Continue Cyclobenzaprine 10 mg TID PRN He reports experiencing significant pain relief with improvement in function and mobility with bilateral therapeutic L3-L4 DR L5 MBB from pain management several months ago but the second injection did not seem to help as much He was offered other treatment options including peripheral nerve stimulation with Sprint, RFA and more permanent neuromodulation After giving it some thought, patient prefers not to do anything else at this time especially since his symptoms have not gotten significantly worse lately Follow up with pain management as scheduled (6) Elevated LFTs: Code(s): R79.89 - Other specified abnormal findings of blood chemistry Category: Medical Plan: His LFTs have reverted back to normal previously but his serum ALT has again risen slightly from previous on his recent labs; serum AST remains normal His LFT elevation was likely due to hepatosteatosis as this was noted on his previous abdominal CT done back in 2017 Will continue to monitor his LFTs regularly (7) Vitamin D deficiency: Code(s): E55.9 - Vitamin D deficiency, unspecified Category: Medical Plan: Continue Vitamin D3 2000 units QD (8) Erectile dysfunction: Code(s): N52.9 - Male erectile dysfunction, unspecified Category: Surgical Qualifiers: Erectile dysfunction type: unspecified Qualified Code(s): N52.9 - Male erectile dysfunction, unspecified Plan: Continue Tadalafil 20 mg PRN (9) Overweight (BMI 25.0-29.9): Code(s): E66.3 - Overweight Category: Medical Plan: Reinforced diet/exercise as tolerated/lose weight Plan Follow up in 4 months Orders: Orders Complete Blood Count Auto Diff 4 Months D64.9 - Anemia, unspecified UA CC w/rflx Micro + Cult 4 Months R30.0 - Dysuria Hemoglobin A1c 4 Months E11.9 - Type 2 diabetes mellitus without complications Comprehensive [place]. Panel Fast 4 Months E78.00 - Pure hypercholesterolemia, unspecified Lipid Panel 4 Months E78.00 - Pure hypercholesterolemia, unspecified Microalbumin, Random (w Creat) 4 Months E11.9 - Type 2 diabetes mellitus without complications TSH reflex Free T4 4 Months E78.00 - Pure hypercholesterolemia, unspecified
--- OUTSIDE RECORDS SUMMARY | 2025-04-15 07:22 | XMS_ITS | Clinical Summary ---
Author Organization [facility] [employer] Address [address] [place] [address] Phone Care Team Providers Care Judicial Reporter Name Role Phone Daniel Salinas MD Primary [...] 40 mg tabletIndications: Atherosclerotic heart disease of [place] coronary artery with other forms of angina pectoris (CMS/HCC V24) TAKE 1 TABLET BY MOUTH EVERY DAY 90 tablet 2 07/25/19 25 Active atorvastatin (LIPITOR) 80 mg tabletIndications: Atherosclerotic heart disease of [place] coronary artery with other forms of angina pectoris (CMS/HCC V24) TAKE 1 TABLET BY MOUTH EVERY DAY 90 tablet 2 07/25/19 25 Active OMEPRAZOLE ORAL Take by mouth. Active clopidogreL (PLAVIX) 75 mg tablet TAKE 1 TABLET BY MOUTH 1 TIME EACH DAY. 30 tablet 5 12/25/19 25 Active amLODIPine (NORVASC) 10 mg tabletIndications: Coronary artery disease of [place] artery of [place] heart with stable angina pectoris ([facility]/HCC V24),Essential hypertension,Mixed hyperlipidemia Take 1 tablet (10 mg total) by mouth 1 (one) time each day. 90 each 3 02/06/20 25 026 Active ezetimibe (ZETIA) 10 mg tabletIndications: Coronary artery disease of [place] artery of [place] heart with stable angina pectoris (CMS/HCC V24),Mixed hyperlipidemia Take 1 tablet (10 mg total) by mouth 1 (one) time each day. 90 each 3 02/06/20 25 026 Active metoprolol succinate (TOPROL-XL) 100 mg 24 hr tabletIndications: Atherosclerotic heart disease of [place] coronary artery with other forms of angina pectoris (CMS/HCC V24) TAKE 1 TABLET BY MOUTH EVERY DAY 90 tablet 3 03/25/20 25 Active metoprolol succinate (TOPROL-XL) 100 mg 24 hr tabletIndications: Atherosclerotic heart disease of [place] coronary artery with other forms of angina pectoris (CMS/HCC V24) TAKE 1 TABLET BY MOUTH EVERY DAY 90 tablet 2 07/25/19 25 025 Discontinued Active Problems Problem Noted Date Diagnosed Date Dyspnea on exertion 02/15/2022 Coronary artery disease of [place] artery of [place] heart with stable angina pectoris ([facility] V24) 01/19/2021 Overview (08/22/2024): March 2018 - several days following his cholecystectomy he presented to [facility] with acute onset chest pain and was found to have a non-STEMI; he was transferred to [facility] and underwent a heart catheterization which [...] weeks. We will obtain his labs from [place]. Orders: ECG 12 lead Essential hypertension 01/19/2021 [...] atorvastatin. We will obtain his labs from [place]. Orders: ECG 12 lead Encounters Date Type Department Care Team Description 02/05/2025 Telephone [facility] [address] [place] [address] Petros Menard NP from Last [...] patient's age to complete this topic Insurance [facility]) Care Teams Judicial Reporter Relationship Specialty Start Date End Date Daniel Salinas MD [address] [place] [address] [address] MANUELA Hanks PCP - General Internal Medicine 08/13/21
--- OUTSIDE RECORDS SUMMARY | 2025-04-15 07:24 | XMS_ITS | Patient Health Record ---
Author Organization [facility] Address [address] [place] [address] Care Team Providers Care Striper Spray Gun Name Role Phone Brad CURRY, [place] Primary Care Provider Rafat Agustin Unavailable [phone] Allergies No Known Allergies Results Component Value Reference Range Flag Notes Prothrombin Time INR Reviewed date:01/12/2025 10:28:51 PM Interpretation: Performing Lab:[facility], [address] [place] [phone] Notes/Report: Pt went for procedure. RN Martha notified. POLO 01/10/25 Prothrombin Time 11.4 10.9-12.4 SEC N INTERNATIONAL NORM RATIO 1.0 0.9-1.1 N INTERNATIONAL NORMALIZED RATIO (INR) REFERENCE RANGES Reference [...] (Not yet reviewed by provider) Interpretation: Performing Lab:[facility], [address] [place] [phone] Notes/Report: White Blood Count 7.8 4.8-10.8 X10*3/uL N Red Blood Count 4.26 4.60-5.80 X10*6/uL L Hemoglobin 13.2 14.0-18.0 g/dl L Hematocrit 38.1 42.0-52.0 % L Mean Corpuscular Volume 89.4 80.0-98.0 fL N Mean Corpuscular Hemoglobin 31.0 27.0-33.0 pg N Mean Corpuscular HGB Conc 34.6 31.0-36.0 g/dl N Red Cell Distribution Width 13.2 11.0-16.0 % N Platelet Count 234 160-400 X10*3/uL N Mean Platelet Volume 9.9 9.4-12.4 fL N Neutrophils Percent Auto 66.4 45-73 % N Imm Gran Pct Auto 0.8 0.0-0.4 % H Lymphocytes Percent Auto 22.2 20-40 % N Monocytes Percent Auto 7.9 2-11 % N Eosinophils Percent Auto 2.2 0-4 % N Basophils Percent Auto 0.5 0-2 % N NRBC Pct Auto 0.0 0.0-0.2 /100WBC N Neutrophils Absolute Auto 5.2 2.0-8.3 x10*3/uL N Imm Gran Abs Auto 0.06 0.00-0.03 X10*3/uL H Lymphocytes Absolute Auto 1.7 1.2-4.9 X10*3/uL N Monocytes Absolute Auto 0.6 0.1-1.2 X10*3/uL N Eosinophils Absolute Auto 0.2 0.0-0.4 X10*3/uL N Basophils Absolute Auto 0.0 0.0-0.2 X10*3/uL N NRBC Abs Auto 0.000 0.0-0.012 X10*3/uL N Liver Panel (Not yet reviewe d by provider) Interpretation: Performing Lab:[facility], [address] [place] [phone] Notes/Report: Bilirubin Total 1.0 0.0-1.0 mg/dL N Bilirubin Direct 0.4 0.0-0.5 mg/dL N Aspartate Amino Transferase 43 5-37 U/L H Alanine Aminotransferase 202 0-40 U/L H Total Protein 6.6 6.5-8.0 g/dL N Albumin Level 3.8 3.5-5.0 g/dL N Alkaline Phosphatase 113 39-117 U/L N Basic Metabolic Panel Fastin g (Not yet reviewed by provider) Interpretation: Performing Lab:[facility], [address] [place] [phone] Notes/Report: Sodium 142 135-145 mmol/L N Potassium 3.6 3.3-5.1 mmol/L N Chloride 105 96-108 mmol/L N Carbon Dioxide 28 22-29 mmol/L N Anion Gap 13 12-20 N Blood Urea Nitrogen 15 9-16 mg/dL N Creatinine 0.94 0.5-1.4 mg/dL N Creatinine Clr Calc Pharmacy 82.7 eGFR (calculated [...] 15 mL/min/1.73m2 Glucose Fasting 119 60-99 mg/dL H A fasting glucose from 100-125 mg/dl is considered impaired (pre-diabetes). Calcium 8.6 8.4-10.2 mg/dL N Lipase (Not yet reviewed by provider) Interpretation: Performing Lab:[facility], [address] [place] [phone] Notes/Report: Lipase 44 8-78 U/L N FL guidance in OR (Not yet r eviewed by provider) Interpretation: Performing Lab: Notes/Report: [address] [address] Fluoroscopy Report Signed Patient: Nia Washburn MR#: [id number] : 1970 Acct:[id number] Age/Sex: 54 / M ADM Date: 01/09/25 Loc: HO.S3 361-[address]: Marcelle Womack [employer]ICE Ordering Physician: Rafat Mcgill MD Date of Service: 01/13/25 Procedure(s): FL guidance in OR Accession Number(s): [id number] cc: Daniel Salinas MD; Rafat Mcgill MD [...] Rafat Collazo MD 01/13/2025 04:00 PM EDT Dictated By: Rafat Collazo MD Signed By: <Electronically signed by Rafat Collazo MD in OV> 01/13/25 1600 DD/ 1459 TD/TT: 01/13/25 1527 Tobacco Drying Machine Operator: Complete Blood Count Auto Di ff (Not yet reviewed by provider) Interpretation: Performing Lab:[facility], [address] [place] [phone] Notes/Report: White Blood Count 10.6 4.8-10.8 X10*3/uL N Red Blood Count 4.27 4.60-5.80 X10*6/uL L Hemoglobin 13.2 14.0-18.0 g/dl L Hematocrit 38.3 42.0-52.0 % L Mean Corpuscular Volume 89.7 80.0-98.0 fL N Mean Corpuscular Hemoglobin 30.9 27.0-33.0 pg N Mean Corpuscular HGB Conc 34.5 31.0-36.0 g/dl N Red Cell Distribution Width 13.0 11.0-16.0 % N Platelet Count 253 160-400 X10*3/uL N Mean Platelet Volume 9.8 9.4-12.4 fL N Neutrophils Percent Auto 81.3 45-73 % H Imm Gran Pct Auto 0.7 0.0-0.4 % H Lymphocytes Percent Auto 12.9 20-40 % L Monocytes Percent Auto 4.9 2-11 % N Eosinophils Percent Auto 0.1 0-4 % N Basophils Percent Auto 0.1 0-2 % N NRBC Pct Auto 0.0 0.0-0.2 /100WBC N Neutrophils Absolute Auto 8.6 2.0-8.3 x10*3/uL H Imm Gran Abs Auto 0.07 0.00-0.03 X10*3/uL H Lymphocytes Absolute Auto 1.4 1.2-4.9 X10*3/uL N Monocytes Absolute Auto 0.5 0.1-1.2 X10*3/uL N Eosinophils Absolute Auto 0.0 0.0-0.4 X10*3/uL N Basophils Absolute Auto 0.0 0.0-0.2 X10*3/uL N NRBC Abs Auto 0.000 0.0-0.012 X10*3/uL N Liver Panel (Not yet reviewe d by provider) Interpretation: Performing Lab:[facility], [address] [place] [phone] Notes/Report: Bilirubin Total 1.2 0.0-1.0 mg/dL H Bilirubin Direct 0.4 0.0-0.5 mg/dL N Aspartate Amino Transferase 41 5-37 U/L H Alanine Aminotransferase 168 0-40 U/L H Total Protein 6.6 6.5-8.0 g/dL N Albumin Level 3.7 3.5-5.0 g/dL N Alkaline Phosphatase 114 39-117 U/L N Basic Metabolic Panel Fastin g (Not yet reviewed by provider) Interpretation: Performing Lab:[facility], [address] [place] [phone] Notes/Report: Sodium 140 135-145 mmol/L N Potassium 4.1 3.3-5.1 mmol/L N Chloride 106 96-108 mmol/L N Carbon Dioxide 24 22-29 mmol/L N Anion Gap 14 12-20 N Blood Urea Nitrogen 15 9-16 mg/dL N Creatinine 0.90 0.5-1.4 mg/dL N Creatinine Clr Calc Pharmacy 86.4 eGFR (calculated [...] 15 mL/min/1.73m2 Glucose Fasting 109 60-99 mg/dL H A fasting glucose from 100-125 mg/dl is considered impaired (pre-diabetes). Calcium 8.8 8.4-10.2 mg/dL N Reason For Referral No Information Medications Medication SIG (Take, Route, Frequency, Duration) Notes Start Date End Date Status Aspirin 81 81 MG Tablet Delayed Release 1 tablet Orally Once a day; Duration: 30 day(s) Active amLODIPine Besylate Active Lisinopril Active Metoprolol Succinate ER 100 MG Tablet Extended Release 24 Hour Oral; Duration: 30 Active Omeprazole 20 MG Capsule Delayed Release TAKE 1 CAPSULE BY MOUTH EVERY DAY FOR 30 DAYS; Duration: 30 Active Cyclobenzaprine HCl 10 MG Tablet Oral; Duration: 30 PRN Active Atorvastatin Calcium 80 MG Tablet Oral; Duration: 30 Active Clopidogrel Bisulfate 75 MG Tablet Oral; Duration: 30 Active Vitamin D3 50 MCG (1999) Capsule Oral; Duration: 83 Active Immunizations Vaccine Route Administration Date Status Comme nts Influenza Unknown 03/21/2023 Administered Social History Tobacco Use: Social History Observation Description Date Details (start date - stop date) Former Smoker NA - NA Social History Drugs/Alcohol: Social Info Question Answer Notes Alcohol Screen Did you have a drink containing alcohol in the past year? Yes How often did you have a drink containing alcohol in the past year? Monthly or less (1 point) How many drinks did you have on a typical day when you were drinking in the past year? 3 or 4 drinks (1 point) How often did you have 6 or more drinks on one occasion in the past year? Never (0 point) Points 2 Interpretation Negative Tobacco Use: Social Info Question Answer Notes Tobacco Use/Smoking Patient is a former smoker How long has it been since you last smoked? 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: Nonsmoker; no sig alcohol Nonsmoker; no sig alcohol Nonsmoker; no sig alcohol Problems Problem Type SNOMED Code ICD Code Onset Dates Problem Status W/U Status Risk Notes Problem Colon cancer screening (181853887) Colon cancer screening (Z12.11) Active confirmed Problem Rectal bleeding (27482749) Rectal bleeding (K62.5) Active confirmed Problem Gastro-esophageal reflux disease without esophagitis (370487548) Gastro-esophageal reflux disease without esophagitis (K21.9) Active confirmed Problem Screening for malignant neoplasm of colon (208770510) Encounter for screening for malignant neoplasm of colon (Z12.11) Active confirmed Problem Diverticular disease of colon (701371577) Diverticulosis of large intestine without perforation or abscess without bleeding (K57.30) Active confirmed Problem Cholelithiasis without obstruction (39588632) Calculus of gallbladder without cholecystitis without obstruction (K80.20) Active confirmed Problem Elevated liver enzymes level (515679518) Elevated liver enzymes (R74.8) Active confirmed Problem Fatty liver (842975400) Fatty liver (K76.0) Active confirmed Problem Family History of Cancer of Colon (Situation) (723035750) Family history of colon cancer (Z80.0) Active confirmed Problem Chronic gastritis (3188228) Chronic gastritis (K29.50) Active confirmed Problem Family history of malignant neoplasm of gastrointestinal tract (323249736) Family history of colon cancer in mother (Z80.0) Active confirmed Problem Gastroesophageal reflux disease (disorder) (044238598) Chronic GERD (K21.9) Active confirmed Encounters Encounter Location Date Provider Diagnosis [facility] [address] [place], [place] [id number] 01/10/2025 Rafat Mcgill [facility] [address] [place] [address] 08/14/2024 Rafat Mcgill Plan Of Treatment Pending Test Test Name Order Date Complete Blood Count Auto Diff 5 Complete Blood Count Auto Diff 5 Liver Panel 01/14/2025 Liver Panel 01/13/2025 Basic Metabolic Panel Fasting 01/13/2025 Basic Metabolic Panel Fasting 01/14/2025 Lipase 01/13/2025 FL guidance in OR 01/13/2025 Future Test Test Name Order Date COLONOSCOPY 02/09/2018 UPPER GI ENDOSCOPY 11/22/2023 COLONOSCOPY 11/22/2023 Insurance Providers Payer Name Payer Address Payer Phone Subscriber Number Group Number Insured Name Patient Relationship to Insured Coverage Start Date Coverage End Date [facility] [address] [place], [place] [id number] NIA WASHBURN Self - patient is the insured Medical (General) History Medical History History ICD Code Hypertension Denies DM,CVA,Lung disease,renal disease Elevated liver tests--fatty liver--- otherwise negative workup including imaging studies, iron studies, viral serologies, alpha-1 antitrypsin level, ceruloplasmin level, and SHANIQUA Negative screening colonoscopy in 01/2018 [place]--had a cath with [address] ent placed--sees Dr. Suresh Back pain-gets steroid injections GERD Surgical History Surgery Date(Month/Year) Hernia age 17 [facility]-Dr. Betancourt
== END 2025-04-14 17:38 | disposition home or self-care (01) ==
LOC: HO.HMCH 16:44
PROVIDERS: PCP Internal Medicine; Visit Provider Internal Medicine
DX: I25.10 Atherosclerotic heart disease of native coronary artery without angina pectoris (principal); I10 Essential (primary) hypertension; E78.00 Pure hypercholesterolemia, unspecified; E11.65 Type 2 diabetes mellitus with hyperglycemia; M47.816 Spondylosis without myelopathy or radiculopathy, lumbar region; R79.89 Other specified abnormal findings of blood chemistry; E55.9 Vitamin D deficiency, unspecified; N52.9 Male erectile dysfunction, unspecified; E66.3 Overweight